=== PATIENT | male | born 1945 | race Caucasian/White ===

== ENCOUNTER 2019-08-08 14:34 | Outpatient (CLI) | payer MEDICARE, OTHER, SELFPAY ==
--- NOTE | ~2019-08-08 | XR_ITS ---
XR foot RT 2V DATE: 08/08/2019 15:02 INDICATION: Pain at fifth distal metatarsal and ball of foot TECHNIQUE: Standing AP and lateral views COMPARISON: None FINDINGS: Mild plantar and moderate posterior calcaneal enthesopathy. No fracture, dislocation, periosteal reaction or bone destruction. IMPRESSION: Mild plantar and moderate posterior calcaneal enthesopathy Reviewed, dictated and finalized at location B. 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
== END 2019-08-08 14:35 | disposition home or self-care (01) ==
PROVIDERS: PCP Internal Medicine; Visit Provider Internal Medicine
DX: M77.9 Enthesopathy, unspecified (principal)
CPT/HCPCS: 73620

== ENCOUNTER 2019-10-16 16:22 | Outpatient (CLI) | payer MEDICARE, OTHER, SELFPAY ==
[2019-10-16 17:21] LABS: Blood Urea Nitrogen 22 mg/dL (9-20); Calcium 8.7 mg/dL (8.4-10.2); Carbon Dioxide 32 mmol/L (22-30); Chloride 97 mmol/L (98-107); Estimated Glomerular Filt Rate > 60; Glucose 107 mg/dL (75-110); Sodium 136 mmol/L (137-145)
== END 2019-10-16 16:23 | disposition home or self-care (01) ==
PROVIDERS: PCP Internal Medicine; Visit Provider Internal Medicine
DX: R94.6 Abnormal results of thyroid function studies (principal); Z79.899 Other long term (current) drug therapy
CPT/HCPCS: 36415; 80048; 84439; 84443

== ENCOUNTER 2019-10-22 12:23 | Outpatient (CLI) | payer MEDICARE, OTHER, SELFPAY ==
--- NOTE | ~2019-10-22 | CT_ITS ---
EXAMINATION: CT chest abdomen pelvis wo con EXAM DATE: 10/22/2019 12:48 INDICATION: Unintended weight loss. TECHNIQUE: Spiral CT of the chest, abdomen and pelvis was performed without contrast. Axial, posey l and sagittal images were reviewed. Coronal maximum intensity pixel images of chest reviewed. The dose-length product (DLP) for this examination was 796.23 mGy-cm. The exposure was tailored accordin g to patient size (auto mA exposure control), and iterative reconstruction (ASIR) was used as additio nal dose reduction technique. Comparison is made to prior examination from 04/16/2011. FINDINGS: CHEST: There is mild emphysema. The lungs are clear. Small pericardial effusion. No pleural effusio ns. Tracheobronchial tree is patent. There is no mediastinal, hilar or axillary lymphadenopathy. There is no pneumothorax. Heart normal in size. There is mild coronary arterial calcification, a rterial sclerosis. ABDOMEN PELVIS: The liver, spleen, adrenal glands and pancreas are unremarkable. Gallbladder is unre markable. No biliary obstruction. There is no nephrolithiasis or hydronephrosis. There is mild pro statomegaly. The bladder is unremarkable. There is no retroperitoneal or pelvic lymphadenopathy. There is mild to moderate scattered arteriosclerotic disease. The appendix is normal. The stomach and small bowel are unremarkable. There is moderate amount of c olonic stool. There is rather extensive sigmoid predominant colonic diverticulosis. There is no ace cent inflammatory change to suggest diverticulitis. No free intraperitoneal gas. There are no oste oblastic or osteolytic lesions identified. Patient has diffuse idiopathic skeletal hyperostosis (DIS H). IMPRESSION: 1. Mild emphysema. 2. Small pericardial effusion. 3. Colonic diverticulosis. Reviewed, dictated and finalized at location A.
== END 2019-10-22 12:24 | disposition home or self-care (01) ==
PROVIDERS: PCP Internal Medicine; Visit Provider Internal Medicine
DX: R63.4 Abnormal weight loss (principal); J43.9 Emphysema, unspecified; I31.3 Pericardial effusion (noninflammatory); K57.30 Diverticulosis of large intestine without perforation or abscess without bleeding
CPT/HCPCS: 71250; 74176

== ENCOUNTER 2019-11-30 07:41 | Outpatient (CLI) | payer MEDICARE, OTHER, SELFPAY ==
[2019-11-30 08:35] LABS: Hemoglobin A1C 5.4 % (<5.7)
[2019-11-30 08:37] LABS: Alanine Aminotransferase 74 U/L (4-50); Albumin Level 4.3 g/dL (3.5-5.1); Alkaline Phosphatase 68 U/L (38-126); Aspartate Amino Transferase 55 U/L (17-59); Bilirubin,Total 1.1 mg/dL (0.2-1.3); Blood Urea Nitrogen 18 mg/dL (9-20); Calcium 8.9 mg/dL (8.4-10.2); Carbon Dioxide 31 mmol/L (22-30); Chloride 100 mmol/L (98-107); Cholesterol 111 mg/dL (0-200); Estimated Glomerular Filt Rate > 60; Glucose 97 mg/dL (75-110); HDL Direct 49 mg/dL; Potassium 3.9 mmol/L (3.4-5.0); Sodium 137 mmol/L (137-145); Triglycerides 73 mg/dL (<150)
[2019-11-30 08:48] LABS: LDL Cholesterol Direct 54 mg/dL
[2019-11-30 08:49] LABS: Basophils Percent Auto 0.7 % (0.2-1.2); Eosinophils Absolute Auto 0.1 K/mm3 (0-0.3); Hematocrit 50.9 % (42.0-52.0); Hemoglobin 16.5 g/dL (14.0-18.0); Immature Granulocyte Absolute 0.01 K/mm3 (0.00-0.031); Immature Granulocyte Percent A 0.2 % (0-0.5); Immature Platelet Fraction Pct 2.5 % (0.9-11.2); Lymphocytes Absolute Auto 1.33 K/mm3 (0.9-3.2); Lymphocytes Percent Auto 23.9 % (18.3-44.2); Mean Corpuscular HGB Conc 32.4 g/dl (32-36); Mean Corpuscular Hemoglobin 31.3 pg (26-34); Mean Corpuscular Volume 96.6 fl (80-100); Mean Platelet Volume 9.7 fl (7.4-10.4); Monocytes Absolute Auto 0.5 K/mm3 (0.1-0.6); Monocytes Percent Auto 8.1 % (2.6-8.5); Neutrophils Absolute Auto 3.6 K/mm3 (1.3-6.7); Neutrophils Percent Auto 65.1 % (45.5-73.1); Platelet Count Result 134 k/mm3 (150-375); Red Blood Count 5.27 M/mm3 (4.6-6.20); Red Cell Distribution Width 12.5 % (11.5-14.5); White Blood Count 5.6 K/mm3 (4.5-10.0)
[2019-11-30 09:03] LABS: Free T4 Free Thyroxine 1.64 ng/mL (0.78-2.19)
[2019-11-30 09:43] LABS: Folic Acid > 20.0 ng/mL (2.76->20); Vitamin B12 > 1000.0 pg/mL (239-931)
[2019-12-02 23:58] LABS: Testosterone Total 349 ng/dL (250-1100)
== END 2019-11-30 07:42 | disposition home or self-care (01) ==
PROVIDERS: Visit Provider Internal Medicine
DX: E53.8 Deficiency of other specified B group vitamins (principal); Z79.899 Other long term (current) drug therapy; E29.1 Testicular hypofunction; I10 Essential (primary) hypertension; E78.5 Hyperlipidemia, unspecified; B35.1 Tinea unguium
CPT/HCPCS: 36415; 80053; 80061; 82607; 82746; 83036; 84403; 84439; 84443; 85025; 85055

== ENCOUNTER 2020-01-22 12:59 | Outpatient (CLI) | payer MEDICARE, OTHER, SELFPAY ==
--- NOTE | ~2020-01-22 | XR_ITS ---
XR hip RT min 2V DATE: 01/22/2020 13:14 INDICATION: Right hip lateral localized swelling, mass TECHNIQUE: AP, lateral and crosstable lateral views of right hip COMPARISON: None FINDINGS: No fracture or dislocation, avascular necrosis or bone destruction. The alignment is intact at the pubic symphysis and right sacroiliac joint. There is degenerative disc disease at L4-5 and L5-S1. IMPRESSION: No significant abnormality of right hip Degenerative disc disease at L4-5 and L5-S1 Reviewed, dictated and finalized at location B.
== END 2020-01-22 13:00 | disposition home or self-care (01) ==
PROVIDERS: Visit Provider Internal Medicine
DX: R22.41 Localized swelling, mass and lump, right lower limb (principal); M51.36 Other intervertebral disc degeneration, lumbar region; M51.37 Other intervertebral disc degeneration, lumbosacral region
CPT/HCPCS: 73502

== ENCOUNTER 2020-01-31 09:52 | Outpatient (CLI) | payer MEDICARE, OTHER, SELFPAY ==
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
== END 2020-01-31 09:53 | disposition home or self-care (01) ==
LOC: ANHIMG 09:56
PROVIDERS: Visit Provider Internal Medicine
DX: R22.41 Localized swelling, mass and lump, right lower limb (principal)
CPT/HCPCS: 76882

== ENCOUNTER 2020-08-20 09:14 | Outpatient (CLI) | payer MEDICARE, OTHER, SELFPAY ==
[2020-08-20 10:22] LABS: Alanine Aminotransferase 78 U/L (4-50); Alkaline Phosphatase 69 U/L (38-126); Anion Gap 4 mmol/L (8-16); Aspartate Amino Transferase 67 U/L (17-59); Bilirubin,Total 0.7 mg/dL (0.2-1.3); Blood Urea Nitrogen 16 mg/dL (9-20); Calcium 8.5 mg/dL (8.4-10.2); Carbon Dioxide 33 mmol/L (22-30); Chloride 102 mmol/L (98-107); Cholesterol 140 mg/dL (0-200); Estimated Glomerular Filt Rate > 60; Glucose 103 mg/dL (75-110); HDL Direct 45 mg/dL; Potassium 4.2 mmol/L (3.4-5.0); Sodium 139 mmol/L (137-145); Triglycerides 99 mg/dL (<150)
[2020-08-20 10:23] LABS: LDL Cholesterol Direct 73 mg/dL
[2020-08-20 11:09] LABS: Free T4 Free Thyroxine 1.34 ng/mL (0.78-2.19); Vitamin D 25 Hydroxy 51.9 ng/mL
== END 2020-08-20 09:15 | disposition home or self-care (01) ==
PROVIDERS: Visit Provider Internal Medicine
DX: E78.2 Mixed hyperlipidemia (principal); I10 Essential (primary) hypertension; Z79.899 Other long term (current) drug therapy; E55.9 Vitamin D deficiency, unspecified; E11.9 Type 2 diabetes mellitus without complications
CPT/HCPCS: 36415; 80053; 80061; 82306; 83036; 83698; 84439; 84443

== ENCOUNTER → 2020-10-31 01:56 | Outpatient (CLI) | payer MEDICARE, OTHER, SELFPAY ==
[2020-10-31 19:43] LABS: SARS-CoV-2 RNA PCR Negative
== END ==
PROVIDERS: Visit Provider Internal Medicine Gastroenterology
DX: Z01.812 Encounter for preprocedural laboratory examination (principal); Z20.822 Contact with and (suspected) exposure to COVID-19
CPT/HCPCS: C9803; U0003; U0005

== ENCOUNTER 2020-11-04 02:25 | Day surgery (SDC) | payer MEDICARE, OTHER, SELFPAY ==
[2020-10-22 15:15] VITALS: BMI 27.9
--- NOTE | 2020-11-04 07:36 | WPDANESEPPF ---
Anes - Initial Pre Proc Eval Procedure: Operation Date: 11/04/20 09:00 Proposed Procedures p Screening Colonoscopy - Travis Kolb MD Date/Time: 11/04/20 07:36 Surgeon: Travis Kolb MD Pre Op Diagnosis: hx of colon polyp, fam hx colon ca Patient Data Age: 75 Gender: M Height: 1.8 m Weight: 90.9 kg Allergies Allergy/AdvReac Type Severity Reaction Status Date / Time Iodinated Contrast Media Allergy Unknown Hives Verified 11/04/20 08:01 Contrast Media Allergy Mild HIVES Uncoded 11/04/20 08:01 Home Medications Medication Instructions Recorded Confirmed Type aspirin 81 mg tablet,delayed 81 mg PO DAILY 07/19/19 11/04/20 History release cyanocobalamin (vitamin B-12) 1,000 mcg PO DAILY 07/19/19 11/04/20 History 1,000 mcg capsule multivitamin 1 tablet PO DAILY 07/19/19 11/04/20 History melatonin 10 mg capsule 10 mg PO HS 08/07/19 11/04/20 History finasteride 5 mg tablet 5 mg PO DAILY #90 tablet 11/12/19 11/04/20 Rx metformin 500 mg tablet 500 mg PO BID #180 tablet 12/18/19 11/04/20 Rx calcium carbonate-vitamin D3 1 tab-cap PO DAILY 02/07/20 11/04/20 History pantoprazole 40 mg tablet,delayed 40 mg PO DAILY #90 tablet 02/25/20 11/04/20 Rx release omega-3 fatty acids 1,000 mg 2,000 mg PO BID cap 04/22/20 11/04/20 History capsule rosuvastatin 10 mg tablet 10 mg PO DAILY #90 tablet 04/22/20 11/04/20 Rx celecoxib 200 mg capsule See Rx Instructions .ROUTE 05/26/20 11/04/20 Rx .COMPLEX #180 cap tamsulosin 0.4 mg capsule See Rx Instructions .ROUTE 06/03/20 11/04/20 Rx .COMPLEX #90 cap candesartan 16 mg tablet See Rx Instructions .ROUTE 06/15/20 11/04/20 Rx .COMPLEX #90 tablet testosterone cypionate 200 mg/mL 400 mg IM .q 2 weeks #12 ml 06/25/20 11/04/20 Rx intramuscular kit syringe with needle 3 mL 21 gauge See Rx Instructions .ROUTE 08/13/20 11/04/20 Rx x 1 .COMPLEX #6 syringe mirtazapine 15 mg tablet See Rx Instructions .ROUTE 08/31/20 11/04/20 Rx .COMPLEX #90 tablet fesoterodine 4 mg tablet,extended 4 mg PO DAILY 09/03/20 11/04/20 History release 24 hr nystatin-triamcinolone 100,000 1 applic TOPICAL BID #30 g 09/03/20 11/04/20 Rx unit/g-0.1 % topical cream lorazepam 0.5 mg tablet 0.5 mg PO TID PRN #270 tablet 09/29/20 11/04/20 Rx amiodarone 100 mg tablet 100 mg PO DAILY #90 tablet 10/09/20 11/04/20 Rx terazosin 10 mg capsule 10 mg PO DAILY #90 cap 10/12/20 11/04/20 Rx sertraline 100 mg tablet 150 mg PO DAILY #135 tablet 10/22/20 11/04/20 Rx Patient hx anesthesia problems: none Family hx anesthesia problems: none PMFSH Past Medical History Medical History (Updated 09/03/20 @ 09:18 by Tara Valle [facility]) Abnormality of heart beat Actinic keratosis Anxiety with depression Arthritis BMI 27.0-27.9,adult BMI 28.0-28.9,adult BMI 30.0-30.9,adult BMI 31.0-31.9,adult Borderline abnormal TFTs BPH (benign prostatic hyperplasia) Callus of foot Chronic right hip pain Colon cancer screening Constipation Depression Diastolic dysfunction Elevated homocysteine Encounter for routine adult health examination without abnormal findings Hearing loss Hematoma of right hip History of kidney stones History of umbilical hernia Hypogonadism in male Insomnia Mixed hyperlipidemia Multiple falls Nocturia On hand i tube bender drug therapy On hand i tube bender drug therapy Orthostatic hypotension Pneumonia Prediabetes Right foot pain Seasonal allergies Sinus arrhythmia Stress due to illness of family member SVT (supraventricular tachycardia) Tenosynovitis of finger Testicular hypofunction Testosterone deficiency Tremor of both hands Type 2 diabetes mellitus without complication Type 2 diabetes mellitus without complications Unintended weight loss Urinary frequency Urinary urgency Vitamin B12 deficiency Vitamin D deficiency Weight loss Family History Family History Mother Carcinoma of colon Family history of diabetes mellitus in fir
[2020-11-04 08:04] VITALS: BP 105/62; PULSE 67; RESP 16; TEMP 35.5; O2SAT 97; BMI 27.6
[2020-11-04] MEDS: LACTATED RINGERS 1,000 ML 150 ML IV CONT (08:20)
[2020-11-04 08:24] LABS: Glucose Point of Care 112 mg/dl (65-105)
--- NOTE | 2020-11-04 09:05 | WPDGICN ---
Assessment and Plan Assessment and plan (1) History of colon polyps: Code(s): Z86.010 - Personal history of colonic polyps Status: Acute Assessment and Plan: patient has a personal history of colon polyps as well as a family history of colon cancer in his mother. For this recent surveillance colonoscopy will be performed now and considered in 5 years. Further recommendations will be given after endoscopy. (2) Family history of colon cancer in mother: Code(s): Z80.0 - Family history of malignant neoplasm of digestive organs Status: Acute (3) Constipation: Qualifiers: Constipation type: unspecified constipation type Qualified Code(s): K59.00 - Constipation, unspecified Code(s): K59.00 - Constipation, unspecified Status: Acute Assessment and Plan: Patient complains of ongoing constipation. I would advise he take fiber supplements such as FiberCon 2 tablets p.o. daily or Metamucil daily supplemented with MiraLax once or twice a week as needed. GI Consult Note Consult date/time: 11/04/20 09:05 HPI: Liam Oreilly is a 75 year old male Presents for screening colonoscopy. Patient states that his current weight appetite bowel movements are normal. Patient denies abdominal pain. He has had no bleeding. Patient does have a prior history of colon polyps. Family history is significant that his mother had colon cancer. Patient does report some degree of irregular bowel movements. He denies any blood in his stools. He denies abdominal pain. Review of Systems Review of Systems: All systems reviewed & are unremarkable except as noted in HPI and below PMFSH Past Medical History Medical History (Updated 11/04/20 @ 09:08 by Travis Kolb MD) Abnormality of heart beat Actinic keratosis Anxiety with depression Arthritis BMI 27.0-27.9,adult BMI 28.0-28.9,adult BMI 30.0-30.9,adult BMI 31.0-31.9,adult Borderline abnormal TFTs BPH (benign prostatic hyperplasia) Callus of foot Chronic right hip pain Colon cancer screening Constipation Depression Diastolic dysfunction Elevated homocysteine Encounter for routine adult health examination without abnormal findings Hearing loss Hematoma of right hip History of kidney stones History of umbilical hernia Hypogonadism in male Insomnia Mixed hyperlipidemia Multiple falls Nocturia On mcc drug therapy On manager intermediate drug therapy Orthostatic hypotension Pneumonia Prediabetes Right foot pain Seasonal allergies Sinus arrhythmia Stress due to illness of family member SVT (supraventricular tachycardia) Tenosynovitis of finger Testicular hypofunction Testosterone deficiency Tremor of both hands Type 2 diabetes mellitus without complication Type 2 diabetes mellitus without complications Unintended weight loss Urinary frequency Urinary urgency Vitamin B12 deficiency Vitamin D deficiency Weight loss Family History Family History Mother Carcinoma of colon Family history of diabetes mellitus in first degree relative Diabetes mellitus Family history of cardiovascular disease Father Family history of malignant neoplasm Social History Social History Smoking status: Former smoker Tobacco type: cigarettes Smoking end date: 06/19/97 Alcohol intake: never Substance use: never Substance use type: does not use Living arrangements: alone Gender identity (if verbalized by the patient): Male Sexual Orientation (if Verbalized by the Patient): Straight or Heterosexual Spiritual care concerns: No Meds Home Medications and Allergies Home Medications Medication Instructions Recorded Confirmed Type aspirin 81 mg tablet,delayed 81 mg PO DAILY 07/19/19 11/04/20 History release cyanocobalamin (vitamin B-12) 1,000 mcg PO DAILY 07/19/19 11/04/20 History 1,000 mcg capsule multivi
[2020-11-04 09:35] VITALS: BP 99/52; PULSE 53; RESP 16; O2SAT 98
[2020-11-04 09:45] VITALS: BP 88/54; PULSE 54; RESP 16; O2SAT 98
[2020-11-04 09:55] VITALS: BP 92/58; PULSE 54; RESP 16; O2SAT 99
== END 2020-11-04 10:14 | disposition home or self-care (01) ==
PROVIDERS: Visit Provider Internal Medicine Gastroenterology
PROC: 0DJD8ZZ Inspection of Lower Intestinal Tract, Via Natural or Artificial Opening Endoscopic (ICD-10-PCS; CPT 45378; principal; 2020-11-04 09:00)
DX: Z12.11 Encounter for screening for malignant neoplasm of colon (principal); D12.5 Benign neoplasm of sigmoid colon; K57.30 Diverticulosis of large intestine without perforation or abscess without bleeding; K64.8 Other hemorrhoids; Z80.0 Family history of malignant neoplasm of digestive organs; K59.00 Constipation, unspecified; F41.8 Other specified anxiety disorders; N40.0 Benign prostatic hyperplasia without lower urinary tract symptoms; E78.2 Mixed hyperlipidemia; E11.9 Type 2 diabetes mellitus without complications; I51.9 Heart disease, unspecified; E55.9 Vitamin D deficiency, unspecified; E53.8 Deficiency of other specified B group vitamins; Z87.891 Personal history of nicotine dependence; Z79.84 Long term (current) use of oral hypoglycemic drugs; Z79.82 Long term (current) use of aspirin
CPT/HCPCS: 45385; 82948; 88305; J2001; J2704; J7120

== ENCOUNTER 2021-01-07 07:25 | Outpatient (CLI) | payer MEDICARE, OTHER, SELFPAY ==
[2021-01-07 07:57] LABS: Anion Gap 8 mmol/L (8-16); Blood Urea Nitrogen 27 mg/dL (9-20); Carbon Dioxide 27 mmol/L (22-30); Chloride 104 mmol/L (98-107); Cholesterol 144 mg/dL (0-200); Estimated Glomerular Filt Rate > 60; Glucose 102 mg/dL (65-110); HDL Direct 44 mg/dL; Potassium 4.6 mmol/L (3.4-5.0); Sodium 139 mmol/L (137-145); Triglycerides 110 mg/dL (<150)
[2021-01-07 08:03] LABS: Hemoglobin A1C 5.4 % (<5.7)
[2021-01-07 08:06] LABS: LDL Cholesterol Direct 67 mg/dL
[2021-01-07 08:14] LABS: Basophils Percent Auto 0.8 % (0.2-1.2); Eosinophils Absolute Auto 0.2 K/mm3 (0-0.3); Eosinophils Percent Auto 3.1 % (0-4.4); Hematocrit 49.2 % (42.0-52.0); Hemoglobin 15.4 g/dL (14.0-18.0); Immature Granulocyte Absolute 0.01 K/mm3 (0.00-0.031); Immature Granulocyte Percent A 0.2 % (0-0.5); Immature Platelet Fraction Pct 2.8 % (0.9-11.2); Lymphocytes Percent Auto 31.1 % (18.3-44.2); Mean Corpuscular HGB Conc 31.3 g/dl (32-36); Mean Corpuscular Hemoglobin 30.4 pg (26-34); Mean Platelet Volume 9.8 fl (7.4-10.4); Monocytes Absolute Auto 0.4 K/mm3 (0.1-0.6); Monocytes Percent Auto 8.5 % (2.6-8.5); Neutrophils Absolute Auto 2.7 K/mm3 (1.3-6.7); Neutrophils Percent Auto 56.3 % (45.5-73.1); Platelet Count Result 142 k/mm3 (150-375); Red Blood Count 5.07 M/mm3 (4.6-6.20); Red Cell Distribution Width 12.8 % (11.5-14.5); White Blood Count 4.8 K/mm3 (4.5-10.0)
== END 2021-01-07 07:26 | disposition home or self-care (01) ==
PROVIDERS: Visit Provider Internal Medicine
DX: E78.2 Mixed hyperlipidemia (principal); E11.9 Type 2 diabetes mellitus without complications; Z79.899 Other long term (current) drug therapy
CPT/HCPCS: 36415; 80048; 80061; 83036; 85025; 85055

== ENCOUNTER 2021-01-29 15:11 | Observation (INO) | payer MEDICARE, OTHER, SELFPAY ==
--- NOTE | ~2021-01-29 | XR_ITS ---
EXAMINATION: XR chest 2V DATE: 01/29/2021 15:39 INDICATION: Left arm pain and weakness TECHNIQUE: PA and lateral views of the chest were obtained. COMPARISON: Chest radiograph dated 08/11/2017 FINDINGS: The lungs remain clear with no focal airspace opacities, pulmonary edema, pleural effusion or pneumot horax. The cardiomediastinal silhouette is normal. There are bridging osteophytes at multiple levels in the spine, consistent with diffuse idiopathic skeletal hyperostosis (DISH). Chronic mild anterior wedging of a couple mid thoracic vertebral bodies. IMPRESSION: 1. No acute cardiopulmonary disease. Reviewed, dictated and finalized at location A.
--- NOTE | 2021-01-29 15:14 | ECG_ITS ---
Measurements Intervals Chloe Rate: 60 P: -61 AL: 231 QRS: 35 QRSD: 92 T: 38 QT: 445 QTc: 445 Interpretive Statements SINUS OR ECTOPIC ATRIAL RHYTHM BORDERLINE AV CONDUCTION DELAY CANNOT RULE OUT SEPTAL INFARCT, AGE INDETERMINATE ABNORMAL ECG Electronically Signed On 01-29-2021 15:26:14 CDT by Michael Quintero D.O.
[2021-01-29 15:27] VITALS: BP 143/71; PULSE 61; RESP 15; TEMP 36.7; O2SAT 100
[2021-01-29 15:44] LABS: Basophils Percent Auto 0.5 % (0.2-1.2); Eosinophils Absolute Auto 0.1 K/mm3 (0-0.3); Eosinophils Percent Auto 0.8 % (0-4.4); Hematocrit 44.8 % (42.0-52.0); Hemoglobin 14.2 g/dL (14.0-18.0); Immature Granulocyte Absolute 0.03 K/mm3 (0.00-0.031); Immature Granulocyte Percent A 0.4 % (0-0.5); Immature Platelet Fraction Pct 2.5 % (0.9-11.2); Lymphocytes Absolute Auto 1.43 K/mm3 (0.9-3.2); Lymphocytes Percent Auto 19.6 % (18.3-44.2); Mean Corpuscular HGB Conc 31.7 g/dl (32-36); Mean Corpuscular Hemoglobin 30.6 pg (26-34); Mean Corpuscular Volume 96.6 fl (80-100); Mean Platelet Volume 9.8 fl (7.4-10.4); Monocytes Absolute Auto 0.6 K/mm3 (0.1-0.6); Monocytes Percent Auto 8.1 % (2.6-8.5); Neutrophils Absolute Auto 5.2 K/mm3 (1.3-6.7); Neutrophils Percent Auto 70.6 % (45.5-73.1); Platelet Count Result 135 k/mm3 (150-375); Red Blood Count 4.64 M/mm3 (4.6-6.20); Red Cell Distribution Width 13.1 % (11.5-14.5); White Blood Count 7.3 K/mm3 (4.5-10.0)
[2021-01-29 15:52] LABS: Anion Gap 6 mmol/L (8-16); Blood Urea Nitrogen 22 mg/dL (9-20); Calcium 9.4 mg/dL (8.4-10.2); Carbon Dioxide 31 mmol/L (22-30); Chloride 103 mmol/L (98-107); Estimated CRCL calculation 49 ml/min; Estimated Glomerular Filt Rate 59; Glucose 73 mg/dL (65-110); Potassium 4.1 mmol/L (3.4-5.0); Sodium 140 mmol/L (137-145)
[2021-01-29 16:01] LABS: Prothrombin Time 13.4 Seconds (11.1-14.7)
[2021-01-29 16:02] LABS: Partial Thromboplastin Time 24.7 SECONDS (22.3-36.8)
[2021-01-29 16:03] LABS: Troponin I 0.034 ng/mL (0.000-0.034)
[2021-01-29 17:45] VITALS: BP 153/86; PULSE 59; RESP 16; O2SAT 100
--- NOTE | 2021-01-29 19:20 | PC.NURSE ---
report to CARROL christopher, to continue care.
[2021-01-29] MEDS: NITROGLYCERIN SL 0.4 MG TABLET SUBLINGUAL (19:32)
[2021-01-29 19:44] VITALS: BP 146/79; PULSE 57; RESP 21; O2SAT 99
--- NOTE | 2021-01-29 19:51 | PC.NURSE ---
1st dose of nitro given 1931, 2nd dose given 1936 upon which no chest pain noted. no 3rd dose given.
[2021-01-29 20:32] LABS: Troponin I 0.042 ng/mL (0.000-0.034)
[2021-01-29] MEDS: ACETAMINOPHEN 500 MG TABLET 1000 MG PO (20:45)
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
[2021-01-29 22:25] VITALS: PULSE 59; RESP 16; O2SAT 97
[2021-01-30] MEDS: ENOXAPARIN 100 MG/ML SYRINGE 90 MG SUB-Q (00:16)
[2021-01-30 01:51] VITALS: BP 126/70; PULSE 53; RESP 12; O2SAT 99
[2021-01-30 02:15] VITALS: BP 142/78; PULSE 50; RESP 14; TEMP 36.9; O2SAT 100
--- NOTE | 2021-01-30 02:26 | PC.NURSE ---
This patient, Liam Oreilly, was admitted to IMU Room 205-01. Patient/family oriented to hospital policies and general routines including ID bracelet, bed and alarms, visiting hours, pain management, procedures, bathroom and other care routines, personal items, smoking policy, room service/diet, and visiting hours. Information on how to activate the Rapid Response Team has been discussed. Patient/Family are encouraged to report perceived risks to care and to ask questions if they do not understand what they are told or what they should do.
[2021-01-30 02:28] VITALS: BMI 28.0
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
[2021-01-30 04:25] VITALS: BP 139/82; PULSE 52; RESP 16; TEMP 37; O2SAT 100
[2021-01-30] MEDS: ACETAMINOPHEN 325 MG TABLET 650 MG PO (05:41)
[2021-01-30] MEDS: LACTATED RINGERS 1,000 ML 60 ML IV CONT (05:41)
[2021-01-30 06:03] LABS: Troponin I 0.029 ng/mL (0.000-0.034)
[2021-01-30 08:00] VITALS: PULSE 53
[2021-01-30 09:27] VITALS: BP 155/83; PULSE 56; RESP 20; TEMP 36.4; O2SAT 100
[2021-01-30] MEDS: CHOLECALCIFEROL 1,000 UNITS TABLET 1000 UNITS PO (10:36)
[2021-01-30] MEDS: ASPIRIN 81 MG ENTERIC TABLET PO (10:36)
[2021-01-30] MEDS: CYANOCOBALAMIN 1,000 MCG TABLET 1000 MCG PO (10:36)
[2021-01-30] MEDS: MIRABEGRON 25 MG ER TABLET PO (10:37)
[2021-01-30] MEDS: OMEGA 3 POLYUNSAT FATTY ACIDS 1 GM CAP 2 GM PO (10:37)
[2021-01-30] MEDS: FINASTERIDE 5 MG TABLET PO (10:37)
[2021-01-30] MEDS: CANDESARTAN CILEXETIL 16 MG TABLET PO (10:37)
[2021-01-30] MEDS: ROSUVASTATIN 10 MG TABLET PO (10:37)
[2021-01-30] MEDS: MULTIVITAMINS THERAPEUTIC TAB (*BKC) 1 TABLET PO (10:37)
[2021-01-30] MEDS: TAMSULOSIN HCL 0.4 MG CAPSULE PO (10:38)
[2021-01-30] MEDS: SERTRALINE HCL 50 MG TABLET 100 MG PO (10:38)
[2021-01-30] MEDS: TERAZOSIN HCL 5 MG CAPSULE 10 MG PO (10:38)
[2021-01-30] MEDS: PANTOPRAZOLE 40 MG TABLET PO (10:38)
[2021-01-30] MEDS: MIRTAZAPINE 30 MG TABLET PO (10:38)
--- NOTE | 2021-01-30 17:05 | PM.DS ---
DS: Admitting Diagnosis Admitting Diagnosis Left arm pain DS: Discharge Diagnosis Discharge Diagnosis (1) Left arm pain: Code(s): M79.602 - Pain in left arm Status: Acute Assessment and Plan: Patient had significant exertion yesterday doing yd work, subsequently had left arm pain which resolved. The next day patient's symptoms have resolved, unclear etiology as to arm pain. Throughout this episode he is not having chest symptoms or shortness of breath at all. (2) Elevated troponin: Code(s): R77.8 - Other specified abnormalities of plasma proteins Status: Acute Assessment and Plan: Troponin max at 0.042, unclear etiology may be from stress. Patient will follow-up with cardiology outpatient. Patient had normal stress test 2 years ago January 2019. He has been followed up for SVTs with Dr. Quintero. Recently stopped his amiodarone earlier this month. His symptoms did not appear to be ACS with no chest symptoms no shortness of breath. 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 Quintero. I discussed case with Dr. Quintero. DS: Summary Hospital Course Reason for hospitalization: Left arm pain Hospital Course: Patient is a 75-year-old male past medical history of hypertension hyperlipidemia presents to the ED with complaints of left arm pain. 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 Later that day he went to play cards with his friends and noticed left arm pain. The arm pain was nonexertional at the time of onset when he noticed it. He had no chest or shortness of breath symptoms, no history of coronary disease. He called his PCP who advised him to be evaluated in the ER. Of note he recently has been following Dr. Quintero for SVT and has been on amiodarone which was discontinued 2 weeks ago. He is to have an outpatient Holter monitor placed with the cardiology group. Echocardiogram in 2019 showed EF 55-60% with grade 1 diastolic dysfunction, mild left atrial enlargement and mild MR/TR. He had stress test in 2019 which was negative. He had EKG which showed no acute abnormality. Nitroglycerin did not help and Tylenol leave his pain. His troponin was elevated at 0.042 and then downtrended thereafter. Patient did not have any active chest pain during that elevated troponin. Patient was admitted for observation. Patient's symptoms have resolved by the next morning. No EKG changes or telemetry changes. His troponin has down trended to normal, he had only 1 abnormal troponin read up based off our lab parameters. He is asymptomatic and we are unable to do stress test today over the weekend. I discussed case with Cardiology Dr. Quintero will follow-up with him outpatient with no stress test ordered at this time. Status at Discharge Cognitive/behavioral status at discharge: At baseline Functional status at discharge: independent ambulation Time Spent with Patient Time attestation: Total time spent providing and/or coordinating discharge services:35 Time spent: Greater than 30 minutes Exam Narrative: - GENERAL: Well-nourished pleasant elderly male in no acute distress - EYES: EOMI. Anicteric. - HENT: Moist mucous membranes. - LUNGS: Clear to auscultation bilaterally, no wheezing, rhonchi, or rales. - CARDIOVASCULAR: Regular rate and rhythm. No murmur. No JVD. - ABDOMEN: Soft, non-tender and non-distended. No palpable masses. - EXTREMITIES: No edema. Peripheral pulses 2+. Non-tender. - NEUROLOGIC: No focal neurological deficits. CN II-XII grossly intact. - PSYCHIATRIC: Awake, Alert and oriented x 3. Appropriate mood and affect. - SKIN: No rashes or lesions. Warm. - LYMPH: No cervical lymphadenopathy. DS: Data Data Completed and Pending Labs on day of discharge: Labs from last 24 hours 01/30/21 01/29/21 04:31 19:29 Troponin I 0.029 0.042 H* D Discharge Plan Discharge Attending physician on discharge: Jovanna Garsia
== END 2021-01-30 11:15 | disposition home or self-care (01) ==
LOC: ANHED 23:06 → ANHIMU 01-30 10:15
PROVIDERS: Emergency Medicine; Admitting Provider Internal Medicine; Emergency Provider Emergency Medicine; PCP Internal Medicine; Visit Provider Student in an Organized Health Care Education/Training Program
DX: M79.622 Pain in left upper arm (principal); R77.8 Other specified abnormalities of plasma proteins; N40.0 Benign prostatic hyperplasia without lower urinary tract symptoms; E78.2 Mixed hyperlipidemia; I11.9 Hypertensive heart disease without heart failure; E53.8 Deficiency of other specified B group vitamins; F41.8 Other specified anxiety disorders; I47.1 Supraventricular tachycardia; K21.9 Gastro-esophageal reflux disease without esophagitis; E11.9 Type 2 diabetes mellitus without complications; E55.9 Vitamin D deficiency, unspecified; Z87.891 Personal history of nicotine dependence; Z79.84 Long term (current) use of oral hypoglycemic drugs; Z79.82 Long term (current) use of aspirin
CPT/HCPCS: 36415; 71046; 80048; 84484; 85025; 85055; 85610; 85730; 93005; 96372; 99285; A9270; G0378; J1650; J7120

== ENCOUNTER 2021-02-12 12:42 | Outpatient (CLI) | payer MEDICARE, OTHER, SELFPAY ==
--- NOTE | 2021-02-16 12:04 | WPDHOLTEREM ---
Holter/Event Monitor Holter/Event Monitor Date of procedure: 02/12/21 Holter/Event Procedure: 48 Hr Holter Monitor Indications: PSVT Conclusion: 1. 48 hour holter monitor on 02/12/21. 2. Predominant rhythm is sinus rhythm. HR range 47-115 bpm; average HR 70 bpm. 3. There are 1,095 premature supraventricular complexes, 15 supraventricular couplets, 3 supraventricular triplets. No supraventricular tachycardia. 4. There are 7,924 premature ventricular complexes, 36 ventricular couplets, 136 ventricular bigeminy and 21 ventricular trigeminy. One episode of ventricular tachycardia at 152 bpm lasting 6 beats at 18:56. 5. First degree AV blocks. No significant pauses greater than 2 seconds. 6. No symptoms available for correlation.
== END 2021-02-12 12:43 | disposition home or self-care (01) ==
PROVIDERS: PCP Internal Medicine; Visit Provider Internal Medicine Cardiovascular Disease
DX: I47.1 Supraventricular tachycardia (principal); I44.0 Atrioventricular block, first degree; R94.31 Abnormal electrocardiogram [ECG] [EKG]
CPT/HCPCS: 93225; 93226

== ENCOUNTER 2021-09-10 08:36 | Outpatient (CLI) | payer MEDICARE, OTHER, SELFPAY ==
[2021-09-10 08:58] LABS: Basophils Percent Auto 0.7 % (0.2-1.2); Eosinophils Absolute Auto 0.1 K/mm3 (0-0.3); Eosinophils Percent Auto 2.2 % (0-4.4); Hematocrit 46.3 % (42.0-52.0); Hemoglobin 14.4 g/dL (14.0-18.0); Immature Granulocyte Absolute 0.01 K/mm3 (0.00-0.031); Immature Granulocyte Percent A 0.2 % (0-0.5); Lymphocytes Absolute Auto 1.05 K/mm3 (0.9-3.2); Lymphocytes Percent Auto 23.4 % (18.3-44.2); Mean Corpuscular HGB Conc 31.1 g/dl (32-36); Mean Corpuscular Hemoglobin 30.1 pg (26-34); Mean Corpuscular Volume 96.9 fl (80-100); Mean Platelet Volume 9.5 fl (7.4-10.4); Monocytes Absolute Auto 0.4 K/mm3 (0.1-0.6); Monocytes Percent Auto 8.2 % (2.6-8.5); Neutrophils Absolute Auto 2.9 K/mm3 (1.3-6.7); Neutrophils Percent Auto 65.3 % (45.5-73.1); Platelet Count Result 135 k/mm3 (150-375); Red Blood Count 4.78 M/mm3 (4.6-6.20); Red Cell Distribution Width 13.7 % (11.5-14.5); White Blood Count 4.5 K/mm3 (4.5-10.0)
[2021-09-10 09:00] LABS: Add Urine Microscopic? YES; Appearance Urine Clear (Clear); Bilirubin Urine Negative (Negative); Blood Urine 1+ (Negative); Color Urine Yellow (Yellow); Glucose Urine UA Negative (Negative); Ketones Urine Negative (Negative); Leukocyte Esterase Ur Negative LEU/UL (Negative); Nitrate Urine Negative (Negative); Protein Urine Negative (Negative); RBC Urine 0-2 /hpf (0-2); Specific Grav Ur 1.011 (1.001-1.035); Urobilinogen Urine Negative mg/dL (<2.0); WBC Urine 0-3 /hpf
[2021-09-10 09:12] LABS: Alanine Aminotransferase 38 U/L (4-50); Albumin Level 4.1 g/dL (3.5-5.1); Alkaline Phosphatase 74 U/L (38-126); Anion Gap 6 mmol/L (8-16); Aspartate Amino Transferase 49 U/L (17-59); Blood Urea Nitrogen 17 mg/dL (9-20); Calcium 8.5 mg/dL (8.4-10.2); Carbon Dioxide 30 mmol/L (22-30); Chloride 103 mmol/L (98-107); Cholesterol 99 mg/dL (0-200); Estimated Glomerular Filt Rate > 60; Glucose 100 mg/dL (65-110); HDL Direct 37 mg/dL; Potassium 4.2 mmol/L (3.4-5.0); Sodium 139 mmol/L (137-145); Triglycerides 65 mg/dL (<150)
[2021-09-10 09:23] LABS: LDL Cholesterol Direct 45 mg/dL
[2021-09-10 09:54] LABS: Free T4 Free Thyroxine 1.13 ng/mL (0.78-2.19)
== END 2021-09-10 08:37 | disposition home or self-care (01) ==
LOC: ANHLAB 08:40
PROVIDERS: PCP Internal Medicine; Visit Provider Internal Medicine
DX: E11.9 Type 2 diabetes mellitus without complications (principal); I10 Essential (primary) hypertension; R94.6 Abnormal results of thyroid function studies; E78.2 Mixed hyperlipidemia; Z79.899 Other long term (current) drug therapy
CPT/HCPCS: 36415; 80053; 80061; 81001; 83036; 84439; 84443; 85025; 85055

== ENCOUNTER 2021-09-28 07:19 | Outpatient (CLI) | payer MEDICARE, OTHER, SELFPAY ==
--- NOTE | 2021-09-28 07:25 | ECHO_ITS ---
Patient Info Name: Liam Oreilly Age: 76 years : 1945 Gender: Male Ht: 71 in Wt: 200 lbs BSA: 2.15 m2 HR: 60 bpm BP: 164 / 82 mmHg Technical Quality: Good Exam Date: 09/28/2021 7:35 AM Exam Location: [facility] Patient Status: Outpatient Admit Date: 09/28/2021 Staff Ordering Physician: Sidney Khan MD Patient Services Clerk: Minnie Singh RDCS Attending Provider: Sidney Khan MD Referring Physician: Bill SANTANA; Exam Type: CA echo doppler color flow Study Info Indications I51.89 - Other ill-defined heart diseases Complete two-dimensional, color flow and Doppler transthoracic echocardiogram is performed. Summary 1. Complete two-dimensional, color flow and Doppler transthoracic echocardiogram is performed. 2. Left ventricular chamber dimension is normal. 3. Left ventricular systolic function is normal, estimated at 60-65%. 4. There is mildly increased left ventricular wall thickness. 5. The left ventricular diastolic function is grade I diastolic dysfunction. 6. E/e' 10 is mildly elevated. 7. Global longitudinal strain is abnormal at -13.8%. 8. Left atrial chamber dimension is moderately enlarged. 9. Right atrial chamber dimension is mildly enlarged. 10. There is moderate aortic valve sclerosis. 11. The mitral valve has mildly calcified annulus. 12. There is trace tricuspid valve regurgitation. 13. No pulmonary hypertension, estimated pulmonary arterial systolic pressure is 32 mmHg. 14. There is trace pulmonic regurgitation. 15. There is trivial pericardial effusion. Left Ventricle E/e' 10 is mildly elevated. Global longitudinal strain is abnormal at -13.8%. Left ventricular chamber dimension is normal. Left ventricular systolic function is normal, estimated at 60-65%. There is mildly increased left ventricular wall thickness. The left ventricular diastolic function is grade I diastolic dysfunction. Right Ventricle Right ventricular chamber dimension is normal. Right ventricular systolic function is normal. Left Atria Left atrial chamber dimension is moderately enlarged. Right Atria Right atrial chamber dimension is mildly enlarged. Aortic Valve The aortic valve is trileaflet. There is moderate aortic valve sclerosis. There is no aortic valve stenosis. There is no aortic valve regurgitation. Pulmonic Valve There is trace pulmonic regurgitation. Mitral Valve The mitral valve has mildly calcified annulus. There is no mitral valve stenosis. There is no mitral valve regurgitation. Tricuspid Valve There is trace tricuspid valve regurgitation. No pulmonary hypertension, estimated pulmonary arterial systolic pressure is 32 mmHg. Pericardium/Pleural There is trivial pericardial effusion. Inferior Vena Cava Normal inferior vena cava with >50% collapse upon inspiration consistent with normal right atrial pressure, 5 mmHg. Aorta The aortic root size at the sinus of Valsalva is normal. Left Ventricular Outflow Tract Name Value Normal LVOT 2D LVOT Diameter 2.0 cm LVOT Doppler LVOT Peak Gradient 5 mmHg LVOT Mean Gradient
== END 2021-09-28 07:20 | disposition home or self-care (01) ==
LOC: ANHCARD 07:21
PROVIDERS: PCP Internal Medicine; Visit Provider Internal Medicine
DX: R01.1 Cardiac murmur, unspecified (principal); I51.89 Other ill-defined heart diseases; I35.8 Other nonrheumatic aortic valve disorders
CPT/HCPCS: 93306

== ENCOUNTER 2022-01-10 11:25 | Outpatient (CLI) | payer MEDICARE, SELFPAY ==
[2022-01-10 12:01] LABS: Hemoglobin A1C 5.4 % (<5.7)
[2022-01-10 12:02] LABS: Alanine Aminotransferase 41 U/L (6-50); Albumin Level 4.5 g/dL (3.5-5.1); Alkaline Phosphatase 82 U/L (38-126); Anion Gap 8 mmol/L (8-16); Aspartate Amino Transferase 50 U/L (17-59); Bilirubin,Total 0.9 mg/dL (0.2-1.3); Blood Urea Nitrogen 15 mg/dL (9-20); Calcium 8.6 mg/dL (8.4-10.2); Carbon Dioxide 30 mmol/L (22-30); Chloride 101 mmol/L (98-107); Cholesterol 198 mg/dL (0-200); Estimated Glomerular Filt Rate > 60; Glucose 102 mg/dL (65-110); HDL Direct 37 mg/dL; Potassium 4.1 mmol/L (3.4-5.0); Sodium 139 mmol/L (137-145); Triglycerides 172 mg/dL (<150)
[2022-01-10 12:13] LABS: LDL Cholesterol Direct 103 mg/dL
[2022-01-10 12:32] LABS: Free T4 Free Thyroxine 1.29 ng/mL (0.78-2.19)
[2022-01-14 11:04] LABS: Testosterone Total 795 ng/dL (250-1100)
== END 2022-01-10 11:26 | disposition home or self-care (01) ==
LOC: ANHLAB 11:31
PROVIDERS: PCP Internal Medicine; Visit Provider Internal Medicine
DX: E78.5 Hyperlipidemia, unspecified (principal); I10 Essential (primary) hypertension; R94.6 Abnormal results of thyroid function studies; E11.9 Type 2 diabetes mellitus without complications
CPT/HCPCS: 36415; 80053; 80061; 83036; 84403; 84439; 84443

== ENCOUNTER 2022-06-04 07:30 | Outpatient (CLI) | payer MEDICARE, SELFPAY ==
[2022-06-04 07:58] LABS: Basophils Percent Auto 0.8 % (0.2-1.2); Eosinophils Absolute Auto 0.1 K/mm3 (0-0.3); Eosinophils Percent Auto 2.5 % (0-4.4); Hemoglobin 14.4 g/dL (14.0-18.0); Immature Granulocyte Absolute 0.02 K/mm3 (0.00-0.031); Immature Granulocyte Percent A 0.4 % (0-0.5); Lymphocytes Absolute Auto 1.18 K/mm3 (0.9-3.2); Lymphocytes Percent Auto 22.7 % (18.3-44.2); Mean Corpuscular Hemoglobin 29.4 pg (26-34); Mean Platelet Volume 9.3 fl (7.4-10.4); Monocytes Absolute Auto 0.3 K/mm3 (0.1-0.6); Monocytes Percent Auto 6.4 % (2.6-8.5); Neutrophils Absolute Auto 3.5 K/mm3 (1.3-6.7); Neutrophils Percent Auto 67.2 % (45.5-73.1); Platelet Count Result 146 k/mm3 (150-375); Red Blood Count 4.89 M/mm3 (4.6-6.20); Red Cell Distribution Width 13.2 % (11.5-14.5); White Blood Count 5.2 K/mm3 (4.5-10.0)
[2022-06-04 08:12] LABS: Alanine Aminotransferase 29 U/L (6-50); Albumin Level 4.4 g/dL (3.5-5.1); Alkaline Phosphatase 78 U/L (38-126); Anion Gap 5 mmol/L (8-16); Aspartate Amino Transferase 50 U/L (17-59); Bilirubin,Total 0.5 mg/dL (0.2-1.3); Blood Urea Nitrogen 22 mg/dL (9-20); Calcium 9.2 mg/dL (8.4-10.2); Carbon Dioxide 32 mmol/L (22-30); Chloride 104 mmol/L (98-107); Cholesterol 127 mg/dL (0-200); Estimated Glomerular Filt Rate > 60; Glucose 110 mg/dL (65-110); HDL Direct 43 mg/dL; Potassium 4.3 mmol/L (3.4-5.0); Sodium 141 mmol/L (137-145); Triglycerides 148 mg/dL (<150)
[2022-06-04 08:22] LABS: Hemoglobin A1C 5.5 % (<5.7)
[2022-06-04 08:23] LABS: LDL Cholesterol Direct 58 mg/dL
[2022-06-04 08:41] LABS: Prostate Specific Antigen 2.9 ng/mL (< OR = 4.0)
[2022-06-04 08:53] LABS: Vitamin D 25 Hydroxy 67.4 ng/mL
[2022-06-06 08:08] LABS: Free T4 Free Thyroxine 1.35 ng/mL (0.78-2.19)
== END 2022-06-04 07:31 | disposition home or self-care (01) ==
PROVIDERS: PCP Internal Medicine; Visit Provider Internal Medicine
DX: E55.9 Vitamin D deficiency, unspecified (principal); E78.2 Mixed hyperlipidemia; E11.9 Type 2 diabetes mellitus without complications; Z12.5 Encounter for screening for malignant neoplasm of prostate; R94.6 Abnormal results of thyroid function studies; I10 Essential (primary) hypertension
CPT/HCPCS: 36415; 80053; 80061; 82306; 83036; 84153; 84439; 84443; 85025; G0103

== ENCOUNTER 2022-08-27 15:18 | Inpatient (IN) | payer MEDICARE, SELFPAY ==
[2022-08-27] VITALS (17 sets, daily range): BP systolic 142–161; BP diastolic 74–134; PULSE 76–98; RESP 14–31; TEMP 36.8–37.4; O2SAT 81–100; BMI 27.6
--- NOTE | ~2022-08-27 | US_ITS ---
EXAMINATION: US carotid duplex BI DATE: 08/28/2022 10:40 INDICATION: Carotid atherosclerosis. Weakness and frequent falls. TECHNIQUE: Grayscale, color Doppler, and pulsed Doppler images of the cervical carotid arteries were obtained. The degree of vessel stenosis is placed in one of the following categories: normal, <50%, 5 0-69%, >=70% but less than near-occlusion, near-occlusion, or total occlusion. Note that percent sten osis relative to normal distal artery lumen diameter is indirectly measured from velocity measurement s as described by Apollo, et al. Radiology 2003; 229:340-346. COMPARISON: None. FINDINGS: RIGHT: The right common carotid artery (CCA) peak systolic velocity (PSV) is 91 cm/s. The right internal car otid artery (ICA) PSV is 61 cm/s. The right ICA end-diastolic velocity (EDV) is 16 cm/s. The right IC A/CCA PSV ratio is 0.7. Grayscale and color Doppler images yield an estimate of <50% diameter reducti on from plaque in the ICA. The external carotid artery (ECA) PSV is 85 cm/s. There is antegrade flow in the right vertebral artery. LEFT: The left CCA PSV is 107 cm/s. The left ICA PSV is 61 cm/s. The left ICA EDV is 16 cm/s. The left ICA/ CCA PSV ratio is 0.6. Grayscale and color Doppler images yield an estimate of <50% diameter reduction from plaque in the ICA. The ECA PSV is 80 cm/s. There is antegrade flow in the left vertebral artery . IMPRESSION: 1. <50% stenosis from minimal plaque in the right internal carotid artery. 2. <50% stenosis from minimal plaque in the left internal carotid artery. Reviewed, dictated and finalized at location A.
--- NOTE | ~2022-08-27 | XR_ITS ---
Portable chest x-ray Comparison: 01/29/2021 Clinical History: Weakness Findings: Lungs are clear, without focal consolidation or pleural effusion. Cardiomediastinal silho uette is stable. Bones and soft tissues are unremarkable. Impression: Clear lungs. Reviewed, dictated and finalized at location . 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
--- NOTE | ~2022-08-27 | MR_ITS ---
MRI of the brain Clinical History: Frequent falls, dizziness Technique: Axial and sagittal T1-weighted images were acquired. These were followed by axial T2-weigh nat, diffusion weighted, gradient, and FLAIR images. Findings: There is no acute infarct, intracranial hemorrhage, or mass lesion. Minimal chronic white m atter changes are noted in the periventricular white matter. Ventricles and subarachnoid spaces are mildly dilated. Orbits are unremarkable. Paranasal sinuses and mastoid air cells are clear. Major intracranial flow voids are intact. Sagittal midline structures are intact. IMPRESSION: No acute abnormality. [id number] generalized atrophy and minimal chronic microvascular ischemic change. Reviewed, dictated and finalized at location . IMPRESSION: No acute abnormality. [id number] generalized atrophy and minimal chronic microvascular ischemic change.
--- NOTE | ~2022-08-27 | XR_ITS ---
Portable chest x-ray Comparison: 09/08/2022 Clinical History: Respiratory failure Findings: Endotracheal tube, NG tube, and left-sided PICC line are in place. Mild diffuse groundglas s/interstitial disease is unchanged. No pleural effusion or pneumothorax. Cardiomediastinal silhouet te is stable. Bones and soft tissues are unremarkable. Impression: Stable extensive groundglass/interstitial disease, predominantly at the lung bases and perihilar ernesto ons. Correlate for pulmonary edema or infection. Stable support tubes. Reviewed, dictated and finalized at location M. Impression: Stable extensive groundglass/interstitial disease, predominantly at the lung ba ses and perihilar regions. Correlate for pulmonary edema or infection. Stable support tubes.
--- NOTE | ~2022-08-27 | XR_ITS ---
XR chest 1V portable 09/03/2022 06:04 Indication: Respiratory failure Procedure: AP portable chest Comparison: Comparison to multiple prior studies sequentially, with oldest reviewed study dated 08/30. Findings: Endotracheal tube tip 4.5 cm above the carmen. Unchanged patchy bilateral airspace disease. No pleural effusion or pneumothorax. No acute osseous abnormality. Impression: 1: Unchanged patchy bilateral airspace disease, consistent with pneumonia. Reviewed, dictated and finalized at location A. Impression: 1: Unchanged patchy bilateral airspace disease, consistent with pneumonia.
--- NOTE | ~2022-08-27 | XR_ITS ---
Portable chest x-ray Comparison: 09/14/2022 Clinical History: Respiratory failure Findings: Endotracheal tube, NG tube, and left-sided PICC line remain in place. Stable extensive rylan undglass and interstitial pulmonary disease present. Cardiomediastinal silhouette is stable. Bones a nd soft tissues are unremarkable. Impression: Stable extensive pulmonary disease. Support tubes, as above. Reviewed, dictated and finalized at location . Impression: Stable extensive pulmonary disease. Support tubes, as above.
--- NOTE | ~2022-08-27 | XR_ITS ---
XR chest ET placement 09/01/2022 22:26 Indication: Respiratory distress. Intubation. Procedure: AP portable chest Comparison: Comparison to multiple prior studies sequentially, with oldest reviewed study dated 01/29. Findings: Interval placement of endotracheal tube, tip 4.8 cm above the carmen. There is patchy bilat eral airspace consolidation, consistent with pneumonia. No significant effusion or pneumothorax. No a cute osseous abnormality. Cardiomegaly. Impression: 1: Progression of patchy bilateral airspace disease, compatible with pneumonia. Reviewed, dictated and finalized at location A. Impression: 1: Progression of patchy bilateral airspace disease, compatible with pneumonia.
--- NOTE | ~2022-08-27 | XR_ITS ---
Portable chest x-ray Comparison: 09/05/2022 Clinical History: Respiratory failure Findings: Endotracheal tube and NG tube and left-sided PICC line are in satisfactory positions. Hazy and interstitial bilateral pulmonary disease is again present, especially at the lower lobes and rig ht upper lobe. Cardiomediastinal silhouette is stable. Bones and soft tissues are unremarkable. Impression: Bilateral pulmonary disease is essentially unchanged. Correlate for bilateral pneumonia versus edema or chronic interstitial disease. Support tubes, as above. Reviewed, dictated and finalized at location . Impression: Bilateral pulmonary disease is essentially unchanged. Correlate for bilateral p neumonia versus edema or chronic interstitial disease. Support tubes, as above.
--- NOTE | ~2022-08-27 | CT_ITS ---
EXAMINATION: CT chest high resolution wo la DATE: 09/11/2022 09:16 INDICATION: Respiratory failure, COVID 19 positive TECHNIQUE: Computed tomography (CT) of the chest was performed without intravenous contrast. The dose -length product (DLP) was 444.21 mGy-cm. Automated exposure control and iterative reconstruction tech Chictinique were employed. COMPARISON: None FINDINGS: There are diffuse groundglass and airspace opacities throughout the lungs with a mid and lo wer lung zone predominance. Opacities are worst in the lower lobes. No pleural effusion or pneumothor ax. The endotracheal tube is 3.8 cm above the carmen. The nasogastric tube is in the stomach. A left upper extremity PICC ends with its tip in the proximal right atrium. The heart size is normal. There is mild bilateral hilar lymphadenopathy, likely reactive. Calcified coronary artery atherosclerosis i s noted. There is a small pericardial effusion. There are bridging osteophytes at multiple levels in the spine, consistent with diffuse idiopathic skeletal hyperostosis (DISH). IMPRESSION: 1. Diffuse groundglass and airspace opacities throughout the lungs with a mid and lower lung zone pre dominance, consistent with COVID 19 pneumonia. Reviewed, dictated and finalized at location A. IMPRESSION: 1. Diffuse groundglass and airspace opacities throughout the lungs with a mid a nd lower lung zone predominance, consistent with COVID 19 pneumonia.
--- NOTE | ~2022-08-27 | CT_ITS ---
Noncontrast CT scan of the cervical spine Technique: Multiple contiguous axial [address] images of the cervical spine were obtained and rec onstructed in 2D sagittal and coronal planes on the acquisition scanner. Dose reduction technique was used on this scan by utilizing automated exposure control, adjustment of the mA and/or kV according to patient size. Clinical History: Pain Findings: No fractures or dislocations. There is advanced degenerative disc narrowing at C6-C7. Ther e are anterior marginal osteophytes from C4 through C6. There is probable left neural foraminal narro wing at C5-C6. No prevertebral soft tissue swelling. Impression: No fracture or subluxation of the cervical spine. Mild degenerative spondylosis, as above. Reviewed, dictated and finalized at [facility]. ORDER CLERK Impression: No fracture or subluxation of the cervical spine. Mild degenerative spondylosis, as above.
--- NOTE | ~2022-08-27 | XR_ITS ---
Portable chest x-ray Comparison: 09/11/2022 Clinical History: Respiratory failure Findings: Endotracheal tube, NG tube, and left-sided PICC line remain in place. Groundglass/intersti tial disease extensively in the lungs is unchanged. Cardiomediastinal silhouette is stable. Bones an d soft tissues are unremarkable. Impression: Stable extensive groundglass/interstitial pulmonary disease. Support tubes, as above. Reviewed, dictated and finalized at location . Impression: Stable extensive groundglass/interstitial pulmonary disease. Support tubes, as above.
--- NOTE | ~2022-08-27 | XR_ITS ---
EXAMINATION: XR chest 1V portable INDICATION: Respiratory failure TECHNIQUE: Portable AP chest at 0520 hours COMPARISON: 09/10/2022 FINDINGS: The endotracheal tube ends approximately 4.5 cm above the carmen. The nasogastric tube is f ollowed as far as the stomach. Its tip is beyond the inferior margin of the radiograph. A left upper extremity PICC ends with its tip in the superior vena cava. Interstitial and airspace opacities are p resent with slight worsening in the midlung zones. No pleural effusion or pneumothorax. IMPRESSION: 1. Diffuse lung disease with slight worsening in the mid lung zones, consistent with pneumonia versus pulmonary edema. Reviewed, dictated and finalized at location A.
--- NOTE | ~2022-08-27 | XR_ITS ---
XR chest 1V portable 09/04/2022 06:46 Indication: Respiratory failure Procedure: AP portable chest Comparison: Comparison to multiple prior studies sequentially, with oldest reviewed study dated 09/01. Findings: There is diffuse bilateral airspace disease which is improved in the right upper lobe. Endo tracheal tube tip 5.1 cm above the carmen. No significant effusion. No pneumothorax. NG tube in the s tomach. Impression: 1: Persistent diffuse bilateral airspace disease, improving in the right upper lobe. Differential bret gnosis includes edema and pneumonia. Reviewed, dictated and finalized at location A. Impression: 1: Persistent diffuse bilateral airspace disease, improving in the right upper lobe. Differential diagnosis includes edema and pneumonia.
--- NOTE | ~2022-08-27 | XR_ITS ---
Portable chest x-ray Comparison: 08/30/2022 Clinical History: Aspiration, hypoxia Findings: There is worsening consolidation throughout both lungs, worst in the right upper lobe. Ca rdiomediastinal silhouette is stable. Bones and soft tissues are unremarkable. Impression: Worsening extensive bilateral pulmonary disease, most confluent/extensive in the right upper lobe. Fi ndings are consistent with worsening bilateral pneumonia. Reviewed, dictated and finalized at location . Impression: Worsening extensive bilateral pulmonary disease, most confluent/extensive in th e right upper lobe. Findings are consistent with worsening bilateral pneumonia.
--- NOTE | ~2022-08-27 | XR_ITS ---
Portable AP views of the chest and upper abdomen CLINICAL HISTORY: NG tube insertion FINDINGS: NG tube is present, with tip at the level of the aortic arch. Majority of the tube appears to be coiled in the oropharynx region. Extensive bilateral pulmonary consolidation is present, worst in the right upper lobe. Visualized bowel loops in the upper abdomen are unremarkable. IMPRESSION: NG tube tip is at the level of the aortic arch, with the majority of the tube coiled in the oropharyn x. Replacement/repositioning is required. Extensive bilateral pulmonary consolidation, worst in the right upper lobe. Reviewed, dictated and finalized at location M. IMPRESSION: NG tube tip is at the level of the aortic arch, with the majority of the tube c oiled in the oropharynx. Replacement/repositioning is required. Extensive bilateral pulmonary consolidation, worst in the right upper lobe.
--- NOTE | ~2022-08-27 | XR_ITS ---
AP and lateral views of the right femur Clinical History: Pain Findings: No acute fracture or dislocation is seen. Osseous alignment is anatomic. Visualized joint s paces are grossly preserved. Soft tissues are unremarkable. Impression: Unremarkable right femoral radiographs. Reviewed, dictated and finalized at location M. 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
--- NOTE | ~2022-08-27 | XR_ITS ---
EXAMINATION: XR chest 2V Exam Date/Time: 08/30/2022 17:50 CDT HISTORY: Poss aspiration Comparison: 08/27/2022, 01/29/2021. RESULT: Lines, tubes, and devices: None. Lungs and pleura: Low lung volumes with crowding. New airspace disease in the peripheral right upper lobe and bilateral lower lobes. Cardiomediastinal silhouette: Stable. Other: No acute osseous or upper abdominal finding. IMPRESSION: New right upper lobe and bilateral lower lobe airspace disease, may represent multifocal pneumonia in the appropriate clinical context. Reviewed, dictated and finalized at location K. IMPRESSION: New right upper lobe and bilateral lower lobe airspace disease, may represent m ultifocal pneumonia in the appropriate clinical context.
--- NOTE | ~2022-08-27 | XR_ITS ---
Portable chest x-ray Comparison: 09/06/2022 Clinical History: Respiratory failure Findings: Endotracheal tube and NG tube and left-sided PICC line are in place. There is mild diffuse groundglass/interstitial pulmonary disease. Cardiomediastinal silhouette is stable. Bones and soft tissues are unremarkable. Impression: Mild diffuse groundglass/interstitial pulmonary disease. Correlate for pulmonary edema or infection. Support tubes, as above. Reviewed, dictated and finalized at location . Impression: Mild diffuse groundglass/interstitial pulmonary disease. Correlate for pulmonar y edema or infection. Support tubes, as above.
--- NOTE | ~2022-08-27 | XR_ITS ---
Portable chest x-ray Comparison: 09/13/2022 Clinical History: Respiratory failure Findings: Endotracheal tube, NG tube, and left-sided PICC line are in place. Extensive groundglass a nd interstitial pulmonary disease is present. Cardiomediastinal silhouette is stable. Bones and soft tissues are unremarkable. Impression: Stable extensive pulmonary disease. Correlate for chronic interstitial disease and/or pneumonia versu s acute pneumonia. Stable support tubes. Reviewed, dictated and finalized at location . Impression: Stable extensive pulmonary disease. Correlate for chronic interstitial disease and/or pneumonia versus acute pneumonia. Stable support tubes.
--- NOTE | ~2022-08-27 | XR_ITS ---
EXAMINATION: XR chest 1V portable INDICATION: Respiratory failure TECHNIQUE: Portable AP chest at 0810 hours COMPARISON: 09/09/2022 FINDINGS: The endotracheal tube ends approximately 3.6 cm above the carmen. The nasogastric tube is f ollowed as far as the stomach. Its tip is beyond the inferior margin of the radiograph. A left upper extremity PICC ends with its tip at the distal superior vena cava. No pleural effusion or pneumothora x. There is continued interval improvement in diffuse lung disease with persistent bibasilar airspace opacities. The cardiomediastinal silhouette is stable. IMPRESSION: 1. Continued improvement in diffuse lung disease with persistent airspace opacities of the lung bases , consistent with pneumonia versus pulmonary edema. Reviewed, dictated and finalized at location A. IMPRESSION: 1. Continued improvement in diffuse lung disease with persistent airspace opaci ties of the lung bases, consistent with pneumonia versus pulmonary edema.
--- NOTE | ~2022-08-27 | CT_ITS ---
Non-contrast Head CT History: Status post fall COMPARISON: 08/27/2022 Technique: Axial non-contrast imaging of the brain was performed. Dose reduction technique was used on this scan by utilizing automated exposure control and iterative reconstruction technique. The dose -length product (DLP) was 832.33 mGy-cm. Findings: There is no evidence of intracranial hemorrhage, mass lesion, or acute infarct. Brain par enchyma appears normal. The ventricles and subarachnoid spaces are normal in size. The calvarium ap pears normal. The visualized paranasal sinuses and mastoid air cells are clear. Impression: No significant abnormality seen. Reviewed, dictated and finalized at location . Impression: No significant abnormality seen.
--- NOTE | ~2022-08-27 | XR_ITS ---
Portable chest x-ray Comparison: 09/01/2022 Clinical History: Respiratory failure Findings: Endotracheal tube in place. Extensive bilateral airspace consolidation, most confluent at the right upper lobe. Cardiomediastinal silhouette is stable. Bones and soft tissues are unremarkabl e. Impression: Stable extensive bilateral airspace disease, worse in the right upper lobe. Findings suggest multilob ar pneumonia. ET tube in place. Reviewed, dictated and finalized at location . Impression: Stable extensive bilateral airspace disease, worse in the right upper lobe. Fin dings suggest multilobar pneumonia. ET tube in place.
--- NOTE | ~2022-08-27 | US_ITS ---
EXAMINATION: US venous doppler [facility] DATE: 09/01/2022 11:59 INDICATION: Hypoxia. TECHNIQUE: Grayscale ultrasound images without and with compression and Doppler ultrasound images of the bilateral lower extremity veins were obtained. COMPARISON: None. FINDINGS: The visualized portions of right common femoral vein, profunda (deep) femoral vein, femoral vein, pop liteal vein, peroneal veins, posterior tibial veins, and greater saphenous vein outflow are patent. The visualized portions of left common femoral vein, profunda femoral vein, femoral vein, popliteal v ein, peroneal veins, posterior tibial veins, and greater saphenous vein outflow are patent. IMPRESSION: 1. No deep venous thrombosis. Reviewed, dictated and finalized at location A.
--- NOTE | ~2022-08-27 | CT_ITS ---
Noncontrast CT scan of the cervical spine Technique: Multiple contiguous axial [address] images of the cervical spine were obtained and rec onstructed in 2D sagittal and coronal planes on the acquisition scanner. Dose reduction technique was used on this scan by utilizing automated exposure control, adjustment of the mA and/or kV according to patient size. Clinical History: Pain COMPARISON: 08/27/2022 Findings: No fractures or dislocations. Osseous alignment is unchanged from recent prior exam. Advan mitra degenerative disc narrowing at C6-C7. There is uncovertebral degenerative change at C5-C6 and C6- C7. There is significant left neural foraminal narrowing at C5-C6. Probable bilateral neural foramina l narrowing at C6-C7. There is probable mild canal stenosis at C6-C7 with disc osteophyte complex pre sent. No prevertebral soft tissue swelling. Probable small focal groundglass opacity noted in the left lung apex. Impression: No fracture or subluxation of the cervical spine. Degenerative spondylosis, stable from recent prior exam. Small focal groundglass opacity left lung apex. Correlate for focal infectious process. Reviewed, dictated and finalized at [facility]. Impression: No fracture or subluxation of the cervical spine. Degenerative spondylosis, stable from recent prior exam. Small focal groundglass opacity left lung apex. Correlate for focal infectious process.
--- NOTE | ~2022-08-27 | CT_ITS ---
EXAMINATION:CT diagnostic chest wo con DATE: 09/02/2022 12:31 INDICATION: Respiratory failure. TECHNIQUE: Computed tomography (CT) of the chest was performed without intravenous contrast. Automate d exposure control and iterative reconstruction technique were employed. The dose-length product (DLP ) was 615.90 mGy-cm. COMPARISON: Chest CT 10/22/2019 FINDINGS: There are airspace, groundglass opacities, septal thickening, and crazy paving involving al l lobes. There are small pleural effusions. The endotracheal tube tip is in expected position above t he carmen. The orogastric tube tip is in the stomach. Cardiomegaly is noted. There are coronary arter y calcifications. There is a small pericardial effusion. The central pulmonary arteries are enlarged, consistent with pulmonary arterial hypertension. A left upper extremity peripherally inserted centra l venous catheter (PICC) is seen with tip in the superior vena cava. The gallbladder is distended, wh ich may be secondary to fasting. There are bridging endplate osteophytes at multiple levels in the sp ine, consistent with diffuse idiopathic skeletal hyperostosis (DISH). There is mild chronic height lo ss of multiple vertebral bodies. IMPRESSION: 1. Diffuse lung disease, consistent with pulmonary edema and/or pneumonia. 2. Small pleural effusions. 3. Small pericardial effusion. Reviewed, dictated and finalized at location A.
--- NOTE | ~2022-08-27 | XR_ITS ---
EXAMINATION: XR chest 1V portable DATE: 09/13/2022 06:35 INDICATION: Respiratory failure. TECHNIQUE: A single frontal view of the chest was obtained. COMPARISON: Chest single view 09/12/2022, chest CT 09/11/2022 FINDINGS: There are interstitial and airspace opacities in all lung zones with a lower lung predomina nce. No pleural effusion or pneumothorax. The heart size is normal. The endotracheal tube tip is 4.7 cm above the carmen. The nasogastric tube tip is beyond the inferior margin of the radiograph, but at least to the stomach. A left upper extremity peripherally inserted central venous catheter (PICC) is seen with tip in the right atrium. IMPRESSION: 1. Stable diffuse lung disease, consistent with pulmonary edema versus pneumonia. Reviewed, dictated and finalized at location A. IMPRESSION: 1. Stable diffuse lung disease, consistent with pulmonary edema versus pneumoni a.
--- NOTE | ~2022-08-27 | CT_ITS ---
EXAMINATION: CT brain wo con INDICATION: Encephalopathy COMPARISON: 09/02/2022 TECHNIQUE: Standard unenhanced head CT. The dose-length product (DLP) was 681.00 mGy-cm. The mA was a djusted according to patient size. Iterative reconstruction technique was employed. FINDINGS: There is no acute intraparenchymal hemorrhage. No evidence of mass lesion. No evidence of a cute infarction. There is mild periventricular and subcortical hypodensity probably related to small vessel ischemic disease. There is mild prominence of the sulci and ventricles related to cerebral atr ophy. Intracranial calcified cerebral atherosclerosis is noted. There are no extra-axial collections. There is no mass effect or midline shift. Changes in the globes are likely from ocular lens surgery. There is mild mucosal thickening of the paranasal sinuses. There is a small left mastoid effusion. IMPRESSION: 1. No acute intracranial abnormality. 2. Age related findings. Reviewed, dictated and finalized at location A.
--- NOTE | ~2022-08-27 | XR_ITS ---
EXAMINATION: XR chest 1V portable INDICATION: Crepitus in the left arm TECHNIQUE: Portable AP chest at 2346 hours COMPARISON: 0557 hours FINDINGS: The endotracheal tube ends approximately 3.7 cm above the carmen. The nasogastric tube is f ollowed as far as the stomach. Its tip is beyond the inferior margin of the radiograph. Diffuse inter stitial and airspace opacities persist but have improved. No pleural effusion or pneumothorax. The ca rdiomediastinal silhouette is stable. No obvious radiographic correlate is identified for the reporte d left-sided crepitus. IMPRESSION: 1. Diffuse lung disease with interval improvement, consistent with pneumonia and/or pulmonary edema. Reviewed, dictated and finalized at location A. IMPRESSION: 1. Diffuse lung disease with interval improvement, consistent with pneumonia an d/or pulmonary edema.
--- NOTE | ~2022-08-27 | XR_ITS ---
EXAMINATION: XR lumbar puncture diagnostic DATE: 08/30/2022 12:00 INDICATION: Normal pressure hydrocephalus. TECHNIQUE: Consent was obtained from the patient's . A timeout was performed to verify the liban ent's name, date of , and procedure to be performed. The skin overlying the L2-L3 level was pre pped and draped in usual sterile fashion. Subcutaneous 1% lidocaine was used for local anesthesia. A 20 gauge spinal needle was advanced under fluoroscopic guidance. The needle was removed and the ent ry site was cleaned and dressed. There were no immediate complications. Fluoroscopy exposure time wa s 0.0 minutes. The total number of images was 1. FINDINGS: Real-time fluoroscopy demonstrates the needle at the L2-L3 level. The opening pressure was <5 cm water (Normal range is variably defined as 6-20 cm water and up to 25 cm water in obese patient s. Pressure >25 cm water is one of the modified Dandy criteria for idiopathic intracranial hypertensi on). 34 mL of clear, colorless fluid was collected in 4 tubes. IMPRESSION: 1. Successful fluoro-guided lumbar puncture. Reviewed, dictated and finalized at location A.
--- NOTE | ~2022-08-27 | XR_ITS ---
EXAMINATION: XR soft tissue neck INDICATION: Goiter, possible subcutaneous air TECHNIQUE: Two views of the neck soft tissues are obtained. COMPARISON: CT, 08/30/2022 FINDINGS: No definite subcutaneous air is identified. Nasogastric and endotracheal tubes are noted. T here is a left subclavian central venous catheter. Severe cervical spondylosis is noted. IMPRESSION: 1. No definite subcutaneous air identified. Consider further evaluation with CT if there is high clin ical suspicion for subcutaneous gas. Reviewed, dictated and finalized at location A. IMPRESSION: 1. No definite subcutaneous air identified. Consider further evaluation with CT if there is high clinical suspicion for subcutaneous gas.
--- NOTE | ~2022-08-27 | CT_ITS ---
CT head without contrast Indication: Head injury COMPARISON: 12/27/2013 Technique: Serial scans were obtained through the brain without the administration of contrast. Dose reduction technique was used on this scan by utilizing automated exposure control and iterative recon struction technique. The dose-length product (DLP) was 681.00 mGy-cm. Findings: There is no evidence of intracranial hemorrhage, mass lesion, or acute infarct. The ventri cles and subarachnoid spaces are dilated, consistent with mild to moderate atrophy. There is no evid ence of edema, mass effect or midline shift. The visualized paranasal sinuses and mastoid air cells are clear. Impression: No intracranial hemorrhage, mass, or acute infarct. Mild to moderate generalized atrophy. Reviewed, dictated and finalized at [facility]. 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 Mild to moderate generalized atrophy.
--- NOTE | ~2022-08-27 | XR_ITS ---
EXAMINATION: XR fl guid NG/feed tube insert DATE: 09/02/2022 12:38 INDICATION: Intubated. TECHNIQUE: I placed an orogastric tube under fluoroscopic guidance. The number of images was 2. The f luoroscopy exposure time was 1.3 minutes. COMPARISON: None. FINDINGS: The orogastric tube tip is in the stomach. IMPRESSION: 1. Fluoroscopy guided orogastric tube placement with tip in the stomach. Reviewed, dictated and finalized at location A.
--- NOTE | ~2022-08-27 | XR_ITS ---
Portable chest x-ray Comparison: 09/07/2022 Clinical History: Respiratory failure Findings: Endotracheal tube, NG tube, and left-sided PICC line remain in place. Extensive groundglas s/interstitial pulmonary disease is again present. Cardiomediastinal silhouette is stable. Bones and soft tissues are unremarkable. Impression: Stable extensive pulmonary disease. Correlate for pulmonary edema or infection. Stable support tubes. Reviewed, dictated and finalized at location . Impression: Stable extensive pulmonary disease. Correlate for pulmonary edema or infection. Stable support tubes.
--- NOTE | ~2022-08-27 | XR_ITS ---
Portable chest x-ray Comparison: 09/04/2022 Clinical History: Respiratory failure Findings: Endotracheal tube and NG tube are in satisfactory positions. Left-sided PICC line tip cros ses midline and is directed superiorly into the right brachiocephalic vein. There is mild patchy grou ndglass pulmonary disease bilaterally. Cardiomediastinal silhouette is stable. Bones and soft tissue s are unremarkable. Impression: Support tubes, as above. Left-sided PICC line tip is directed superiorly into the right brachiocephal ic vein. Consider retraction/repositioning to the SVC. Patchy groundglass pulmonary disease again present, worst in the right upper lobe. Correlate for pneu monia versus possibly atypical pulmonary edema pattern. Reviewed, dictated and finalized at location M. Impression: Support tubes, as above. Left-sided PICC line tip is directed superiorly into t he right brachiocephalic vein. Consider retraction/repositioning to the SVC. Patchy groundglass pulmonary disease again present, worst in the right upper lo be. Correlate for pneumonia versus possibly atypical pulmonary edema pattern.
--- NOTE | ~2022-08-27 | XR_ITS ---
EXAMINATION: XR chest 1V portable DATE: 09/05/2022 09:43 INDICATION: Attempted reposition of a left upper extremity PICC line. TECHNIQUE: frontal view of the chest was obtained. COMPARISON: Chest radiograph dated 09/05/2022 at 5:26 AM FINDINGS: Left upper extremity peripherally inserted central venous catheter (PICC) has been successfully repos itioned with distal tip now in the caudal superior vena cava. Endotracheal tube tip 3.7 cm above the carmen. Nasogastric tube extends below the left hemidiaphragm with distal tip collimated off the mily dy. No significant interval change in patchy groundglass opacities in both lungs most prominent in the le ft lower and right mid to lower lung zones. No pleural effusion or pneumothorax. Mild cardiomegaly. V isualized bones and soft tissues are unremarkable. IMPRESSION: 1. Successful repositioning of a left approach PICC line with distal tip down the caudal superior [place] a cava. 2. Persistent patchy bilateral lung disease which could represent pneumonia or pulmonary edema. 3. Mild cardiomegaly. Reviewed, dictated and finalized at location A. IMPRESSION: 1. Successful repositioning of a left approach PICC line with distal tip down t he caudal superior vena cava. 2. Persistent patchy bilateral lung disease which could represent pneumonia or pulmonary edema. 3. Mild cardiomegaly.
--- NOTE | ~2022-08-27 | CT_ITS ---
Non-contrast Head CT History: Altered mental status Technique: Axial non-contrast imaging of the brain was performed. Dose reduction technique was used on this scan by utilizing automated exposure control and iterative reconstruction technique. The dose -length product (DLP) was 681.00 mGy-cm. Findings: There is no evidence of intracranial hemorrhage, mass lesion, or acute infarct. Brain par enchyma appears normal. The ventricles and subarachnoid spaces are mildly dilated. The calvarium mulu ears normal. The visualized paranasal sinuses and mastoid air cells are clear. Impression: No acute abnormality seen. Mild generalized atrophy. Reviewed, dictated and finalized at location . Impression: No acute abnormality seen. Mild generalized atrophy.
--- NOTE | 2022-08-27 15:28 | ED.GENADULT ---
HPI - General Adult General Chief complaint: Fall Stated complaint: MULTIPLE FALLS History of Present Illness HPI narrative: 77-year-old male presented to the emergency department by EMS for evaluation of multiple ground-level falls. Patient states over the last few days he has had at least 5 falls. Patient did call EMS yesterday for a fall in a parking lot but declined transport at that time. Patient did have a fall in the house they called EMS and was willing to be evaluated. Patient did have follow-up with his primary care physician yesterday and his primary care physician felt the patient needed physical therapy. Patient reports the fall today was mechanical and occurred in the garage. Patient is unsure if he hit his head but patient does have a small abrasion to the left frontal scalp. Patient was also complaining of some neck pain after the fall and was placed and a c-collar by EMS. Patient also has some right mid thigh pain and he is unsure of which fall caused this pain. Patient does have a prior history of type 2 diabetes, urinary urgency, hypertension, high cholesterol, aortic valve sclerosis, CHF Related Data Home Medications Medication Instructions Recorded Confirmed aspirin 81 mg tablet,delayed 81 mg PO DAILY 07/19/19 07/18/22 release (Adult Low Dose Aspirin) cyanocobalamin (vitamin B-12) 1,000 mcg PO DAILY 07/19/19 07/18/22 1,000 mcg capsule multivitamin 1 tablet PO DAILY 07/19/19 07/18/22 melatonin 10 mg capsule 10 mg PO HS 08/07/19 07/18/22 omega-3 fatty acids 1,000 mg 2,000 mg PO BID 04/22/20 07/18/22 capsule (Fish Oil Concentrate) cholecalciferol (vitamin D3) 25 25 mcg PO DAILY 01/18/21 07/18/22 mcg (1,000 unit) tablet vibegron 75 mg tablet (Gemtesa) 75 mg PO DAILY 06/08/22 07/18/22 Allergies Allergy/AdvReac Type Severity Reaction Status Date / Time Iodinated Contrast Media Allergy Unknown Hives Verified 08/27/22 15:52 Contrast Media Allergy Mild HIVES Uncoded 07/18/22 08:02 Review of Systems Review of Systems: All systems reviewed & are unremarkable except as noted in HPI and below PMFSH Past Medical History Medical History (Updated 08/27/22 @ 17:49 by Terry Simon MD) Abnormality of heart beat Actinic keratosis Anxiety with depression Aortic valve sclerosis Arthritis Basal pneumonia of both lungs BMI 27.0-27.9,adult BMI 28.0-28.9,adult BMI 29.0-29.9,adult BMI 30.0-30.9,adult BMI 31.0-31.9,adult Borderline abnormal TFTs BPH (benign prostatic hyperplasia) Callus of foot Chronic right hip pain Colon cancer screening Constipation Depression Diastolic dysfunction Dizziness Dyslipidemia Ectopic atrial beats Elevated glucose Elevated homocysteine Elevated TSH Encounter for Medicare annual wellness exam Encounter for routine adult health examination without abnormal findings Essential (primary) hypertension Follow up GERD (gastroesophageal reflux disease) Hearing loss Heart murmur Hematoma of right hip Hematuria History of kidney stones History of umbilical hernia Hypogonadism in male Inclusion cyst Insomnia Mixed hyperlipidemia Multiple falls Neck mass Nocturia 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 Onychomycosis Orthostatic hypotension Pneumonia Prediabetes Prostate cancer screening Right foot pain Sciatica of right side Seasonal allergies Sinus arrhythmia Stress Stress due to illness of family member SVT (supraventricular tachycardia) Tenosynovitis of finger Testicular hypofunction Testosterone deficiency Tremor of both hands Type 2 diabetes mellitus without complication Type 2 diabetes mellitus without complications Unintended weight loss Urinary frequency Urinary urgency Vitamin B12 deficiency Vitamin D deficiency Weight loss Surgical History Surgical History (Updated 08/27/22 @ 17:19 by Antonietta Cobian NP) H/O umbilical hernia repair Status post tonsillectomy and adenoidectomy Family History Family History (Reviewed
[2022-08-27 16:11] LABS: Basophils Percent Auto 0.5 % (0.2-1.2); Hematocrit 44.6 % (42.0-52.0); Hemoglobin 13.9 g/dL (14.0-18.0); Immature Granulocyte Absolute 0.02 K/mm3 (0.00-0.031); Immature Granulocyte Percent A 0.3 % (0-0.5); Immature Platelet Fraction Pct 2.1 % (0.9-11.2); Lymphocytes Percent Auto 8.2 % (18.3-44.2); Mean Corpuscular HGB Conc 31.2 g/dl (32-36); Mean Corpuscular Hemoglobin 29.8 pg (26-34); Mean Corpuscular Volume 95.7 fl (80-100); Mean Platelet Volume 9.2 fl (7.4-10.4); Monocytes Absolute Auto 0.7 K/mm3 (0.1-0.6); Monocytes Percent Auto 12.1 % (2.6-8.5); Neutrophils Absolute Auto 4.8 K/mm3 (1.3-6.7); Neutrophils Percent Auto 78.9 % (45.5-73.1); Platelet Count Result 138 k/mm3 (150-375); Red Blood Count 4.66 M/mm3 (4.6-6.20); Red Cell Distribution Width 14.2 % (11.5-14.5); White Blood Count 6.1 K/mm3 (4.5-10.0)
[2022-08-27 16:15] LABS: Appearance Urine Clear (Clear); Bacteria Urine None Seen /hpf; Bilirubin Urine Negative (Negative); Blood Urine 3+ (Negative); Color Urine Yellow (Yellow); Glucose Urine UA Negative (Negative); Ketones Urine 1+ mg/dL (Negative); Leukocyte Esterase Ur Negative LEU/UL (Negative); Nitrate Urine Negative (Negative); Non Pathogenic Casts 0-2; Protein Urine 1+ mg/dL (Negative); Specific Grav Ur 1.019 (1.001-1.035); Squamous Epithelial Cell Urine None seen /hpf (Few); WBC Urine 0-5 /hpf; pH Urine 5.5 (5.0-9.0)
[2022-08-27 16:18] LABS: Add Urine Microscopic? YES
[2022-08-27 16:20] LABS: INR 1.1; Prothrombin Time 13.4 Seconds (11.1-14.7)
[2022-08-27 16:21] LABS: Partial Thromboplastin Time 32.1 SECONDS (22.3-36.8)
[2022-08-27 16:22] LABS: Alanine Aminotransferase 37 U/L (6-50); Albumin Level 4.1 g/dL (3.5-5.1); Alkaline Phosphatase 80 U/L (38-126); Anion Gap 6 mmol/L (8-16); Aspartate Amino Transferase 86 U/L (17-59); Blood Urea Nitrogen 18 mg/dL (9-20); Carbon Dioxide 29 mmol/L (22-30); Chloride 100 mmol/L (98-107); Estimated CRCL calculation 58 ml/min; Estimated Glomerular Filt Rate > 60; Glucose 92 mg/dL (65-110); Sodium 135 mmol/L (137-145)
[2022-08-27 16:45] LABS: Influenza A QL RT-PCR Negative (Negative); Influenza B QL RT-PCR Negative (Negative); RSV RNA, RT-PCR Negative (Negative); SARS-CoV-2 RNA PCR Positive
--- NOTE | 2022-08-27 17:17 | PM.IMHP ---
H&P: HPI History of Present Illness Date/Time: 08/27/22 17:17 Chief Complaint: Fall Narrative: This is a 77-year-old male patient who resides at home alone. The patient came to the emergency room to be evaluated for multiple ground level falls. The patient has an abrasion to his right elbow and his right knee and he also has an abrasion to the left side of his head. The patient has had at least 5 falls in the last few days. The patient called EMS yesterday after fall in a parking however, the patient refused to come to the hospital. The patient also fell in his garage yesterday and he was unsure if he hit his head but then he noticed the abrasion to the left frontal scalp. He has no complaints of any neck pain. The patient is very hard of hearing. I explained to him that he was positive for COVID but he denies any shortness of breath or cough or fever chills. He was inquisitive asked to where he might have acquired the COVID. The patient's is in the senior care and the patient visits her often. His femur x-rays unremarkable. Chest x-ray was read by radiology is clear lungs. Cervical spine CT was read as no fracture subluxation of the cervical spine mild degenerative spondylosis. Head ct no intracranial hemorrhage mass or acute infarction mild to moderate generalized atrophy. The patient is being admitted to inpatient status date of service is 08/27/2022 Review of Systems Review of Systems: See HPI All systems reviewed & are unremarkable except as noted in HPI and below Constitutional: Constitutional: Reports as per HPI and Reports no additional constitutional complaints Eyes: Eyes: Reports as per HPI and Reports no additional eye complaints ENT: Reports system reviewed and no additional complaints, except as documented and Reports Normal hearing present Cardiovascular: Cardiovascular: Reports no additional cardiovascular complaints Respiratory: Respiratory: Reports no additional respiratory complaints and Reports no additional respiratory complaints Gastrointestinal: Gastrointestinal: Reports as per HPI and Reports no additional gastrointestinal complaints Musculoskeletal: Musculoskeletal: Reports no additional musculoskeletal complaints Integumentary/Breasts: Skin/Breast: Reports system reviewed and no additional complaints, except as docu and Reports as per HPI Neurologic: Reports system reviewed and no additional complaints, except as documented, Reports as per HPI and Reports Normal hearing present Psychiatric: Psychiatric: Reports no additional psychiatric complaints and Reports as per HPI Endocrine: Endocrine: Reports no additional endocrine complaints Hematologic/Lymphatic: Hematologic/Lymphatic: Reports no additional hematologic/lymphatic complaints Allergic/Immunologic: Allergic/Immunologic: Reports no additional allergic/immunologic complaints [facility] Past Medical History Medical History Abnormality of heart beat Actinic keratosis Anxiety with depression Aortic valve sclerosis Arthritis Basal pneumonia of both lungs BMI 27.0-27.9,adult BMI 28.0-28.9,adult BMI 29.0-29.9,adult BMI 30.0-30.9,adult BMI 31.0-31.9,adult Borderline abnormal TFTs BPH (benign prostatic hyperplasia) Callus of foot Chronic right hip pain Colon cancer screening Constipation Depression Diastolic dysfunction Dizziness Dyslipidemia Ectopic atrial beats Elevated glucose Elevated homocysteine Elevated TSH Encounter for Medicare annual wellness exam Encounter for routine adult health examination without abnormal findings Essential (primary) hypertension Follow up GERD (gastroesophageal reflux disease) Hearing loss Heart murmur Hematoma of right hip Hematuria History of kidney stones History of umbilical hernia Hypogonadism in male Inclusion cyst Insomnia Mixed hyperlipidemia Multiple falls Neck mass Nocturia 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
--- NOTE | 2022-08-27 19:30 | PC.NURSE ---
Patient arrived on 3 Med-Surg at 19:05
[2022-08-27] MEDS: MELATONIN 5 MG TABLET 10 MG PO (22:21)
[2022-08-27] MEDS: CELECOXIB 200 MG CAPSULE PO (22:22)
[2022-08-27] MEDS: BENZOCAINE/MENTHOL (*BKC) 18 EA LOZENGE 1 LOZENGE PO (22:22)
[2022-08-27] MEDS: OMEGA 3 POLYUNSAT FATTY ACIDS 1 GM CAP 2 GM PO (22:48)
[2022-08-27] MEDS: MIRTAZAPINE 30 MG TABLET BY MOUTH (22:48)
--- NOTE | 2022-08-28 03:03 | PC.NURSE ---
Daylight Savings Time For Daylight Savings Time Ending in the Fall - Clocks are moved back. For Daylight Savings Time Beginning in the Spring - Clocks are moved ahead. For [facility], the time of change occurs at 0200 hrs. Time is taken from the seismograph observer. This entry on the patient's chart recognizes the change in time reflected during documentation. Example: 2 entries for vital signs may be charted for 0200 hrs.
[2022-08-28] MEDS: BENZOCAINE/MENTHOL (*BKC) 18 EA LOZENGE 1 LOZENGE PO (05:02)
[2022-08-28 05:49] VITALS: BP 122/67; PULSE 65; RESP 13; TEMP 37.2; O2SAT 99
[2022-08-28 06:57] LABS: Basophils Percent Auto 0.3 % (0.2-1.2); Eosinophils Percent Auto 0.2 % (0-4.4); Hematocrit 44.7 % (42.0-52.0); Hemoglobin 14.3 g/dL (14.0-18.0); Immature Granulocyte Absolute 0.01 K/mm3 (0.00-0.031); Immature Granulocyte Percent A 0.2 % (0-0.5); Immature Platelet Fraction Pct 2.5 % (0.9-11.2); Lymphocytes Absolute Auto 0.64 K/mm3 (0.9-3.2); Lymphocytes Percent Auto 10.6 % (18.3-44.2); Mean Corpuscular Hemoglobin 29.8 pg (26-34); Mean Corpuscular Volume 93.1 fl (80-100); Mean Platelet Volume 9.5 fl (7.4-10.4); Monocytes Absolute Auto 0.5 K/mm3 (0.1-0.6); Monocytes Percent Auto 8.2 % (2.6-8.5); Neutrophils Absolute Auto 4.8 K/mm3 (1.3-6.7); Neutrophils Percent Auto 80.5 % (45.5-73.1); Platelet Count Result 135 k/mm3 (150-375)
[2022-08-28 07:03] LABS: Alanine Aminotransferase 44 U/L (6-50); Albumin Level 3.9 g/dL (3.5-5.1); Alkaline Phosphatase 73 U/L (38-126); Anion Gap 6 mmol/L (8-16); Aspartate Amino Transferase 117 U/L (17-59); Bilirubin,Total 1.1 mg/dL (0.2-1.3); Blood Urea Nitrogen 17 mg/dL (9-20); Calcium 8.2 mg/dL (8.4-10.2); Carbon Dioxide 27 mmol/L (22-30); Chloride 103 mmol/L (98-107); Estimated CRCL calculation 69 ml/min; Estimated Glomerular Filt Rate > 60; Glucose 103 mg/dL (65-110); Lactate Dehydrogenase 361 U/L (120-246); Magnesium 1.9 mg/dL (1.6-2.3); Phosphorus 3.4 mg/dL (2.5-4.5); Potassium 3.7 mmol/L (3.4-5.0); Sodium 136 mmol/L (137-145)
[2022-08-28 07:08] LABS: Lactic Acid Reflex 0.8 mmol/L (0.7-2.0)
[2022-08-28 08:00] VITALS: O2SAT 95
[2022-08-28] MEDS: ASPIRIN 81 MG ENTERIC TABLET PO (08:49)
[2022-08-28] MEDS: TERAZOSIN HCL 5 MG CAPSULE 10 MG PO (08:50)
[2022-08-28] MEDS: ROSUVASTATIN 5 MG TABLET BY MOUTH (08:50)
[2022-08-28] MEDS: FINASTERIDE 5 MG TABLET BY MOUTH (08:50)
[2022-08-28] MEDS: PANTOPRAZOLE 40 MG TABLET BY MOUTH (08:50)
[2022-08-28] MEDS: SERTRALINE HCL 50 MG TABLET 150 MG BY MOUTH (08:50)
[2022-08-28 08:51] VITALS: PULSE 73
[2022-08-28] MEDS: AMIODARONE HCL 100 MG TABLET BY MOUTH (08:51)
[2022-08-28] MEDS: MULTIVITAMINS THERAPEUTIC TAB (*BKC) 1 TABLET PO (08:51)
[2022-08-28] MEDS: CYANOCOBALAMIN 1,000 MCG TABLET 1000 MCG PO (09:12)
[2022-08-28] MEDS: OMEGA 3 POLYUNSAT FATTY ACIDS 1 GM CAP 2 GM PO ×2 (09:12→16:47)
[2022-08-28] MEDS: CHOLECALCIFEROL 1,000 UNITS TABLET 1000 UNITS PO (09:13)
[2022-08-28 09:21] LABS: Cholesterol 184 mg/dL (0-200); HDL Direct 37 mg/dL; Triglycerides 88 mg/dL (<150)
[2022-08-28 09:31] LABS: LDL Cholesterol Direct 104 mg/dL
--- NOTE | 2022-08-28 10:00 | PM.IMPN ---
Progress Note: A&P Assessment and Plan (1) COVID: Code(s): U07.1 - COVID-19 Status: Acute Assessment and Plan: Test positive in the ED on 08/27/22 Currently the patient is on room air Continue with conservative measures Droplet and contact isolation (2) Falls frequently: Code(s): R29.6 - Repeated falls Status: Acute Assessment and Plan: PT OT evaluation greatly be appreciated ambulatory care coordinator consultation greatly be appreciated MRI of the brain Mild-Moderate generalized atrophy and minimal chronic microvascular ischemic changes, mildly dilated ventricles and subarachnoid spaces Could be related to NPH Carotid doppler performed 50% stenosis bilaterally Gait is severely ataxic, balance and gait are unsteady, workup for a stroke under way (3) GERD (gastroesophageal reflux disease): Qualifiers: Esophagitis presence: without esophagitis Qualified Code(s): K21.9 - Gastro-esophageal reflux disease without esophagitis Code(s): K21.9 - Gastro-esophageal reflux disease without esophagitis Status: Acute Assessment and Plan: Continue with pantoprazole (4) Type 2 diabetes mellitus without complications: Qualifiers: Diabetes mellitus prison insulin use: without terminal gauger supervisor use Qualified Code(s): E11.9 - Type 2 diabetes mellitus without complications Code(s): E11.9 - Type 2 diabetes mellitus without complications Status: Acute Assessment and Plan: Accu-Cheks AC and HS with sliding scale insulin and hypoglycemic protocol. Check A1c if not performed in the last 6 months Hold metformin Current glucose 103 (5) Mixed hyperlipidemia: Code(s): E78.2 - Mixed hyperlipidemia Status: Acute Assessment and Plan: Continue with rosuvastatin Lipid panel Cholesterol 184, Triglycerides 88, LDL 104, HDL 37 Increase statin to 20mg PO daily ASCVD score 56% (6) Depression: Qualifiers: Depression Type: unspecified Qualified Code(s): F32.9 - Major depressive disorder, single episode, unspecified Code(s): F32.9 - Major depressive disorder, single episode, unspecified Status: Acute Assessment and Plan: Continue with doxepin and continue with sertraline (7) Hypertension: Qualifiers: Hypertension type: essential hypertension Qualified Code(s): I10 - Essential (primary) hypertension Code(s): I10 - Essential (primary) hypertension Status: Acute Assessment and Plan: Continue with amiodarone, candesartan, terazosin Continue to trend BP Current BP is 122/67 (8) BPH (benign prostatic hyperplasia): Qualifiers: Lower urinary tract symptom presence: unspecified whether lower urinary tract symptoms present Qualified Code(s): N40.0 - Benign prostatic hyperplasia without lower urinary tract symptoms Code(s): N40.0 - Benign prostatic hyperplasia without lower urinary tract symptoms Status: Acute Assessment and Plan: Continue tamsulosin, terazosin, finasteride Trend urine output Daily weights Plan MRI did show mild dilated ventricle and subarachnoid spaces Seems to be more related to Normal pressure hydrocephalus Neurology consulted Probably needs a lumbar puncture Time Spent With Patient Time: 52 minutes Time with patient: Greater than 35 minutes Subjective Date/time seen: 08/28/22 1000 Interval history: 08/28/22 1000 Patient was lying in bed. Asked the patient to stand and pivot onto a stretcher. Patient was unable to find his footing and really was unable to stand up straight. He had a backwards lean. He also did have coordination and his gait was all over the place. He denies any chest pain, shortness a breath, nausea, vomiting, diarrhea or constipation. 08/27/22? 17:17 This
--- NOTE | 2022-08-28 10:00 | P.PNIM_ITS ---
Progress Note: A&P Assessment and Plan (1) COVID: Code(s): U07.1 - COVID-19 Status: Acute Assessment and Plan: * Test positive in the ED on 08/27/22 * Currently the patient is on room air * Continue with conservative measures * Droplet and contact isolation (2) Falls frequently: Code(s): R29.6 - Repeated falls Status: Acute Assessment and Plan: * PT OT evaluation greatly be appreciated * compliance coordinator consultation greatly be appreciated * MRI of the brain Mild-Moderate generalized atrophy and minimal chronic microvascular ischemic changes, mildly dilated ventricles and subarachnoid spaces * Could be related to NPH * Carotid doppler performed 50% stenosis bilaterally * Gait is severely ataxic, balance and gait are unsteady, workup for a stroke under way (3) GERD (gastroesophageal reflux disease): Qualifiers: Esophagitis presence: without esophagitis Qualified Code(s): K21.9 - Gastro-esophageal reflux disease without esophagitis Code(s): K21.9 - Gastro-esophageal reflux disease without esophagitis Status: Acute Assessment and Plan: * Continue with pantoprazole (4) Type 2 diabetes mellitus without complications: Qualifiers: Diabetes mellitus extermination supervisor insulin use: without extermination supervisor use Qualified Code(s): E11.9 - Type 2 diabetes mellitus without complications Code(s): E11.9 - Type 2 diabetes mellitus without complications Status: Acute Assessment and Plan: * Accu-Cheks AC and HS with sliding scale insulin and hypoglycemic protocol. * Check A1c if not performed in the last 6 months * Hold metformin * Current glucose 103 (5) Mixed hyperlipidemia: Code(s): E78.2 - Mixed hyperlipidemia Status: Acute Assessment and Plan: * Continue with rosuvastatin * Lipid panel Cholesterol 184, Triglycerides 88, LDL 104, HDL 37 * Increase statin to 20mg PO daily * ASCVD score 56% (6) Depression: Qualifiers: Depression Type: unspecified Qualified Code(s): F32.9 - Major depressive disorder, single episode, unspecified Code(s): F32.9 - Major depressive disorder, single episode, unspecified Status: Acute Assessment and Plan: * Continue with doxepin and continue with sertraline (7) Hypertension: Qualifiers: Hypertension type: essential hypertension Qualified Code(s): I10 - Essential (primary) hypertension Code(s): I10 - Essential (primary) hypertension Status: Acute Assessment and Plan: * Continue with amiodarone, candesartan, terazosin * Continue to trend BP * Current BP is 122/67 (8) BPH (benign prostatic hyperplasia): Qualifiers: Lower urinary tract symptom presence: unspecified whether lower urinary tract symptoms present Qualified Code(s): N40.0 - Benign prostatic hyperplasia without lower urinary tract symptoms Code(s): N40.0 - Benign prostatic hyperplasia without lower urinary tract symptoms Status: Acute Assessment and Plan: * Continue tamsulosin, terazosin, finasteride * Trend urine output * Daily weights Plan MRI did show mild dilated ventricle and subarachnoid spaces Seems to be more related to Normal pressure hydrocephalus
[2022-08-28 14:00] VITALS: BP 100/56; PULSE 72; RESP 20; TEMP 36.6; O2SAT 96
[2022-08-28 16:42] LABS: Glucose Point of Care 138 mg/dl (65-105)
[2022-08-28] MEDS: MUPIROCIN 2% OINT 22 GM TUBE 1 APPLIC TOPICAL (16:50)
[2022-08-28] MEDS: MELATONIN 5 MG TABLET 10 MG PO (20:54)
[2022-08-28] MEDS: MIRTAZAPINE 30 MG TABLET BY MOUTH (20:54)
[2022-08-28 22:00] VITALS: BP 126/59; PULSE 77; RESP 16; TEMP 36.8; O2SAT 96
[2022-08-28 22:10] LABS: Glucose Point of Care 152 mg/dl (65-105)
[2022-08-28] MEDS: ACETAMINOPHEN 325 MG TABLET 650 MG PO (22:32)
[2022-08-29] VITALS (7 sets, daily range): BP systolic 101–133; BP diastolic 47–76; PULSE 63–93; RESP 14–26; TEMP 36.2–36.9; O2SAT 92–97
[2022-08-29 07:18] LABS: Basophils Percent Auto 0.3 % (0.2-1.2); Eosinophils Percent Auto 0.2 % (0-4.4); Hemoglobin 13.8 g/dL (14.0-18.0); Immature Granulocyte Absolute 0.03 K/mm3 (0.00-0.031); Immature Granulocyte Percent A 0.5 % (0-0.5); Immature Platelet Fraction Pct 2.6 % (0.9-11.2); Lymphocytes Absolute Auto 0.95 K/mm3 (0.9-3.2); Lymphocytes Percent Auto 14.6 % (18.3-44.2); Mean Corpuscular HGB Conc 32.1 g/dl (32-36); Mean Corpuscular Hemoglobin 29.9 pg (26-34); Mean Corpuscular Volume 93.1 fl (80-100); Monocytes Absolute Auto 0.5 K/mm3 (0.1-0.6); Monocytes Percent Auto 7.8 % (2.6-8.5); Neutrophils Percent Auto 76.6 % (45.5-73.1); Platelet Count Result 124 k/mm3 (150-375); Red Blood Count 4.62 M/mm3 (4.6-6.20); Red Cell Distribution Width 14.2 % (11.5-14.5); White Blood Count 6.5 K/mm3 (4.5-10.0)
[2022-08-29 07:26] LABS: Glucose Point of Care 143 mg/dl (65-105)
[2022-08-29 07:31] LABS: Alanine Aminotransferase 43 U/L (6-50); Albumin Level 3.5 g/dL (3.5-5.1); Alkaline Phosphatase 64 U/L (38-126); Anion Gap 4 mmol/L (8-16); Aspartate Amino Transferase 107 U/L (17-59); Blood Urea Nitrogen 27 mg/dL (9-20); Calcium 7.9 mg/dL (8.4-10.2); Carbon Dioxide 30 mmol/L (22-30); Chloride 98 mmol/L (98-107); Estimated CRCL calculation 56 ml/min; Estimated Glomerular Filt Rate > 60; Glucose 105 mg/dL (65-110); Potassium 3.6 mmol/L (3.4-5.0); Sodium 132 mmol/L (137-145)
--- NOTE | 2022-08-29 09:09 | WPDNEURCNPN ---
Consult date: 08/29/22 HPI: Liam Oreilly is a 77 year old male Admitted to the hospital through the emergency room for the complaints of multiple ground level falls on the day of admission he called the EMS for a fall in the parking lot [facility] Past Medical History Medical History Abnormality of heart beat Actinic keratosis Anxiety with depression Aortic valve sclerosis Arthritis Basal pneumonia of both lungs BMI 27.0-27.9,adult BMI 28.0-28.9,adult BMI 29.0-29.9,adult BMI 30.0-30.9,adult BMI 31.0-31.9,adult Borderline abnormal TFTs BPH (benign prostatic hyperplasia) Callus of foot Chronic right hip pain Colon cancer screening Constipation Depression Diastolic dysfunction Dizziness Dyslipidemia Ectopic atrial beats Elevated glucose Elevated homocysteine Elevated TSH Encounter for Medicare annual wellness exam Encounter for routine adult health examination without abnormal findings Essential (primary) hypertension Follow up GERD (gastroesophageal reflux disease) Hearing loss Heart murmur Hematoma of right hip Hematuria History of kidney stones History of umbilical hernia Hypogonadism in male Inclusion cyst Insomnia Mixed hyperlipidemia Multiple falls Neck mass Nocturia On senior care drug therapy On terminal 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 drug therapy Onychomycosis Orthostatic hypotension Pneumonia Prediabetes Prostate cancer screening Right foot pain Sciatica of right side Seasonal allergies Sinus arrhythmia Stress Stress due to illness of family member SVT (supraventricular tachycardia) Tenosynovitis of finger Testicular hypofunction Testosterone deficiency Tremor of both hands Type 2 diabetes mellitus without complication Type 2 diabetes mellitus without complications Unintended weight loss Urinary frequency Urinary urgency Vitamin B12 deficiency Vitamin D deficiency Weight loss Surgical History Surgical History (Updated 08/27/22 @ 20:20 by Antonietta Cobian NP) H/O cataract extraction H/O umbilical hernia repair Status post tonsillectomy and adenoidectomy Family History Family History Mother Family history of cardiovascular disease Diabetes mellitus Family history of diabetes mellitus in first degree relative Carcinoma of colon Father Family history of malignant neoplasm Son Leukemia Social History Social History (Updated 08/27/22 @ 20:21 by Antonietta Cobian NP) Social History: The patient lives home alone and his resides in [facility] . He had 2 sons but 1 one from ALL. He retired from the [employer]. Code status full code Smoking packs per day: 1.5 Smoking cigarettes per day: 30.0 Years smoked: 35 Smoking pack-years: 52.50 Smoking status: Former smoker Tobacco type: cigarettes Second hand tobacco smoke exposure: Yes Smoking end date: 08/17/02 Alcohol intake: never Substance use: never Substance use type: does not use Lack of Transportation: No Lack of Food: Never True Current Housing: I Have Housing Concerned About Future Housing: No Difficulty Paying Gas/Electric Bills: No Difficulty Paying for Meds: No Currently Unemployed: No Education: Bachelor's Degree Difficulty w/ Childcare or Family Care: No Living arrangements: alone Occupation/Education: retired Gender identity (if verbalized by the patient): Male Sexual Orientation (if Verbalized by the Patient): Straight or Heterosexual Spiritual care concerns: No Meds Home Medications and Allergies Home Medications Medication Instructions Recorded Confirmed Type aspirin 81 mg tablet,delayed 81 mg PO DAILY 07/19/19 08/27/22 History release (Adult Low Dose Aspirin) cyanocobalamin (vitamin B-12) 1,000 mcg PO DAILY 07/19/19 08/27/22 History 1,000 mcg capsule multivitamin 1 tablet PO DAILY 07/19/19 08/27/22 History melatonin 10 mg capsule 10 mg
[2022-08-29] MEDS: SERTRALINE HCL 50 MG TABLET 150 MG BY MOUTH (09:13)
[2022-08-29] MEDS: CHOLECALCIFEROL 1,000 UNITS TABLET 1000 UNITS PO (09:13)
[2022-08-29] MEDS: OMEGA 3 POLYUNSAT FATTY ACIDS 1 GM CAP 2 GM PO ×2 (09:13→17:45)
[2022-08-29] MEDS: ROSUVASTATIN 10 MG TABLET 20 MG BY MOUTH (09:14)
[2022-08-29] MEDS: MULTIVITAMINS THERAPEUTIC TAB (*BKC) 1 TABLET PO (09:14)
[2022-08-29] MEDS: PANTOPRAZOLE 40 MG TABLET BY MOUTH (09:14)
[2022-08-29] MEDS: FINASTERIDE 5 MG TABLET BY MOUTH (09:15)
[2022-08-29] MEDS: AMIODARONE HCL 100 MG TABLET BY MOUTH (09:15)
[2022-08-29] MEDS: TERAZOSIN HCL 5 MG CAPSULE 10 MG PO (09:15)
[2022-08-29] MEDS: CYANOCOBALAMIN 1,000 MCG TABLET 1000 MCG PO (09:15)
[2022-08-29] MEDS: ASPIRIN 81 MG ENTERIC TABLET PO (09:15)
[2022-08-29] MEDS: MUPIROCIN 2% OINT 22 GM TUBE 1 APPLIC TOPICAL ×2 (09:16→17:45)
[2022-08-29] MEDS: ENOXAPARIN 40 MG/0.4 ML SYRINGE SUB-Q (09:32)
--- NOTE | 2022-08-29 09:41 | WPDNEURCNPN ---
Assessment and Plan Assessment and plan (1) Falls frequently: Code(s): R29.6 - Repeated falls Status: Acute (2) COVID: Code(s): U07.1 - COVID-19 Status: Acute (3) Neurologic gait dysfunction: Code(s): R26.9 - Unspecified abnormalities of gait and mobility Status: Acute (4) Diabetic neuropathy: Code(s): E11.40 - Type 2 diabetes mellitus with diabetic neuropathy, unspecified Status: Acute Plan 1. Coma would 2. History of recurrent falls for which physical therapy and occupation therapy has been ordered 3. Ongoing history of type 2 diabetes mellitus long duration most likely responsible for the diabetic neuropathy with autonomic neuropathy as well and again while in the hospital received the physical therapy and re- evaluation will be done for further instructions Consult date: 08/29/22 HPI: Liam Oreilly is a 77 year old male admitted to the hospital through the emergency room for evaluation of multiple ground level falls over the last few days patient did call EMS day before for a fall in a parking lot but declined the transport at that time subsequently he had a fall at home and called the EMS patient did have a primary care physician visit yesterday who advised him that he needs the physical therapy on the last fall in the grass she was not sure whether he hit his head but small abrasion to the left frontal scalp was noted and he was also complaining of neck pain for which EMS had placed the C-collar. His medications at the time of admission to the ER included aspirin 81 mg daily he is known to be allergic to iodinated contrast media and he does have ongoing history of anxiety with depression, aortic valvular sclerosis and multiple other medical problems as outlined. He has history of smoking 1 pack per day yes smokes 35 though at present he is former smoker and also former alcohol intake initial examination in the emergency room were grossly nonfocal his vital signs were stable routine lab studies were normal so as the screening for influenza AB RSV and but Prasad it was positive CT scan of the head revealed no bleed Review of Systems Review of Systems: All systems reviewed & are unremarkable except as noted in HPI and below PMFSH Past Medical History Medical History (Updated 08/29/22 @ 09:48 by Varun Cinrton MD) Abnormality of heart beat Actinic keratosis Anxiety with depression Aortic valve sclerosis Arthritis Basal pneumonia of both lungs BMI 27.0-27.9,adult BMI 28.0-28.9,adult BMI 29.0-29.9,adult BMI 30.0-30.9,adult BMI 31.0-31.9,adult Borderline abnormal TFTs BPH (benign prostatic hyperplasia) Callus of foot Chronic right hip pain Colon cancer screening Constipation Depression Diastolic dysfunction Dizziness Dyslipidemia Ectopic atrial beats Elevated glucose Elevated homocysteine Elevated TSH Encounter for Medicare annual wellness exam Encounter for routine adult health examination without abnormal findings Essential (primary) hypertension Follow up GERD (gastroesophageal reflux disease) Hearing loss Heart murmur Hematoma of right hip Hematuria History of kidney stones History of umbilical hernia Hypogonadism in male Inclusion cyst Insomnia Mixed hyperlipidemia Multiple falls Neck mass Nocturia On care home drug therapy 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 Onychomycosis Orthostatic hypotension Pneumonia Prediabetes Prostate cancer screening Right foot pain Sciatica of right side Seasonal allergies Sinus arrhythmia Stress Stress due to illness of family member SVT (supraventricular tachycardia) Tenosynovitis of finger Testicular hypofunction Testosterone deficiency Tremor of both hands Type 2 diabetes mellitus without complication Type 2 diabetes mellitus without complications Unintended weight loss Urinary frequency Urinary urgency Vitamin B12 deficiency Vitamin D deficiency Weight loss Surgical History Surgical History (Updated 08/27/22 @ 20:20 by Susanne
[2022-08-29 11:33] LABS: Glucose Point of Care 156 mg/dl (65-105)
--- NOTE | 2022-08-29 16:14 | P.PNIM_ITS ---
Progress Note: A&P Assessment and Plan (1) COVID: Code(s): U07.1 - COVID-19 Status: Acute Assessment and Plan: PCR positive on 08/27/22 * No supplemental oxygen requirement * Continue with conservative measures * Droplet and contact isolation (2) Falls frequently: Code(s): R29.6 - Repeated falls Status: Acute Assessment and Plan: Patient suffering mechanical falls recently * PT/OT eval appreciated * MRI with mild-moderate generalized atrophy and minimal chronic microvascular ischemic changes, mildly dilated ventricles and subarachnoid spaces * Previous provider spoke with neurosurgery who reported concern for NPH. LP recommended and will await further neurology recommendations on whether to proceed * Carotid doppler performed 50% stenosis bilaterally * appreciate neurology recommendations * may be worsened due to acute viral illness * no evidence of acute infectious process * no significant electrolyte abnormalities * TSH is within normal limits * Check CK (3) Confusion: Code(s): R41.0 - Disorientation, unspecified Status: Acute Assessment and Plan: Pt with waxing and waning mental status * see above (4) Gait instability: Code(s): R26.81 - Unsteadiness on feet Status: Acute Assessment and Plan: Pt with ataxic gait and unsteady balance * per Neurology, may have component of diabetic/ autonomic neuropathy * plan as above (5) Type 2 diabetes mellitus without complications: Qualifiers: 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: without shelter use Qualified Code(s): E11.9 - Type 2 diabetes mellitus without complications Code(s): E11.9 - Type 2 diabetes mellitus without complications Status: Acute Assessment and Plan: last A1c 5.5 * continue Accu-Cheks, sliding scale insulin, hypoglycemic protocol * home metformin on hold (6) Mixed hyperlipidemia: Code(s): E78.2 - Mixed hyperlipidemia Status: Acute Assessment and Plan: lipid panel reviewed * Continue with rosuvastatin, increased to 20 mg daily (7) Hypertension: Qualifiers: Hypertension type: essential hypertension Qualified Code(s): I10 - Essential (primary) hypertension Code(s): I10 - Essential (primary) hypertension Status: Acute Assessment and Plan: blood pressures are stable, slightly soft. last BP 101/47 * Continue with amiodarone, candesartan, terazosin * monitor BP trends Time Spent With Patient Time: 65 minutes Time with patient: Greater than 35 minutes Subjective Date/time seen: 08/29/22 16:14 Interval history: date of service: 08/29/2022 Liam Palmer is a 77-year-old male with a history BPH, diastolic dysfunction, depression, hypertension, hyperlipidemia, type 2 diabetes mellitus, and several other medical problems who is seen in follow up for weakness and falls. He complains of feeling cold. He feels shaky. he feels very weak and unsteady. States that he did get out of bed today with assistance and up to the chair. He is not able to provide any additional reliable history. Per RN, he has been confused today and distracted. He has intermittent confusion that seems to wax and wane. 15 minute phone conversation with patient's son who reports frustration with not being updated on patient's care. He is concerned that is status mental status has been intermittently changing. Reports yesterday afternoon he was extreme
--- NOTE | 2022-08-29 16:14 | PM.IMPN ---
Progress Note: A&P Assessment and Plan (1) COVID: Code(s): U07.1 - COVID-19 Status: Acute Assessment and Plan: PCR positive on 08/27/22 No supplemental oxygen requirement Continue with conservative measures Droplet and contact isolation (2) Falls frequently: Code(s): R29.6 - Repeated falls Status: Acute Assessment and Plan: Patient suffering mechanical falls recently PT/OT eval appreciated MRI with mild-moderate generalized atrophy and minimal chronic microvascular ischemic changes, mildly dilated ventricles and subarachnoid spaces Previous provider spoke with neurosurgery who reported concern for NPH. LP recommended and will await further neurology recommendations on whether to proceed Carotid doppler performed 50% stenosis bilaterally appreciate neurology recommendations may be worsened due to acute viral illness no evidence of acute infectious process no significant electrolyte abnormalities TSH is within normal limits Check CK (3) Confusion: Code(s): R41.0 - Disorientation, unspecified Status: Acute Assessment and Plan: Pt with waxing and waning mental status see above (4) Gait instability: Code(s): R26.81 - Unsteadiness on feet Status: Acute Assessment and Plan: Pt with ataxic gait and unsteady balance per Neurology, may have component of diabetic/ autonomic neuropathy plan as above (5) Type 2 diabetes mellitus without complications: Qualifiers: Diabetes mellitus snf insulin use: without termite control servicer use Qualified Code(s): E11.9 - Type 2 diabetes mellitus without complications Code(s): E11.9 - Type 2 diabetes mellitus without complications Status: Acute Assessment and Plan: last A1c 5.5 continue Accu-Cheks, sliding scale insulin, hypoglycemic protocol home metformin on hold (6) Mixed hyperlipidemia: Code(s): E78.2 - Mixed hyperlipidemia Status: Acute Assessment and Plan: lipid panel reviewed Continue with rosuvastatin, increased to 20 mg daily (7) Hypertension: Qualifiers: Hypertension type: essential hypertension Qualified Code(s): I10 - Essential (primary) hypertension Code(s): I10 - Essential (primary) hypertension Status: Acute Assessment and Plan: blood pressures are stable, slightly soft. last BP 101/47 Continue with amiodarone, candesartan, terazosin monitor BP trends Time Spent With Patient Time: 65 minutes Time with patient: Greater than 35 minutes Subjective Date/time seen: 08/29/22 16:14 Interval history: date of service: 08/29/2022 Liam E Spencer is a 77-year-old male with a history BPH, diastolic dysfunction, depression, hypertension, hyperlipidemia, type 2 diabetes mellitus, and several other medical problems who is seen in follow up for weakness and falls. He complains of feeling cold. He feels shaky. he feels very weak and unsteady. States that he did get out of bed today with assistance and up to the chair. He is not able to provide any additional reliable history. Per RN, he has been confused today and distracted. He has intermittent confusion that seems to wax and wane. 15 minute phone conversation with patient's son who reports frustration with not being updated on patient's care. He is concerned that is status mental status has been intermittently changing. Reports yesterday afternoon he was extremely confused and not able to participate in conversation with him via phone. Request the patient's phone to advise bedside all times in his hearing aids be in so that the patient can hear his calls. Review of Systems Review of Systems: All systems reviewed & are unremarkable except as noted in HPI and below Exam Narrative: General: well-nourished, well-appearing 77-year-old male, sitting up in bed, comfortable, NARD Neuro: awake, alert and oriented x3
[2022-08-29 16:22] LABS: Glucose Point of Care 154 mg/dl (65-105)
[2022-08-29] MEDS: MELATONIN 5 MG TABLET 10 MG PO (20:14)
[2022-08-29] MEDS: MIRTAZAPINE 30 MG TABLET BY MOUTH (20:14)
[2022-08-29 20:47] LABS: Glucose Point of Care 132 mg/dl (65-105)
[2022-08-30] VITALS (12 sets, daily range): BP systolic 94–154; BP diastolic 47–92; PULSE 60–90; RESP 16–26; TEMP 36.1–36.5; O2SAT 91–99
--- NOTE | 2022-08-30 03:32 | PC.NURSE ---
pt fall MD Franco notified [id number] unwitnessed fall, alerts engaged, called son. stat ct brain and cervial spine ordered d/t fall this shift. Pt remains [id number] with confusion and remains weak, denies pain at this time.
[2022-08-30 06:47] LABS: Hematocrit 47.2 % (42.0-52.0); Hemoglobin 14.7 g/dL (14.0-18.0); Immature Platelet Fraction Pct 2.9 % (0.9-11.2); Mean Corpuscular HGB Conc 31.1 g/dl (32-36); Mean Corpuscular Hemoglobin 30.1 pg (26-34); Mean Corpuscular Volume 96.7 fl (80-100); Mean Platelet Volume 10.3 fl (7.4-10.4); Platelet Count Result 136 k/mm3 (150-375); Red Blood Count 4.88 M/mm3 (4.6-6.20); Red Cell Distribution Width 14.3 % (11.5-14.5); White Blood Count 7.9 K/mm3 (4.5-10.0)
[2022-08-30 07:05] LABS: Anion Gap 7 mmol/L (8-16); Blood Urea Nitrogen 34 mg/dL (9-20); Calcium 8.1 mg/dL (8.4-10.2); Carbon Dioxide 25 mmol/L (22-30); Chloride 102 mmol/L (98-107); Estimated CRCL calculation 44 ml/min; Estimated Glomerular Filt Rate 53; Glucose 114 mg/dL (65-110); Potassium 3.7 mmol/L (3.4-5.0); Sodium 134 mmol/L (137-145)
[2022-08-30 07:11] LABS: Creatine Kinase 2487 U/L (55-170)
[2022-08-30 07:30] LABS: Glucose Point of Care 112 mg/dl (65-105)
[2022-08-30] MEDS: CELECOXIB 200 MG CAPSULE PO (08:45)
[2022-08-30] MEDS: ASPIRIN 81 MG ENTERIC TABLET PO (08:45)
[2022-08-30] MEDS: CYANOCOBALAMIN 1,000 MCG TABLET 1000 MCG PO (08:46)
[2022-08-30] MEDS: TERAZOSIN HCL 5 MG CAPSULE 10 MG PO (08:46)
[2022-08-30] MEDS: AMIODARONE HCL 100 MG TABLET BY MOUTH (08:46)
[2022-08-30] MEDS: FINASTERIDE 5 MG TABLET BY MOUTH (08:46)
[2022-08-30] MEDS: OMEGA 3 POLYUNSAT FATTY ACIDS 1 GM CAP 2 GM PO ×2 (08:46→16:52)
[2022-08-30] MEDS: PANTOPRAZOLE 40 MG TABLET BY MOUTH (08:46)
[2022-08-30] MEDS: CHOLECALCIFEROL 1,000 UNITS TABLET 1000 UNITS PO (08:48)
[2022-08-30] MEDS: ENOXAPARIN 40 MG/0.4 ML SYRINGE SUB-Q (08:48)
[2022-08-30] MEDS: MULTIVITAMINS THERAPEUTIC TAB (*BKC) 1 TABLET PO (08:49)
[2022-08-30] MEDS: SERTRALINE HCL 50 MG TABLET 150 MG BY MOUTH (08:49)
[2022-08-30] MEDS: MUPIROCIN 2% OINT 22 GM TUBE 1 APPLIC TOPICAL ×2 (08:50→16:51)
[2022-08-30] MEDS: SODIUM CHLORIDE 0.9% IV 1,000 ML 110 ML IV CONT ×2 (08:53→20:38)
[2022-08-30 09:03] LABS: Alanine Aminotransferase 54 U/L (6-50); Albumin Level 3.6 g/dL (3.5-5.1); Alkaline Phosphatase 72 U/L (38-126); Aspartate Amino Transferase 142 U/L (17-59); Bilirubin,Total 1.2 mg/dL (0.2-1.3)
[2022-08-30 09:33] LABS: Hemoglobin A1C 5.3 % (<5.7)
[2022-08-30 12:08] LABS: Glucose CSF 80 mg/dL (40-70); Total Protein CSF 64 mg/dL (12-60)
[2022-08-30 12:25] LABS: Glucose Point of Care 152 mg/dl (65-105)
[2022-08-30 12:29] LABS: Appearance CSF Clear (Clear); CSF source CSF; Color CSF Colorless (Colorless)
[2022-08-30 12:30] LABS: Lymphocytes CSF 100 % (40-80)
[2022-08-30 12:31] LABS: Nucleated Cell CSF 3 /uL (0-5); Red Blood Cell CSF < 2000 (0-2)
[2022-08-30 16:11] LABS: Glucose Point of Care 133 mg/dl (65-105)
--- NOTE | 2022-08-30 16:14 | P.PNIM_ITS ---
Progress Note: A&P Assessment and Plan (1) COVID: Code(s): U07.1 - COVID-19 Status: Acute Assessment and Plan: PCR positive on 08/27/22 * No supplemental oxygen requirement * Continue with conservative measures * Droplet and contact isolation (2) Falls frequently: Code(s): R29.6 - Repeated falls Status: Acute Assessment and Plan: Patient suffering mechanical falls recently * PT/OT eval appreciated * MRI with mild-moderate generalized atrophy and minimal chronic microvascular ischemic changes, mildly dilated ventricles and subarachnoid spaces * Previous provider spoke with neurosurgery who reported concern for NPH due to gait changes. * discussed case with Neurology today who recommends to proceed with LP * high-volume LP completed today with normal opening pressure, normal cell count, negative Gram stain. No concern for infection. Per Neurology, will proceed with repeat gait evaluation 24 hours following LP. * Carotid doppler performed 50% stenosis bilaterally * may be worsened due to acute viral illness * no significant electrolyte abnormalities * TSH is within normal limits noted by nursing staff to have fall last night. Apparently patient was restless and got himself out of bed, fell on the floor and hit his head. Repeat CT performed with no acute findings. Fall precautions implemented. patient would likely benefit from being moved to a room closer to the nurse's station (3) Confusion: Code(s): R41.0 - Disorientation, unspecified Status: Acute Assessment and Plan: Pt with waxing and waning mental status * patient extremely lethargic today * not receiving any sedating medications or narcotics * lumbar puncture completed as above * discussed with neurology who recommends consideration of EGD tomorrow if still with altered mental status. could also consider repeat MRI if no improvement * repeat infectious workup. Recheck UA. Obtain CXR, there is some concern for aspiration given gurgling noted on exam and coughing with thin liquids. will also proceed with swallow study. hold on blood cultures at this time, patient is afebrile and without leukocytosis, no obvious infectious source. (4) Gait instability: Code(s): R26.81 - Unsteadiness on feet Status: Acute Assessment and Plan: Pt with ataxic gait and unsteady balance * per Neurology, may have component of diabetic/ autonomic neuropathy * plan as above. LP pending * will need repeat gait evaluation 24 hours following LP (5) Rhabdomyolysis: Code(s): M62.82 - Rhabdomyolysis Status: Acute Assessment and Plan: CK evaluated due to increased weakness, found to be elevated at 2500 * seeking out obtained on presentation, therefore onset is unclear, however patient was noted to have 3+ blood in urine on presentation * patient on rosuvastatin 5 mg which was increased during admission based on a lipid panel which is likely contributor * statin on hold at this time * LFTs are mildly elevated and will continue to monitor * renal function is within normal limits * repeat UA is pending * continue with IV fluid rehydration, normal saline at 110 mL/hour * trend CK (6) Type 2 diabetes mellitus without complications: Qualifiers: Diabetes mellitus car lubricator insulin use: without car lubricator use Qualified Code(s): E11.9 - Type 2 diabetes mellitus without complications Code(s): E11.9 - Type 2 diabetes mellitus without complications Status: Acute Assessment and Plan:
--- NOTE | 2022-08-30 16:14 | PM.IMPN ---
Progress Note: A&P Assessment and Plan (1) COVID: Code(s): U07.1 - COVID-19 Status: Acute Assessment and Plan: PCR positive on 08/27/22 No supplemental oxygen requirement Continue with conservative measures Droplet and contact isolation (2) Falls frequently: Code(s): R29.6 - Repeated falls Status: Acute Assessment and Plan: Patient suffering mechanical falls recently PT/OT eval appreciated MRI with mild-moderate generalized atrophy and minimal chronic microvascular ischemic changes, mildly dilated ventricles and subarachnoid spaces Previous provider spoke with neurosurgery who reported concern for NPH due to gait changes. discussed case with Neurology today who recommends to proceed with LP high-volume LP completed today with normal opening pressure, normal cell count, negative Gram stain. No concern for infection. Per Neurology, will proceed with repeat gait evaluation 24 hours following LP. Carotid doppler performed 50% stenosis bilaterally may be worsened due to acute viral illness no significant electrolyte abnormalities TSH is within normal limits noted by nursing staff to have fall last night. Apparently patient was restless and got himself out of bed, fell on the floor and hit his head. Repeat CT performed with no acute findings. Fall precautions implemented. patient would likely benefit from being moved to a room closer to the nurse's station (3) Confusion: Code(s): R41.0 - Disorientation, unspecified Status: Acute Assessment and Plan: Pt with waxing and waning mental status patient extremely lethargic today not receiving any sedating medications or narcotics lumbar puncture completed as above discussed with neurology who recommends consideration of EGD tomorrow if still with altered mental status. could also consider repeat MRI if no improvement repeat infectious workup. Recheck UA. Obtain CXR, there is some concern for aspiration given gurgling noted on exam and coughing with thin liquids. will also proceed with swallow study. hold on blood cultures at this time, patient is afebrile and without leukocytosis, no obvious infectious source. (4) Gait instability: Code(s): R26.81 - Unsteadiness on feet Status: Acute Assessment and Plan: Pt with ataxic gait and unsteady balance per Neurology, may have component of diabetic/ autonomic neuropathy plan as above. LP pending will need repeat gait evaluation 24 hours following LP (5) Rhabdomyolysis: Code(s): M62.82 - Rhabdomyolysis Status: Acute Assessment and Plan: CK evaluated due to increased weakness, found to be elevated at 2500 seeking out obtained on presentation, therefore onset is unclear, however patient was noted to have 3+ blood in urine on presentation patient on rosuvastatin 5 mg which was increased during admission based on a lipid panel which is likely contributor statin on hold at this time LFTs are mildly elevated and will continue to monitor renal function is within normal limits repeat UA is pending continue with IV fluid rehydration, normal saline at 110 mL/hour trend CK (6) Type 2 diabetes mellitus without complications: Qualifiers: Diabetes mellitus superintendent terminal insulin use: without fci use Qualified Code(s): E11.9 - Type 2 diabetes mellitus without complications Code(s): E11.9 - Type 2 diabetes mellitus without complications Status: Acute Assessment and Plan: last A1c 5.5 continue Accu-Cheks, sliding scale insulin, hypoglycemic protocol home metformin on hold (7) Mixed hyperlipidemia: Code(s): E78.2 - Mixed hyperlipidemia Status: Acute Assessment and Plan: statin held due to rhabdomyolysis (8) Hypertension: Qualifiers: Hypertension type: essential hypertension Qualified Code(s): I10 - Essential (primary) h
[2022-08-30] MEDS: MELATONIN 5 MG TABLET 10 MG PO (20:38)
[2022-08-30] MEDS: MIRTAZAPINE 30 MG TABLET BY MOUTH (20:38)
[2022-08-30 21:54] LABS: Glucose Point of Care 136 mg/dl (65-105)
[2022-08-30 22:09] LABS: Appearance Urine Cloudy (Clear); Bacteria Urine None Seen /hpf; Bilirubin Urine 1+ (Negative); Blood Urine Negative (Negative); Color Urine Dark Yellow (Yellow); Glucose Urine UA Negative (Negative); Ketones Urine Trace mg/dL (Negative); Leukocyte Esterase Ur Trace LEU/UL (Negative); Need Manual Microscopic Reviewed; Nitrate Urine Negative (Negative); Non Pathogenic Casts >20; Protein Urine 1+ mg/dL (Negative); RBC Urine 0-2 /hpf (0-2); Specific Grav Ur 1.023 (1.001-1.035); Squamous Epithelial Cell Urine Few /hpf (Few); WBC Urine 0-5 /hpf
[2022-08-30 22:15] LABS: Add Urine Microscopic? YES
[2022-08-31] VITALS (9 sets, daily range): BP systolic 86–132; BP diastolic 55–81; PULSE 70–96; RESP 22–40; TEMP 36.4–37.2; O2SAT 91–93
[2022-08-31] MEDS: SODIUM CHLORIDE 0.9% IV 1,000 ML 110 ML IV CONT ×2 (05:46→14:34)
[2022-08-31 06:42] LABS: Hematocrit 43.5 % (42.0-52.0); Hemoglobin 13.8 g/dL (14.0-18.0); Mean Corpuscular HGB Conc 31.7 g/dl (32-36); Mean Corpuscular Hemoglobin 30.1 pg (26-34); Mean Platelet Volume 9.4 fl (7.4-10.4); Platelet Count Result 127 k/mm3 (150-375); Red Blood Count 4.58 M/mm3 (4.6-6.20); Red Cell Distribution Width 14.1 % (11.5-14.5); White Blood Count 3.5 K/mm3 (4.5-10.0)
[2022-08-31 07:09] LABS: Anion Gap 5 mmol/L (8-16); Blood Urea Nitrogen 31 mg/dL (9-20); Carbon Dioxide 26 mmol/L (22-30); Chloride 104 mmol/L (98-107); Creatine Kinase 812 U/L (55-170); Estimated CRCL calculation 56 ml/min; Estimated Glomerular Filt Rate > 60; Glucose 110 mg/dL (65-110); Potassium 3.9 mmol/L (3.4-5.0); Sodium 135 mmol/L (137-145)
[2022-08-31 08:03] LABS: Glucose Point of Care 97 mg/dl (65-105)
[2022-08-31] MEDS: SERTRALINE HCL 50 MG TABLET 150 MG BY MOUTH (08:31)
[2022-08-31] MEDS: TERAZOSIN HCL 5 MG CAPSULE 10 MG PO (08:31)
[2022-08-31] MEDS: ASPIRIN 81 MG ENTERIC TABLET PO (08:31)
[2022-08-31] MEDS: CYANOCOBALAMIN 1,000 MCG TABLET 1000 MCG PO (08:31)
[2022-08-31] MEDS: PANTOPRAZOLE 40 MG TABLET BY MOUTH (08:31)
[2022-08-31] MEDS: ENOXAPARIN 40 MG/0.4 ML SYRINGE SUB-Q (08:32)
[2022-08-31] MEDS: OMEGA 3 POLYUNSAT FATTY ACIDS 1 GM CAP 2 GM PO ×2 (08:32→16:58)
[2022-08-31] MEDS: AMIODARONE HCL 100 MG TABLET BY MOUTH (08:32)
[2022-08-31] MEDS: MULTIVITAMINS THERAPEUTIC TAB (*BKC) 1 TABLET PO (08:32)
[2022-08-31] MEDS: MUPIROCIN 2% OINT 22 GM TUBE 1 APPLIC TOPICAL ×3 (08:33→16:58)
[2022-08-31] MEDS: FINASTERIDE 5 MG TABLET BY MOUTH (08:33)
[2022-08-31] MEDS: CHOLECALCIFEROL 1,000 UNITS TABLET 1000 UNITS PO (08:33)
--- NOTE | 2022-08-31 11:09 | WPDNEURCNPN ---
Assessment and Plan Assessment and plan (1) Gait instability: Code(s): R26.81 - Unsteadiness on feet Status: Acute (2) Confusion: Code(s): R41.0 - Disorientation, unspecified Status: Acute (3) Diabetic neuropathy: Code(s): E11.40 - Type 2 diabetes mellitus with diabetic neuropathy, unspecified Status: Acute (4) COVID: Code(s): U07.1 - COVID-19 Status: Acute Plan Liam Oreilly is a 77 year old male with a history of DM, HTN, urinary urgency, HLD, aortic valve sclerosis and CHF who presented due to increased falls. Mental status has been fluctuating during the admission. Could be related to underlying COVID and delirium. Large volume LP was done to assess for NPH. CSF studies do not look concerning for encephalitis or meningitis. Patient is very hard of hearing and doesn't have his hearing aids so it's hard to get a good assessment of what is being lost due to hearing vs true encephalopathy. - Can repeat MRI brain w/wo contrast - Routine EEG can be obtained to assess background. I do not have suspicion for seizures Consult date: 08/31/22 Reason for consult: Altered mental status HPI: Liam Oreilly is a 77 year old male with a history of DM, HTN, urinary urgency, HLD, aortic valve sclerosis and CHF. Patient presented due to frequent ground level falls. CT head was negative and MRI showed mild to moderate generalized atrophy. Carotid doppler showed <50% stenosis bilaterally. Neurology wa consulted for gait issues. Dr. Cintron saw the patient and thought that maybe the gait instability was due to diabetic neuropathy. Since patient has been admitted, his mental status has worsened as well. He was noted to be positive for COVID on presentation. He has been intermittently confused during this admission. Lumbar puncture was done due to concerns for possible normal pressure hydrocephalus -- cell count was normal and protein only slightly elevated. UA was repeated which was not concerning for infection. Labs today are significant for mild leukopenia and mild uremia. Review of Systems Review of Systems: ROS unobtainable: Yes unobtainable due to medical condition and unobtainable due to mental status PMFSH Past Medical History Medical History Abnormality of heart beat Actinic keratosis Anxiety with depression Aortic valve sclerosis Arthritis Basal pneumonia of both lungs BMI 27.0-27.9,adult BMI 28.0-28.9,adult BMI 29.0-29.9,adult BMI 30.0-30.9,adult BMI 31.0-31.9,adult Borderline abnormal TFTs BPH (benign prostatic hyperplasia) Callus of foot Chronic right hip pain Colon cancer screening Constipation Depression Diastolic dysfunction Dizziness Dyslipidemia Ectopic atrial beats Elevated glucose Elevated homocysteine Elevated TSH Encounter for Medicare annual wellness exam Encounter for routine adult health examination without abnormal findings Essential (primary) hypertension Follow up GERD (gastroesophageal reflux disease) Hearing loss Heart murmur Hematoma of right hip Hematuria History of kidney stones History of umbilical hernia Hypogonadism in male Inclusion cyst Insomnia Mixed hyperlipidemia Multiple falls Neck mass Nocturia On group home drug therapy 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
[2022-08-31 12:18] LABS: Glucose Point of Care 102 mg/dl (65-105)
--- NOTE | 2022-08-31 14:26 | PCSTNOTE ---
Attempted bedside swallowing evaluation. Patient refused to trial liquid and food (pudding). Nurse informed. Will attempt again tomorrow.
[2022-08-31 17:08] LABS: Glucose Point of Care 121 mg/dl (65-105)
--- NOTE | 2022-08-31 17:48 | P.PNIM_ITS ---
Progress Note: A&P Assessment and Plan (1) COVID: Code(s): U07.1 - COVID-19 Status: Acute Assessment and Plan: PCR positive on 08/27/22. Not on supplemental oxygen but borderline Spo2. he was 94% after sitting up and with cough. * CXR noted with RUL and bilateral LL airspace disease. No WBC or fever. * Suspect more likely atelectasis and/or COVID then bacterial PNA (except consider aspiration) * Continue with conservative measures * Droplet and contact isolation (2) Falls frequently: Code(s): R29.6 - Repeated falls Status: Acute Assessment and Plan: Patient suffering mechanical falls recently * MRI with mild-moderate generalized atrophy and minimal chronic microvascular ischemic changes, mildly dilated ventricles and subarachnoid spaces. * Carotid doppler performed 50% stenosis bilaterally * Concern for NPH due to gait changes and LP recommended * High-volume LP completed today with normal opening pressure, normal cell count, negative Gram stain. No concern for infection. Repeat gait evaluation was incomplete earlier today. * TSH normal. No significant lab abnormalities. * May be worsened due to acute viral illness * Patient was restless and fell out of bed on to the floor and hit his head. Repeat CT performed with no acute findings. * Continue fall precautions * Appreciate neuro input. * Seems better this evening possibly related to LP. Will hold on repeat MRI. Check EEG. * The orthostatic HoNT also contributiing to his falls. * PT/OT eval appreciated (3) Confusion: Code(s): R41.0 - Disorientation, unspecified Status: Acute Assessment and Plan: Pt with waxing and waning mental status * not receiving any sedating medications or narcotics * lumbar puncture completed as above * neurology recommends consideration of EEG which will order. Hold on repeating MRI * repeat infectious workup. UA noted. CXR as above. Attempted speech evaluation but was too sleepy. Will hold on abx and await speech evaluation. * Check B12, RPR (4) Gait instability: Code(s): R26.81 - Unsteadiness on feet Status: Acute Assessment and Plan: Pt with ataxic gait and unsteady balance * per Neurology, may have component of diabetic/ autonomic neuropathy * plan as above. * Continue PT/OT (5) Rhabdomyolysis: Code(s): M62.82 - Rhabdomyolysis Status: Acute Assessment and Plan: CK evaluated due to increased weakness, found to be elevated at 2500 * seeking out obtained on presentation, therefore onset is unclear, however patient was noted to have 3+ blood in urine on presentation * patient on rosuvastatin 5 mg which was increased during admission based on a lipid panel which is likely contributor * statin on hold at this time * LFTs are mildly elevated and will continue to monitor * renal function is within normal limits * repeat UA is negative for blood and TCK 812 * continue IV fluids given the orthostatic HoTN. (6) Type 2 diabetes mellitus without complications: Qualifiers: Diabetes mellitus adjunct faculty for medical terminology insulin use: without adjunct faculty for medical terminology use Qualified Code(s): E11.9 - Type 2 diabetes mellitus without complications Code(s): E11.9 - Type 2 diabetes mellitus without complications Status: Acute Assessment and Plan: A1c 5.3.The patient's blood glucose was reviewed on 08/31 Glucose remains well controlled. Continue AccuCheks covering with sliding scale. Hypoglycemia protocol available as needed. Continue to monitor
--- NOTE | 2022-08-31 17:48 | PM.IMPN ---
Progress Note: A&P Assessment and Plan (1) COVID: Code(s): U07.1 - COVID-19 Status: Acute Assessment and Plan: PCR positive on 08/27/22. Not on supplemental oxygen but borderline Spo2. he was 94% after sitting up and with cough. CXR noted with RUL and bilateral LL airspace disease. No WBC or fever. Suspect more likely atelectasis and/or COVID then bacterial PNA (except consider aspiration) Continue with conservative measures Droplet and contact isolation (2) Falls frequently: Code(s): R29.6 - Repeated falls Status: Acute Assessment and Plan: Patient suffering mechanical falls recently MRI with mild-moderate generalized atrophy and minimal chronic microvascular ischemic changes, mildly dilated ventricles and subarachnoid spaces. Carotid doppler performed 50% stenosis bilaterally Concern for NPH due to gait changes and LP recommended High-volume LP completed today with normal opening pressure, normal cell count, negative Gram stain. No concern for infection. Repeat gait evaluation was incomplete earlier today. TSH normal. No significant lab abnormalities. May be worsened due to acute viral illness Patient was restless and fell out of bed on to the floor and hit his head. Repeat CT performed with no acute findings. Continue fall precautions Appreciate neuro input. Seems better this evening possibly related to LP. Will hold on repeat MRI. Check EEG. The orthostatic HoNT also contributiing to his falls. PT/OT eval appreciated (3) Confusion: Code(s): R41.0 - Disorientation, unspecified Status: Acute Assessment and Plan: Pt with waxing and waning mental status not receiving any sedating medications or narcotics lumbar puncture completed as above neurology recommends consideration of EEG which will order. Hold on repeating MRI repeat infectious workup. UA noted. CXR as above. Attempted speech evaluation but was too sleepy. Will hold on abx and await speech evaluation. Check B12, RPR (4) Gait instability: Code(s): R26.81 - Unsteadiness on feet Status: Acute Assessment and Plan: Pt with ataxic gait and unsteady balance per Neurology, may have component of diabetic/ autonomic neuropathy plan as above. Continue PT/OT (5) Rhabdomyolysis: Code(s): M62.82 - Rhabdomyolysis Status: Acute Assessment and Plan: CK evaluated due to increased weakness, found to be elevated at 2500 seeking out obtained on presentation, therefore onset is unclear, however patient was noted to have 3+ blood in urine on presentation patient on rosuvastatin 5 mg which was increased during admission based on a lipid panel which is likely contributor statin on hold at this time LFTs are mildly elevated and will continue to monitor renal function is within normal limits repeat UA is negative for blood and TCK 812 continue IV fluids given the orthostatic HoTN. (6) Type 2 diabetes mellitus without complications: Qualifiers: Diabetes mellitus retirement insulin use: without retirement use Qualified Code(s): E11.9 - Type 2 diabetes mellitus without complications Code(s): E11.9 - Type 2 diabetes mellitus without complications Status: Acute Assessment and Plan: A1c 5.3.The patient's blood glucose was reviewed on 08/31 Glucose remains well controlled. Continue AccuCheks covering with sliding scale. Hypoglycemia protocol available as needed. Continue to monitor (7) Mixed hyperlipidemia: Code(s): E78.2 - Mixed hyperlipidemia Status: Acute Assessment and Plan: statin held due to rhabdomyolysis (8) Hypertension: Qualifiers: Hypertension type: essential hypertension Qualified Code(s): I10 - Essential (primary) hypertension Code(s): I10 - Essential (primary) hypertension Status: Acute Assessment and Plan: Patient's blo
[2022-08-31] MEDS: MELATONIN 5 MG TABLET 10 MG PO (20:26)
[2022-08-31] MEDS: MIRTAZAPINE 30 MG TABLET BY MOUTH (20:27)
[2022-08-31 23:02] LABS: Alveolar/Arterial O2 Gradient 65.6 mmHg; Base Excess ABG -0.7 mEq/l (+/-2.0); Carboxyhemoglobin 0.5 % THb (0-2.0); Fractional Inspired Oxygen 21 %; HCO3 ABG 22.2 mEq/l (22.0-26.0); Methemoglobin ABG 0.3 %THb (0-1.5); Oxygen Content ABG 15.7 %vol (16.0-22.0); PCO2 ABG 31.3 mmHg (35.0-45.0); PO2 FiO2 Ratio Arterial Blood 2.22 %; Reduced Hemoglobin 14.8 %THb (0-5.0); Total Hemoglobin 13.3 g/dL (12.0-18.0); pH ABG 7.468 (7.350-7.450)
[2022-08-31 23:04] LABS: Oxygen Saturation ABG 85.8 % (95.0-100.0); PO2 ABG 46.7 mmHg (80.0-100.0)
[2022-08-31 23:05] LABS: Device ROOM AIR; Modified Allen's Test Pass; Oxyhemoglobin 84.4 % THb (90.0-100.0); Site Drawn RIGHT RADIAL
[2022-09-01] VITALS (48 sets, daily range): BP systolic 99–160; BP diastolic 64–98; PULSE 58–102; RESP 19–50; TEMP 36.5–38.2; O2SAT 88–100
--- NOTE | 2022-09-01 | ECHO_ITS ---
Patient Info Name: Liam Oreilly Age: 77 years : 1945 Gender: Male Ht: 71 in Wt: 197 lbs BSA: 2.13 m2 HR: 56 bpm BP: 169 / 98 mmHg Technical Quality: Good Exam Date: 09/01/2022 2:53 PM Exam Location: [facility] Patient Status: Inpatient Admit Date: 08/27/2022 Staff Ordering Physician: Luis Enrique Wilburn MD Gambling Dealer: Evan Beasley RDCS, RT Attending Provider: Michelle Zamudio PA-C Exam Type: CA echo doppler color flow Study Info Indications J96.90 - Respiratory failure, unspecified, unspecified whether with hypoxia or hypercapnia Complete two-dimensional, color flow and Doppler transthoracic echocardiogram is performed. Strain analysis performed. Summary 1. Complete two-dimensional, color flow and Doppler transthoracic echocardiogram is performed. 2. Left ventricular chamber dimension is moderately enlarged. 3. Left ventricular systolic function is moderately globally reduced, estimated at 35-40%. 4. The left ventricular diastolic function is grade I diastolic dysfunction. 5. E/e' 16 is elevated. 6. Global longitudinal strain is abnormal at -10.3%. 7. Left atrial chamber dimension is mildly enlarged. 8. Right atrial chamber dimension is moderately enlarged. 9. There is moderate aortic valve sclerosis. 10. The mitral valve has moderately calcified annulus. 11. There is moderate mitral valve regurgitation. 12. There is moderate tricuspid valve regurgitation. 13. Moderate pulmonary hypertension, estimated pulmonary arterial systolic pressure is 51 mmHg. 14. There is mild pulmonic regurgitation. 15. Dilated inferior vena cava with <50% collapse upon inspiration consistent with significantly elevated right atrial pressure, 15 mmHg. Left Ventricle Left ventricular systolic function is moderately globally reduced, estimated at 35-40%. E/e' 16 is elevated. Global longitudinal strain is abnormal at -10.3%. Left ventricular chamber dimension is moderately enlarged. The left ventricular diastolic function is grade I diastolic dysfunction. Right Ventricle Right ventricular systolic function is normal based on normal TAPSE 1.9 cm. Right ventricular chamber dimension is not well visualized. Left Atria Left atrial chamber dimension is mildly enlarged. Right Atria Right atrial chamber dimension is moderately enlarged. Aortic Valve The aortic valve is trileaflet. There is moderate aortic valve sclerosis. There is no aortic valve stenosis. There is no aortic valve regurgitation. Pulmonic Valve There is mild pulmonic regurgitation. Mitral Valve The mitral valve has moderately calcified annulus. There is no mitral valve stenosis. There is moderate mitral valve regurgitation. Tricuspid Valve There is moderate tricuspid valve regurgitation. Moderate pulmonary hypertension, estimated pulmonary arterial systolic pressure is 51 mmHg. Pericardium/Pleural There is no pericardial effusion. Inferior Vena Cava Dilated inferior vena cava with <50% collapse upon inspiration consistent with significantly elevated right atrial pressure, 15 mmHg. Aorta The aortic root size at the sinus of Valsalva is normal. Left Ventricular Outflow Tract Name Value Normal LVOT 2D LVOT Diameter
[2022-09-01 00:22] LABS: Glucose Point of Care 117 mg/dl (65-105)
[2022-09-01] MEDS: HALOPERIDOL LACTATE 5 MG/ML VIAL 2.5 MG IM (01:40)
[2022-09-01] MEDS: FUROSEMIDE INJ 40 MG/4 ML VIAL 20 MG IV PUSH (05:43)
[2022-09-01] MEDS: methylPREDNISolone SOD SUCC 40 MG VIAL IV PUSH (05:44)
--- NOTE | 2022-09-01 06:14 | PC.NURSE ---
rapid reaponce called dueto increased respiratory difficulty & increasing confusion. Ricky Hyman gave orders to put pt on continuous Bi pap and transfer to IMU. Currently waiting for a bed assignment.
[2022-09-01 06:30] LABS: Alveolar/Arterial O2 Gradient 544.6 mmHg; Base Excess ABG -3.5 mEq/l (+/-2.0); Carboxyhemoglobin 0.9 % THb (0-2.0); Device NON-REBREATHER MASK; Fractional Inspired Oxygen 90 %; HCO3 ABG 19.5 mEq/l (22.0-26.0); Methemoglobin ABG 0.3 %THb (0-1.5); Modified Allen's Test Pass; Oxygen Content ABG 18.8 %vol (16.0-22.0); Oxyhemoglobin 92.7 % THb (90.0-100.0); PCO2 ABG 29.9 mmHg (35.0-45.0); PO2 ABG 66.5 mmHg (80.0-100.0); PO2 FiO2 Ratio Arterial Blood 0.74 %; Reduced Hemoglobin 6.1 %THb (0-5.0); Site Drawn RIGHT RADIAL; Total Hemoglobin 14.4 g/dL (12.0-18.0); pH ABG 7.433 (7.350-7.450)
[2022-09-01 07:24] LABS: Hematocrit 42.3 % (42.0-52.0); Hemoglobin 13.5 g/dL (14.0-18.0); Mean Corpuscular HGB Conc 31.9 g/dl (32-36); Mean Corpuscular Hemoglobin 29.3 pg (26-34); Mean Platelet Volume 9.7 fl (7.4-10.4); Platelet Count Result 147 k/mm3 (150-375); Red Cell Distribution Width 14.3 % (11.5-14.5); White Blood Count 4.9 K/mm3 (4.5-10.0)
--- NOTE | 2022-09-01 07:48 | PM.IMPN ---
Progress Note: A&P Assessment and Plan (1) Acute respiratory failure: Code(s): J96.00 - Acute respiratory failure, unspecified whether with hypoxia or hypercapnia Status: Acute Assessment and Plan: Patient developed acute respiratory hypoxic failure. CXR reviewed personally showing increasing airspace disease in the RUL and bilateral LL. Consider fluid overload (I/O +3.4L but does not include incontinent output). Echo last September showing EF 70% with grade I diastolic dysfunction. Lasix given once and to be repeated. WBC normal but CRP 26. BCx ordered. Precedex added for calming measures. Consider aspiration or HCAP PNA so broad spectrum abx added. Check EKG and Echo. Check Trop to exclude new cardiac event. Discussed with provider network mgr and appreciate their input. Discussed with son. All questions answered. (2) COVID: Code(s): U07.1 - COVID-19 Status: Acute Assessment and Plan: PCR positive on 08/27/22. Was not on supplemental oxygen CXR 08/30 noted with RUL and bilateral LL airspace disease. No WBC or fever. Repeat CXR worsening. As above Steroids added Droplet and contact isolation (3) Falls frequently: Code(s): R29.6 - Repeated falls Status: Acute Assessment and Plan: Patient suffering mechanical falls recently MRI with mild-moderate generalized atrophy and minimal chronic microvascular ischemic changes, mildly dilated ventricles and subarachnoid spaces. Carotid doppler performed 50% stenosis bilaterally Concern for NPH due to gait changes and LP recommended High-volume LP completed 08/30 with normal opening pressure, normal cell count, negative Gram stain. No concern for infection. TSH normal. No significant lab abnormalities. May be worsened due to acute illness from bacterial PNA? Patient was restless and fell out of bed on to the floor and hit his head 08/30. Repeat CT performed with no acute findings. Continue fall precautions Appreciate neuro input. The orthostatic HoNT also contributiing to his falls. PT/OT eval appreciated (4) Confusion: Code(s): R41.0 - Disorientation, unspecified Status: Acute Assessment and Plan: Pt with waxing and waning mental status not receiving any sedating medications or narcotics lumbar puncture completed as above neurology recommends consideration of EEG which was ordered B12, RPR pending (5) Gait instability: Code(s): R26.81 - Unsteadiness on feet Status: Acute Assessment and Plan: Pt with ataxic gait and unsteady balance per Neurology, may have component of diabetic/ autonomic neuropathy plan as above. Continue PT/OT (6) Rhabdomyolysis: Code(s): M62.82 - Rhabdomyolysis Status: Acute Assessment and Plan: CK evaluated due to increased weakness, found to be elevated at 2500 patient was noted to have 3+ blood in urine on presentation Related to multiple falls Patient on rosuvastatin 5 mg which was increased during admission based on a lipid panel which is likely contributor Statin on hold at this time LFTs are mildly elevated and will continue to monitor renal function is within normal limits repeat UA is negative for blood and TCK 812 Stop IV fluids (7) Type 2 diabetes mellitus without complications: Qualifiers: 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 Continue AccuCheks covering with sliding scale. Hypoglycemia protocol available as needed. Continue to monitor (8) Mixed hyperlipidemia: Code(s): E78.2 - Mixed hyperlipidemia Status: Acute Assessment and Plan: Statin
--- NOTE | 2022-09-01 07:48 | P.PNIM_ITS ---
Progress Note: A&P Assessment and Plan (1) Acute respiratory failure: Code(s): J96.00 - Acute respiratory failure, unspecified whether with hypoxia or hypercapnia Status: Acute Assessment and Plan: Patient developed acute respiratory hypoxic failure. CXR reviewed personally showing increasing airspace disease in the RUL and bilateral LL. Consider fluid overload (I/O +3.4L but does not include incontinent output). Echo last September showing EF 70% with grade I diastolic dysfunction. Lasix given once and to be repeated. WBC normal but CRP 26. BCx ordered. Precedex added for calming measures. Consider aspiration or HCAP PNA so broad spectrum abx added. Check EKG and Echo. Check Trop to exclude new cardiac event. Discussed with preschool paraprofessional and appreciate their input. Discussed with son. All questions answered. (2) COVID: Code(s): U07.1 - COVID-19 Status: Acute Assessment and Plan: PCR positive on 08/27/22. Was not on supplemental oxygen * CXR 08/30 noted with RUL and bilateral LL airspace disease. No WBC or fever. * Repeat CXR worsening. As above * Steroids added * Droplet and contact isolation (3) Falls frequently: Code(s): R29.6 - Repeated falls Status: Acute Assessment and Plan: Patient suffering mechanical falls recently * MRI with mild-moderate generalized atrophy and minimal chronic microvascular ischemic changes, mildly dilated ventricles and subarachnoid spaces. * Carotid doppler performed 50% stenosis bilaterally * Concern for NPH due to gait changes and LP recommended * High-volume LP completed 08/30 with normal opening pressure, normal cell count, negative Gram stain. No concern for infection. * TSH normal. No significant lab abnormalities. * May be worsened due to acute illness from bacterial PNA? * Patient was restless and fell out of bed on to the floor and hit his head 08/30. Repeat CT performed with no acute findings. * Continue fall precautions * Appreciate neuro input. * The orthostatic HoNT also contributiing to his falls. * PT/OT eval appreciated (4) Confusion: Code(s): R41.0 - Disorientation, unspecified Status: Acute Assessment and Plan: Pt with waxing and waning mental status * not receiving any sedating medications or narcotics * lumbar puncture completed as above * neurology recommends consideration of EEG which was ordered * B12, RPR pending (5) Gait instability: Code(s): R26.81 - Unsteadiness on feet Status: Acute Assessment and Plan: Pt with ataxic gait and unsteady balance * per Neurology, may have component of diabetic/ autonomic neuropathy * plan as above. * Continue PT/OT (6) Rhabdomyolysis: Code(s): M62.82 - Rhabdomyolysis Status: Acute Assessment and Plan: CK evaluated due to increased weakness, found to be elevated at 2500 * patient was noted to have 3+ blood in urine on presentation * Related to multiple falls * Patient on rosuvastatin 5 mg which was increased during admission based on a lipid panel which is likely contributor * Statin on hold at this time * LFTs are mildly elevated and will continue to monitor * renal function is within normal limits * repeat UA is negative for blood and TCK 812 * Stop IV fluids (7) Type 2 diabetes mellitus without complications: Qualifiers: Diabetes mellitus fpc insulin use: without fpc use Qualified Code(s): E11.9 - Type 2 diabetes mellitus without complications Code(s): E11.9 - Type 2 diabetes m
[2022-09-01] MEDS: dexmedeTOMIDine 400 MCG/100 ML 400 MCG/100 ML BAG IV CONT (07:55)
--- NOTE | 2022-09-01 08:06 | PC.NURSE ---
0730 Pt by bed to ICU 10. Nursing accompanied by Respiratory with continuous cpap going.
[2022-09-01 08:07] LABS: Alanine Aminotransferase 45 U/L (6-50); Albumin Level 3.6 g/dL (3.5-5.1); Alkaline Phosphatase 66 U/L (38-126); Anion Gap 10 mmol/L (8-16); Aspartate Amino Transferase 96 U/L (17-59); Bilirubin,Total 1.7 mg/dL (0.2-1.3); Blood Urea Nitrogen 26 mg/dL (9-20); CRP 26.3 mg/dL (<1.0); Carbon Dioxide 23 mmol/L (22-30); Chloride 107 mmol/L (98-107); Estimated CRCL calculation 69 ml/min; Estimated Glomerular Filt Rate > 60; Glucose 141 mg/dL (65-110); Phosphorus 2.8 mg/dL (2.5-4.5); Potassium 3.6 mmol/L (3.4-5.0); Sodium 140 mmol/L (137-145)
--- NOTE | 2022-09-01 08:20 | ECG_ITS ---
Measurements Intervals [place] Rate: 62 P: -63 LA: 190 QRS: 19 QRSD: 111 T: 21 QT: 443 QTc: 451 Interpretive Statements SINUS RHYTHM WITH FIRST DEGREE AV BLOCK ATRIAL PREMATURE COMPLEXES INTRAVENTRICULAR CONDUCTION DELAY BASELINE ARTIFACT- II, III, V2, V4-V6 BORDERLINE ECG COMPARED TO ECG 01/29/2021 15:18:40 INTRAVENTRICULAR CONDUCTION DELAY NOW PRESENT Electronically Signed On 09-01-2022 12:33:44 CDT by Michael Quintero D.O.
--- NOTE | 2022-09-01 08:20 | PCSTNOTE ---
Bedside Swallow Evaluation order cancelled secondary to patient condition/BIPAP.
[2022-09-01 08:25] LABS: Total Cells Counted 100
[2022-09-01 08:26] LABS: Band Neutrophils Percent 13 % (0-6); Lymphocytes Absolute Manual 0.14 K/mm3 (1.1-4.5); Lymphocytes Percent Manual 3 % (18-44); Monocytes Absolute Manual 0.14 K/mm3 (0.1-0.90); Monocytes Percent Manual 3 % (3-9); Neutrophils Percent Manual 81 % (46-73); Platelet Estimate Adequate (Adequate); Schistocytes None Seen (NORMAL)
[2022-09-01] MEDS: ENOXAPARIN 40 MG/0.4 ML SYRINGE SUB-Q (08:36)
[2022-09-01] MEDS: PIPERACILLIN/TAZOBACTAM SOD 4.5 GM in SODIUM CHLORIDE 0.9% IV 100 ML 200 ML IVPB ×3 (09:12→17:08)
[2022-09-01 09:19] LABS: Vitamin B12 > 1000.0 pg/mL (239-931)
[2022-09-01 09:25] LABS: Alveolar/Arterial O2 Gradient 167.3 mmHg; Base Excess ABG 0.1 mEq/l (+/-2.0); Device NON-INVASIVE VENT; Fractional Inspired Oxygen 40 %; HCO3 ABG 24.7 mEq/l (22.0-26.0); Oxygen Content ABG 17.5 %vol (16.0-22.0); Oxygen Saturation ABG 94.5 % (95.0-100.0); Oxyhemoglobin 93.3 % THb (90.0-100.0); PCO2 ABG 40.4 mmHg (35.0-45.0); PO2 ABG 71.4 mmHg (80.0-100.0); PO2 FiO2 Ratio Arterial Blood 1.79 %; Site Drawn RIGHT BRACHIAL; Total Hemoglobin 13.3 g/dL (12.0-18.0); pH ABG 7.405 (7.350-7.450)
[2022-09-01 09:26] LABS: Non-Invasive Expiratory Pressure 8 CMH2O; Non-Invasive Inspiratory Pressure 16 CMH2O; Non-Invasive Vent Rate 14 /MIN
--- NOTE | 2022-09-01 09:26 | WPDCNINT ---
Assessment and Plan Assessment and plan (1) Acute respiratory failure: Code(s): J96.00 - Acute respiratory failure, unspecified whether with hypoxia or hypercapnia Status: Acute Assessment and Plan: Acute Respiratory failure which appears to be multifactorial. Patient on presentation was tested positive for COVID-19 although his chest x-ray was clear at that time and he was not hypoxic. he also received IV fluids and aspiration pneumonia as another possibility considering patient's mental status patient now on BiPAP 14/7 60% and I have weaned down his oxygen to 40%. I will check an ABG and will evaluate if patient could be transition to Airvo depending on his CO2 level if patient respiratory status worsen he may need intubation Lasix IV given and will repeated dose later today blood cultures ordered. empiric vancomycin and Zosyn start dexamethasone IV for COVID-19. hold remdesivir as patient appears to be out of beneficial time frame. Check CRP and ESR check procalcitonin patient is in isolation check echocardiogram (2) COVID: Code(s): U07.1 - COVID-19 Status: Acute Assessment and Plan: see above (3) Pneumonia: Code(s): J18.9 - Pneumonia, unspecified organism Status: Acute Assessment and Plan: see above (4) Congestive heart failure: Code(s): I50.9 - Heart failure, unspecified Status: Acute Assessment and Plan: see above (5) Rhabdomyolysis: Code(s): M62.82 - Rhabdomyolysis Status: Acute Assessment and Plan: hold further IV fluids monitor CK level (6) Delirium: Code(s): R41.0 - Disorientation, unspecified Status: Acute Assessment and Plan: hold his nonessential medications with his sedation as side effects start Precedex infusion to allow safe NIPPV (7) Type 2 diabetes mellitus without complications: Qualifiers: Diabetes mellitus 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 Albert I spoke to patient's son by phone and updated him with patient's current status and current treatment plan. I answered all his questions. He he confirmed that patient is full code at this time. Total Critical Care Time - 45 minutes Due to a high probability of clinically significant, life threatening deterioration, the patient required my highest level of preparedness to intervene emergently and I personally spent this critical care time directly and personally managing the patient. This critical care time included obtaining a history; examining the patient; pulse oximetry; ordering and review of studies; arranging urgent treatment with development of a management plan; evaluation of patient's response to treatment; frequent reassessment; and discussions with other providers. It was exclusive of separately billable procedures and treating other patients and teaching time. Please see Assessment and Plan section and the rest of the note for further information on patient assessment and treatment [employer] Consult Note Consult date: 09/01/22 Reason for consult: acute respiratory failure HPI: Liam Oreilly is a 77 year old male with past medical history of diastolic dysfunction, aortic sclerosis, SVT diabetes who resides at home alone and was admitted from emergency room on 08/27 for evaluation for multiple ground level falls.? in ED patient was tested positive for positive for COVID but he denied any shortness of breath or cough or fever chills at that time.? He was inquisitive asked to where he might have acquired the COVID.? The patient's is in the longterm and the patient
[2022-09-01 09:35] LABS: NT Pro B Type Natriuretic Pept 2140 pg/mL (19.9-100)
[2022-09-01 09:40] LABS: Troponin I 0.116 ng/mL (0.000-0.034)
[2022-09-01 09:49] LABS: Erythrocyte Sedimentation Rate 65 mm/hr (0-20)
[2022-09-01 10:28] LABS: Folic Acid 14.1 ng/mL (2.76->20)
[2022-09-01 10:31] LABS: Procalcitonin 2.1 ng/mL
--- NOTE | 2022-09-01 10:52 | WPDNEUROPN ---
Progress Note: A&P Assessment and Plan (1) Altered mental status: Code(s): R41.82 - Altered mental status, unspecified Status: Acute (2) Gait instability: Code(s): R26.81 - Unsteadiness on feet Status: Acute (3) COVID: Code(s): U07.1 - COVID-19 Status: Acute (4) Acute respiratory failure: Code(s): J96.00 - Acute respiratory failure, unspecified whether with hypoxia or hypercapnia Status: Acute (5) Pneumonia: Code(s): J18.9 - Pneumonia, unspecified organism Status: Acute (6) Congestive heart failure: Code(s): I50.9 - Heart failure, unspecified Status: Acute Plan Liam Oreilly is a 77 year old male with a history of DM, HTN, urinary urgency, HLD, aortic valve sclerosis and CHF who presented due to increased falls. Mental status has been fluctuating during the admission. Could be related to underlying COVID and delirium. Large volume LP was done to assess for NPH. CSF studies do not look concerning for encephalitis or meningitis. Course has been complicated by respiratory failure, resulting in transfer to ICU on BiPAP. - Routine EEG Subjective Date/time seen: 09/01/22 10:52 Interval history: [place] [id number] [place] [address] Neurology Consult Note Signed Patient: Liam Oreilly MR#: [id number] : 1945 Acct:[id number] Age/Sex: 77 / M Liam Oreilly is a 77 year old male with a history of DM, HTN, urinary urgency, HLD, aortic valve sclerosis and CHF. Patient presented due to frequent ground level falls. CT head was negative and MRI showed mild to moderate generalized atrophy. Carotid doppler showed <50% stenosis bilaterally. Neurology wa consulted for gait issues. Dr. Cintron saw the patient and thought that maybe the gait instability was due to diabetic neuropathy. Since patient has been admitted, his mental status has worsened as well. He was noted to be positive for COVID on presentation. He has been intermittently confused during this admission. Lumbar puncture was done due to concerns for possible normal pressure hydrocephalus -- cell count was normal and protein only slightly elevated. UA was repeated which was not concerning for infection. Yesterday, patient became more hypoxic resulting in respiratory failure and transfer to ICU. He is currently on BiPAP. CXR showed concern for possible pneumonia. Review of Systems Review of Systems: ROS unobtainable: Yes unobtainable due to medical condition and unobtainable due to mental status Exam Const: General: comfortable HENMT: Mouth: Yes moist mucous membranes Eyes: Pupils: Equal, round and reactive pupils present Resp: Other: BiPAP Cardio: Rate: regular rate GI: GI Palp: Yes Soft to palpation Urinary Catheter: Urinary Catheter: patent and draining Skin: General skin exam: normal color Neuro: Other: Eyes closed, no spontaneous opening or to stimuli, PERRL, face appears symmetric, no spontaneous movements of the extremities. Extrem: General: normal to inspection Psych: Other: sedated Objective Data Vital Signs Vital Signs: Vital Signs - 24 hr 08/31/22 11:08 08/31/22 11:00 08/31/22 11:00 Temperature Pulse Rate Respiratory Rate Blood Pressure 103/61 104/55 L Pulse Oximetry 92 Oxygen Delivery Room Air Oxygen Flow Rate Fraction of Inspired Oxygen 08/31/22 11:05 08/31/22 12:00 08/31/22 16:00 Temperature 37.2 C 37.0 C Pulse Rate 80 83 Respiratory Rate 22 H 22 H Blood Pressure 86/69 L 114/59 L 126/68 Pulse Oximetry 91 91 Oxygen Delivery Oxygen Flow Rate Fraction of Inspired Oxygen 08/31/22 20:00 08/31/22 20:00 08/31/22 20:00 Temperature 36.4 C Pulse Rate 83 70 Respiratory Rate 22 H 40 H Blood Pressure 132/81 Pulse Oximetry 91 91 92 Oxygen Delivery Room Air Oxygen Flow Rate Fraction of Inspired Oxygen 09/01/22 00
--- NOTE | 2022-09-01 12:06 | PCPTNOTE ---
Spoke with hospitalist and RN - both recommended holding PT treatment this date. Will follow.
[2022-09-01] MEDS: FUROSEMIDE INJ 40 MG/4 ML VIAL IV PUSH (12:10)
[2022-09-01] MEDS: dexmedeTOMIDine 400 MCG/100 ML 400 MCG/100 ML BAG 17.96 MCG IV CONT (12:11)
--- NOTE | 2022-09-01 14:10 | PCOTNOTE ---
Per hospitalist, hold OT on this date and attempt tomorrow. Will follow.
[2022-09-01] MEDS: POTASSIUM CHLORIDE INJ 40 MEQ in SODIUM CHLORIDE 0.9% IV 500 ML 130 MEQ IVPB (14:28)
[2022-09-01 15:05] LABS: Glucose Point of Care 162 mg/dl (65-105)
[2022-09-01 15:28] LABS: Troponin I 0.102 ng/mL (0.000-0.034)
[2022-09-01 15:56] LABS: Rapid Plasma Reagin Non-Reactive (NonReactive)
[2022-09-01 16:33] LABS: Alveolar/Arterial O2 Gradient 174.5 mmHg; Base Excess ABG -1.4 mEq/l (+/-2.0); Carboxyhemoglobin 0.4 % THb (0-2.0); Device NON-INVASIVE VENT; Fractional Inspired Oxygen 40 %; HCO3 ABG 21.2 mEq/l (22.0-26.0); Methemoglobin ABG 0.3 %THb (0-1.5); Non-Invasive Expiratory Pressure 8 CMH2O; Non-Invasive Inspiratory Pressure 16 CMH2O; Non-Invasive Vent Rate 14 /MIN; Oxygen Content ABG 20.5 %vol (16.0-22.0); Oxyhemoglobin 94.5 % THb (90.0-100.0); PCO2 ABG 30.6 mmHg (35.0-45.0); PO2 ABG 75.5 mmHg (80.0-100.0); PO2 FiO2 Ratio Arterial Blood 1.89 %; Reduced Hemoglobin 4.8 %THb (0-5.0); Site Drawn RIGHT BRACHIAL; Total Hemoglobin 15.4 g/dL (12.0-18.0); pH ABG 7.459 (7.350-7.450)
[2022-09-01] MEDS: MIDAZOLAM HCL (*CRX) 2 MG/2 ML VIAL IV PUSH ×2 (16:52→21:52)
[2022-09-01] MEDS: dexmedeTOMIDine 400 MCG/100 ML 400 MCG/100 ML BAG 22.45 MCG IV CONT (17:04)
[2022-09-01] MEDS: INSULIN ASPART (*BKC) 100 UNITS/ML SUB-Q (17:08)
[2022-09-01 17:16] LABS: Glucose Point of Care 217 mg/dl (65-105)
[2022-09-01] MEDS: dexmedeTOMIDine 400 MCG/100 ML 400 MCG/100 ML BAG 29.19 MCG IV CONT (20:53)
[2022-09-01] MEDS: ROCURONIUM BROMIDE 50 MG/5 ML VIAL 100 MG IV PUSH (21:59)
[2022-09-01] MEDS: MIDAZOLAM HCL (*CRX) 2 MG/2 ML VIAL 4 MG IV PUSH (22:00)
--- NOTE | 2022-09-01 22:05 | PC.NURSE ---
Dr. Gunter attempted OG/NG placement. Unable to pass tube. Will pass along to day team.
--- NOTE | 2022-09-01 22:17 | WPDPROCEDUR ---
Procedures Intubation Intubation Date: 09/01/22 Intubation Time: 22:00 Consent: Procedure was performed emergently due to acute decompensation. Sedative: versed Mg given: 6 Paralytic: rocuronium Mg given: 100 Laryngoscope: fiber optic video scope ET tube size: 8 Tube secured depth (cm): 26 Tube secured location: lips Tube placement confirmation: visualized tube passing through cords, equal breath sounds bilaterally, no breath sounds over epigastrium and confirmation by capnometry Patient tolerated procedure: well Intubation complications: none Additional comments: The patient was intubated emergently due to acute decompensation and condition with oxygen saturations 80% on BiPAP. FiO2 was increased on BiPAP up to 100%. The patient was restless and still attempting to pull the BiPAP off. The patient was in soft restraints as we were all at bedside soft restraints were placed. The patient was still trying to kick nursing staff in the head. Patient was already maxed out on Precedex. 4 mg of Versed was given. The patient calmed down and was oxygenating 100% on 100% FiO2 with a BiPAP settings of 14/8. Patient was intubated for airway protection and impending respiratory failure as he was not tolerating BiPAP. He was requiring large amount of sedation. The patient required another 2 mg of Versed during the course of intubation and received rocuronium. Chest x-ray reviewed ET tube foreign after 5 cm from the carmen my review. Will wait for radiology official to interpretation. Pneumonia appears similar to earlier x-ray given differences in technique.
[2022-09-01] MEDS: FENTANYL 2,500MCG/NS250ML(*CRX 2,500 MCG/250 ML BAG 7.5 MCG IV CONT (22:23)
[2022-09-01] MEDS: MIDAZOLAM 100MG/NS 100ML(*CRX) 100 MG/100 ML BAG IV CONT (22:24)
--- NOTE | 2022-09-01 22:52 | PC.NURSE ---
Updated son, David, on pt being intubated and overall condition. All questions answered.
--- NOTE | 2022-09-01 23:15 | P.PNCROSS_ITS ---
Event Note Event Note Event Note: 09/01/2022 at approximately 21:45 Nursing staff had talked to me earlier in the evening patient was admitted with COVID and was on BiPAP and was not leaving BiPAP in place. As patient was ICU patient I requested that they contact the scrap iron cutter. I suspect the patient with likely need to be intubated. As the patient continued to have episodes of pulling off his BiPAP despite being on Precedex nursing staff did end up happening called the scrap iron cutter when the patient became agitated again in pulled off his BiPAP. The managed pace patient back on the BiPAP but the patient's respiratory rate was in the 40s and he was extremely restless. When the nursing staff came to asked me to evaluate the patient after they talked to the scrap iron cutter has had getting ready to go into the room the patient suddenly decompensated. His oxygen saturations were in the low 80s despite being on the BiPAP. The the patient was also providing with nursing staff and had to be physically restrained while we were in the room. The patient was trying to kick nursing staff in the head. Patient was given IV Versed during the course of my evaluation. Despite being given the Versed and adjusting the BiPAP mask patient was still hypoxic. Oxygen saturations were still in the low 80s. Oxygen on BiPAP was increased to 100% with improved oxygenation but with thick Versed on board the patient was no longer protecting his airway. Subsequently the patient was emergently intubated. During the course of intubation the patient did start to get agitated again and received an additional 2 mg of Versed and received rocuronium for paralytic. After intubation I gave orders for the patient be on the ventilator a.c./CMV tidal volume 400 peep of 8 and 100% FiO2. Rate was 20. Orders for sedation with fentanyl and Versed were ordered. Will make vent adjustments based on ABG 1 hour after intubation. I did contact the scrap iron cutter after intubation and updated MS to the patient's change in condition any grade with current plan. Patient's respiratory status was much improved after intubation. Patient equal breath sounds. Patient did have a large goiter on exam post intubation. Both I and nursing staff tried to place and NG/OG without success. 30 minute spent in critical care activities in exclusion of procedure. Due to a high probability of clinically significant, life threatening deterioration, the patient required my highest level of preparedness to intervene emergently and I personally spent this critical care time directly and personally managing the patient. This critical care time included obtaining a history; examining the patient; pulse oximetry; ordering and review of studies; arranging urgent treatment with development of a management plan; evaluation of patient's response to treatment; frequent reassessment; and discussions with other providers. It was exclusive of separately billable procedures and treating other patients and teaching time. Please see Assessment and Plan section and the rest of the note for further information on patient assessment and treatment.
[2022-09-01 23:47] LABS: Alveolar/Arterial O2 Gradient 362.6 mmHg; Carboxyhemoglobin 0.2 % THb (0-2.0); Fractional Inspired Oxygen 80 %; HCO3 ABG 26.2 mEq/l (22.0-26.0); Methemoglobin ABG 0.3 %THb (0-1.5); Oxygen Content ABG 19.6 %vol (16.0-22.0); Oxygen Saturation ABG 98.1 % (95.0-100.0); Oxyhemoglobin 97.2 % THb (90.0-100.0); PO2 FiO2 Ratio Arterial Blood 1.73 %; Reduced Hemoglobin 2.3 %THb (0-5.0); Total Hemoglobin 14.2 g/dL (12.0-18.0)
[2022-09-01 23:49] LABS: PCO2 ABG 66.5 mmHg (35.0-45.0); pH ABG 7.214 (7.350-7.450)
[2022-09-01 23:50] LABS: Arterial Blood Gas PEEP 8 cmH2O; Arterial Blood Gas Vent Mode CMV; Arterial Blood Gas Ventilator rate 20 /MIN; Device VENTILATOR; Modified Allen's Test Pass; Site Drawn RIGHT BRACHIAL
[2022-09-01 23:51] LABS: Arterial Blood Gas Tidal Volume 400 ml
[2022-09-02] VITALS (27 sets, daily range): BP systolic 98–121; BP diastolic 60–79; PULSE 50–73; RESP 24–29; TEMP 36.3–38.3; O2SAT 95–99; BMI 27.9
[2022-09-02] MEDS: PIPERACILLIN/TAZOBACTAM SOD 4.5 GM in SODIUM CHLORIDE 0.9% IV 100 ML 200 ML IVPB ×4 (00:33→17:14)
[2022-09-02 01:52] LABS: Glucose Point of Care 197 mg/dl (65-105)
[2022-09-02 05:10] LABS: Hematocrit 42.1 % (42.0-52.0); Hemoglobin 13.2 g/dL (14.0-18.0); Mean Corpuscular HGB Conc 31.4 g/dl (32-36); Mean Corpuscular Hemoglobin 30.3 pg (26-34); Mean Corpuscular Volume 96.8 fl (80-100); Mean Platelet Volume 10.4 fl (7.4-10.4); Platelet Count Result 151 k/mm3 (150-375); Red Blood Count 4.35 M/mm3 (4.6-6.20); Red Cell Distribution Width 14.5 % (11.5-14.5); White Blood Count 7.6 K/mm3 (4.5-10.0)
[2022-09-02 05:16] LABS: Alveolar/Arterial O2 Gradient 148.4 mmHg; Base Excess ABG -0.7 mEq/l (+/-2.0); Carboxyhemoglobin 0.2 % THb (0-2.0); Fractional Inspired Oxygen 40 %; HCO3 ABG 23.4 mEq/l (22.0-26.0); Methemoglobin ABG 0.2 %THb (0-1.5); Oxygen Content ABG 19.5 %vol (16.0-22.0); Oxygen Saturation ABG 97.4 % (95.0-100.0); Oxyhemoglobin 96.5 % THb (90.0-100.0); PO2 ABG 94.3 mmHg (80.0-100.0); PO2 FiO2 Ratio Arterial Blood 2.36 %; Reduced Hemoglobin 3.1 %THb (0-5.0); Total Hemoglobin 14.3 g/dL (12.0-18.0); pH ABG 7.419 (7.350-7.450)
[2022-09-02 05:17] LABS: Device VENTILATOR; Modified Allen's Test Pass; Site Drawn RIGHT BRACHIAL
[2022-09-02 05:18] LABS: Arterial Blood Gas PEEP 8 cmH2O; Arterial Blood Gas Tidal Volume 430 ml; Arterial Blood Gas Vent Mode CMV; Arterial Blood Gas Ventilator rate 26 /MIN
[2022-09-02] MEDS: INSULIN ASPART (*BKC) 100 UNITS/ML SUB-Q ×2 (06:33→21:32)
[2022-09-02 06:41] LABS: Glucose Point of Care 223 mg/dl (65-105)
--- NOTE | 2022-09-02 08:50 | PCNEURO ---
EEG has been put on hold per Dr. Wilburn due to pt condition and being on sedation.
[2022-09-02 08:52] LABS: Glucose Point of Care 163 mg/dl (65-105)
[2022-09-02] MEDS: LIDOCAINE HCL 1% PF INJ 5 ML VIAL INFILTRATE (09:20)
--- NOTE | 2022-09-02 10:35 | WPDINTPN ---
Progress Note: A&P Assessment and Plan (1) Acute respiratory failure: Code(s): J96.00 - Acute respiratory failure, unspecified whether with hypoxia or hypercapnia Status: Acute Assessment and Plan: Acute Respiratory failure which appears to be multifactorial. Patient on presentation was tested positive for COVID-19 although his chest x-ray was clear at that time and he was not hypoxic. he also received IV fluids and may have developed aspiration pneumonia considering patient's mental status 09/01 patient was placed on BiPAP 30/12 60% and transferred to ICU. FiO2 was weaned off to 40%. He deteriorated overnight and was intubated 09/02 ABG and chest x-ray reviewed. decrease respiratory rate to 24. check chest CT patient received Lasix yesterday and will order additional does once blood pressure allows Lasix IV given and will repeated dose later today blood cultures sent and pending. Continue empiric vancomycin and Zosyn continue dexamethasone IV for COVID-19. patient was not started remdesivir as patient appears to be out of beneficial time frame. CRP 26.3 and ESR 65 procalcitonin 2.1 BNP 2140 patient is in isolation echocardiogram shows EF of 30-35% (2) COVID: Code(s): U07.1 - COVID-19 Status: Acute Assessment and Plan: see above (3) Pneumonia: Code(s): J18.9 - Pneumonia, unspecified organism Status: Acute Assessment and Plan: see above (4) Congestive heart failure: Code(s): I50.9 - Heart failure, unspecified Status: Acute Assessment and Plan: echocardiogram Summary ? 1. Complete two-dimensional, color flow and Doppler transthoracic echocardiogram is performed. ? 2. Left ventricular chamber dimension is moderately enlarged. ? 3. Left ventricular systolic function is moderately globally reduced, estimated at 35-40%. ? 4. The left ventricular diastolic function is grade I diastolic dysfunction. ? 5. E/e' 16 is elevated. ? 6. Global longitudinal strain is abnormal at -10.3%. ? 7. Left atrial chamber dimension is mildly enlarged. ? 8. Right atrial chamber dimension is moderately enlarged. ? 9. There is moderate aortic valve sclerosis. ? 10. The mitral valve has moderately calcified annulus. ? 11. There is moderate mitral valve regurgitation. ? 12. There is moderate tricuspid valve regurgitation. ? 13. Moderate pulmonary hypertension, estimated pulmonary arterial systolic pressure is 51 mmHg. ? 14. There is mild pulmonic regurgitation. ? 15. Dilated inferior vena cava with <50% collapse upon inspiration consistent with significantly elevated right atrial pressure, 15 mmHg. (5) Rhabdomyolysis: Code(s): M62.82 - Rhabdomyolysis Status: Acute Assessment and Plan: hold further IV fluids due to volume overload CK level improving (6) Delirium: Code(s): R41.0 - Disorientation, unspecified Status: Acute Assessment and Plan: patient now intubated and sedated (7) Type 2 diabetes mellitus without complications: Qualifiers: Diabetes mellitus mcc insulin use: without intermediate designer use Qualified Code(s): E11.9 - Type 2 diabetes mellitus without complications Code(s): E11.9 - Type 2 diabetes mellitus without complications Status: Acute Assessment and Plan: sliding scale insulin Plan DVT prophylaxis - Lovenox Nutrition - nurses unable to place NG or OG despite multiple attempts. Will request Dobbhoff placement under fluoroscopic guidance by Radiology. once placed Will start tube feeds Code Status - Full Code SUP- PPI Total Critical Care Time - 45 minutes Due to a high probability of clinically significant, life threatening deterioration, the patient required my highest level of preparedness to intervene emergently and I personally spent this critical care time directly and personally managing the patient. This critical care time included obtaining a history; examining
[2022-09-02 11:02] LABS: Alanine Aminotransferase 38 U/L (6-50); Albumin Level 3.2 g/dL (3.5-5.1); Alkaline Phosphatase 46 U/L (38-126); Anion Gap 3 mmol/L (8-16); Aspartate Amino Transferase 57 U/L (17-59); Bilirubin,Total 0.9 mg/dL (0.2-1.3); Blood Urea Nitrogen 39 mg/dL (9-20); Calcium 7.5 mg/dL (8.4-10.2); Carbon Dioxide 28 mmol/L (22-30); Chloride 108 mmol/L (98-107); Creatine Kinase 102 U/L (55-170); Estimated CRCL calculation 62 ml/min; Estimated Glomerular Filt Rate > 60; Glucose 149 mg/dL (65-110); Magnesium 2.3 mg/dL (1.6-2.3); Potassium 4.8 mmol/L (3.4-5.0); Sodium 139 mmol/L (137-145)
[2022-09-02 11:49] LABS: Glucose Point of Care 141 mg/dl (65-105)
[2022-09-02] MEDS: MINERAL OIL/WHITE PETROLATUM OINTMENT 1 APPLIC EACH EYE ×2 (13:06→23:26)
[2022-09-02] MEDS: CYANOCOBALAMIN 1,000 MCG TABLET 1000 MCG PO (13:06)
[2022-09-02] MEDS: MULTIVITAMINS THERAPEUTIC TAB (*BKC) 1 TABLET PO (13:06)
[2022-09-02] MEDS: CHOLECALCIFEROL 1,000 UNITS TABLET 1000 UNITS PO (13:06)
[2022-09-02] MEDS: ENOXAPARIN 40 MG/0.4 ML SYRINGE SUB-Q (13:06)
[2022-09-02] MEDS: ASPIRIN 81 MG ENTERIC TABLET PO (13:06)
[2022-09-02] MEDS: CENTRAL LINE FLUSH 10 ML IV PUSH ×2 (13:07→23:25)
--- NOTE | 2022-09-02 13:24 | P.PNIM_ITS ---
Progress Note: A&P Assessment and Plan (1) Acute respiratory failure: Code(s): J96.00 - Acute respiratory failure, unspecified whether with hypoxia or hypercapnia Status: Acute Assessment and Plan: Patient developed acute respiratory hypoxic failure. CXR showing increasing airspace disease in the RUL and bilateral LL. Consider fluid overload and/or PNA and/or COVID. Echo last September showing EF 70% but now EF down to 35-40% with grade I diastolic dysfunction. Lasix given x3 yesterday. WBC remains normal but CRP 26. BCx NGTD. UCx negative. Consider aspiration or HCAP PNA so broad spectrum abx added. CT chest c/w pulmonary edema vs PNA. Wean vent as tolerated. Appreciate international account manager input. (2) COVID: Code(s): U07.1 - COVID-19 Status: Acute Assessment and Plan: PCR positive on 08/27/22. Was not on supplemental oxygen * CXR with RUL and bilateral LL airspace disease. No WBC elevation but now with fever * Repeat CXR worsening. As above * Steroids added * Droplet and contact isolation (3) Falls frequently: Code(s): R29.6 - Repeated falls Status: Acute Assessment and Plan: Patient suffering mechanical falls recently * MRI brain with mild-moderate generalized atrophy and minimal chronic microvascular ischemic changes, mildly dilated ventricles and subarachnoid spaces. * Carotid doppler performed 50% stenosis bilaterally * Concern for NPH due to gait changes and High-volume LP completed 08/30 with normal opening pressure, normal cell count, negative Gram stain. No concern for infection. * TSH normal. No significant lab abnormalities. * Patient was restless and fell out of bed on to the floor and hit his head 08/30. Repeat HCT performed with no acute findings. * Continue fall precautions * Appreciate neuro input. * The orthostatic HoNT also contributiing to his falls. * HCT today showing no acute findings. (4) Confusion: Code(s): R41.0 - Disorientation, unspecified Status: Acute Assessment and Plan: Pt with waxing and waning mental status * not receiving any sedating medications or narcotics * lumbar puncture completed as above * B12 and TSH normal. RPR negative * neurology recommends consideration of EEG which was ordered (5) Gait instability: Code(s): R26.81 - Unsteadiness on feet Status: Acute Assessment and Plan: Pt with ataxic gait and unsteady balance * per Neurology, may have component of diabetic/ autonomic neuropathy * plan as above. * Continue PT/OT once off vent (6) Rhabdomyolysis: Code(s): M62.82 - Rhabdomyolysis Status: Acute Assessment and Plan: CK evaluated due to increased weakness, found to be elevated at 2500 * patient was noted to have 3+ blood in urine on presentation * Related to multiple falls * Patient on rosuvastatin 5 mg which was increased during admission based on a lipid panel which is likely contributor * Statin on hold at this time * LFTs are mildly elevated and will continue to monitor * renal function is within normal limits * repeat UA is negative for blood and TCK 163 * IV fluids stopped (7) Type 2 diabetes mellitus without complications: Qualifiers: Diabetes mellitus parts counterman insulin use: without parts counterman use Qualified Code(s): E11.9 - Type 2 diabetes mellitus without complications Code(s): E11.9 - Type 2 diabetes mellitus without complications Status: Acute Assessment and Plan: A1c 5.3.The patient's blood glucose was review
--- NOTE | 2022-09-02 13:24 | PM.IMPN ---
Progress Note: A&P Assessment and Plan (1) Acute respiratory failure: Code(s): J96.00 - Acute respiratory failure, unspecified whether with hypoxia or hypercapnia Status: Acute Assessment and Plan: Patient developed acute respiratory hypoxic failure. CXR showing increasing airspace disease in the RUL and bilateral LL. Consider fluid overload and/or PNA and/or COVID. Echo last September showing EF 70% but now EF down to 35-40% with grade I diastolic dysfunction. Lasix given x3 yesterday. WBC remains normal but CRP 26. BCx NGTD. UCx negative. Consider aspiration or HCAP PNA so broad spectrum abx added. CT chest c/w pulmonary edema vs PNA. Wean vent as tolerated. Appreciate skid adzer input. (2) COVID: Code(s): U07.1 - COVID-19 Status: Acute Assessment and Plan: PCR positive on 08/27/22. Was not on supplemental oxygen CXR with RUL and bilateral LL airspace disease. No WBC elevation but now with fever Repeat CXR worsening. As above Steroids added Droplet and contact isolation (3) Falls frequently: Code(s): R29.6 - Repeated falls Status: Acute Assessment and Plan: Patient suffering mechanical falls recently MRI brain with mild-moderate generalized atrophy and minimal chronic microvascular ischemic changes, mildly dilated ventricles and subarachnoid spaces. Carotid doppler performed 50% stenosis bilaterally Concern for NPH due to gait changes and High-volume LP completed 08/30 with normal opening pressure, normal cell count, negative Gram stain. No concern for infection. TSH normal. No significant lab abnormalities. Patient was restless and fell out of bed on to the floor and hit his head 08/30. Repeat HCT performed with no acute findings. Continue fall precautions Appreciate neuro input. The orthostatic HoNT also contributiing to his falls. HCT today showing no acute findings. (4) Confusion: Code(s): R41.0 - Disorientation, unspecified Status: Acute Assessment and Plan: Pt with waxing and waning mental status not receiving any sedating medications or narcotics lumbar puncture completed as above B12 and TSH normal. RPR negative neurology recommends consideration of EEG which was ordered (5) Gait instability: Code(s): R26.81 - Unsteadiness on feet Status: Acute Assessment and Plan: Pt with ataxic gait and unsteady balance per Neurology, may have component of diabetic/ autonomic neuropathy plan as above. Continue PT/OT once off vent (6) Rhabdomyolysis: Code(s): M62.82 - Rhabdomyolysis Status: Acute Assessment and Plan: CK evaluated due to increased weakness, found to be elevated at 2500 patient was noted to have 3+ blood in urine on presentation Related to multiple falls Patient on rosuvastatin 5 mg which was increased during admission based on a lipid panel which is likely contributor Statin on hold at this time LFTs are mildly elevated and will continue to monitor renal function is within normal limits repeat UA is negative for blood and TCK 163 IV fluids stopped (7) Type 2 diabetes mellitus without complications: Qualifiers: Diabetes mellitus jail insulin use: without dedicated intermodal truck driver use Qualified Code(s): E11.9 - Type 2 diabetes mellitus without complications Code(s): E11.9 - Type 2 diabetes mellitus without complications Status: Acute Assessment and Plan: A1c 5.3.The patient's blood glucose was reviewed on 09/02 Glucose remains well controlled. Continue AccuCheks covering with sliding scale. Hypoglycemia protocol available as needed. Continue to monitor (8) Mixed hyperlipidemia: Code(s): E78.2 - Mixed hyperlipidemia Status: Acute Assessment and Plan: Statin held due to rhabdomyolysis (9) Hypertension: Qualifiers: Hypertension type: essential hypertension Qualified Code(s)
--- NOTE | 2022-09-02 16:40 | PCOTNOTE ---
D/C Pt. from therapy services at this time. Pt. is currently intubated and on mechanical ventilation. Re-order when pt. able to participate.
[2022-09-02 17:33] LABS: Glucose Point of Care 183 mg/dl (65-105)
[2022-09-02 23:10] LABS: Vancomycin Trough 7.4 ug/mL (10.0-20.0)
[2022-09-03] VITALS (42 sets, daily range): BP systolic 96–150; BP diastolic 58–78; PULSE 45–68; RESP 15–32; TEMP 36–37.2; O2SAT 92–98
[2022-09-03] MEDS: FENTANYL 2,500MCG/NS250ML(*CRX 2,500 MCG/250 ML BAG 6.5 MCG IV CONT (00:22)
[2022-09-03] MEDS: PIPERACILLIN/TAZOBACTAM SOD 4.5 GM in SODIUM CHLORIDE 0.9% IV 100 ML 200 ML IVPB ×4 (00:28→23:01)
[2022-09-03] MEDS: INSULIN ASPART (*BKC) 100 UNITS/ML SUB-Q ×3 (00:30→20:35)
[2022-09-03 01:34] LABS: Glucose Point of Care 219 mg/dl (65-105)
[2022-09-03] MEDS: CENTRAL LINE FLUSH 10 ML IV PUSH ×3 (05:02→21:12)
[2022-09-03 05:05] LABS: Alveolar/Arterial O2 Gradient 159.9 mmHg; Base Excess ABG 0.7 mEq/l (+/-2.0); Carboxyhemoglobin 0.3 % THb (0-2.0); Fractional Inspired Oxygen 40 %; HCO3 ABG 26.1 mEq/l (22.0-26.0); Methemoglobin ABG 0.2 %THb (0-1.5); Oxygen Content ABG 17.2 %vol (16.0-22.0); Oxygen Saturation ABG 94.5 % (95.0-100.0); Oxyhemoglobin 93.7 % THb (90.0-100.0); PO2 ABG 73.6 mmHg (80.0-100.0); PO2 FiO2 Ratio Arterial Blood 1.84 %; Reduced Hemoglobin 5.8 %THb (0-5.0); pH ABG 7.382 (7.350-7.450)
[2022-09-03 05:07] LABS: Device VENTILATOR; Site Drawn LEFT RADIAL
[2022-09-03 05:08] LABS: Arterial Blood Gas PEEP 8 cmH2O; Arterial Blood Gas Tidal Volume 430 ml; Arterial Blood Gas Vent Mode CMV; Arterial Blood Gas Ventilator rate 24 /MIN
[2022-09-03 05:08] LABS: Glucose Point of Care 184 mg/dl (65-105)
[2022-09-03 05:14] LABS: Hematocrit 38.2 % (42.0-52.0); Hemoglobin 11.9 g/dL (14.0-18.0); Mean Corpuscular HGB Conc 31.2 g/dl (32-36); Mean Corpuscular Hemoglobin 29.9 pg (26-34); Platelet Count Result 160 k/mm3 (150-375); Red Blood Count 3.98 M/mm3 (4.6-6.20); Red Cell Distribution Width 14.7 % (11.5-14.5); White Blood Count 8.6 K/mm3 (4.5-10.0)
[2022-09-03] MEDS: MULTIVITAMINS THERAPEUTIC TAB (*BKC) 1 TABLET PO (08:17)
[2022-09-03] MEDS: PANTOPRAZOLE SODIUM IV 40 MG VIAL IV PUSH (08:17)
[2022-09-03] MEDS: ENOXAPARIN 40 MG/0.4 ML SYRINGE SUB-Q (08:18)
[2022-09-03] MEDS: CYANOCOBALAMIN 1,000 MCG TABLET 1000 MCG PO (08:18)
[2022-09-03] MEDS: CHOLECALCIFEROL 1,000 UNITS TABLET 1000 UNITS PO (08:19)
[2022-09-03] MEDS: ASPIRIN 81 MG ENTERIC TABLET PO (08:19)
--- NOTE | 2022-09-03 08:31 | WPDINTPN ---
Progress Note: A&P Assessment and Plan (1) Acute respiratory failure: Code(s): J96.00 - Acute respiratory failure, unspecified whether with hypoxia or hypercapnia Status: Acute Assessment and Plan: Acute Respiratory failure which appears to be multifactorial. Patient on presentation was tested positive for COVID-19 although his chest x-ray was clear at that time and he was not hypoxic. he also received IV fluids and may have developed aspiration pneumonia considering patient's mental status 09/01 patient was placed on BiPAP 30/12 60% and transferred to ICU. FiO2 was weaned off to 40%. He deteriorated overnight and was intubated 09/02 ABG and chest x-ray reviewed. decrease respiratory rate to 24. 09/[address] IMPRESSION: 1. Diffuse lung disease, consistent with pulmonary edema and/or pneumonia. 2. Small pleural effusions. 3. Small pericardial effusion. Will give Lasix today blood cultures sent and negative now. Currently on empiric vancomycin and Zosyn. Discontinue vancomycin if cultures remain negative Continue dexamethasone IV for COVID-19. patient was not started remdesivir as patient appears to be out of beneficial time frame. CRP 26.3 and ESR 65 procalcitonin 2.1 BNP 2140 patient is in isolation echocardiogram shows EF of 30-35% (2) COVID: Code(s): U07.1 - COVID-19 Status: Acute Assessment and Plan: see above (3) Pneumonia: Code(s): J18.9 - Pneumonia, unspecified organism Status: Acute Assessment and Plan: see above (4) Congestive heart failure: Code(s): I50.9 - Heart failure, unspecified Status: Acute Assessment and Plan: echocardiogram Summary ? 1. Complete two-dimensional, color flow and Doppler transthoracic echocardiogram is performed. ? 2. Left ventricular chamber dimension is moderately enlarged. ? 3. Left ventricular systolic function is moderately globally reduced, estimated at 35-40%. ? 4. The left ventricular diastolic function is grade I diastolic dysfunction. ? 5. E/e' 16 is elevated. ? 6. Global longitudinal strain is abnormal at -10.3%. ? 7. Left atrial chamber dimension is mildly enlarged. ? 8. Right atrial chamber dimension is moderately enlarged. ? 9. There is moderate aortic valve sclerosis. ? 10. The mitral valve has moderately calcified annulus. ? 11. There is moderate mitral valve regurgitation. ? 12. There is moderate tricuspid valve regurgitation. ? 13. Moderate pulmonary hypertension, estimated pulmonary arterial systolic pressure is 51 mmHg. ? 14. There is mild pulmonic regurgitation. ? 15. Dilated inferior vena cava with <50% collapse upon inspiration consistent with significantly elevated right atrial pressure, 15 mmHg. (5) Rhabdomyolysis: Code(s): M62.82 - Rhabdomyolysis Status: Acute Assessment and Plan: hold further IV fluids due to volume overload CK level improving (6) Delirium: Code(s): R41.0 - Disorientation, unspecified Status: Acute Assessment and Plan: patient now intubated and sedated with Versed and fentanyl Will try to transition sedation from Versed to propofol. (7) Type 2 diabetes mellitus without complications: Qualifiers: Diabetes mellitus detention insulin use: without detention use Qualified Code(s): E11.9 - Type 2 diabetes mellitus without complications Code(s): E11.9 - Type 2 diabetes mellitus without complications Status: Acute Assessment and Plan: sliding scale insulin Plan DVT prophylaxis - Lovenox Nutrition -continue tube feeds. Advance to goal rate Code Status - Full Code SUP- PPI Total Critical Care Time - 30 minutes Due to a high probability of clinically significant, life threatening deterioration, the patient required my highest level of preparedness to intervene emergently and I personally spent this critical care time directly and personally managing the patient. This critical care t
[2022-09-03] MEDS: MINERAL OIL/WHITE PETROLATUM OINTMENT 1 APPLIC EACH EYE ×2 (08:33→20:04)
[2022-09-03 08:39] LABS: Glucose Point of Care 175 mg/dl (65-105)
[2022-09-03] MEDS: FUROSEMIDE INJ 40 MG/4 ML VIAL IV PUSH (08:53)
[2022-09-03 09:46] LABS: Alanine Aminotransferase 37 U/L (6-50); Albumin Level 3.1 g/dL (3.5-5.1); Alkaline Phosphatase 51 U/L (38-126); Anion Gap 4 mmol/L (8-16); Aspartate Amino Transferase 41 U/L (17-59); Bilirubin,Total 0.9 mg/dL (0.2-1.3); Blood Urea Nitrogen 52 mg/dL (9-20); Calcium 7.8 mg/dL (8.4-10.2); Carbon Dioxide 27 mmol/L (22-30); Chloride 113 mmol/L (98-107); Creatine Kinase 60 U/L (55-170); Estimated CRCL calculation 58 ml/min; Estimated Glomerular Filt Rate > 60; Glucose 183 mg/dL (65-110); Magnesium 2.4 mg/dL (1.6-2.3); Potassium 3.9 mmol/L (3.4-5.0); Sodium 144 mmol/L (137-145); Triglycerides 167 mg/dL (<150)
[2022-09-03 09:47] LABS: Glucose Point of Care 208 mg/dl (65-105)
[2022-09-03] MEDS: MIDAZOLAM 100MG/NS 100ML(*CRX) 100 MG/100 ML BAG IV CONT (11:11)
[2022-09-03] MEDS: PIPERACILLIN/TAZOBACTAM SOD 4.5 GM in SODIUM CHLORIDE 0.9% IV 100 ML IVPB (11:55)
[2022-09-03 12:08] LABS: Glucose Point of Care 184 mg/dl (65-105)
[2022-09-03] MEDS: PROPOFOL IV EMULSION 100 ML 2.94 MG IV CONT (12:57)
--- NOTE | 2022-09-03 13:22 | P.PNIM_ITS ---
Progress Note: A&P Assessment and Plan (1) Acute respiratory failure: Code(s): J96.00 - Acute respiratory failure, unspecified whether with hypoxia or hypercapnia Status: Acute Assessment and Plan: Patient developed acute respiratory hypoxic failure. CXR showing increasing airspace disease in the RUL and bilateral LL. Consider fluid overload and/or PNA and/or COVID. Echo last September showing EF 70% but now EF down to 35-40% with grade I diastolic dysfunction. Lasix given x3 on 09/01. WBC remains normal but CRP 26. BCx NGTD. UCx negative. Consider aspiration or HCAP PNA so broad spectrum abx added. CT chest c/w pulmonary edema vs PNA. CXR showing improvement. Lung exam better. Wean vent as tolerated. Appreciate refinery operator vapor recovery unit input. (2) Congestive heart failure: Code(s): I50.9 - Heart failure, unspecified Status: Acute Assessment and Plan: [place] patient is fluid overloaded. BNP 2140. Echo showing EF 35-40% with Grade I diastolic dysfunction and felt he has acute systolic and diastolic CHF. Also with moderate MR, moderate TR and moderate pHTN. He is getting intermittent doses of Lasix with good UOP. CXR improved. Cr up slightly so follow closely (BUN 52 but related to steroids). (3) Pneumonia: Code(s): J18.9 - Pneumonia, unspecified organism Status: Acute Assessment and Plan: Can not exclude RUL superimposed bacterial PNA over COVID PNA. He has been started on broad spectrum abx. BCx NGTD. MRSA nasal swab negative. UCx negative. Plan for 7 days of treatment. (4) COVID: Code(s): U07.1 - COVID-19 Status: Acute Assessment and Plan: PCR positive on 08/27/22. Was not on supplemental oxygen initially * CXR with RUL and bilateral LL airspace disease. No WBC elevation but now with fever * Steroids added * CXR improved. * Continue droplet and contact isolation (5) Falls frequently: Code(s): R29.6 - Repeated falls Status: Acute Assessment and Plan: Patient suffering mechanical falls recently * MRI brain with mild-moderate generalized atrophy and minimal chronic microvascular ischemic changes, mildly dilated ventricles and subarachnoid spaces. * Carotid doppler performed 50% stenosis bilaterally * Concern for NPH due to gait changes and High-volume LP completed 08/30 with normal opening pressure, normal cell count, negative Gram stain. No concern for infection. * TSH normal. No significant lab abnormalities. * Patient was restless and fell out of bed on to the floor and hit his head 08/30. Repeat HCT performed with no acute findings. * Continue fall precautions * Appreciate neuro input. * The orthostatic HoNT also contributiing to his falls. * HCT yesterday showing no acute findings. (6) Confusion: Code(s): R41.0 - Disorientation, unspecified Status: Acute Assessment and Plan: Pt with waxing and waning mental status * Not receiving any sedating medications or narcotics * Lumbar puncture completed as above * B12 and TSH normal. RPR negative * Neurology recommends EEG which was ordered (7) Gait instability: Code(s): R26.81 - Unsteadiness on feet Status: Acute Assessment and Plan: Pt with ataxic gait and unsteady balance * per Neurology, may have component of diabetic/ autonomic neuropathy * plan as above. * Continue PT/OT once off vent (8) Rhabdomyolysis: Code(s): M62.82 - Rhabdomyolysis Status: Acute Assessment and Plan: CK evaluated due to increased weakness
--- NOTE | 2022-09-03 13:22 | PM.IMPN ---
Progress Note: A&P Assessment and Plan (1) Acute respiratory failure: Code(s): J96.00 - Acute respiratory failure, unspecified whether with hypoxia or hypercapnia Status: Acute Assessment and Plan: Patient developed acute respiratory hypoxic failure. CXR showing increasing airspace disease in the RUL and bilateral LL. Consider fluid overload and/or PNA and/or COVID. Echo last September showing EF 70% but now EF down to 35-40% with grade I diastolic dysfunction. Lasix given x3 on 09/01. WBC remains normal but CRP 26. BCx NGTD. UCx negative. Consider aspiration or HCAP PNA so broad spectrum abx added. CT chest c/w pulmonary edema vs PNA. CXR showing improvement. Lung exam better. Wean vent as tolerated. Appreciate setter machine input. (2) Congestive heart failure: Code(s): I50.9 - Heart failure, unspecified Status: Acute Assessment and Plan: [place] patient is fluid overloaded. BNP 2140. Echo showing EF 35-40% with Grade I diastolic dysfunction and felt he has acute systolic and diastolic CHF. Also with moderate MR, moderate TR and moderate pHTN. He is getting intermittent doses of Lasix with good UOP. CXR improved. Cr up slightly so follow closely (BUN 52 but related to steroids). (3) Pneumonia: Code(s): J18.9 - Pneumonia, unspecified organism Status: Acute Assessment and Plan: Can not exclude RUL superimposed bacterial PNA over COVID PNA. He has been started on broad spectrum abx. BCx NGTD. MRSA nasal swab negative. UCx negative. Plan for 7 days of treatment. (4) COVID: Code(s): U07.1 - COVID-19 Status: Acute Assessment and Plan: PCR positive on 08/27/22. Was not on supplemental oxygen initially CXR with RUL and bilateral LL airspace disease. No WBC elevation but now with fever Steroids added CXR improved. Continue droplet and contact isolation (5) Falls frequently: Code(s): R29.6 - Repeated falls Status: Acute Assessment and Plan: Patient suffering mechanical falls recently MRI brain with mild-moderate generalized atrophy and minimal chronic microvascular ischemic changes, mildly dilated ventricles and subarachnoid spaces. Carotid doppler performed 50% stenosis bilaterally Concern for NPH due to gait changes and High-volume LP completed 08/30 with normal opening pressure, normal cell count, negative Gram stain. No concern for infection. TSH normal. No significant lab abnormalities. Patient was restless and fell out of bed on to the floor and hit his head 3/. Repeat HCT performed with no acute findings. Continue fall precautions Appreciate neuro input. The orthostatic HoNT also contributiing to his falls. HCT yesterday showing no acute findings. (6) Confusion: Code(s): R41.0 - Disorientation, unspecified Status: Acute Assessment and Plan: Pt with waxing and waning mental status Not receiving any sedating medications or narcotics Lumbar puncture completed as above B12 and TSH normal. RPR negative Neurology recommends EEG which was ordered (7) Gait instability: Code(s): R26.81 - Unsteadiness on feet Status: Acute Assessment and Plan: Pt with ataxic gait and unsteady balance per Neurology, may have component of diabetic/ autonomic neuropathy plan as above. Continue PT/OT once off vent (8) Rhabdomyolysis: Code(s): M62.82 - Rhabdomyolysis Status: Acute Assessment and Plan: CK evaluated due to increased weakness, found to be elevated at 2500 patient was noted to have 3+ blood in urine on presentation Related to multiple falls Patient on rosuvastatin 5 mg which was increased during admission based on a lipid panel which is likely contributor. Statin on hold at this time LFTs are mildly elevated and will continue to monitor Renal function is within normal limits Repeat UA is negative for blood and TCK 60 IV fluids stopped
[2022-09-03 16:46] LABS: Glucose Point of Care 262 mg/dl (65-105)
[2022-09-03 20:24] LABS: Glucose Point of Care 213 mg/dl (65-105)
[2022-09-03] MEDS: PROPOFOL IV EMULSION 100 ML 11.76 MG IV CONT (21:13)
[2022-09-03 23:43] LABS: Glucose Point of Care 155 mg/dl (65-105)
[2022-09-04] VITALS (32 sets, daily range): BP systolic 96–170; BP diastolic 59–129; PULSE 44–80; RESP 15–27; TEMP 36.6–37.5; O2SAT 93–100
[2022-09-04] MEDS: CENTRAL LINE FLUSH 10 ML IV PUSH ×3 (05:06→22:06)
[2022-09-04] MEDS: PIPERACILLIN/TAZOBACTAM SOD 4.5 GM in SODIUM CHLORIDE 0.9% IV 100 ML 200 ML IVPB ×3 (05:06→19:58)
[2022-09-04 05:07] LABS: Hematocrit 36.7 % (42.0-52.0); Hemoglobin 11.8 g/dL (14.0-18.0); Mean Corpuscular HGB Conc 32.2 g/dl (32-36); Mean Corpuscular Hemoglobin 31.3 pg (26-34); Mean Corpuscular Volume 97.3 fl (80-100); Mean Platelet Volume 10.7 fl (7.4-10.4); Platelet Count Result 169 k/mm3 (150-375); Red Blood Count 3.77 M/mm3 (4.6-6.20); Red Cell Distribution Width 14.8 % (11.5-14.5); White Blood Count 8.2 K/mm3 (4.5-10.0)
[2022-09-04 05:11] LABS: Alveolar/Arterial O2 Gradient 216.6 mmHg; Base Excess ABG 1.5 mEq/l (+/-2.0); Carboxyhemoglobin 0.3 % THb (0-2.0); Fractional Inspired Oxygen 60 %; HCO3 ABG 27.9 mEq/l (22.0-26.0); Methemoglobin ABG 0.3 %THb (0-1.5); Oxygen Content ABG 18.2 %vol (16.0-22.0); Oxygen Saturation ABG 98.9 % (95.0-100.0); Oxyhemoglobin 97.8 % THb (90.0-100.0); PCO2 ABG 51.4 mmHg (35.0-45.0); PO2 ABG 154.7 mmHg (80.0-100.0); PO2 FiO2 Ratio Arterial Blood 2.58 %; Reduced Hemoglobin 1.6 %THb (0-5.0); pH ABG 7.352 (7.350-7.450)
[2022-09-04 05:12] LABS: Glucose Point of Care 191 mg/dl (65-105)
[2022-09-04 05:13] LABS: Device VENTILATOR; Site Drawn RIGHT BRACHIAL
[2022-09-04 05:14] LABS: Arterial Blood Gas PEEP 8 cmH2O; Arterial Blood Gas Tidal Volume 430 ml; Arterial Blood Gas Vent Mode CMV; Arterial Blood Gas Ventilator rate 24 /MIN
[2022-09-04 05:51] LABS: Alanine Aminotransferase 35 U/L (6-50); Albumin Level 2.6 g/dL (3.5-5.1); Alkaline Phosphatase 38 U/L (38-126); Anion Gap 6 mmol/L (8-16); Aspartate Amino Transferase 50 U/L (17-59); Bilirubin,Total 0.6 mg/dL (0.2-1.3); Blood Urea Nitrogen 64 mg/dL (9-20); Calcium 6.9 mg/dL (8.4-10.2); Carbon Dioxide 26 mmol/L (22-30); Chloride 108 mmol/L (98-107); Creatine Kinase 37 U/L (55-170); Estimated CRCL calculation 63 ml/min; Estimated Glomerular Filt Rate > 60; Glucose 154 mg/dL (65-110); Magnesium 2.4 mg/dL (1.6-2.3); Potassium 4.2 mmol/L (3.4-5.0); Sodium 140 mmol/L (137-145)
[2022-09-04] MEDS: PROPOFOL IV EMULSION 100 ML 11.76 MG IV CONT ×2 (06:20→12:27)
[2022-09-04 07:55] LABS: NT Pro B Type Natriuretic Pept 620 pg/mL (19.9-100)
[2022-09-04] MEDS: ALBUMIN HUMAN 25% 25 GM/100 ML 100 ML IVPB (08:18)
[2022-09-04] MEDS: FUROSEMIDE INJ 40 MG/4 ML VIAL IV PUSH (08:30)
[2022-09-04] MEDS: CHOLECALCIFEROL 1,000 UNITS TABLET 1000 UNITS PO (08:30)
[2022-09-04] MEDS: ASPIRIN 81 MG ENTERIC TABLET PO (08:30)
[2022-09-04] MEDS: CYANOCOBALAMIN 1,000 MCG TABLET 1000 MCG PO (08:30)
[2022-09-04] MEDS: PANTOPRAZOLE SODIUM IV 40 MG VIAL IV PUSH (08:31)
[2022-09-04] MEDS: MULTIVITAMINS THERAPEUTIC TAB (*BKC) 1 TABLET PO (08:31)
[2022-09-04] MEDS: ENOXAPARIN 40 MG/0.4 ML SYRINGE SUB-Q (08:32)
[2022-09-04] MEDS: CALCIUM GLUC 2,000 MG/NS 100ML 2,000 MG/100 ML BAG 100 MG IVPB (08:33)
[2022-09-04] MEDS: MINERAL OIL/WHITE PETROLATUM OINTMENT 1 APPLIC EACH EYE ×2 (08:33→20:12)
--- NOTE | 2022-09-04 08:42 | WPDINTPN ---
Progress Note: A&P Assessment and Plan (1) Acute respiratory failure: Code(s): J96.00 - Acute respiratory failure, unspecified whether with hypoxia or hypercapnia Status: Acute Assessment and Plan: Acute Respiratory failure which appears to be multifactorial. Patient on presentation was tested positive for COVID-19 although his chest x-ray was clear at that time and he was not hypoxic. he also received IV fluids and may have developed aspiration pneumonia considering patient's mental status 09/01 patient was placed on BiPAP 30/12 60% and transferred to ICU. FiO2 was weaned off to 40%. He deteriorated overnight and was intubated 09/02 ABG and chest x-ray reviewed. decrease respiratory rate to 24. 09/[address] IMPRESSION: 1. Diffuse lung disease, consistent with pulmonary edema and/or pneumonia. 2. Small pleural effusions. 3. Small pericardial effusion. ABG reviewed-wean FiO2 to 40% Continue lasix today Will place patient on sedation holiday and assess for weaning trial blood cultures sent and negative now. Currently on empiric vancomycin and Zosyn. Discontinued vancomycin 09/03 Continue dexamethasone IV for COVID-19. patient was not started remdesivir as patient appears to be out of beneficial time frame. CRP 26.3 and ESR 65 procalcitonin 2.1 BNP 2140 patient is in isolation echocardiogram shows EF of 30-35% (2) COVID: Code(s): U07.1 - COVID-19 Status: Acute Assessment and Plan: see above (3) Pneumonia: Code(s): J18.9 - Pneumonia, unspecified organism Status: Acute Assessment and Plan: see above (4) Congestive heart failure: Code(s): I50.9 - Heart failure, unspecified Status: Acute Assessment and Plan: echocardiogram Summary ? 1. Complete two-dimensional, color flow and Doppler transthoracic echocardiogram is performed. ? 2. Left ventricular chamber dimension is moderately enlarged. ? 3. Left ventricular systolic function is moderately globally reduced, estimated at 35-40%. ? 4. The left ventricular diastolic function is grade I diastolic dysfunction. ? 5. E/e' 16 is elevated. ? 6. Global longitudinal strain is abnormal at -10.3%. ? 7. Left atrial chamber dimension is mildly enlarged. ? 8. Right atrial chamber dimension is moderately enlarged. ? 9. There is moderate aortic valve sclerosis. ? 10. The mitral valve has moderately calcified annulus. ? 11. There is moderate mitral valve regurgitation. ? 12. There is moderate tricuspid valve regurgitation. ? 13. Moderate pulmonary hypertension, estimated pulmonary arterial systolic pressure is 51 mmHg. ? 14. There is mild pulmonic regurgitation. ? 15. Dilated inferior vena cava with <50% collapse upon inspiration consistent with significantly elevated right atrial pressure, 15 mmHg. (5) Rhabdomyolysis: Code(s): M62.82 - Rhabdomyolysis Status: Acute Assessment and Plan: hold further IV fluids due to volume overload CK level improving (6) Delirium: Code(s): R41.0 - Disorientation, unspecified Status: Acute Assessment and Plan: patient now intubated and sedated with propofol and fentanyl Sedation holiday (7) Type 2 diabetes mellitus without complications: Qualifiers: Diabetes mellitus tank terminal gauger insulin use: without care home use Qualified Code(s): E11.9 - Type 2 diabetes mellitus without complications Code(s): E11.9 - Type 2 diabetes mellitus without complications Status: Acute Assessment and Plan: sliding scale insulin (8) Electrolyte abnormality: Code(s): E87.8 - Other disorders of electrolyte and fluid balance, not elsewhere classified Status: Acute Assessment and Plan: Replace low calcium Plan DVT prophylaxis - Lovenox Nutrition -continue tube feeds at goal rate Code Status - Full Code SUP- PPI Total Critical Care Time - 30 minutes Due to a high probability of clinically signific
--- NOTE | 2022-09-04 13:06 | P.PNIM_ITS ---
Progress Note: A&P Assessment and Plan (1) Acute respiratory failure: Code(s): J96.00 - Acute respiratory failure, unspecified whether with hypoxia or hypercapnia Status: Acute Assessment and Plan: Patient developed acute respiratory hypoxic failure. CXR showing increasing airspace disease in the RUL and bilateral LL. Consider fluid overload and/or PNA and/or COVID. Echo last September showing EF 70% but now EF down to 35-40% with grade I diastolic dysfunction. Lasix given intermittently. WBC remains normal but CRP 26. BCx NGTD. UCx negative. Consider aspiration or HCAP PNA so broad spectrum abx added. CT chest c/w pulmonary edema vs PNA. CXR today reviewed personally showing improvement. Wean vent as tolerated. Appreciate supervisor conditioning yard input. (2) Congestive heart failure: Code(s): I50.9 - Heart failure, unspecified Status: Acute Assessment and Plan: [place] patient is fluid overloaded. BNP 2140. Echo showing EF 35-40% with Grade I diastolic dysfunction and felt he has acute systolic and diastolic CHF. Also with moderate MR, moderate TR and moderate pHTN. He is getting intermittent doses of Lasix with good UOP. CXR improved. Cr stable. Follow. Will need appropriate cardiac medications once he is stable and if BP tolerates. (3) Pneumonia: Code(s): J18.9 - Pneumonia, unspecified organism Status: Acute Assessment and Plan: Can not exclude RUL superimposed bacterial PNA over COVID PNA. He has been started on broad spectrum abx. BCx NGTD. MRSA nasal swab negative. UCx negative. Plan for 7 days of treatment. (4) COVID: Code(s): U07.1 - COVID-19 Status: Acute Assessment and Plan: PCR positive on 08/27/22. Was not on supplemental oxygen initially * CXR with RUL and bilateral LL airspace disease. No WBC elevation but now with fever * Steroids added * CXR improved. * Continue droplet and contact isolation (5) Falls frequently: Code(s): R29.6 - Repeated falls Status: Acute Assessment and Plan: Patient suffering mechanical falls recently * MRI brain with mild-moderate generalized atrophy and minimal chronic microvascular ischemic changes, mildly dilated ventricles and subarachnoid spaces. * Carotid doppler performed 50% stenosis bilaterally * Concern for NPH due to gait changes and High-volume LP completed 08/30 with normal opening pressure, normal cell count, negative Gram stain. No concern for infection. * TSH normal. No significant lab abnormalities. * Patient was restless and fell out of bed on to the floor and hit his head 08/30. Repeat HCT performed with no acute findings. * Continue fall precautions * Appreciate neuro input. * The orthostatic HoNT also contributiing to his falls. * HCT yesterday showing no acute findings. (6) Confusion: Code(s): R41.0 - Disorientation, unspecified Status: Acute Assessment and Plan: Pt with waxing and waning mental status * Not receiving any sedating medications or narcotics * Lumbar puncture completed as above * B12 and TSH normal. RPR negative * Neurology recommends EEG which was ordered (7) Gait instability: Code(s): R26.81 - Unsteadiness on feet Status: Acute Assessment and Plan: Pt with ataxic gait and unsteady balance * per Neurology, may have component of diabetic/ autonomic neuropathy * plan as above. * Continue PT/OT once off vent (8) Rhabdomyolysis: Code(s): M62.82 - Rhabdomyolysis Status: Acute Assessment and Plan:
--- NOTE | 2022-09-04 13:06 | PM.IMPN ---
Progress Note: A&P Assessment and Plan (1) Acute respiratory failure: Code(s): J96.00 - Acute respiratory failure, unspecified whether with hypoxia or hypercapnia Status: Acute Assessment and Plan: Patient developed acute respiratory hypoxic failure. CXR showing increasing airspace disease in the RUL and bilateral LL. Consider fluid overload and/or PNA and/or COVID. Echo last September showing EF 70% but now EF down to 35-40% with grade I diastolic dysfunction. Lasix given intermittently. WBC remains normal but CRP 26. BCx NGTD. UCx negative. Consider aspiration or HCAP PNA so broad spectrum abx added. CT chest c/w pulmonary edema vs PNA. CXR today reviewed personally showing improvement. Wean vent as tolerated. Appreciate sorter laundry articles input. (2) Congestive heart failure: Code(s): I50.9 - Heart failure, unspecified Status: Acute Assessment and Plan: [place] patient is fluid overloaded. BNP 2140. Echo showing EF 35-40% with Grade I diastolic dysfunction and felt he has acute systolic and diastolic CHF. Also with moderate MR, moderate TR and moderate pHTN. He is getting intermittent doses of Lasix with good UOP. CXR improved. Cr stable. Follow. Will need appropriate cardiac medications once he is stable and if BP tolerates. (3) Pneumonia: Code(s): J18.9 - Pneumonia, unspecified organism Status: Acute Assessment and Plan: Can not exclude RUL superimposed bacterial PNA over COVID PNA. He has been started on broad spectrum abx. BCx NGTD. MRSA nasal swab negative. UCx negative. Plan for 7 days of treatment. (4) COVID: Code(s): U07.1 - COVID-19 Status: Acute Assessment and Plan: PCR positive on 08/27/22. Was not on supplemental oxygen initially CXR with RUL and bilateral LL airspace disease. No WBC elevation but now with fever Steroids added CXR improved. Continue droplet and contact isolation (5) Falls frequently: Code(s): R29.6 - Repeated falls Status: Acute Assessment and Plan: Patient suffering mechanical falls recently MRI brain with mild-moderate generalized atrophy and minimal chronic microvascular ischemic changes, mildly dilated ventricles and subarachnoid spaces. Carotid doppler performed 50% stenosis bilaterally Concern for NPH due to gait changes and High-volume LP completed 08/30 with normal opening pressure, normal cell count, negative Gram stain. No concern for infection. TSH normal. No significant lab abnormalities. Patient was restless and fell out of bed on to the floor and hit his head 3/. Repeat HCT performed with no acute findings. Continue fall precautions Appreciate neuro input. The orthostatic HoNT also contributiing to his falls. HCT yesterday showing no acute findings. (6) Confusion: Code(s): R41.0 - Disorientation, unspecified Status: Acute Assessment and Plan: Pt with waxing and waning mental status Not receiving any sedating medications or narcotics Lumbar puncture completed as above B12 and TSH normal. RPR negative Neurology recommends EEG which was ordered (7) Gait instability: Code(s): R26.81 - Unsteadiness on feet Status: Acute Assessment and Plan: Pt with ataxic gait and unsteady balance per Neurology, may have component of diabetic/ autonomic neuropathy plan as above. Continue PT/OT once off vent (8) Rhabdomyolysis: Code(s): M62.82 - Rhabdomyolysis Status: Acute Assessment and Plan: CK evaluated due to increased weakness, found to be elevated at 2500 patient was noted to have 3+ blood in urine on presentation Related to multiple falls Patient on rosuvastatin 5 mg which was increased during admission based on a lipid panel which is likely contributor. Statin on hold at this time LFTs are mildly elevated and will continue to monitor Renal function is within normal limits Repeat UA is negative f
[2022-09-04 13:17] LABS: Glucose Point of Care 200 mg/dl (65-105)
[2022-09-04] MEDS: FLUCONAZOLE 100 MG TABLET 200 MG FEED TUBE (16:40)
[2022-09-04 17:02] LABS: Glucose Point of Care 194 mg/dl (65-105)
[2022-09-04] MEDS: PROPOFOL IV EMULSION 100 ML 14.7 MG IV CONT (19:05)
[2022-09-04 20:33] LABS: Glucose Point of Care 180 mg/dl (65-105)
[2022-09-05] VITALS (40 sets, daily range): BP systolic 108–179; BP diastolic 58–87; PULSE 41–80; RESP 24–40; TEMP 36.7–37.6; O2SAT 95–100
[2022-09-05] MEDS: PROPOFOL IV EMULSION 100 ML 17.64 MG IV CONT ×2 (00:01→19:47)
[2022-09-05] MEDS: PIPERACILLIN/TAZOBACTAM SOD 4.5 GM in SODIUM CHLORIDE 0.9% IV 100 ML 200 ML IVPB ×4 (00:03→17:47)
[2022-09-05] MEDS: PROPOFOL IV EMULSION 100 ML 20.58 MG IV CONT ×3 (05:09→12:27)
[2022-09-05 05:47] LABS: Hematocrit 38.2 % (42.0-52.0); Hemoglobin 11.8 g/dL (14.0-18.0); Mean Corpuscular HGB Conc 30.9 g/dl (32-36); Mean Corpuscular Hemoglobin 29.5 pg (26-34); Mean Corpuscular Volume 95.5 fl (80-100); Mean Platelet Volume 10.4 fl (7.4-10.4); Platelet Count Result 150 k/mm3 (150-375); Red Cell Distribution Width 14.5 % (11.5-14.5); White Blood Count 9.4 K/mm3 (4.5-10.0)
[2022-09-05 06:03] LABS: Alanine Aminotransferase 34 U/L (6-50); Albumin Level 2.9 g/dL (3.5-5.1); Alkaline Phosphatase 55 U/L (38-126); Anion Gap 4 mmol/L (8-16); Aspartate Amino Transferase 31 U/L (17-59); Bilirubin,Total 0.7 mg/dL (0.2-1.3); Blood Urea Nitrogen 44 mg/dL (9-20); Calcium 7.9 mg/dL (8.4-10.2); Carbon Dioxide 30 mmol/L (22-30); Chloride 117 mmol/L (98-107); Creatine Kinase 32 U/L (55-170); Estimated CRCL calculation 62 ml/min; Estimated Glomerular Filt Rate > 60; Glucose 169 mg/dL (65-110); Magnesium 2.2 mg/dL (1.6-2.3); Potassium 3.3 mmol/L (3.4-5.0); Sodium 151 mmol/L (137-145)
[2022-09-05] MEDS: CENTRAL LINE FLUSH 10 ML IV PUSH ×3 (06:14→19:55)
[2022-09-05 06:17] LABS: Alveolar/Arterial O2 Gradient 163.9 mmHg; Base Excess ABG 4.2 mEq/l (+/-2.0); Carboxyhemoglobin 0.3 % THb (0-2.0); Fractional Inspired Oxygen 40 %; HCO3 ABG 28.4 mEq/l (22.0-26.0); Methemoglobin ABG 0.2 %THb (0-1.5); Oxygen Content ABG 17.9 %vol (16.0-22.0); Oxygen Saturation ABG 95.7 % (95.0-100.0); Oxyhemoglobin 94.6 % THb (90.0-100.0); PCO2 ABG 40.6 mmHg (35.0-45.0); PO2 ABG 74.6 mmHg (80.0-100.0); PO2 FiO2 Ratio Arterial Blood 1.87 %; Reduced Hemoglobin 4.9 %THb (0-5.0); Total Hemoglobin 13.4 g/dL (12.0-18.0); pH ABG 7.462 (7.350-7.450)
[2022-09-05 06:18] LABS: Device VENTILATOR; Modified Allen's Test Pass; Site Drawn LEFT RADIAL
[2022-09-05 06:19] LABS: Arterial Blood Gas PEEP 8 cmH2O; Arterial Blood Gas Tidal Volume 430 ml; Arterial Blood Gas Vent Mode CMV; Arterial Blood Gas Ventilator rate 24 /MIN
[2022-09-05 06:19] LABS: Glucose Point of Care 157 mg/dl (65-105)
[2022-09-05 06:19] LABS: Glucose Point of Care 163 mg/dl (65-105)
--- NOTE | 2022-09-05 08:03 | WPDINTPN ---
Progress Note: A&P Assessment and Plan (1) Acute respiratory failure: Code(s): J96.00 - Acute respiratory failure, unspecified whether with hypoxia or hypercapnia Status: Acute Assessment and Plan: Acute Respiratory failure which appears to be multifactorial. Patient on presentation was tested positive for COVID-19 although his chest x-ray was clear at that time and he was not hypoxic. he also received IV fluids and may have developed aspiration pneumonia considering patient's mental status 09/01 patient was placed on BiPAP 30/12 60% and transferred to ICU. FiO2 was weaned off to 40%. He deteriorated overnight and was intubated 09/02 ABG and chest x-ray reviewed. decrease respiratory rate to 24. [address] IMPRESSION: 1. Diffuse lung disease, consistent with pulmonary edema and/or pneumonia. 2. Small pleural effusions. 3. Small pericardial effusion. ABG reviewed-wean FiO2 to 40% He has been receiving Lasix. Hold Lasix today due to worsening of electrolytes. Patient agitated and not ready for weaning trial on sedation holiday I will start Precedex and try to wean down propofol to try to keep his heart rate in acceptable position and optimize his sedation for weaning trial blood cultures sent and negative till now. Currently on empiric Zosyn. Discontinued vancomycin 09/03 Continue dexamethasone IV for COVID-19. patient was not started remdesivir as patient appears to be out of beneficial time frame. CRP 26.3 and ESR 65 procalcitonin 2.1 BNP 2140 patient is in isolation echocardiogram shows EF of 30-35% (2) COVID: Code(s): U07.1 - COVID-19 Status: Acute Assessment and Plan: see above (3) Pneumonia: Code(s): J18.9 - Pneumonia, unspecified organism Status: Acute Assessment and Plan: see above (4) Congestive heart failure: Code(s): I50.9 - Heart failure, unspecified Status: Acute Assessment and Plan: echocardiogram Summary ? 1. Complete two-dimensional, color flow and Doppler transthoracic echocardiogram is performed. ? 2. Left ventricular chamber dimension is moderately enlarged. ? 3. Left ventricular systolic function is moderately globally reduced, estimated at 35-40%. ? 4. The left ventricular diastolic function is grade I diastolic dysfunction. ? 5. E/e' 16 is elevated. ? 6. Global longitudinal strain is abnormal at -10.3%. ? 7. Left atrial chamber dimension is mildly enlarged. ? 8. Right atrial chamber dimension is moderately enlarged. ? 9. There is moderate aortic valve sclerosis. ? 10. The mitral valve has moderately calcified annulus. ? 11. There is moderate mitral valve regurgitation. ? 12. There is moderate tricuspid valve regurgitation. ? 13. Moderate pulmonary hypertension, estimated pulmonary arterial systolic pressure is 51 mmHg. ? 14. There is mild pulmonic regurgitation. ? 15. Dilated inferior vena cava with <50% collapse upon inspiration consistent with significantly elevated right atrial pressure, 15 mmHg. (5) Rhabdomyolysis: Code(s): M62.82 - Rhabdomyolysis Status: Acute Assessment and Plan: hold further IV fluids due to volume overload CK level improved (6) Delirium: Code(s): R41.0 - Disorientation, unspecified Status: Acute Assessment and Plan: patient now intubated and sedated with propofol and fentanyl Sedation holiday (7) Type 2 diabetes mellitus without complications: Qualifiers: Diabetes mellitus half-way insulin use: without long distance operator use Qualified Code(s): E11.9 - Type 2 diabetes mellitus without complications Code(s): E11.9 - Type 2 diabetes mellitus without complications Status: Acute Assessment and Plan: sliding scale insulin (8) Electrolyte abnormality: Code(s): E87.8 - Other disorders of electrolyte and fluid balance, not elsewhere classified Status: Acute Assessment and Plan: Increase free water for elevated s
[2022-09-05 09:50] LABS: Triglycerides 379 mg/dL (<150)
[2022-09-05] MEDS: dexmedeTOMIDine 400 MCG/100 ML 400 MCG/100 ML BAG IV CONT ×2 (10:14→19:48)
[2022-09-05] MEDS: POTASSIUM CHLORIDE INJ 40 MEQ in DEXTROSE 5% IN WATER 500 ML 130 MEQ IVPB (10:15)
[2022-09-05] MEDS: POTASSIUM BICARBONATE 25 MEQ TABEF 50 MEQ PO (10:15)
[2022-09-05] MEDS: ASPIRIN 81 MG ENTERIC TABLET PO (10:17)
[2022-09-05] MEDS: CHOLECALCIFEROL 1,000 UNITS TABLET 1000 UNITS PO (10:17)
[2022-09-05] MEDS: ENOXAPARIN 40 MG/0.4 ML SYRINGE SUB-Q (10:18)
[2022-09-05] MEDS: CYANOCOBALAMIN 1,000 MCG TABLET 1000 MCG PO (10:18)
[2022-09-05] MEDS: FLUCONAZOLE 100 MG TABLET FEED TUBE (10:18)
[2022-09-05] MEDS: PANTOPRAZOLE SODIUM IV 40 MG VIAL IV PUSH (10:19)
[2022-09-05] MEDS: MULTIVITAMINS THERAPEUTIC TAB (*BKC) 1 TABLET PO (10:19)
[2022-09-05 10:41] LABS: Glucose Point of Care 181 mg/dl (65-105)
--- NOTE | 2022-09-05 11:51 | PCFNICU ---
ICU Rounding Note: Pt current nutrition is Vital AF 1.2 at 50 ml/hr. Last recorded weight is 90 kg. Bowel Motility:+BM reported 09/05 Labs Reviewed:glu 169,Na 151, BUN 44, Hct 38.2,Hgb 11.8,K 3.3 Meds Noted:Remeron, Versed, Fentanyl, Precedex, Propofol. Skin: WNL Additional Notes: Patient remains on mechanical vent and tube feedings of Vital AF 1.2 at 50ml/hr and tolerating. Sedation changed to Precedex and Propofol. Propofol providing an additional 621 kcals. Total Nutrition: 1941 kcals/83 gms protein/892 ml water. Meeting 89% kcal needs and 76% protein needs. Recommend adding 1 Prosource for additional 80 kcals and 11 gms protein. Will monitor in ICU rounds and reassess every Monday and Monday.
[2022-09-05] MEDS: INSULIN ASPART (*BKC) 100 UNITS/ML SUB-Q ×3 (12:16→19:56)
[2022-09-05 12:31] LABS: Glucose Point of Care 226 mg/dl (65-105)
--- NOTE | 2022-09-05 14:47 | PM.IMPN ---
Progress Note: A&P Assessment and Plan (1) Acute respiratory failure: Code(s): J96.00 - Acute respiratory failure, unspecified whether with hypoxia or hypercapnia Status: Acute Assessment and Plan: Patient developed acute respiratory hypoxic failure. CXR showing increasing airspace disease in the RUL and bilateral LL. Consider fluid overload and/or PNA and/or COVID. Echo last September showing EF 70% but now EF down to 35-40% with grade I diastolic dysfunction. Lasix given intermittently. WBC remains normal but CRP 26. BCx NGTD. UCx negative. Consider aspiration or HCAP PNA so broad spectrum abx added. CT chest c/w pulmonary edema vs PNA. CXR today reviewed personally continues to show improvement. Wean vent as tolerated. Precedex added to try to keep patient calm. Appreciate strike on machine operator input. (2) Congestive heart failure: Code(s): I50.9 - Heart failure, unspecified Status: Acute Assessment and Plan: [place] patient is fluid overloaded. BNP 2140. Echo showing EF 35-40% with Grade I diastolic dysfunction and felt he has acute systolic and diastolic CHF. Also with moderate MR, moderate TR and moderate pHTN. He is getting intermittent doses of Lasix with good UOP. CXR improved. Cr stable. Follow. Will need appropriate cardiac medications once he is stable and if BP tolerates. (3) Pneumonia: Code(s): J18.9 - Pneumonia, unspecified organism Status: Acute Assessment and Plan: Can not exclude RUL superimposed bacterial PNA over COVID PNA. He has been started on broad spectrum abx. BCx NGTD. MRSA nasal swab negative. UCx negative. Plan for 7 days of treatment. (4) COVID: Code(s): U07.1 - COVID-19 Status: Acute Assessment and Plan: PCR positive on 08/27/22. Was not on supplemental oxygen initially CXR with RUL and bilateral LL airspace disease. No WBC elevation but did develop fever Steroids added CXR improved. Continue droplet and contact isolation (5) Falls frequently: Code(s): R29.6 - Repeated falls Status: Acute Assessment and Plan: Patient suffering mechanical falls recently MRI brain with mild-moderate generalized atrophy and minimal chronic microvascular ischemic changes, mildly dilated ventricles and subarachnoid spaces. Carotid doppler performed 50% stenosis bilaterally Concern for NPH due to gait changes and High-volume LP completed 08/30 with normal opening pressure, normal cell count, negative Gram stain. No concern for infection. TSH normal. No significant lab abnormalities. Patient was restless and fell out of bed on to the floor and hit his head 08/30. Repeat HCT performed with no acute findings. Continue fall precautions Appreciate neuro input. The orthostatic HoNT also contributiing to his falls. HCT 09/02 showing no acute findings. (6) Confusion: Code(s): R41.0 - Disorientation, unspecified Status: Acute Assessment and Plan: Pt with waxing and waning mental status Not receiving any sedating medications or narcotics Lumbar puncture completed as above B12 and TSH normal. RPR negative Neurology recommends EEG which was ordered but now on hold (7) Gait instability: Code(s): R26.81 - Unsteadiness on feet Status: Acute Assessment and Plan: Pt with ataxic gait and unsteady balance Per Neurology, may have component of diabetic/ autonomic neuropathy Plan as above. Continue PT/OT once off vent (8) Rhabdomyolysis: Code(s): M62.82 - Rhabdomyolysis Status: Acute Assessment and Plan: CK evaluated due to increased weakness, found to be elevated at 2500 patient was noted to have 3+ blood in urine on presentation Related to multiple falls Patient on rosuvastatin 5 mg which was increased during admission based on a lipid panel which is likely contributor. Statin on hold at this time LFTs are mildly elevated and will continue to monito
[2022-09-05] MEDS: hydrALAZINE HCL 20 MG/ML VIAL IV PUSH (17:47)
[2022-09-05 18:10] LABS: Glucose Point of Care 275 mg/dl (65-105)
[2022-09-05] MEDS: MINERAL OIL/WHITE PETROLATUM OINTMENT 1 APPLIC EACH EYE (19:51)
[2022-09-06] VITALS (24 sets, daily range): BP systolic 131–159; BP diastolic 62–90; PULSE 47–80; RESP 19–38; TEMP 36.9–37.7; O2SAT 95–99
[2022-09-06] MEDS: PIPERACILLIN/TAZOBACTAM SOD 4.5 GM in SODIUM CHLORIDE 0.9% IV 100 ML 200 ML IVPB ×4 (00:02→17:32)
[2022-09-06] MEDS: PROPOFOL IV EMULSION 100 ML 17.64 MG IV CONT ×2 (00:23→22:33)
[2022-09-06 00:41] LABS: Glucose Point of Care 217 mg/dl (65-105)
[2022-09-06 00:44] LABS: Glucose Point of Care 153 mg/dl (65-105)
[2022-09-06 04:25] LABS: Glucose Point of Care 140 mg/dl (65-105)
[2022-09-06 04:37] LABS: Hematocrit 42.3 % (42.0-52.0); Hemoglobin 12.8 g/dL (14.0-18.0); Mean Corpuscular HGB Conc 30.3 g/dl (32-36); Mean Corpuscular Volume 99.3 fl (80-100); Mean Platelet Volume 10.2 fl (7.4-10.4); Platelet Count Result 152 k/mm3 (150-375); Red Blood Count 4.26 M/mm3 (4.6-6.20); Red Cell Distribution Width 14.7 % (11.5-14.5); White Blood Count 13.1 K/mm3 (4.5-10.0)
[2022-09-06 05:11] LABS: Alanine Aminotransferase 28 U/L (6-50); Alkaline Phosphatase 56 U/L (38-126); Anion Gap 1 mmol/L (8-16); Aspartate Amino Transferase 30 U/L (17-59); Bilirubin,Total 0.8 mg/dL (0.2-1.3); Blood Urea Nitrogen 33 mg/dL (9-20); Calcium 8.1 mg/dL (8.4-10.2); Carbon Dioxide 35 mmol/L (22-30); Chloride 117 mmol/L (98-107); Creatine Kinase 22 U/L (55-170); Estimated CRCL calculation 56 ml/min; Estimated Glomerular Filt Rate > 60; Glucose 120 mg/dL (65-110); Magnesium 2.2 mg/dL (1.6-2.3); Potassium 3.4 mmol/L (3.4-5.0); Sodium 153 mmol/L (137-145)
[2022-09-06] MEDS: CENTRAL LINE FLUSH 10 ML IV PUSH ×3 (05:43→22:39)
[2022-09-06 05:48] LABS: Alveolar/Arterial O2 Gradient 168.6 mmHg; Base Excess ABG 2.7 mEq/l (+/-2.0); Carboxyhemoglobin 0.1 % THb (0-2.0); Fractional Inspired Oxygen 40 %; HCO3 ABG 26.3 mEq/l (22.0-26.0); Methemoglobin ABG 0.2 %THb (0-1.5); Oxygen Saturation ABG 95.7 % (95.0-100.0); Oxyhemoglobin 94.6 % THb (90.0-100.0); PCO2 ABG 37.2 mmHg (35.0-45.0); PO2 ABG 73.8 mmHg (80.0-100.0); PO2 FiO2 Ratio Arterial Blood 1.85 %; Reduced Hemoglobin 5.1 %THb (0-5.0); Total Hemoglobin 13.5 g/dL (12.0-18.0); pH ABG 7.468 (7.350-7.450)
[2022-09-06 05:50] LABS: Device VENTILATOR; Modified Allen's Test Pass; Site Drawn RIGHT RADIAL
[2022-09-06 05:51] LABS: Arterial Blood Gas PEEP 8 cmH2O; Arterial Blood Gas Tidal Volume 430 ml; Arterial Blood Gas Vent Mode CMV; Arterial Blood Gas Ventilator rate 24 /MIN
[2022-09-06] MEDS: PROPOFOL IV EMULSION 100 ML 14.7 MG IV CONT ×3 (06:25→17:31)
[2022-09-06] MEDS: FLUCONAZOLE 100 MG TABLET FEED TUBE (08:10)
[2022-09-06] MEDS: ENOXAPARIN 40 MG/0.4 ML SYRINGE SUB-Q (08:10)
[2022-09-06] MEDS: CHOLECALCIFEROL 1,000 UNITS TABLET 1000 UNITS PO (08:10)
[2022-09-06] MEDS: MULTIVITAMINS THERAPEUTIC TAB (*BKC) 1 TABLET PO (08:10)
[2022-09-06] MEDS: CYANOCOBALAMIN 1,000 MCG TABLET 1000 MCG PO (08:10)
[2022-09-06] MEDS: ASPIRIN 81 MG ENTERIC TABLET PO (08:10)
[2022-09-06] MEDS: MINERAL OIL/WHITE PETROLATUM OINTMENT 1 APPLIC EACH EYE ×2 (08:11→20:06)
[2022-09-06] MEDS: PANTOPRAZOLE SODIUM IV 40 MG VIAL IV PUSH (08:12)
--- NOTE | 2022-09-06 08:50 | WPDINTPN ---
Progress Note: A&P Assessment and Plan (1) Acute respiratory failure: Code(s): J96.00 - Acute respiratory failure, unspecified whether with hypoxia or hypercapnia Status: Acute Assessment and Plan: Acute Respiratory failure which appears to be multifactorial. Patient on presentation was tested positive for COVID-19 (om 08/27) although his chest x-ray was clear at that time and he was not hypoxic. he also received IV fluids and may have developed aspiration pneumonia considering patient's mental status 09/01 patient was placed on BiPAP 14/7 60% and transferred to ICU. FiO2 was weaned off to 40%. He deteriorated overnight and was intubated on 09/01 09/02 ABG and chest x-ray reviewed. decrease respiratory rate to 24. 09/[address] IMPRESSION: 1. Diffuse lung disease, consistent with pulmonary edema and/or pneumonia. 2. Small pleural effusions. 3. Small pericardial effusion. Chest x-ray this morning: Bilateral pulmonary disease is essentially unchanged. Correlate for bilateral pneumonia versus edema or chronic interstitial disease -he has been receiving intermittent Lasix, currently on hold due to electrolyte imbalance, hypernatremia and hypokalemia -Patient agitated and not ready for weaning trial on sedation holiday -sedated with propofol, Precedex was added and patient became bradycardic so Precedex is on hold - blood cultures negative till now. Patient has been on empiric Zosyn. Discontinued vancomycin 09/03 -Continue dexamethasone IV for COVID-19. patient was not started remdesivir as patient appears to be out of beneficial time frame. CRP 26.3 and ESR 65 procalcitonin 2.1 BNP 2140 patient is in isolation echocardiogram shows EF of 30-35% (2) COVID: Code(s): U07.1 - COVID-19 Status: Acute Assessment and Plan: see above (3) Pneumonia: Code(s): J18.9 - Pneumonia, unspecified organism Status: Acute Assessment and Plan: see above (4) Congestive heart failure: Code(s): I50.9 - Heart failure, unspecified Status: Acute Assessment and Plan: echocardiogram Summary ? 1. Complete two-dimensional, color flow and Doppler transthoracic echocardiogram is performed. ? 2. Left ventricular chamber dimension is moderately enlarged. ? 3. Left ventricular systolic function is moderately globally reduced, estimated at 35-40%. ? 4. The left ventricular diastolic function is grade I diastolic dysfunction. ? 5. E/e' 16 is elevated. ? 6. Global longitudinal strain is abnormal at -10.3%. ? 7. Left atrial chamber dimension is mildly enlarged. ? 8. Right atrial chamber dimension is moderately enlarged. ? 9. There is moderate aortic valve sclerosis. ? 10. The mitral valve has moderately calcified annulus. ? 11. There is moderate mitral valve regurgitation. ? 12. There is moderate tricuspid valve regurgitation. ? 13. Moderate pulmonary hypertension, estimated pulmonary arterial systolic pressure is 51 mmHg. ? 14. There is mild pulmonic regurgitation. ? 15. Dilated inferior vena cava with <50% collapse upon inspiration consistent with significantly elevated right atrial pressure, 15 mmHg. (5) Rhabdomyolysis: Code(s): M62.82 - Rhabdomyolysis Status: Acute Assessment and Plan: hold further IV fluids due to volume overload CK level improved (6) Delirium: Code(s): R41.0 - Disorientation, unspecified Status: Acute Assessment and Plan: patient now intubated and sedated with propofol and fentanyl Sedation holiday (7) Type 2 diabetes mellitus without complications: Qualifiers: Diabetes mellitus terminal supervisor insulin use: without terminal supervisor use Qualified Code(s): E11.9 - Type 2 diabetes mellitus without complications Code(s): E11.9 - Type 2 diabetes mellitus without complications Status: Acute Assessment and Plan: Accu-Cheks and sliding scale insulin (8) Electrolyte abnormality: Code(s): E87.8 -
--- NOTE | 2022-09-06 10:57 | PCNFU ---
Nutrition Follow-Up Complete: Inadequate Oral Intake as related to mechanical vent and evidenced by NPO. Goal: Meet estimated nutritional needs Patient is progressing towards goal. We will continue current goal Pt current nutrition Vital AF 1.2 at 50 ml/hr Last recorded weight is 91.5 kg. Bowel Motility:+BM reported, loose stools plans for FMS. Labs Reviewed:Glu 120, BUN 33, Na 153, Alb 3.0,Hgb 12.8 Meds Noted:Remeron, Propofol at 25 qopp=093 kcals, Vit D, MVI, Protonix Skin: WNL Additional Notes: Patient remains on mechanical vent. Tube feedings are being tolerated of Vital AF 1.2 at 50 ml/hr providing 1320kcals/83 gms protein/892 ml water. orders for Presource TF once daily providing an additional 80 kcals and 20 gms protein. Banatrol Plus TF BID starting for stool bulking providing an additional 90 kcals. Total nutrition: 1878 kcals/103 gms protein/892 ml water. Flush 150 ml q 4 hours, Na 153 today. Agree with diet orders at this time. Will monitor in ICU rounds and reassess every Monday and Monday.
[2022-09-06] MEDS: POTASSIUM CHLORIDE 20 MEQ PACKET (FOR LIQUID) 40 MEQ FEED TUBE (12:07)
[2022-09-06] MEDS: INSULIN ASPART (*BKC) 100 UNITS/ML SUB-Q ×2 (12:17→17:33)
[2022-09-06 12:28] LABS: Glucose Point of Care 277 mg/dl (65-105)
--- NOTE | 2022-09-06 13:24 | PM.IMPN ---
Progress Note: A&P Assessment and Plan (1) Acute respiratory failure: Code(s): J96.00 - Acute respiratory failure, unspecified whether with hypoxia or hypercapnia Status: Acute Assessment and Plan: Patient developed acute respiratory hypoxic failure. CXR showing increasing airspace disease in the RUL and bilateral LL. Consider fluid overload and/or PNA and/or COVID. Echo last September showing EF 70% but now EF down to 35-40% with grade I diastolic dysfunction. Lasix given intermittently. CRP 26. WBC elevated today. BCx NGTD. UCx negative. Consider aspiration or HCAP PNA so broad spectrum abx added. CT chest c/w pulmonary edema vs PNA. CXR unchanged today. Wean vent as tolerated. Appreciate test analyst input. (2) Congestive heart failure: Code(s): I50.9 - Heart failure, unspecified Status: Acute Assessment and Plan: [place] patient is fluid overloaded. BNP 2140. Echo showing EF 35-40% with Grade I diastolic dysfunction and felt he has acute systolic and diastolic CHF. Also with moderate MR, moderate TR and moderate pHTN. He is getting intermittent doses of Lasix with good UOP. CXR as above. Cr stable. Follow. Will need appropriate cardiac medications once he is stable and if BP tolerates. (3) Pneumonia: Code(s): J18.9 - Pneumonia, unspecified organism Status: Acute Assessment and Plan: Can not exclude RUL superimposed bacterial PNA over COVID PNA. He has been started on broad spectrum abx. BCx NGTD. MRSA nasal swab negative. UCx negative. (4) COVID: Code(s): U07.1 - COVID-19 Status: Acute Assessment and Plan: PCR positive on 08/27/22. Was not on supplemental oxygen initially CXR with RUL and bilateral LL airspace disease. No WBC elevation but did develop fever Steroids added Continue droplet and contact isolation (5) Falls frequently: Code(s): R29.6 - Repeated falls Status: Acute Assessment and Plan: Patient suffering mechanical falls recently MRI brain with mild-moderate generalized atrophy and minimal chronic microvascular ischemic changes, mildly dilated ventricles and subarachnoid spaces. Carotid doppler performed 50% stenosis bilaterally Concern for NPH due to gait changes and High-volume LP completed 08/30 with normal opening pressure, normal cell count, negative Gram stain. No concern for infection. TSH normal. No significant lab abnormalities. Patient was restless and fell out of bed on to the floor and hit his head 08/30. Repeat HCT performed with no acute findings. Continue fall precautions Appreciate neuro input. The orthostatic HoNT also contributiing to his falls. HCT 09/02 showing no acute findings. (6) Confusion: Code(s): R41.0 - Disorientation, unspecified Status: Acute Assessment and Plan: Pt with waxing and waning mental status Not receiving any sedating medications or narcotics Lumbar puncture completed as above B12 and TSH normal. RPR negative Neurology recommends EEG which was ordered but now on hold (7) Gait instability: Code(s): R26.81 - Unsteadiness on feet Status: Acute Assessment and Plan: Pt with ataxic gait and unsteady balance Per Neurology, may have component of diabetic/ autonomic neuropathy Plan as above. Continue PT/OT once off vent (8) Rhabdomyolysis: Code(s): M62.82 - Rhabdomyolysis Status: Acute Assessment and Plan: CK evaluated due to increased weakness, found to be elevated at 2500 patient was noted to have 3+ blood in urine on presentation Related to multiple falls Patient on rosuvastatin 5 mg which was increased during admission based on a lipid panel which is likely contributor. Statin on hold at this time LFTs are mildly elevated and will continue to monitor Renal function is within normal limits Repeat UA is negative for blood and TCK 60 Resolved (9) Type 2 diabetes mellitus
[2022-09-06 17:58] LABS: Glucose Point of Care 249 mg/dl (65-105)
[2022-09-06 21:20] LABS: Glucose Point of Care 193 mg/dl (65-105)
[2022-09-07] VITALS (26 sets, daily range): BP systolic 140–170; BP diastolic 73–94; PULSE 58–76; RESP 20–36; TEMP 37.1–37.7; O2SAT 93–98
[2022-09-07] MEDS: PIPERACILLIN/TAZOBACTAM SOD 4.5 GM in SODIUM CHLORIDE 0.9% IV 100 ML 200 ML IVPB ×4 (00:14→16:42)
[2022-09-07] MEDS: PROPOFOL IV EMULSION 100 ML 17.64 MG IV CONT (03:59)
[2022-09-07 04:42] LABS: Basophils Percent Auto 0.2 % (0.2-1.2); Eosinophils Absolute Auto 0.1 K/mm3 (0-0.3); Eosinophils Percent Auto 1.1 % (0-4.4); Hematocrit 42.4 % (42.0-52.0); Hemoglobin 12.7 g/dL (14.0-18.0); Immature Granulocyte Absolute 0.17 K/mm3 (0.00-0.031); Immature Granulocyte Percent A 1.5 % (0-0.5); Lymphocytes Absolute Auto 0.79 K/mm3 (0.9-3.2); Lymphocytes Percent Auto 6.8 % (18.3-44.2); Mean Corpuscular Hemoglobin 29.9 pg (26-34); Mean Corpuscular Volume 99.8 fl (80-100); Mean Platelet Volume 10.7 fl (7.4-10.4); Monocytes Absolute Auto 0.2 K/mm3 (0.1-0.6); Monocytes Percent Auto 1.8 % (2.6-8.5); Neutrophils Absolute Auto 10.4 K/mm3 (1.3-6.7); Neutrophils Percent Auto 88.6 % (45.5-73.1); Platelet Count Result 163 k/mm3 (150-375); Red Blood Count 4.25 M/mm3 (4.6-6.20); White Blood Count 11.7 K/mm3 (4.5-10.0)
[2022-09-07 04:54] LABS: Alanine Aminotransferase 26 U/L (6-50); Alkaline Phosphatase 47 U/L (38-126); Anion Gap 1 mmol/L (8-16); Aspartate Amino Transferase 30 U/L (17-59); Bilirubin,Total 0.8 mg/dL (0.2-1.3); Blood Urea Nitrogen 30 mg/dL (9-20); Calcium 7.9 mg/dL (8.4-10.2); Carbon Dioxide 31 mmol/L (22-30); Chloride 119 mmol/L (98-107); Estimated CRCL calculation 90 ml/min; Estimated Glomerular Filt Rate > 60; Glucose 183 mg/dL (65-110); Lipase 115 U/L (23-300); Magnesium 2.1 mg/dL (1.6-2.3); Phosphorus 2.9 mg/dL (2.5-4.5); Potassium 5.2 mmol/L (3.4-5.0); Sodium 151 mmol/L (137-145)
[2022-09-07] MEDS: CENTRAL LINE FLUSH 10 ML IV PUSH ×3 (06:04→22:35)
[2022-09-07 06:24] LABS: Alveolar/Arterial O2 Gradient 167.7 mmHg; Base Excess ABG 2.1 mEq/l (+/-2.0); Carboxyhemoglobin 0.1 % THb (0-2.0); Fractional Inspired Oxygen 40 %; HCO3 ABG 26.1 mEq/l (22.0-26.0); Methemoglobin ABG 0.3 %THb (0-1.5); Modified Allen's Test Pass; Oxygen Content ABG 17.9 %vol (16.0-22.0); Oxygen Saturation ABG 95.4 % (95.0-100.0); Oxyhemoglobin 94.2 % THb (90.0-100.0); PCO2 ABG 38.4 mmHg (35.0-45.0); PO2 ABG 73.3 mmHg (80.0-100.0); PO2 FiO2 Ratio Arterial Blood 1.83 %; Reduced Hemoglobin 5.4 %THb (0-5.0); Site Drawn RIGHT RADIAL; Total Hemoglobin 13.5 g/dL (12.0-18.0)
[2022-09-07 06:25] LABS: Arterial Blood Gas PEEP 8 cmH2O; Arterial Blood Gas Tidal Volume 430 ml; Arterial Blood Gas Vent Mode CMV; Arterial Blood Gas Ventilator rate 24 /MIN; Device VENTILATOR
[2022-09-07 07:26] LABS: Glucose Point of Care 191 mg/dl (65-105)
[2022-09-07 08:16] LABS: Triglycerides 227 mg/dL (<150)
[2022-09-07] MEDS: BUMETANIDE INJ 1 MG/4 ML VIAL IV PUSH (08:39)
[2022-09-07] MEDS: ASPIRIN 81 MG ENTERIC TABLET PO (08:41)
[2022-09-07] MEDS: ENOXAPARIN 40 MG/0.4 ML SYRINGE SUB-Q (08:41)
[2022-09-07] MEDS: FLUCONAZOLE 100 MG TABLET FEED TUBE (08:41)
[2022-09-07] MEDS: CHOLECALCIFEROL 1,000 UNITS TABLET 1000 UNITS PO (08:41)
[2022-09-07] MEDS: CYANOCOBALAMIN 1,000 MCG TABLET 1000 MCG PO (08:41)
[2022-09-07] MEDS: MINERAL OIL/WHITE PETROLATUM OINTMENT 1 APPLIC EACH EYE ×2 (08:42→20:53)
[2022-09-07] MEDS: PANTOPRAZOLE SODIUM IV 40 MG VIAL IV PUSH (08:42)
[2022-09-07] MEDS: MULTIVITAMINS THERAPEUTIC TAB (*BKC) 1 TABLET PO (08:42)
[2022-09-07] MEDS: PROPOFOL IV EMULSION 100 ML 14.7 MG IV CONT (08:53)
[2022-09-07 09:02] LABS: Glucose Point of Care 192 mg/dl (65-105)
--- NOTE | 2022-09-07 10:36 | PCFNICU ---
ICU Rounding Note: Pt current nutrition is Vital 1.2 @ 50 ml/h with Prosource TF once daily for additional 80 kcals and 20 g protein. Banatrol BID for diarrhea. 1375 kcals , 82 g protein, 892 ml free water. (~75% EER, 94% protein needs with Prosource). Flushes 150 ml q 4 hours. Total water 1792 ml/day. Propofol @ 14.7 ml/g= 388 kcals. Nutrition recommendation: Continue with same orders. Agree with orders. Last recorded weight is 93.3 kg. Bowel Motility: FMS in place for diarrhea Labs Reviewed: Hgb 12.7, Na 151, K+ 5.2, BUN 30, Cre 0.6, TRIG 227 Meds Noted: Propofol, Novolog, protonix, vancomycin, zosyn Skin: WNL Additional Notes: Remains on vent, covid+. Probiotic Lactinex QID ordered today for diarrhea related to antibiotics. Sedation with propofol. Tube feeds are well tolerated. Following daily in ICU rounds. Will monitor in ICU rounds and reassess every Monday and Monday.
[2022-09-07 10:38] LABS: Glucose Point of Care 181 mg/dl (65-105)
[2022-09-07] MEDS: ACIDOPHILUS PACKET 1 PKT PACKET FEED TUBE ×4 (10:49→20:53)
--- NOTE | 2022-09-07 10:51 | WPDINTPN ---
Progress Note: A&P Assessment and Plan (1) Acute respiratory failure: Code(s): J96.00 - Acute respiratory failure, unspecified whether with hypoxia or hypercapnia Status: Acute Assessment and Plan: Acute Respiratory failure which appears to be multifactorial. Patient on presentation was tested positive for COVID-19 (08/27) although his chest x-ray was clear at that time and he was not hypoxic. he also received IV fluids and may have developed aspiration pneumonia considering patient's mental status 09/01 patient was placed on BiPAP 30/12 60% and transferred to ICU. FiO2 was weaned off to 40%. He deteriorated overnight and was intubated on 09/01 09/02 ABG and chest x-ray reviewed. decrease respiratory rate to 24. 09/[address] IMPRESSION: 1. Diffuse lung disease, consistent with pulmonary edema and/or pneumonia. 2. Small pleural effusions. 3. Small pericardial effusion. Chest x-ray this morning: Mild diffuse groundglass/interstitial pulmonary disease. Correlate for pulmonary edema or infection. -will diurese with Bumex today x1 -have asked the bedside RN to decrease propofol and evaluate mental status -patient did not tolerate Precedex and propofol, made him severely bradycardic -blood cultures negative till now. Patient has been on empiric Zosyn (#7) will DC today. Discontinued vancomycin 09/03 -Continue dexamethasone IV for COVID-19. patient was not started remdesivir as patient appears to be out of beneficial time frame. CRP 26.3 and ESR 65 procalcitonin 2.1 BNP 2140 patient is in isolation echocardiogram shows EF of 30-35% (2) COVID: Code(s): U07.1 - COVID-19 Status: Acute Assessment and Plan: see above (3) Pneumonia: Code(s): J18.9 - Pneumonia, unspecified organism Status: Acute Assessment and Plan: see above (4) Congestive heart failure: Code(s): I50.9 - Heart failure, unspecified Status: Acute Assessment and Plan: echocardiogram Summary ? 1. Complete two-dimensional, color flow and Doppler transthoracic echocardiogram is performed. ? 2. Left ventricular chamber dimension is moderately enlarged. ? 3. Left ventricular systolic function is moderately globally reduced, estimated at 35-40%. ? 4. The left ventricular diastolic function is grade I diastolic dysfunction. ? 5. E/e' 16 is elevated. ? 6. Global longitudinal strain is abnormal at -10.3%. ? 7. Left atrial chamber dimension is mildly enlarged. ? 8. Right atrial chamber dimension is moderately enlarged. ? 9. There is moderate aortic valve sclerosis. ? 10. The mitral valve has moderately calcified annulus. ? 11. There is moderate mitral valve regurgitation. ? 12. There is moderate tricuspid valve regurgitation. ? 13. Moderate pulmonary hypertension, estimated pulmonary arterial systolic pressure is 51 mmHg. ? 14. There is mild pulmonic regurgitation. ? 15. Dilated inferior vena cava with <50% collapse upon inspiration consistent with significantly elevated right atrial pressure, 15 mmHg. -Restarted patient's candesartan -will consult Cardiology to evaluate the patient for cardiomyopathy and valvular dysfunction (5) Rhabdomyolysis: Code(s): M62.82 - Rhabdomyolysis Status: Acute Assessment and Plan: hold further IV fluids due to volume overload CK level improved (6) Delirium: Code(s): R41.0 - Disorientation, unspecified Status: Acute Assessment and Plan: patient now intubated and sedated with propofol and fentanyl Sedation holiday (7) Type 2 diabetes mellitus without complications: Qualifiers: Diabetes mellitus detention insulin use: without detention use Qualified Code(s): E11.9 - Type 2 diabetes mellitus without complications Code(s): E11.9 - Type 2 diabetes mellitus without complications Status: Acute Assessment and Plan: Accu-Cheks and sliding scale insulin (8) Electrolyte abnormality: Code(s):
[2022-09-07] MEDS: INSULIN ASPART (*BKC) 100 UNITS/ML SUB-Q ×2 (12:30→16:41)
--- NOTE | 2022-09-07 12:39 | PM.CNCAR ---
Assessment and Plan Assessment and plan (1) Systolic dysfunction: Code(s): I51.9 - Heart disease, unspecified Status: Acute Assessment and Plan: Could be due to covid myocarditis or sepsis cardiomyopathy. Medical therapy for now. Troponin peaked at 0.13. Moderate low with EF 35-40%. 09/01/22 Echo: EF 35-40%, mod LVE, grade I diastolic dysfunction (E/e' 16), mild LAE, mod MIGNON, mod MAC, mod MR/TR, RVSP 51 mmHg, mild PI. Stop Candesartan. Start Entresto 49/51 mg PO BID. Hold off on beta eduardo due to bradycardia. (2) Pneumonia: Code(s): J18.9 - Pneumonia, unspecified organism Status: Acute Assessment and Plan: On antibiotics as per phlebotomy services representative. (3) COVID: Code(s): U07.1 - COVID-19 Status: Acute Assessment and Plan: Managed as per phlebotomy services representative. (4) Mixed hyperlipidemia: Code(s): E78.2 - Mixed hyperlipidemia Status: Acute Assessment and Plan: On Rosuvastatin. (5) Hypertension: Qualifiers: Hypertension type: essential hypertension Qualified Code(s): I10 - Essential (primary) hypertension Code(s): I10 - Essential (primary) hypertension Status: Acute Assessment and Plan: High. Start Entresto. (6) PSVT (paroxysmal supraventricular tachycardia): Code(s): I47.1 - Supraventricular tachycardia Status: Acute Assessment and Plan: Was on Amiodarone 100 mg daily, but due to bradycardia, this was not continued from home. 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 He has a history of PSVT, DM, hypertension, dyslipidemia, obesity. He was found to have covid infection and pneumonia and had respiratory failure and was intubated. Currently on ventilator, therefore unable to obtain information from him at this time. Previously, he can walk a few blocks without any problems.? Reports intermittent dizziness upon standing or turning or bending over.? He drinks 4 glasses of water a day and several cups of decaf coffee.? He is under stress from his 's illness. Denies chest pain, sob, edema, palpitations. He is not interested in a sleep study. Cardiovascular Procedures Echo/MUGA:: 09/28/21 Echo: EF 60-65%, mild LVH, grade I diastolic dysfunction (E/e' 10), mod LAE, mild MIGNON, trace TR/PI/pericardial effusion. Echo (EF 55-60%, grade I diastolic dysfunction (E/E' 13), mild LAE, mild MR/TR, trace PI.) - 02/04/2019 Electrophysiology: 07/04/22 EKG: Sinus rhythm, 2 PVC's. 02/16/21 Holter: Sinus rhythm, HR range 47-115 bpm; average 70 bpm; 1,095 PAC, 15 couplets, 3 trigeminy; 7,924 PVC's, 36 couplets, 136 bigeminy, 21 trigeminy; 1 VT at 152 bpm lasting 6 beats. 01/22/20 EKG: Sinus bradycardia at 58 bpm with first degree AV block, QTc 391 ms. 07/24/19 EKG: Sinus rhythm at 62 bpm, PAC, first degree AV block, QTc 463 ms. EKG (Sinus rhythm with first degree AV block, PAC's) - 02/11/2019 Holter (Predominant rhythm is sinus rhythm, HR range 39-140 bpm; average 69 bpm; 17,684 PAC;s, 1,304 couplets, 228 bigeminy, 984 trigeminy; 10 SVT, fastest at 194 bpm and longest lasting 335 beats. 30 PVC's.) - 02/04/2019 Stress Tests:: Exercise Tolerance Test (Negative for ischemia; exercised for 3 minutes.) - 02/04/2019 Review of Systems Review of Systems: ROS unobtainable: Yes unobtainable due to endotracheal tube PMFSH Past Medical History Medical History Abnormality of heart beat Actinic keratosis Anxiety with depression Aortic valve sclerosis Arthritis Basal pneumonia of both lungs BMI 27.0-27.9,adult BMI 28.0-28.9,adult BMI 29.0-29.9,adult BMI 30.0-30.9,adult BMI 31.0-31.9,adult Borderline abnormal TFTs BPH (benign prostatic hyperplasia) Callus of foot Chronic right hip pain Colon cancer screening [facility]
[2022-09-07 13:13] LABS: Glucose Point of Care 269 mg/dl (65-105)
[2022-09-07 16:50] LABS: Glucose Point of Care 276 mg/dl (65-105)
[2022-09-07] MEDS: PROPOFOL IV EMULSION 100 ML 11.76 MG IV CONT (17:24)
[2022-09-07] MEDS: ROSUVASTATIN 10 MG TABLET 20 MG BY MOUTH (20:53)
[2022-09-07] MEDS: SACUBITRIL/VALSARTAN 49-51 MG TABLET 1 TABLET PO (20:53)
[2022-09-07] MEDS: SERTRALINE HCL 50 MG TABLET 150 MG BY MOUTH (20:55)
[2022-09-08] VITALS (27 sets, daily range): BP systolic 123–180; BP diastolic 70–91; PULSE 56–74; RESP 19–28; TEMP 36.9–37.6; O2SAT 95–99
[2022-09-08] MEDS: PROPOFOL IV EMULSION 100 ML 14.7 MG IV CONT (00:22)
[2022-09-08 04:23] LABS: Glucose Point of Care 197 mg/dl (65-105)
[2022-09-08 04:23] LABS: Glucose Point of Care 187 mg/dl (65-105)
[2022-09-08 04:37] LABS: Basophils Percent Auto 0.1 % (0.2-1.2); Eosinophils Absolute Auto 0.1 K/mm3 (0-0.3); Eosinophils Percent Auto 1.3 % (0-4.4); Hematocrit 41.7 % (42.0-52.0); Hemoglobin 12.6 g/dL (14.0-18.0); Immature Granulocyte Absolute 0.11 K/mm3 (0.00-0.031); Immature Granulocyte Percent A 1.1 % (0-0.5); Lymphocytes Absolute Auto 0.97 K/mm3 (0.9-3.2); Lymphocytes Percent Auto 9.4 % (18.3-44.2); Mean Corpuscular HGB Conc 30.2 g/dl (32-36); Mean Corpuscular Hemoglobin 30.1 pg (26-34); Mean Corpuscular Volume 99.5 fl (80-100); Mean Platelet Volume 11.3 fl (7.4-10.4); Monocytes Absolute Auto 0.3 K/mm3 (0.1-0.6); Monocytes Percent Auto 3.1 % (2.6-8.5); Neutrophils Absolute Auto 8.8 K/mm3 (1.3-6.7); Platelet Count Result 167 k/mm3 (150-375); Red Blood Count 4.19 M/mm3 (4.6-6.20); Red Cell Distribution Width 14.9 % (11.5-14.5); White Blood Count 10.4 K/mm3 (4.5-10.0)
[2022-09-08 04:52] LABS: Alanine Aminotransferase 31 U/L (6-50); Albumin Level 2.8 g/dL (3.5-5.1); Alkaline Phosphatase 47 U/L (38-126); Anion Gap 3 mmol/L (8-16); Aspartate Amino Transferase 46 U/L (17-59); Bilirubin,Total 0.8 mg/dL (0.2-1.3); Blood Urea Nitrogen 30 mg/dL (9-20); Calcium 7.7 mg/dL (8.4-10.2); Carbon Dioxide 30 mmol/L (22-30); Chloride 115 mmol/L (98-107); Estimated CRCL calculation 106 ml/min; Estimated Glomerular Filt Rate > 60; Glucose 202 mg/dL (65-110); Phosphorus 2.7 mg/dL (2.5-4.5); Potassium 4.7 mmol/L (3.4-5.0); Sodium 148 mmol/L (137-145)
[2022-09-08 05:04] LABS: Alveolar/Arterial O2 Gradient 114.4 mmHg; Base Excess ABG 2.8 mEq/l (+/-2.0); Fractional Inspired Oxygen 30 %; HCO3 ABG 25.4 mEq/l (22.0-26.0); Methemoglobin ABG 0.2 %THb (0-1.5); Oxygen Content ABG 17.7 %vol (16.0-22.0); Oxygen Saturation ABG 93.6 % (95.0-100.0); Oxyhemoglobin 91.9 % THb (90.0-100.0); PCO2 ABG 32.9 mmHg (35.0-45.0); PO2 ABG 60.8 mmHg (80.0-100.0); PO2 FiO2 Ratio Arterial Blood 2.03 %; Reduced Hemoglobin 7.9 %THb (0-5.0); Total Hemoglobin 13.7 g/dL (12.0-18.0)
[2022-09-08 05:07] LABS: Device VENTILATOR; Modified Allen's Test Pass; Site Drawn RIGHT RADIAL; pH ABG 7.506 (7.350-7.450)
[2022-09-08 05:08] LABS: Arterial Blood Gas PEEP 8 cmH2O; Arterial Blood Gas Tidal Volume 430 ml; Arterial Blood Gas Vent Mode CMV; Arterial Blood Gas Ventilator rate 24 /MIN
[2022-09-08] MEDS: CENTRAL LINE FLUSH 10 ML IV PUSH ×3 (05:46→20:12)
[2022-09-08] MEDS: PROPOFOL IV EMULSION 100 ML 11.76 MG IV CONT ×3 (06:55→23:29)
--- NOTE | 2022-09-08 07:46 | P.PNIM_ITS ---
Progress Note: A&P Assessment and Plan (1) Acute respiratory failure: Code(s): J96.00 - Acute respiratory failure, unspecified whether with hypoxia or hypercapnia Status: Acute Assessment and Plan: Patient developed acute respiratory hypoxic failure. CXR showing increasing airspace disease in the RUL and bilateral LL. Consider fluid overload and/or PNA and/or COVID. Echo last September showing EF 70% but now EF down to 35-40% with grade I diastolic dysfunction. Lasix given intermittently. CRP 26. WBC elevated today. BCx NGTD. UCx negative. Consider aspiration or HCAP PNA so broad spectrum abx added. CT chest c/w pulmonary edema vs PNA. Wean vent as tolerated. Appreciate community life director input. (2) Congestive heart failure: Code(s): I50.9 - Heart failure, unspecified Status: Acute Assessment and Plan: [place] patient is fluid overloaded. BNP 2140. Echo showing EF 35-40% with Grade I diastolic dysfunction and felt he has acute systolic and diastolic CHF. Also with moderate MR, moderate TR and moderate pHTN. He is getting intermittent doses of Lasix with good UOP. CXR as above. Cr stable. Follow. Will need appropriate cardiac medications once he is stable and if BP tolerates. (3) Pneumonia: Code(s): J18.9 - Pneumonia, unspecified organism Status: Acute Assessment and Plan: Cannot exclude RUL superimposed bacterial PNA over COVID PNA. He has been started on broad spectrum abx. BCx NGTD. MRSA nasal swab negative. UCx negative. (4) COVID: Code(s): U07.1 - COVID-19 Status: Acute Assessment and Plan: PCR positive on 08/27/22. Was not on supplemental oxygen initially * CXR with RUL and bilateral LL airspace disease. No WBC elevation but did develop fever * Steroids added, will repeat CT after 10 days dexamethasone * Continue droplet and contact isolation (5) Falls frequently: Code(s): R29.6 - Repeated falls Status: Acute Assessment and Plan: Patient suffering mechanical falls recently * MRI brain with mild-moderate generalized atrophy and minimal chronic m icrovascular ischemic changes, mildly dilated ventricles and subarachnoid spaces. * Carotid doppler performed 50% stenosis bilaterally * Concern for NPH due to gait changes and High-volume LP completed 08/30 with normal opening pressure, normal cell count, negative Gram stain. No concern for infection. * TSH normal. No significant lab abnormalities. * Patient was restless and fell out of bed on to the floor and hit his head 08/30. Repeat HCT performed with no acute findings. * Continue fall precautions * Appreciate neuro input. * The orthostatic HoNT also contributiing to his falls. * HCT 09/02 showing no acute findings. (6) Confusion: Code(s): R41.0 - Disorientation, unspecified Status: Acute Assessment and Plan: Pt with waxing and waning mental status * Not receiving any sedating medications or narcotics * Lumbar puncture completed as above * B12 and TSH normal. RPR negative * Neurology recommends EEG which was ordered but now on hold (7) Gait instability: Code(s): R26.81 - Unsteadiness on feet Status: Acute Assessment and Plan: Pt with ataxic gait and unsteady balance * Per Neurology, may have component of diabetic/ autonomic neuropathy * Plan as above. * Continue PT/OT once off vent (8) Rhabdomyolysis: Code(s): M62.82 - Rhabdomyolysis Status: Acute Assessment and Plan: CK evaluated due to increased weakness, found
--- NOTE | 2022-09-08 07:46 | PM.IMPN ---
Progress Note: A&P Assessment and Plan (1) Acute respiratory failure: Code(s): J96.00 - Acute respiratory failure, unspecified whether with hypoxia or hypercapnia Status: Acute Assessment and Plan: Patient developed acute respiratory hypoxic failure. CXR showing increasing airspace disease in the RUL and bilateral LL. Consider fluid overload and/or PNA and/or COVID. Echo last September showing EF 70% but now EF down to 35-40% with grade I diastolic dysfunction. Lasix given intermittently. CRP 26. WBC elevated today. BCx NGTD. UCx negative. Consider aspiration or HCAP PNA so broad spectrum abx added. CT chest c/w pulmonary edema vs PNA. Wean vent as tolerated. Appreciate perl software engineer input. (2) Congestive heart failure: Code(s): I50.9 - Heart failure, unspecified Status: Acute Assessment and Plan: [place] patient is fluid overloaded. BNP 2140. Echo showing EF 35-40% with Grade I diastolic dysfunction and felt he has acute systolic and diastolic CHF. Also with moderate MR, moderate TR and moderate pHTN. He is getting intermittent doses of Lasix with good UOP. CXR as above. Cr stable. Follow. Will need appropriate cardiac medications once he is stable and if BP tolerates. (3) Pneumonia: Code(s): J18.9 - Pneumonia, unspecified organism Status: Acute Assessment and Plan: Cannot exclude RUL superimposed bacterial PNA over COVID PNA. He has been started on broad spectrum abx. BCx NGTD. MRSA nasal swab negative. UCx negative. (4) COVID: Code(s): U07.1 - COVID-19 Status: Acute Assessment and Plan: PCR positive on 08/27/22. Was not on supplemental oxygen initially CXR with RUL and bilateral LL airspace disease. No WBC elevation but did develop fever Steroids added, will repeat CT after 10 days dexamethasone Continue droplet and contact isolation (5) Falls frequently: Code(s): R29.6 - Repeated falls Status: Acute Assessment and Plan: Patient suffering mechanical falls recently MRI brain with mild-moderate generalized atrophy and minimal chronic microvascular ischemic changes, mildly dilated ventricles and subarachnoid spaces. Carotid doppler performed 50% stenosis bilaterally Concern for NPH due to gait changes and High-volume LP completed 08/30 with normal opening pressure, normal cell count, negative Gram stain. No concern for infection. TSH normal. No significant lab abnormalities. Patient was restless and fell out of bed on to the floor and hit his head 08/30. Repeat HCT performed with no acute findings. Continue fall precautions Appreciate neuro input. The orthostatic HoNT also contributiing to his falls. HCT 09/02 showing no acute findings. (6) Confusion: Code(s): R41.0 - Disorientation, unspecified Status: Acute Assessment and Plan: Pt with waxing and waning mental status Not receiving any sedating medications or narcotics Lumbar puncture completed as above B12 and TSH normal. RPR negative Neurology recommends EEG which was ordered but now on hold (7) Gait instability: Code(s): R26.81 - Unsteadiness on feet Status: Acute Assessment and Plan: Pt with ataxic gait and unsteady balance Per Neurology, may have component of diabetic/ autonomic neuropathy Plan as above. Continue PT/OT once off vent (8) Rhabdomyolysis: Code(s): M62.82 - Rhabdomyolysis Status: Acute Assessment and Plan: CK evaluated due to increased weakness, found to be elevated at 2500 patient was noted to have 3+ blood in urine on presentation Related to multiple falls Patient on rosuvastatin 5 mg which was increased during admission based on a lipid panel which is likely contributor. Statin on hold at this time LFTs are mildly elevated and will continue to monitor Renal function is within normal limits Repeat UA is negative for blood and TCK 60 Resolved (9) Typ
--- NOTE | 2022-09-08 07:48 | PM.PNCARD ---
Progress Note: A&P Assessment and Plan (1) Systolic dysfunction: Code(s): I51.9 - Heart disease, unspecified Status: Acute Assessment and Plan: Could be due to covid myocarditis or sepsis cardiomyopathy. Medical therapy for now. Troponin peaked at 0.13. Moderate low with EF 35-40%. 09/01/22 Echo: EF 35-40%, mod LVE, grade I diastolic dysfunction (E/e' 16), mild LAE, mod MIGNON, mod MAC, mod MR/TR, RVSP 51 mmHg, mild PI. Stopped Candesartan. Increase Entresto 97/103 mg PO BID. Hold off on beta eduardo due to bradycardia. (2) Pneumonia: Code(s): J18.9 - Pneumonia, unspecified organism Status: Acute Assessment and Plan: On antibiotics as per extract puller. (3) COVID: Code(s): U07.1 - COVID-19 Status: Acute Assessment and Plan: Managed as per extract puller. (4) Mixed hyperlipidemia: Code(s): E78.2 - Mixed hyperlipidemia Status: Acute Assessment and Plan: On Rosuvastatin. (5) Hypertension: Qualifiers: Hypertension type: essential hypertension Qualified Code(s): I10 - Essential (primary) hypertension Code(s): I10 - Essential (primary) hypertension Status: Acute Assessment and Plan: High. Increase Entresto. Monitor BP. If still high, would add Hydralazine. (6) PSVT (paroxysmal supraventricular tachycardia): Code(s): I47.1 - Supraventricular tachycardia Status: Acute Assessment and Plan: Was on Amiodarone 100 mg daily, but due to bradycardia, this was not continued from home. Subjective Date/time seen: 09/08/22 07:48 Interval history: Sedated and on mechanical ventilation. Exam Const: Other: Sedated, on mechanical ventilation. Resp: Auscultation: clear to auscultation bilaterally, no crackles, no rales, no rhonchi and no wheezes Cardio: Rate: bradycardic Rhythm: regular rhythm Heart sounds: no murmurs Peripheral pulses: dorsalis pedis present Extrem: Right lower extremity: no edema Left lower extremity: no edema Objective Data Vital Signs Vital Signs: Vital Signs - 24 hr 09/07/22 08:33 09/07/22 08:53 09/07/22 10:59 Temperature Pulse Rate 63 61 62 Respiratory Rate 25 H 26 H Blood Pressure Pulse Oximetry 97 Oxygen Delivery Mechanical Ventilation Fraction of Inspired Oxygen 40 09/07/22 11:22 09/07/22 08:00 09/07/22 08:00 Temperature 98.8 F Pulse Rate 69 60 58 L Respiratory Rate 26 H Blood Pressure 154/94 H Pulse Oximetry 97 98 Oxygen Delivery Mechanical Ventilation Fraction of Inspired Oxygen 30 09/07/22 10:00 09/07/22 10:00 09/07/22 08:00 Temperature 98.8 F Pulse Rate 64 64 Respiratory Rate 30 H Blood Pressure 142/76 H Pulse Oximetry 97 Oxygen Delivery Fraction of Inspired Oxygen 40 09/07/22 08:00 09/07/22 12:37 09/07/22 12:00 Temperature Pulse Rate 63 66 Respiratory Rate 28 H Blood Pressure Pulse Oximetry 97 Oxygen Delivery Mechanical Ventilation Fraction of Inspired Oxygen 40 09/07/22 12:00 09/07/22 12:00 09/07/22 12:00 Temperature 98.9 F Pulse Rate 61 Respiratory Rate 20 Blood Pressure 156/81 H Pulse Oximetry 97 97 Oxygen Delivery Mechanical Ventilation Fraction of Inspired Oxygen 30 30 09/07/22 14:00 09/07/22 14:00 09/07/22 14:05 Temperature 99.4 F Pulse Rate 72 72 69 Respiratory Rate 26 H Blood Pressure 170/81 H Pulse Oximetry 96 97 Oxygen Delivery Mechanical Ventilation Fraction of Inspired Oxygen 30 09/07/22 16:44 09/07/22 16:00 09/07/22 16:00 Temperature 99.5 F Pulse Rate 74 67 Respiratory Rate 32 H 26 H Blood Pressure 164/83 H Pulse Oximetry 96 Oxygen Delivery Fraction of Inspired Oxygen 30 09/07/22 16:00 09/07/22 17:24 09/07/22 16:44 Temperature Pulse Rate 76 69 Respiratory Rate 28 H Blood Pressure Pulse Oximetry 97 93 Oxygen Delivery Mechanical Ventilation Mechanical Ventilation Fraction of Inspired Ox
[2022-09-08] MEDS: BUMETANIDE INJ 1 MG/4 ML VIAL IV PUSH ×2 (09:29→20:15)
[2022-09-08] MEDS: INSULIN ASPART (*BKC) 100 UNITS/ML SUB-Q ×5 (09:29→23:22)
[2022-09-08] MEDS: PANTOPRAZOLE SODIUM IV 40 MG VIAL IV PUSH (09:31)
[2022-09-08] MEDS: FLUCONAZOLE 100 MG TABLET FEED TUBE (09:31)
[2022-09-08] MEDS: MULTIVITAMINS THERAPEUTIC TAB (*BKC) 1 TABLET PO (09:31)
[2022-09-08] MEDS: CHOLECALCIFEROL 1,000 UNITS TABLET 1000 UNITS PO (09:31)
[2022-09-08] MEDS: CYANOCOBALAMIN 1,000 MCG TABLET 1000 MCG PO (09:31)
[2022-09-08] MEDS: SACUBITRIL/VALSARTAN 97-103 MG TABLET 1 TAB PO ×2 (09:31→20:12)
[2022-09-08] MEDS: ASPIRIN 81 MG ENTERIC TABLET PO (09:31)
[2022-09-08] MEDS: ENOXAPARIN 40 MG/0.4 ML SYRINGE SUB-Q (09:32)
[2022-09-08 09:50] LABS: Glucose Point of Care 221 mg/dl (65-105)
--- NOTE | 2022-09-08 10:40 | WPDINTPN ---
Progress Note: A&P Assessment and Plan (1) Acute respiratory failure: Code(s): J96.00 - Acute respiratory failure, unspecified whether with hypoxia or hypercapnia Status: Acute Assessment and Plan: Acute Respiratory failure which appears to be multifactorial. Patient on presentation was tested positive for COVID-19 (08/27) although his chest x-ray was clear at that time and he was not hypoxic. he also received IV fluids and may have developed aspiration pneumonia considering patient's mental status 09/01 patient was placed on BiPAP 30/12 60% and transferred to ICU. FiO2 was weaned off to 40%. He deteriorated overnight and was intubated on 09/01 09/02 ABG and chest x-ray reviewed. decrease respiratory rate to 24. 09/[address] IMPRESSION: 1. Diffuse lung disease, consistent with pulmonary edema and/or pneumonia. 2. Small pleural effusions. 3. Small pericardial effusion. Chest x-ray this morning: Stable extensive pulmonary disease. Correlate for pulmonary edema or infection. -will diurese again today with Bumex -have asked the bedside RN to decrease propofol and evaluate mental status -patient did not tolerate Precedex and propofol, made him severely bradycardic -blood cultures negative till now. Completed a course of Zosyn and vancomycin -Continue dexamethasone IV for COVID-19. patient was not started remdesivir as patient appears to be out of beneficial time frame. CRP 26.3 and ESR 65 procalcitonin 2.1 BNP 2140 patient is in isolation echocardiogram shows EF of 30-35% (2) COVID: Code(s): U07.1 - COVID-19 Status: Acute Assessment and Plan: see above (3) Pneumonia: Code(s): J18.9 - Pneumonia, unspecified organism Status: Acute Assessment and Plan: see above (4) Congestive heart failure: Code(s): I50.9 - Heart failure, unspecified Status: Acute Assessment and Plan: echocardiogram Summary ? 1. Complete two-dimensional, color flow and Doppler transthoracic echocardiogram is performed. ? 2. Left ventricular chamber dimension is moderately enlarged. ? 3. Left ventricular systolic function is moderately globally reduced, estimated at 35-40%. ? 4. The left ventricular diastolic function is grade I diastolic dysfunction. ? 5. E/e' 16 is elevated. ? 6. Global longitudinal strain is abnormal at -10.3%. ? 7. Left atrial chamber dimension is mildly enlarged. ? 8. Right atrial chamber dimension is moderately enlarged. ? 9. There is moderate aortic valve sclerosis. ? 10. The mitral valve has moderately calcified annulus. ? 11. There is moderate mitral valve regurgitation. ? 12. There is moderate tricuspid valve regurgitation. ? 13. Moderate pulmonary hypertension, estimated pulmonary arterial systolic pressure is 51 mmHg. ? 14. There is mild pulmonic regurgitation. ? 15. Dilated inferior vena cava with <50% collapse upon inspiration consistent with significantly elevated right atrial pressure, 15 mmHg. -appreciate cardiology evaluation recommendation, patient was started on Entresto -holding beta-eduardo due to bradycardia (5) Rhabdomyolysis: Code(s): M62.82 - Rhabdomyolysis Status: Acute Assessment and Plan: hold further IV fluids due to volume overload CK level improved (6) Delirium: Code(s): R41.0 - Disorientation, unspecified Status: Acute Assessment and Plan: patient now intubated and sedated with propofol and fentanyl Sedation holiday (7) Type 2 diabetes mellitus without complications: Qualifiers: Diabetes mellitus terminal computer operator insulin use: without snf use Qualified Code(s): E11.9 - Type 2 diabetes mellitus without complications Code(s): E11.9 - Type 2 diabetes mellitus without complications Status: Acute Assessment and Plan: Accu-Cheks and sliding scale insulin (8) Electrolyte abnormality: Code(s): E87.8 - Other disorders of electrolyte and fluid balance, no
--- NOTE | 2022-09-08 11:08 | PCFNICU ---
ICU Rounding Note: Pt current nutrition is Vital AF 1.2 at 50 ml/hr. Last recorded weight is 95.7 kg. Bowel Motility: +Bm reported 09/08 Labs Reviewed:Glu 202, BUN 30, Cr 0.5,Na 148, Alb 2.8 Meds Noted:Bumex, vancomycin, NovoLog, Protonix, Propofol 20 cepf=809 kcals. Skin: WNL Additional Notes: Patient remains on mechanical vent and tube feedings of Vital AF 1.2 at 50 ml/hr and tolerating. Patient receiving protein modular of Prosource once daily providing an additional 80 kcals and 20 gms protein. Banatrol TF BID for stool bulking providing 90 kcals. Total nutrition: 1800 kcals/103 gms protein/892 ml water. Flush 150 ml q 4 hours. Following daily in ICU rounds. Will monitor in ICU rounds and reassess every Monday and Monday.
--- NOTE | 2022-09-08 12:57 | PM.CNPUL ---
Assessment and Plan Assessment and plan (1) Respiratory failure with hypoxia: Code(s): J96.91 - Respiratory failure, unspecified with hypoxia Status: Acute Assessment and Plan: patient with a 35 pack year tobacco use history, quit in 1997, presented with covert RT PCR positive, a normal chest x-ray on 08/27/2022 and requiring no oxygen. Patient deteriorated over the next 5 days and developed bilateral interstitial alveolar infiltrates with dense areas of consolidation on his CT scan on 09/02/2022. lower extremity Dopplers were negative for DVT. Patient was intubated and remains intubated now. Etiology of his hypoxemic respiratory failure includes Covid pneumonia, interstitial lung disease -organizing pneumonia, fluid overload, aspiration, ARDS and or bacterial pneumonia. Patient is currently on day 7 of dexamethasone 6 mg IV q.day. Patient did not receive from remdesivir as it was felt he was outside of the treatment window. Patient is being diuresed with Bumex and I would continue as aggressive diuresis as tolerated by his cardiac and renal systems. patient has altered mental status and may have had an aspiration event. Currently the patient is intubated for airway protection and is receiving tube feeds. Supportive care for the possibility of ARDS. Patient is finished Zosyn for the possibility of bacterial pneumonia and currently is afebrile, white blood cell count is 10.4, he has no pulmonary secretions per the bedside nurse and he has no change in his x-ray over the last for days. There have been case reports and small trials treating post covert organizing pneumonia with glucocorticoids and these studies initiated the glucocorticoids in 3 in patient's between days 15 and 21 in 1 study, at 6 weeks and 1 outpatient study, and between 3 in 8 weeks and another outpatient study. Recommend repeating the CT scan after 10 days of dexamethasone to reassess his infiltrates. Discussed with Dr. Cedillo. Will re-evaluate the patient after the CT scan is performed. History of Present Illness History of Present Illness Consult date: 09/08/22 Chief complaint: Covid, Frequent Falls Narrative: 09/08/2022: This is a new pulmonary consult for respiratory failure and bilateral infiltrates. 77-year-old With a history of anxiety with depression, a aortic valve sclerosis, arthritis, diastolic dysfunction, hypertension, GERD, hyperlipidemia, SVT, diabetes who presented on 08/27 with multiple falls. He was found to be covered positive and had a clear chest x-ray and required no supplemental oxygen and was not treated for covid. Patient developed bilateral infiltrates and was intubated on 09/01 and started on dexamethasone. There were concerns about aspiration given his altered mental status. Patient has had an echocardiogram on 09/01 with an EF of 35-40%, grade 1 diastolic dysfunction, moderate mitral regurg and tricuspid regurg with an RVSP of 51. CT of the chest on 09/02/2022 demonstrated diffuse bilateral ground-glass infiltrates with areas of dense consolidation. Patient is being treated for fluid overload with Bumex. Zosyn was discontinued on 09/07/2022. 09/08/22 patient is intubated On 30% FiO2 and 10 of peep. His peak airway pressures are 15 on a tidal volume of 430 mL. His minute ventilation is 10. his ABG this morning on 30% and a peep of 8 was 7.51/33/61. White blood cell count is 10.4, creatinine is 0.5. chest x-ray demonstrates diffuse bilateral interstitial alveolar infiltrates bases greater than apices With minimal policy change clerk the last 3 days. Per the bedside nurse with a turn his propofol down he becomes tachypneic, agitated. He has no secretions. He is on Vital AF tube feeds at 50 mL an hour and propofol for sedation. DATA: 09/02/2022 EXAMINATION:CT diagnostic chest wo con DATE: 09/02/2022 12:31 INDICATION: Respiratory failure. TECHNIQUE: Computed tomograp
[2022-09-08 13:01] LABS: Glucose Point of Care 271 mg/dl (65-105)
[2022-09-08 17:48] LABS: Glucose Point of Care 258 mg/dl (65-105)
[2022-09-08] MEDS: SERTRALINE HCL 50 MG TABLET 150 MG BY MOUTH (20:11)
[2022-09-08] MEDS: MINERAL OIL/WHITE PETROLATUM OINTMENT 1 APPLIC EACH EYE (20:11)
[2022-09-08] MEDS: carvediloL 3.125 MG TABLET PO (20:13)
[2022-09-08] MEDS: ROSUVASTATIN 10 MG TABLET 20 MG BY MOUTH (23:23)
[2022-09-09] VITALS (27 sets, daily range): BP systolic 113–156; BP diastolic 69–95; PULSE 61–82; RESP 14–24; TEMP 37.2–37.8; O2SAT 94–98
[2022-09-09 04:32] LABS: Basophils Percent Auto 0.2 % (0.2-1.2); Eosinophils Absolute Auto 0.1 K/mm3 (0-0.3); Eosinophils Percent Auto 0.7 % (0-4.4); Hematocrit 47.9 % (42.0-52.0); Hemoglobin 14.4 g/dL (14.0-18.0); Immature Granulocyte Absolute 0.13 K/mm3 (0.00-0.031); Immature Granulocyte Percent A 0.9 % (0-0.5); Lymphocytes Absolute Auto 1.32 K/mm3 (0.9-3.2); Lymphocytes Percent Auto 8.7 % (18.3-44.2); Mean Corpuscular HGB Conc 30.1 g/dl (32-36); Mean Corpuscular Hemoglobin 29.1 pg (26-34); Mean Platelet Volume 10.5 fl (7.4-10.4); Monocytes Absolute Auto 0.6 K/mm3 (0.1-0.6); Monocytes Percent Auto 3.8 % (2.6-8.5); Neutrophils Absolute Auto 13.1 K/mm3 (1.3-6.7); Neutrophils Percent Auto 85.7 % (45.5-73.1); Platelet Count Result 223 k/mm3 (150-375); Red Blood Count 4.94 M/mm3 (4.6-6.20); Red Cell Distribution Width 14.7 % (11.5-14.5); White Blood Count 15.2 K/mm3 (4.5-10.0)
[2022-09-09 04:44] LABS: Glucose Point of Care 215 mg/dl (65-105)
[2022-09-09 04:44] LABS: Glucose Point of Care 190 mg/dl (65-105)
[2022-09-09 04:44] LABS: Glucose Point of Care 233 mg/dl (65-105)
[2022-09-09 05:17] LABS: Alanine Aminotransferase 45 U/L (6-50); Albumin Level 3.2 g/dL (3.5-5.1); Alkaline Phosphatase 69 U/L (38-126); Anion Gap 6 mmol/L (8-16); Aspartate Amino Transferase 52 U/L (17-59); Bilirubin,Total 0.7 mg/dL (0.2-1.3); Blood Urea Nitrogen 32 mg/dL (9-20); Calcium 8.6 mg/dL (8.4-10.2); Carbon Dioxide 29 mmol/L (22-30); Chloride 113 mmol/L (98-107); Estimated CRCL calculation 90 ml/min; Estimated Glomerular Filt Rate > 60; Glucose 199 mg/dL (65-110); Phosphorus 3.5 mg/dL (2.5-4.5); Potassium 3.3 mmol/L (3.4-5.0); Sodium 148 mmol/L (137-145)
[2022-09-09 05:41] LABS: Triglycerides 245 mg/dL (<150)
[2022-09-09 06:11] LABS: Alveolar/Arterial O2 Gradient 92.8 mmHg; Base Excess ABG 4.3 mEq/l (+/-2.0); Carboxyhemoglobin 0.1 % THb (0-2.0); Fractional Inspired Oxygen 30 %; HCO3 ABG 27.7 mEq/l (22.0-26.0); Methemoglobin ABG 0.1 %THb (0-1.5); Oxygen Content ABG 19.4 %vol (16.0-22.0); Oxygen Saturation ABG 96.3 % (95.0-100.0); Oxyhemoglobin 95.2 % THb (90.0-100.0); PCO2 ABG 37.3 mmHg (35.0-45.0); PO2 ABG 77.3 mmHg (80.0-100.0); PO2 FiO2 Ratio Arterial Blood 2.58 %; Reduced Hemoglobin 4.6 %THb (0-5.0); Total Hemoglobin 14.5 g/dL (12.0-18.0); pH ABG 7.489 (7.350-7.450)
[2022-09-09 06:16] LABS: Arterial Blood Gas PEEP 10 cmH2O; Arterial Blood Gas Tidal Volume 430 ml; Arterial Blood Gas Vent Mode CMV; Arterial Blood Gas Ventilator rate 20 /MIN; Device VENTILATOR; Modified Allen's Test Unable to perform; Site Drawn RIGHT RADIAL
[2022-09-09] MEDS: PROPOFOL IV EMULSION 100 ML 11.76 MG IV CONT (07:16)
[2022-09-09] MEDS: CENTRAL LINE FLUSH 10 ML IV PUSH ×3 (07:17→20:26)
--- NOTE | 2022-09-09 07:47 | PM.PNCARD ---
Progress Note: A&P Assessment and Plan (1) Systolic dysfunction: Code(s): I51.9 - Heart disease, unspecified Status: Acute Assessment and Plan: Could be due to covid myocarditis or sepsis cardiomyopathy. Medical therapy for now. Troponin peaked at 0.13. Moderate low with EF 35-40%. 09/01/22 Echo: EF 35-40%, mod LVE, grade I diastolic dysfunction (E/e' 16), mild LAE, mod MIGNON, mod MAC, mod MR/TR, RVSP 51 mmHg, mild PI. Stopped Candesartan. Increased Entresto 97/103 mg PO BID. Started Carvedilol 3.125 mg BID. Monitor HR and BP. Appears euvolemic. Give diuretic as needed. (2) Pneumonia: Code(s): J18.9 - Pneumonia, unspecified organism Status: Acute Assessment and Plan: On antibiotics as per tin can laborer. (3) COVID: Code(s): U07.1 - COVID-19 Status: Acute Assessment and Plan: Managed as per tin can laborer. (4) Mixed hyperlipidemia: Code(s): E78.2 - Mixed hyperlipidemia Status: Acute Assessment and Plan: On Rosuvastatin. (5) Hypertension: Qualifiers: Hypertension type: essential hypertension Qualified Code(s): I10 - Essential (primary) hypertension Code(s): I10 - Essential (primary) hypertension Status: Acute Assessment and Plan: High. Increased Entresto and started Carvedilol. Monitor BP. If still high, would add Hydralazine. (6) PSVT (paroxysmal supraventricular tachycardia): Code(s): I47.1 - Supraventricular tachycardia Status: Acute Assessment and Plan: Was on Amiodarone 100 mg daily, but due to bradycardia, this was not continued from home. Subjective Date/time seen: 09/09/22 07:47 Interval history: Sedated and on mechanical ventilation. Exam Const: Other: Sedated, on mechanical ventilation. Resp: Auscultation: clear to auscultation bilaterally, no crackles, no rales, no rhonchi and no wheezes Cardio: Rate: regular rate and bradycardic Rhythm: regular rhythm Heart sounds: no murmurs Peripheral pulses: dorsalis pedis present Extrem: Right lower extremity: no edema Left lower extremity: no edema Objective Data Vital Signs Vital Signs: Vital Signs - 24 hr 09/08/22 08:22 09/08/22 08:00 09/08/22 08:00 Temperature 98.7 F Pulse Rate 59 L 57 L 59 L Respiratory Rate 26 H Blood Pressure 180/77 H Pulse Oximetry 97 96 Oxygen Delivery Mechanical Ventilation Fraction of Inspired Oxygen 30 09/08/22 08:00 09/08/22 08:00 09/08/22 10:00 Temperature Pulse Rate 65 Respiratory Rate Blood Pressure Pulse Oximetry 97 Oxygen Delivery Mechanical Ventilation Fraction of Inspired Oxygen 30 30 09/08/22 10:00 09/08/22 10:40 09/08/22 12:00 Temperature 99.3 F 99.5 F Pulse Rate 64 71 67 Respiratory Rate 20 28 H Blood Pressure 165/84 H 162/80 H Pulse Oximetry 98 99 97 Oxygen Delivery Mechanical Ventilation Fraction of Inspired Oxygen 30 09/08/22 12:00 09/08/22 12:00 09/08/22 12:00 Temperature Pulse Rate 67 Respiratory Rate Blood Pressure Pulse Oximetry 97 Oxygen Delivery Mechanical Ventilation Fraction of Inspired Oxygen 30 30 09/08/22 14:00 09/08/22 14:00 09/08/22 15:07 Temperature 99.6 F Pulse Rate 69 69 72 Respiratory Rate 20 20 Blood Pressure 156/88 H Pulse Oximetry 98 Oxygen Delivery Fraction of Inspired Oxygen 09/08/22 08:00 09/08/22 10:00 09/08/22 12:00 Temperature Pulse Rate 60 64 69 Respiratory Rate 20 26 H 20 Blood Pressure Pulse Oximetry Oxygen Delivery Fraction of Inspired Oxygen 09/08/22 14:00 09/08/22 14:19 09/08/22 16:00 Temperature Pulse Rate 68 68 69 Respiratory Rate 22 H Blood Pressure Pulse Oximetry 99 Oxygen Delivery Mechanical Ventilation Fraction of Inspired Oxygen 30 09/08/22 16:00 09/08/22 16:00 09/08/22 16:00 Temperature 99.6 F Pulse Rate 70 Respiratory Rate 20 Blood Pressure 151/88 H Pulse Oximetry 98 98 Oxyg
[2022-09-09] MEDS: CYANOCOBALAMIN 1,000 MCG TABLET 1000 MCG PO (08:43)
[2022-09-09] MEDS: carvediloL 3.125 MG TABLET PO ×2 (08:43→20:22)
[2022-09-09] MEDS: BUMETANIDE INJ 1 MG/4 ML VIAL IV PUSH ×2 (08:43→16:20)
[2022-09-09] MEDS: ASPIRIN 81 MG ENTERIC TABLET PO (08:43)
[2022-09-09] MEDS: CHOLECALCIFEROL 1,000 UNITS TABLET 1000 UNITS PO (08:43)
[2022-09-09] MEDS: MULTIVITAMINS THERAPEUTIC TAB (*BKC) 1 TABLET PO (08:44)
[2022-09-09] MEDS: PANTOPRAZOLE SODIUM IV 40 MG VIAL IV PUSH (08:44)
[2022-09-09] MEDS: MINERAL OIL/WHITE PETROLATUM OINTMENT 1 APPLIC EACH EYE ×2 (08:44→20:20)
[2022-09-09] MEDS: ENOXAPARIN 40 MG/0.4 ML SYRINGE SUB-Q (08:44)
[2022-09-09] MEDS: FLUCONAZOLE 100 MG TABLET FEED TUBE (08:44)
[2022-09-09] MEDS: SACUBITRIL/VALSARTAN 97-103 MG TABLET 1 TAB PO ×2 (08:45→20:21)
[2022-09-09] MEDS: INSULIN ASPART (*BKC) 100 UNITS/ML SUB-Q ×4 (08:45→20:23)
[2022-09-09] MEDS: POTASSIUM CHLORIDE 20 MEQ PACKET (FOR LIQUID) 40 MEQ FEED TUBE ×2 (08:45→16:20)
[2022-09-09 09:05] LABS: Glucose Point of Care 225 mg/dl (65-105)
--- NOTE | 2022-09-09 09:29 | WPDINTPN ---
Progress Note: A&P Assessment and Plan (1) Acute respiratory failure: Code(s): J96.00 - Acute respiratory failure, unspecified whether with hypoxia or hypercapnia Status: Acute Assessment and Plan: Acute Respiratory failure which appears to be multifactorial. Patient on presentation was tested positive for COVID-19 (08/27) although his chest x-ray was clear at that time and he was not hypoxic. he also received IV fluids and may have developed aspiration pneumonia considering patient's mental status 09/01 patient was placed on BiPAP 14/7 60% and transferred to ICU. FiO2 was weaned off to 40%. He deteriorated overnight and was intubated on 09/01 -Chest x-ray this morning: Stable extensive groundglass/interstitial disease, predominantly at the lung bases and perihilar regions. Correlate for pulmonary edema or infection. -continue diuresis with Bumex b.i.d. -have asked the bedside RN to decrease propofol and evaluate mental status -patient did not tolerate Precedex and propofol, made him severely bradycardic -blood cultures negative till now. Completed a course of Zosyn and vancomycin -Continue dexamethasone IV for COVID-19. patient was not started remdesivir as patient appears to be out of beneficial time frame. CRP 26.3 and ESR 65 procalcitonin 2.1 BNP 2140 patient is in isolation echocardiogram shows EF of 30-35% Appreciate pulmonology evaluation. Recommended diuresis and repeat CT scan of the chest on 09/11/202209/[address] IMPRESSION: 1. Diffuse lung disease, consistent with pulmonary edema and/or pneumonia. 2. Small pleural effusions. 3. Small pericardial effusion. (2) COVID: Code(s): U07.1 - COVID-19 Status: Acute Assessment and Plan: see above (3) Pneumonia: Code(s): J18.9 - Pneumonia, unspecified organism Status: Acute Assessment and Plan: see above (4) Congestive heart failure: Code(s): I50.9 - Heart failure, unspecified Status: Acute Assessment and Plan: echocardiogram Summary ? 1. Complete two-dimensional, color flow and Doppler transthoracic echocardiogram is performed. ? 2. Left ventricular chamber dimension is moderately enlarged. ? 3. Left ventricular systolic function is moderately globally reduced, estimated at 35-40%. ? 4. The left ventricular diastolic function is grade I diastolic dysfunction. ? 5. E/e' 16 is elevated. ? 6. Global longitudinal strain is abnormal at -10.3%. ? 7. Left atrial chamber dimension is mildly enlarged. ? 8. Right atrial chamber dimension is moderately enlarged. ? 9. There is moderate aortic valve sclerosis. ? 10. The mitral valve has moderately calcified annulus. ? 11. There is moderate mitral valve regurgitation. ? 12. There is moderate tricuspid valve regurgitation. ? 13. Moderate pulmonary hypertension, estimated pulmonary arterial systolic pressure is 51 mmHg. ? 14. There is mild pulmonic regurgitation. ? 15. Dilated inferior vena cava with <50% collapse upon inspiration consistent with significantly elevated right atrial pressure, 15 mmHg. 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
[2022-09-09 11:38] LABS: Glucose Point of Care 279 mg/dl (65-105)
--- NOTE | 2022-09-09 12:08 | PCNFU ---
Nutrition Follow-Up Complete: Inadequate Oral Intake as related to mechanical vent and evidenced by NPO. Goal: Meet estimated nutritional needs Patient will continue current goal. Pt current nutrition is Vital AF 1.2 at 50 ml/hr. Last recorded weight is 89.4 kg. Bowel Motility:+Bm reported 09/09 Labs Reviewed:TG 245, BUN 32, Cr 0.6,Glu 199 Meds Noted:Propofol 8.82 ml/lg=519 kcals, Bumex, Protonix, Zosyn, Vancomycin,NovoLog Skin: WNL Additional Notes: Patient remains on mechanical vent. Propofol decreased from 20 mcgs to 15 mcgs. Tube feedings of Vital AF 1.2 at 50 ml/hr being tolerating per nursing. Tube feeding providing 1320 kcals/83 gms protein/892 ml water. Protein Modular of Prosource once daily adding additional 80 kcals and 20 gms protein. Banatrol TF BID for stool bulking providing additional 90 kcals. Total Nutrition: 1723 kcals/103 gms protein/ 892 ml water. Agree with diet orders. Will monitor in ICU rounds and reassess every Monday and Monday.
[2022-09-09] MEDS: PROPOFOL IV EMULSION 100 ML 8.82 MG IV CONT (15:13)
[2022-09-09 15:49] LABS: Glucose Point of Care 303 mg/dl (65-105)
[2022-09-09] MEDS: SERTRALINE HCL 50 MG TABLET 150 MG BY MOUTH (20:21)
[2022-09-09] MEDS: ROSUVASTATIN 10 MG TABLET 20 MG BY MOUTH (20:22)
[2022-09-09 23:25] LABS: Glucose Point of Care 269 mg/dl (65-105)
[2022-09-09 23:25] LABS: Glucose Point of Care 240 mg/dl (65-105)
[2022-09-10] VITALS (37 sets, daily range): BP systolic 58–153; BP diastolic 47–97; PULSE 62–80; RESP 15–31; TEMP 37.3–38.3; O2SAT 91–98
[2022-09-10] MEDS: INSULIN ASPART (*BKC) 100 UNITS/ML SUB-Q ×4 (00:15→20:04)
[2022-09-10] MEDS: PROPOFOL IV EMULSION 100 ML 8.82 MG IV CONT (01:36)
[2022-09-10 04:46] LABS: Glucose Point of Care 119 mg/dl (65-105)
[2022-09-10] MEDS: CENTRAL LINE FLUSH 10 ML IV PUSH ×3 (04:47→23:52)
[2022-09-10 05:39] LABS: Alveolar/Arterial O2 Gradient 80.5 mmHg; Base Excess ABG 6.2 mEq/l (+/-2.0); Carboxyhemoglobin 0.3 % THb (0-2.0); Device VENTILATOR; Fractional Inspired Oxygen 30 %; HCO3 ABG 30.7 mEq/l (22.0-26.0); Methemoglobin ABG 0.4 %THb (0-1.5); Modified Allen's Test Pass; Oxygen Content ABG 21.8 %vol (16.0-22.0); Oxygen Saturation ABG 96.7 % (95.0-100.0); PCO2 ABG 43.1 mmHg (35.0-45.0); PO2 ABG 82.8 mmHg (80.0-100.0); PO2 FiO2 Ratio Arterial Blood 2.76 %; Reduced Hemoglobin 4.3 %THb (0-5.0); Site Drawn RIGHT RADIAL; Total Hemoglobin 16.3 g/dL (12.0-18.0)
[2022-09-10 05:40] LABS: Arterial Blood Gas PEEP 10 cmH2O; Arterial Blood Gas Tidal Volume 430 ml; Arterial Blood Gas Vent Mode CMV; Arterial Blood Gas Ventilator rate 18 /MIN
[2022-09-10 07:44] LABS: Alanine Aminotransferase 54 U/L (6-50); Albumin Level 3.1 g/dL (3.5-5.1); Alkaline Phosphatase 76 U/L (38-126); Anion Gap 7 mmol/L (8-16); Aspartate Amino Transferase 39 U/L (17-59); Bilirubin,Total 0.8 mg/dL (0.2-1.3); Blood Urea Nitrogen 42 mg/dL (9-20); Calcium 8.3 mg/dL (8.4-10.2); Carbon Dioxide 29 mmol/L (22-30); Chloride 113 mmol/L (98-107); Estimated CRCL calculation 79 ml/min; Estimated Glomerular Filt Rate > 60; Glucose 199 mg/dL (65-110); Magnesium 2.1 mg/dL (1.6-2.3); Phosphorus 3.3 mg/dL (2.5-4.5); Potassium 3.9 mmol/L (3.4-5.0); Sodium 149 mmol/L (137-145)
--- NOTE | 2022-09-10 08:01 | PM.PNCARD ---
Progress Note: A&P Assessment and Plan (1) Systolic dysfunction: Code(s): I51.9 - Heart disease, unspecified Status: Acute Assessment and Plan: Could be due to covid myocarditis or sepsis cardiomyopathy. Medical therapy for now. Troponin peaked at 0.13. Moderate low with EF 35-40%. 09/01/22 Echo: EF 35-40%, mod LVE, grade I diastolic dysfunction (E/e' 16), mild LAE, mod MIGNON, mod MAC, mod MR/TR, RVSP 51 mmHg, mild PI. Stopped Candesartan. Increased Entresto 97/103 mg PO BID. Started Carvedilol 3.125 mg BID. Monitor HR and BP. Started Bumetanide 1 mg IV BID to keep on dryer side to see if helps with respiratory status. (2) Pneumonia: Code(s): J18.9 - Pneumonia, unspecified organism Status: Acute Assessment and Plan: On antibiotics as per cullet trucker. (3) COVID: Code(s): U07.1 - COVID-19 Status: Acute Assessment and Plan: Managed as per cullet trucker. (4) Mixed hyperlipidemia: Code(s): E78.2 - Mixed hyperlipidemia Status: Acute Assessment and Plan: On Rosuvastatin. (5) Hypertension: Qualifiers: Hypertension type: essential hypertension Qualified Code(s): I10 - Essential (primary) hypertension Code(s): I10 - Essential (primary) hypertension Status: Acute Assessment and Plan: High. Increased Entresto and started Carvedilol. Monitor BP. Hydralazine 20 mg IV prn every 4 hours. (6) PSVT (paroxysmal supraventricular tachycardia): Code(s): I47.1 - Supraventricular tachycardia Status: Acute Assessment and Plan: Was on Amiodarone 100 mg daily, but due to bradycardia, this was not continued from home. Subjective Date/time seen: 09/10/22 08:01 Interval history: Sedated and on mechanical ventilation. Exam Const: Other: Sedated, on mechanical ventilation. Resp: Auscultation: clear to auscultation bilaterally, no crackles, no rales, no rhonchi and no wheezes Cardio: Rate: regular rate and bradycardic Rhythm: regular rhythm Heart sounds: no murmurs Peripheral pulses: dorsalis pedis present Extrem: Right lower extremity: no edema Left lower extremity: no edema Objective Data Vital Signs Vital Signs: Vital Signs - 24 hr 09/09/22 08:43 09/09/22 08:40 09/09/22 10:00 Temperature 98.9 F Pulse Rate 70 67 68 Respiratory Rate 19 Blood Pressure 116/83 Pulse Oximetry 96 96 Oxygen Delivery Mechanical Ventilation Fraction of Inspired Oxygen 30 09/09/22 10:37 09/09/22 11:01 09/09/22 10:00 Temperature Pulse Rate 66 69 64 Respiratory Rate 18 Blood Pressure Pulse Oximetry 97 Oxygen Delivery Mechanical Ventilation Fraction of Inspired Oxygen 30 09/09/22 11:49 09/09/22 11:49 09/09/22 14:26 Temperature Pulse Rate 67 82 Respiratory Rate 19 Blood Pressure Pulse Oximetry 95 97 Oxygen Delivery Mechanical Ventilation Mechanical Ventilation Fraction of Inspired Oxygen 30 30 30 09/09/22 12:00 09/09/22 12:00 09/09/22 14:00 Temperature 99.3 F Pulse Rate 70 70 77 Respiratory Rate 19 Blood Pressure 144/83 H Pulse Oximetry 95 Oxygen Delivery Fraction of Inspired Oxygen 09/09/22 14:00 09/09/22 15:13 09/09/22 15:13 Temperature 99.6 F Pulse Rate 77 77 77 Respiratory Rate 21 H 14 14 Blood Pressure 156/94 H Pulse Oximetry 97 Oxygen Delivery Fraction of Inspired Oxygen 09/09/22 16:00 09/09/22 16:00 09/09/22 16:00 Temperature 99.7 F H Pulse Rate 67 76 Respiratory Rate 19 22 H Blood Pressure 145/94 H Pulse Oximetry 95 96 Oxygen Delivery Mechanical Ventilation Fraction of Inspired Oxygen 30 30 09/09/22 17:48 09/09/22 18:00 09/09/22 20:22 Temperature 99.9 F H Pulse Rate 79 80 77 Respiratory Rate 19 Blood Pressure 133/86 Pulse Oximetry 95 95 Oxygen Delivery Mechanical Ventilation Fraction of Inspired Oxygen 30 09/09/22 20:55 09/09/22 20:00 09/09/22 20:00 Temperature Pulse Rat
[2022-09-10 08:09] LABS: Basophils Absolute Auto 0.1 K/mm3 (0.0-0.1); Basophils Percent Auto 0.3 % (0.2-1.2); Eosinophils Absolute Auto 0.1 K/mm3 (0-0.3); Eosinophils Percent Auto 0.5 % (0-4.4); Hematocrit 48.6 % (42.0-52.0); Hemoglobin 14.5 g/dL (14.0-18.0); Immature Granulocyte Absolute 0.13 K/mm3 (0.00-0.031); Immature Granulocyte Percent A 0.9 % (0-0.5); Lymphocytes Absolute Auto 1.24 K/mm3 (0.9-3.2); Lymphocytes Percent Auto 8.3 % (18.3-44.2); Mean Corpuscular HGB Conc 29.8 g/dl (32-36); Mean Corpuscular Hemoglobin 29.4 pg (26-34); Mean Corpuscular Volume 98.4 fl (80-100); Monocytes Absolute Auto 0.8 K/mm3 (0.1-0.6); Monocytes Percent Auto 5.3 % (2.6-8.5); Neutrophils Absolute Auto 12.7 K/mm3 (1.3-6.7); Neutrophils Percent Auto 84.7 % (45.5-73.1); Platelet Count Result 237 k/mm3 (150-375); Red Blood Count 4.94 M/mm3 (4.6-6.20); Red Cell Distribution Width 14.6 % (11.5-14.5)
[2022-09-10] MEDS: BUMETANIDE INJ 1 MG/4 ML VIAL IV PUSH ×2 (08:34→17:41)
[2022-09-10] MEDS: ASPIRIN 81 MG ENTERIC TABLET PO (08:34)
[2022-09-10] MEDS: carvediloL 3.125 MG TABLET PO ×2 (08:34→20:01)
[2022-09-10] MEDS: ENOXAPARIN 40 MG/0.4 ML SYRINGE SUB-Q (08:35)
[2022-09-10] MEDS: FLUCONAZOLE 100 MG TABLET FEED TUBE (08:35)
[2022-09-10] MEDS: CHOLECALCIFEROL 1,000 UNITS TABLET 1000 UNITS PO (08:35)
[2022-09-10] MEDS: MINERAL OIL/WHITE PETROLATUM OINTMENT 1 APPLIC EACH EYE ×2 (08:35→20:02)
[2022-09-10] MEDS: CYANOCOBALAMIN 1,000 MCG TABLET 1000 MCG PO (08:35)
[2022-09-10] MEDS: SACUBITRIL/VALSARTAN 97-103 MG TABLET 1 TAB PO ×2 (08:36→20:01)
[2022-09-10] MEDS: MULTIVITAMINS THERAPEUTIC TAB (*BKC) 1 TABLET PO (08:36)
[2022-09-10] MEDS: PANTOPRAZOLE SODIUM IV 40 MG VIAL IV PUSH (08:36)
[2022-09-10] MEDS: dexmedeTOMIDine 400 MCG/100 ML 400 MCG/100 ML BAG IV CONT (09:33)
[2022-09-10 12:39] LABS: Glucose Point of Care 200 mg/dl (65-105)
--- NOTE | 2022-09-10 13:46 | WPDINTPN ---
Progress Note: A&P Assessment and Plan (1) Acute respiratory failure: Code(s): J96.00 - Acute respiratory failure, unspecified whether with hypoxia or hypercapnia Status: Acute Assessment and Plan: Acute Respiratory failure which appears to be multifactorial. Patient on presentation was tested positive for COVID-19 (08/27) although his chest x-ray was clear at that time and he was not hypoxic. he also received IV fluids and may have developed aspiration pneumonia considering patient's mental status 09/01 patient was placed on BiPAP 14/ 60% and transferred to ICU. FiO2 was weaned off to 40%. He deteriorated overnight and was intubated on 09/01 -Chest x-ray this morning: Diffuse lung disease with interval improvement, consistent with pneumonia and/or pulmonary edema. -continue diuresis with Bumex b.i.d. -I have asked the bedside RN to discontinue propofol and start Precedex if necessary to evaluate for mental status -blood cultures negative till now. Completed a course of Zosyn and vancomycin -Continue dexamethasone IV for COVID-19. patient was not started remdesivir as patient appears to be out of beneficial time frame. CRP 26.3 and ESR 65 procalcitonin 2.1 BNP 2140 patient is in isolation echocardiogram shows EF of 30-35% Appreciate pulmonology evaluation. Recommended diuresis and repeat CT scan of the chest on 09/11/202209/[address] IMPRESSION: 1. Diffuse lung disease, consistent with pulmonary edema and/or pneumonia. 2. Small pleural effusions. 3. Small pericardial effusion. (2) COVID: Code(s): U07.1 - COVID-19 Status: Acute Assessment and Plan: see above (3) Pneumonia: Code(s): J18.9 - Pneumonia, unspecified organism Status: Acute Assessment and Plan: see above (4) Congestive heart failure: Code(s): I50.9 - Heart failure, unspecified Status: Acute Assessment and Plan: echocardiogram Summary ? 1. Complete two-dimensional, color flow and Doppler transthoracic echocardiogram is performed. ? 2. Left ventricular chamber dimension is moderately enlarged. ? 3. Left ventricular systolic function is moderately globally reduced, estimated at 35-40%. ? 4. The left ventricular diastolic function is grade I diastolic dysfunction. ? 5. E/e' 16 is elevated. ? 6. Global longitudinal strain is abnormal at -10.3%. ? 7. Left atrial chamber dimension is mildly enlarged. ? 8. Right atrial chamber dimension is moderately enlarged. ? 9. There is moderate aortic valve sclerosis. ? 10. The mitral valve has moderately calcified annulus. ? 11. There is moderate mitral valve regurgitation. ? 12. There is moderate tricuspid valve regurgitation. ? 13. Moderate pulmonary hypertension, estimated pulmonary arterial systolic pressure is 51 mmHg. ? 14. There is mild pulmonic regurgitation. ? 15. Dilated inferior vena cava with <50% collapse upon inspiration consistent with significantly elevated right atrial pressure, 15 mmHg. -appreciate cardiology evaluation recommendation, patient was started on Entresto -started on Coreg by cardiology (5) Rhabdomyolysis: Code(s): M62.82 - Rhabdomyolysis Status: Acute Assessment and Plan: hold further IV fluids due to volume overload CK level improved (6) Delirium: Code(s): R41.0 - Disorientation, unspecified Status: Acute Assessment and Plan: patient now intubated and sedated with propofol and fentanyl Sedation holiday (7) Type 2 diabetes mellitus without complications: Qualifiers: Diabetes mellitus long wall shear operator insulin use: without halfway use Qualified Code(s): E11.9 - Type 2 diabetes mellitus without complications Code(s): E11.9 - Type 2 diabetes mellitus without complications Status: Acute Assessment and Plan: Accu-Cheks and sliding scale insulin (8) Electrolyte abnormality: Code(s): E87.8 - Other disorders of electrolyte and fluid ba
[2022-09-10] MEDS: POTASSIUM CHLORIDE 20 MEQ PACKET (FOR LIQUID) 40 MEQ FEED TUBE (15:31)
[2022-09-10 16:29] LABS: Glucose Point of Care 338 mg/dl (65-105)
[2022-09-10 16:29] LABS: Glucose Point of Care 304 mg/dl (65-105)
[2022-09-10] MEDS: dexmedeTOMIDine 400 MCG/100 ML 400 MCG/100 ML BAG 13.38 MCG IV CONT (17:41)
[2022-09-10] MEDS: SODIUM CHLORIDE 0.9% IV 1,000 ML 999 ML IV CONT (19:07)
[2022-09-10] MEDS: ROSUVASTATIN 10 MG TABLET 20 MG BY MOUTH (20:02)
[2022-09-10] MEDS: SERTRALINE HCL 50 MG TABLET 150 MG BY MOUTH (20:02)
[2022-09-10 20:10] LABS: Glucose Point of Care 255 mg/dl (65-105)
[2022-09-11] VITALS (50 sets, daily range): BP systolic 77–147; BP diastolic 48–92; PULSE 59–89; RESP 17–33; TEMP 37.3–38.6; O2SAT 91–100
[2022-09-11] MEDS: dexmedeTOMIDine 400 MCG/100 ML 400 MCG/100 ML BAG 17.84 MCG IV CONT (01:53)
[2022-09-11] MEDS: INSULIN ASPART (*BKC) 100 UNITS/ML SUB-Q ×3 (04:13→12:30)
[2022-09-11] MEDS: CENTRAL LINE FLUSH 10 ML IV PUSH ×3 (04:16→21:41)
[2022-09-11 04:33] LABS: Glucose Point of Care 164 mg/dl (65-105)
[2022-09-11 04:33] LABS: Glucose Point of Care 208 mg/dl (65-105)
[2022-09-11 04:49] LABS: Carboxyhemoglobin 0.4 % THb (0-2.0); Fractional Inspired Oxygen 30 %; HCO3 ABG 25.3 mEq/l (22.0-26.0); Methemoglobin ABG 0.3 %THb (0-1.5); Oxygen Content ABG 18.6 %vol (16.0-22.0); Oxygen Saturation ABG 93.8 % (95.0-100.0); Oxyhemoglobin 91.9 % THb (90.0-100.0); PCO2 ABG 35.7 mmHg (35.0-45.0); PO2 FiO2 Ratio Arterial Blood 2.13 %; Reduced Hemoglobin 7.4 %THb (0-5.0); Total Hemoglobin 14.4 g/dL (12.0-18.0); pH ABG 7.469 (7.350-7.450)
[2022-09-11 04:50] LABS: Arterial Blood Gas Vent Mode CMV; Arterial Blood Gas Ventilator rate 16 /MIN; Device VENTILATOR; Modified Allen's Test Pass; Site Drawn RIGHT RADIAL
[2022-09-11 04:51] LABS: Arterial Blood Gas PEEP 8 cmH2O; Arterial Blood Gas Tidal Volume 430 ml
--- NOTE | 2022-09-11 07:30 | PM.PNCARD ---
Progress Note: A&P Assessment and Plan (1) Systolic dysfunction: Code(s): I51.9 - Heart disease, unspecified Status: Acute Assessment and Plan: Could be due to covid myocarditis or sepsis cardiomyopathy. Medical therapy for now. Troponin peaked at 0.13. Moderate low with EF 35-40%. 09/01/22 Echo: EF 35-40%, mod LVE, grade I diastolic dysfunction (E/e' 16), mild LAE, mod MIGNON, mod MAC, mod MR/TR, RVSP 51 mmHg, mild PI. Stopped Candesartan. Increased Entresto 97/103 mg PO BID. Started Carvedilol 3.125 mg BID. Monitor HR and BP. Started Bumetanide 1 mg IV BID to keep on dryer side to see if helps with respiratory status. Due to low BP early this morning into 80's SBP, will hold Carvedilol, decrease Entresto to low dose 24-26 mg BID and will hold Bumetanide. Hypotension is multifactorial including from Precedex, diuresis, BP medication and sepsis (fever 101). (2) Pneumonia: Code(s): J18.9 - Pneumonia, unspecified organism Status: Acute Assessment and Plan: On antibiotics as per business support specialist. (3) COVID: Code(s): U07.1 - COVID-19 Status: Acute Assessment and Plan: Managed as per business support specialist. (4) Mixed hyperlipidemia: Code(s): E78.2 - Mixed hyperlipidemia Status: Acute Assessment and Plan: On Rosuvastatin. (5) Hypertension: Qualifiers: Hypertension type: essential hypertension Qualified Code(s): I10 - Essential (primary) hypertension Code(s): I10 - Essential (primary) hypertension Status: Acute Assessment and Plan: Relative hypotension. Monitor BP. Due to low BP early this morning into 80's SBP, will hold Carvedilol, decrease Entresto to low dose 24-26 mg BID and will hold Bumetanide. Hypotension is multifactorial including from diuresis, BP medication and sepsis (fever 101). Discussed with Dr. Cedillo. (6) PSVT (paroxysmal supraventricular tachycardia): Code(s): I47.1 - Supraventricular tachycardia Status: Acute Assessment and Plan: Was on Amiodarone 100 mg daily, but due to bradycardia, this was not continued from home. Subjective Date/time seen: 09/11/22 07:30 Interval history: Sedated and on mechanical ventilation. Exam Const: Other: Sedated, on mechanical ventilation. Resp: Auscultation: clear to auscultation bilaterally, no crackles, no rales, no rhonchi and no wheezes Cardio: Rate: regular rate and bradycardic Rhythm: regular rhythm Heart sounds: no murmurs Peripheral pulses: dorsalis pedis present Extrem: Right lower extremity: no edema Left lower extremity: no edema Objective Data Vital Signs Vital Signs: Vital Signs - 24 hr 09/10/22 08:00 09/10/22 08:00 09/10/22 08:00 Temperature 99.4 F Pulse Rate 74 79 Respiratory Rate 23 H 20 Blood Pressure 151/92 H Pulse Oximetry 97 97 Oxygen Delivery Mechanical Ventilation Fraction of Inspired Oxygen 30 30 09/10/22 08:33 09/10/22 08:34 09/10/22 08:00 Temperature Pulse Rate 79 72 78 Respiratory Rate 22 H Blood Pressure Pulse Oximetry Oxygen Delivery Fraction of Inspired Oxygen 09/10/22 09:33 09/10/22 09:25 09/10/22 11:37 Temperature Pulse Rate 72 73 72 Respiratory Rate 19 Blood Pressure Pulse Oximetry 97 95 Oxygen Delivery Mechanical Ventilation Mechanical Ventilation Fraction of Inspired Oxygen 30 30 09/10/22 10:00 09/10/22 10:00 09/10/22 12:00 Temperature 99.2 F Pulse Rate 73 73 Respiratory Rate 21 H Blood Pressure 145/87 H Pulse Oximetry 94 97 Oxygen Delivery Mechanical Ventilation Fraction of Inspired Oxygen 30 09/10/22 12:00 09/10/22 12:00 09/10/22 10:30 Temperature 99.8 F H Pulse Rate 72 77 Respiratory Rate 20 22 H Blood Pressure 116/63 Pulse Oximetry 97 Oxygen Delivery Fraction of Inspired Oxygen 30 09/10/22 11:35 09/10/22 12:44 09/10/22 14:00 Temperature Pulse Rate 79 75 76 Respiratory Rate 22 H 22 H Blood
[2022-09-11] MEDS: dexmedeTOMIDine 400 MCG/100 ML 400 MCG/100 ML BAG 8.92 MCG IV CONT (08:29)
[2022-09-11] MEDS: MIDAZOLAM HCL (*CRX) 2 MG/2 ML VIAL IV PUSH (09:00)
[2022-09-11] MEDS: NOREPINEPHRINE 8 MG/D5W 250 ML 8 MG/250 ML BAG 9.38 MG IV CONT (09:45)
[2022-09-11] MEDS: hetaSTARCH 6%/NACL 500 ML 250 ML IV CONT (09:51)
[2022-09-11] MEDS: PROPOFOL IV EMULSION 100 ML 2.94 MG IV CONT (09:57)
[2022-09-11] MEDS: CHOLECALCIFEROL 1,000 UNITS TABLET 1000 UNITS PO (10:05)
[2022-09-11] MEDS: ASPIRIN 81 MG ENTERIC TABLET PO (10:05)
[2022-09-11] MEDS: MINERAL OIL/WHITE PETROLATUM OINTMENT 1 APPLIC EACH EYE ×2 (10:06→19:59)
[2022-09-11] MEDS: CYANOCOBALAMIN 1,000 MCG TABLET 1000 MCG PO (10:06)
[2022-09-11] MEDS: ENOXAPARIN 40 MG/0.4 ML SYRINGE SUB-Q (10:06)
[2022-09-11] MEDS: FLUCONAZOLE 100 MG TABLET FEED TUBE (10:06)
[2022-09-11] MEDS: MULTIVITAMINS THERAPEUTIC TAB (*BKC) 1 TABLET PO (10:07)
[2022-09-11] MEDS: PANTOPRAZOLE SODIUM IV 40 MG VIAL IV PUSH (10:07)
[2022-09-11 10:37] LABS: Glucose Point of Care 204 mg/dl (65-105)
[2022-09-11 10:52] LABS: Basophils Absolute Auto 0.1 K/mm3 (0.0-0.1); Basophils Percent Auto 0.3 % (0.2-1.2); Eosinophils Percent Auto 0.2 % (0-4.4); Hemoglobin 13.4 g/dL (14.0-18.0); Immature Granulocyte Absolute 0.12 K/mm3 (0.00-0.031); Immature Granulocyte Percent A 0.7 % (0-0.5); Lymphocytes Absolute Auto 1.97 K/mm3 (0.9-3.2); Mean Corpuscular HGB Conc 30.5 g/dl (32-36); Mean Corpuscular Hemoglobin 29.9 pg (26-34); Mean Corpuscular Volume 98.2 fl (80-100); Mean Platelet Volume 10.8 fl (7.4-10.4); Monocytes Absolute Auto 0.9 K/mm3 (0.1-0.6); Monocytes Percent Auto 5.2 % (2.6-8.5); Neutrophils Absolute Auto 14.7 K/mm3 (1.3-6.7); Neutrophils Percent Auto 82.6 % (45.5-73.1); Platelet Count Result 250 k/mm3 (150-375); Red Blood Count 4.48 M/mm3 (4.6-6.20); Red Cell Distribution Width 14.6 % (11.5-14.5); White Blood Count 17.8 K/mm3 (4.5-10.0)
--- NOTE | 2022-09-11 11:15 | WPDINTPN ---
Progress Note: A&P Assessment and Plan (1) Acute respiratory failure: Code(s): J96.00 - Acute respiratory failure, unspecified whether with hypoxia or hypercapnia Status: Acute Assessment and Plan: Acute Respiratory failure which appears to be multifactorial. Patient on presentation was tested positive for COVID-19 (08/27) although his chest x-ray was clear at that time and he was not hypoxic. he also received IV fluids and may have developed aspiration pneumonia considering patient's mental status 09/01 patient was placed on BiPAP 14/7 60% and transferred to ICU. FiO2 was weaned off to 40%. He deteriorated overnight and was intubated on 09/01 -Chest x-ray this morning: Diffuse lung disease with slight worsening in the mid lung zones, consistent with pneumonia versus pulmonary edema. -09/11 CT chest : Diffuse ground glass and airspace opacities throughout the lungs with a mid and lower lung zone predominance, consistent with COVID -19 pneumonia -Hold diuresis due to hypotension -precedex discontinued -restarted propofol -09/10 repeat blood cultures obtained, -09/11 sputum cx ordered -Completed a course of Zosyn and vancomycin -Continue dexamethasone IV for COVID-19. patient was not started remdesivir as patient appears to be out of beneficial time frame. CRP 26.3 and ESR 65 procalcitonin 2.1 BNP 2140 patient is in isolation echocardiogram shows EF of 30-35% Appreciate pulmonology evaluation. 09/[address] IMPRESSION: 1. Diffuse lung disease, consistent with pulmonary edema and/or pneumonia. 2. Small pleural effusions. 3. Small pericardial effusion. (2) COVID: Code(s): U07.1 - COVID-19 Status: Acute Assessment and Plan: see above (3) Pneumonia: Code(s): J18.9 - Pneumonia, unspecified organism Status: Acute Assessment and Plan: see above (4) Congestive heart failure: Code(s): I50.9 - Heart failure, unspecified Status: Acute Assessment and Plan: echocardiogram Summary ? 1. Complete two-dimensional, color flow and Doppler transthoracic echocardiogram is performed. ? 2. Left ventricular chamber dimension is moderately enlarged. ? 3. Left ventricular systolic function is moderately globally reduced, estimated at 35-40%. ? 4. The left ventricular diastolic function is grade I diastolic dysfunction. ? 5. E/e' 16 is elevated. ? 6. Global longitudinal strain is abnormal at -10.3%. ? 7. Left atrial chamber dimension is mildly enlarged. ? 8. Right atrial chamber dimension is moderately enlarged. ? 9. There is moderate aortic valve sclerosis. ? 10. The mitral valve has moderately calcified annulus. ? 11. There is moderate mitral valve regurgitation. ? 12. There is moderate tricuspid valve regurgitation. ? 13. Moderate pulmonary hypertension, estimated pulmonary arterial systolic pressure is 51 mmHg. ? 14. There is mild pulmonic regurgitation. ? 15. Dilated inferior vena cava with <50% collapse upon inspiration consistent with significantly elevated right atrial pressure, 15 mmHg. -appreciate cardiology evaluation recommendation, Hold Entresto and Coreg due to hypotension., OK with cardiology (5) Rhabdomyolysis: Code(s): M62.82 - Rhabdomyolysis Status: Acute Assessment and Plan: hold further IV fluids due to volume overload CK level improved (6) Type 2 diabetes mellitus without complications: Qualifiers: Diabetes mellitus terminal computer operator insulin use: without terminal computer operator use Qualified Code(s): E11.9 - Type 2 diabetes mellitus without complications Code(s): E11.9 - Type 2 diabetes mellitus without complications Status: Acute Assessment and Plan: Accu-Cheks and sliding scale insulin (7) Electrolyte abnormality: Code(s): E87.8 - Other disorders of electrolyte and fluid balance, not elsewhere classified Status: Acute Assessment and Plan: -hypernatremia, tube feed flushes were i
[2022-09-11 11:44] LABS: Alanine Aminotransferase 41 U/L (6-50); Alkaline Phosphatase 70 U/L (38-126); Anion Gap 4 mmol/L (8-16); Aspartate Amino Transferase 36 U/L (17-59); Bilirubin,Total 0.9 mg/dL (0.2-1.3); Blood Urea Nitrogen 53 mg/dL (9-20); Calcium 7.8 mg/dL (8.4-10.2); Carbon Dioxide 26 mmol/L (22-30); Chloride 113 mmol/L (98-107); Estimated CRCL calculation 69 ml/min; Estimated Glomerular Filt Rate > 60; Glucose 199 mg/dL (65-110); Magnesium 2.1 mg/dL (1.6-2.3); Phosphorus 2.9 mg/dL (2.5-4.5); Potassium 3.7 mmol/L (3.4-5.0); Sodium 143 mmol/L (137-145); Triglycerides 188 mg/dL (<150)
[2022-09-11 12:22] LABS: Glucose Point of Care 223 mg/dl (65-105)
--- NOTE | 2022-09-11 15:07 | PM.PNPUL ---
Progress Note: A&P Assessment and Plan (1) Respiratory failure with hypoxia: Code(s): J96.91 - Respiratory failure, unspecified with hypoxia Status: Acute Assessment and Plan: Patient with a 35 pack year tobacco use history, quit in 1997, presented with covert RT PCR positive, a normal chest x-ray on 08/27/2022 and requiring no oxygen. Patient deteriorated over the next 5 days and developed bilateral interstitial alveolar infiltrates with dense areas of consolidation on his CT scan on 09/02/2022. lower extremity Dopplers were negative for DVT. Patient was intubated and remains intubated now. Etiology of his hypoxemic respiratory failure includes Covid pneumonia, interstitial lung disease -organizing pneumonia, fluid overload, aspiration, ARDS and or bacterial pneumonia. Patient is currently on day 10 of dexamethasone 6 mg IV q.day. Patient did not receive from remdesivir as it was felt he was outside of the treatment window. Patient is being diuresed with Bumex. The patient has altered mental status and may have had an aspiration event. Currently the patient is intubated for airway protection and is receiving tube feeds. Supportive care for the possibility of ARDS. Patient is finished Zosyn for the possibility of bacterial pneumonia, has had fevers today 38 and above, getting IV acetaminophen. WBC is higher, 17.8. There have been case reports and small trials treating post COVID organizing pneumonia with glucocorticoids and these studies initiated the glucocorticoids in 3 inpatients between days 15 and 21 in 1 study, at 6 weeks and 1 outpatient study, and between 3 in 8 weeks and another outpatient study. He had a high resolution chest CT today, still has infiltrates consistent with COVID pneumonia without fibrosis. He does not have traction bronchiectasis. The patient has crackles, however his O2 exchange is not bad. He is on 30% and 10 cm PEEP, does not have high peak pressures, however he is still ill with hypotension that appears to be due to sepsis. His WBC is higher and he has fevers over 38* C. I discussed with Dr. Cedillo. Starting steroids for post COVID organizing pneumonia is an option. This will be discussed with Dr Chandra tomorrow. THe bernadine is already on dexamethasone 6 mg Q 6 hours for the last 10 days. Subjective Date/time seen: 09/11/22 15:07 Interval history: Hospital follow up : Liam Oreilly is 77 years old, seen in ICU 10 for COVID with acute respiratory failure. 77-year-old with a history of anxiety with depression, aortic valve sclerosis, arthritis, diastolic dysfunction, hypertension, GERD, hyperlipidemia, SVT, diabetes who presented on 08/27/2022 with multiple falls.? He was found to be COVID positive and had a clear chest x-ray and required no supplemental oxygen and was not treated for COVID.? Patient developed bilateral infiltrates and was intubated on 09/01 and started on dexamethasone.? ? There were concerns about aspiration given his altered mental status. Patient has had an echocardiogram on 09/01 with an EF of 35-40%, grade 1 diastolic dysfunction, moderate mitral regurg and tricuspid regurg with an RVSP of 51.? CT of the chest on 09/02/2022 demonstrated diffuse bilateral ground-glass infiltrates with areas of dense consolidation. Patient is being treated for fluid overload?with Bumex. ? Zosyn was discontinued on 09/07/2022. 09/08/22? patient is intubated ? On 30% FiO2 and 10 of peep.? His peak airway pressures are 15 on a tidal volume of 430 mL.? His minute ventilation is 10.? his ABG this morning? on 30% and a peep of 8 was 7.51/33/61.? White blood cell count is 10.4, creatinine is 0.5.? chest x-ray demonstrates diffuse bilateral interstitial alveolar infiltrates bases greater than apices ? With minimal tire changer the last 3 days. Per the bedside nurse, when he has propofol decreased, he becomes tachypneic, ag
[2022-09-11 16:35] LABS: Glucose Point of Care 169 mg/dl (65-105)
[2022-09-11] MEDS: PROPOFOL IV EMULSION 100 ML 11.76 MG IV CONT (18:51)
[2022-09-11] MEDS: ROSUVASTATIN 10 MG TABLET 20 MG BY MOUTH (19:59)
[2022-09-11] MEDS: SERTRALINE HCL 50 MG TABLET 150 MG BY MOUTH (19:59)
[2022-09-11 20:20] LABS: Glucose Point of Care 145 mg/dl (65-105)
[2022-09-11 23:35] LABS: Glucose Point of Care 150 mg/dl (65-105)
[2022-09-12] VITALS (36 sets, daily range): BP systolic 85–121; BP diastolic 48–67; PULSE 61–76; RESP 18–29; TEMP 37.4–38.3; O2SAT 92–100
[2022-09-12] MEDS: PROPOFOL IV EMULSION 100 ML 17.64 MG IV CONT (01:36)
[2022-09-12 04:32] LABS: Basophils Percent Auto 0.3 % (0.2-1.2); Eosinophils Absolute Auto 0.1 K/mm3 (0-0.3); Eosinophils Percent Auto 0.6 % (0-4.4); Hematocrit 39.6 % (42.0-52.0); Hemoglobin 11.9 g/dL (14.0-18.0); Immature Granulocyte Absolute 0.07 K/mm3 (0.00-0.031); Immature Granulocyte Percent A 0.5 % (0-0.5); Lymphocytes Absolute Auto 1.07 K/mm3 (0.9-3.2); Lymphocytes Percent Auto 7.6 % (18.3-44.2); Mean Corpuscular HGB Conc 30.1 g/dl (32-36); Mean Corpuscular Hemoglobin 29.8 pg (26-34); Mean Corpuscular Volume 99.2 fl (80-100); Mean Platelet Volume 11.6 fl (7.4-10.4); Monocytes Absolute Auto 0.5 K/mm3 (0.1-0.6); Monocytes Percent Auto 3.4 % (2.6-8.5); Neutrophils Absolute Auto 12.4 K/mm3 (1.3-6.7); Neutrophils Percent Auto 87.6 % (45.5-73.1); Platelet Count Result 184 k/mm3 (150-375); Red Blood Count 3.99 M/mm3 (4.6-6.20); Red Cell Distribution Width 14.7 % (11.5-14.5); White Blood Count 14.1 K/mm3 (4.5-10.0)
[2022-09-12] MEDS: CENTRAL LINE FLUSH 10 ML IV PUSH ×3 (04:35→20:48)
[2022-09-12 04:45] LABS: Lactic Acid Reflex 1.1 mmol/L (0.7-2.0)
[2022-09-12 04:52] LABS: Alanine Aminotransferase 36 U/L (6-50); Albumin Level 2.6 g/dL (3.5-5.1); Alkaline Phosphatase 52 U/L (38-126); Anion Gap 1 mmol/L (8-16); Aspartate Amino Transferase 39 U/L (17-59); Bilirubin,Total 0.9 mg/dL (0.2-1.3); Blood Urea Nitrogen 44 mg/dL (9-20); Calcium 7.3 mg/dL (8.4-10.2); Carbon Dioxide 27 mmol/L (22-30); Chloride 112 mmol/L (98-107); Estimated CRCL calculation 79 ml/min; Estimated Glomerular Filt Rate > 60; Glucose 158 mg/dL (65-110); Lipase 499 U/L (23-300); Magnesium 2.1 mg/dL (1.6-2.3); Phosphorus 3.3 mg/dL (2.5-4.5); Sodium 140 mmol/L (137-145); Triglycerides 184 mg/dL (<150)
[2022-09-12 06:06] LABS: Alveolar/Arterial O2 Gradient 91.4 mmHg; Base Excess ABG -1.2 mEq/l (+/-2.0); Carboxyhemoglobin 0.2 % THb (0-2.0); Fractional Inspired Oxygen 30 %; HCO3 ABG 21.8 mEq/l (22.0-26.0); Methemoglobin ABG 0.3 %THb (0-1.5); Oxygen Content ABG 17.6 %vol (16.0-22.0); Oxyhemoglobin 95.8 % THb (90.0-100.0); PCO2 ABG 31.4 mmHg (35.0-45.0); PO2 ABG 85.6 mmHg (80.0-100.0); PO2 FiO2 Ratio Arterial Blood 2.85 %; Reduced Hemoglobin 3.7 %THb (0-5.0); pH ABG 7.459 (7.350-7.450)
[2022-09-12] MEDS: PROPOFOL IV EMULSION 100 ML 20.58 MG IV CONT ×4 (06:11→21:49)
[2022-09-12 06:12] LABS: Device VENTILATOR; Modified Allen's Test Pass; Site Drawn RIGHT RADIAL
[2022-09-12 06:13] LABS: Arterial Blood Gas PEEP 8 cmH2O; Arterial Blood Gas Tidal Volume 430 ml; Arterial Blood Gas Vent Mode CMV; Arterial Blood Gas Ventilator rate 14 /MIN
--- NOTE | 2022-09-12 07:48 | PM.PNCARD ---
Progress Note: A&P Assessment and Plan (1) Systolic dysfunction: Code(s): I51.9 - Heart disease, unspecified Status: Acute Assessment and Plan: Could be due to covid myocarditis or sepsis cardiomyopathy. Medical therapy for now. Troponin peaked at 0.13. Moderate low with EF 35-40%. 09/01/22 Echo: EF 35-40%, mod LVE, grade I diastolic dysfunction (E/e' 16), mild LAE, mod MIGNON, mod MAC, mod MR/TR, RVSP 51 mmHg, mild PI. Stopped Candesartan. Increased Entresto 97/103 mg PO BID. Started Carvedilol 3.125 mg BID. Monitor HR and BP. Started Bumetanide 1 mg IV BID to keep on dryer side to see if helps with respiratory status. Due to hypotension, Carvedilol and Entresto were on hold since 09/11/22. Was placed on Levophed drip but off it since last evening. Hypotension is multifactorial including from Precedex, diuresis, BP medication and sepsis (fever 101). (2) Pneumonia: Code(s): J18.9 - Pneumonia, unspecified organism Status: Acute Assessment and Plan: On antibiotics as per hosiery pairer. (3) COVID: Code(s): U07.1 - COVID-19 Status: Acute Assessment and Plan: Managed as per hosiery pairer. (4) Mixed hyperlipidemia: Code(s): E78.2 - Mixed hyperlipidemia Status: Acute Assessment and Plan: On Rosuvastatin. (5) Hypertension: Qualifiers: Hypertension type: essential hypertension Qualified Code(s): I10 - Essential (primary) hypertension Code(s): I10 - Essential (primary) hypertension Status: Acute Assessment and Plan: Stable. Monitor BP. Due to low BP early this morning into 80's SBP, will hold Carvedilol, decrease Entresto to low dose 24-26 mg BID and will hold Bumetanide. Hypotension is multifactorial including from diuresis, BP medication and sepsis (fever 101). Discussed with Dr. Cedillo. If BP goes up, then resume Carvedilol and Entresto. (6) PSVT (paroxysmal supraventricular tachycardia): Code(s): I47.1 - Supraventricular tachycardia Status: Acute Assessment and Plan: Was on Amiodarone 100 mg daily, but due to bradycardia, this was not continued from home. Subjective Date/time seen: 09/12/22 07:48 Interval history: Sedated and on mechanical ventilation. Exam Const: Other: Sedated, on mechanical ventilation. Resp: Auscultation: no crackles, no rales, no rhonchi, no wheezes and diminished lung sounds Other: Coarse breath sounds bilaterally Cardio: Rate: regular rate Rhythm: regular rhythm Heart sounds: no murmurs Peripheral pulses: dorsalis pedis present Extrem: Right lower extremity: no edema Left lower extremity: no edema Objective Data Vital Signs Vital Signs: Vital Signs - 24 hr 09/11/22 08:00 09/11/22 08:00 09/11/22 08:29 Temperature 100.7 F H Pulse Rate 63 63 66 Respiratory Rate 25 H 24 H Blood Pressure 91/53 L Pulse Oximetry 93 Oxygen Delivery Fraction of Inspired Oxygen 09/11/22 08:45 09/11/22 09:24 09/11/22 09:47 Temperature Pulse Rate 89 63 63 Respiratory Rate 33 H 21 H Blood Pressure Pulse Oximetry 91 Oxygen Delivery Mechanical Ventilation Fraction of Inspired Oxygen 30 09/11/22 09:45 09/11/22 09:45 09/11/22 09:57 Temperature Pulse Rate 64 64 Respiratory Rate 21 H 21 H Blood Pressure 77/48 L Pulse Oximetry Oxygen Delivery Fraction of Inspired Oxygen 09/11/22 10:01 09/11/22 10:14 09/11/22 08:00 Temperature Pulse Rate 82 83 83 Respiratory Rate 21 H Blood Pressure 77/50 L 97/59 L Pulse Oximetry 91 Oxygen Delivery Mechanical Ventilation Fraction of Inspired Oxygen 30 09/11/22 08:00 09/11/22 10:33 09/11/22 10:00 Temperature Pulse Rate 83 84 Respiratory Rate Blood Pressure 114/89 Pulse Oximetry Oxygen Delivery Fraction of Inspired Oxygen 30 09/11/22 11:15 09/11/22 11:26 09/11/22 11:27 Temperature Pulse Rate 74 79 73 Respiratory Rate 17 Blood Pressu
[2022-09-12] MEDS: BUDESONIDE RESPULE NEB 0.5 MG/2 ML AMP INHALATION ×2 (08:50→20:08)
[2022-09-12] MEDS: SCOPOLAMINE 1.5 MG PATCH TRANSDERM (09:22)
[2022-09-12] MEDS: CYANOCOBALAMIN 1,000 MCG TABLET 1000 MCG PO (09:24)
[2022-09-12] MEDS: MINERAL OIL/WHITE PETROLATUM OINTMENT 1 APPLIC EACH EYE ×2 (09:24→20:48)
[2022-09-12] MEDS: ENOXAPARIN 40 MG/0.4 ML SYRINGE SUB-Q (09:24)
[2022-09-12] MEDS: PANTOPRAZOLE SODIUM IV 40 MG VIAL IV PUSH (09:24)
[2022-09-12] MEDS: CHOLECALCIFEROL 1,000 UNITS TABLET 1000 UNITS PO (09:24)
[2022-09-12] MEDS: ASPIRIN 81 MG ENTERIC TABLET PO (09:24)
[2022-09-12] MEDS: MULTIVITAMINS THERAPEUTIC TAB (*BKC) 1 TABLET PO (09:24)
[2022-09-12 09:35] LABS: Appearance Urine Clear (Clear); Bacteria Urine None Seen /hpf; Bilirubin Urine Negative (Negative); Blood Urine Negative (Negative); Color Urine Yellow (Yellow); Glucose Urine UA Negative (Negative); Ketones Urine Trace mg/dL (Negative); Leukocyte Esterase Ur 1+ LEU/UL (Negative); Need Manual Microscopic Reviewed; Nitrate Urine Negative (Negative); Protein Urine Negative (Negative); RBC Urine 21-50 /hpf (0-2); Squamous Epithelial Cell Urine None seen /hpf (Few)
[2022-09-12 09:38] LABS: Add Urine Microscopic? YES
[2022-09-12 09:48] LABS: Glucose Point of Care 190 mg/dl (65-105)
[2022-09-12 10:24] LABS: Vancomycin Trough 14.4 ug/mL (10.0-20.0)
[2022-09-12] MEDS: BUMETANIDE INJ 1 MG/4 ML VIAL 0.5 MG IV PUSH (11:21)
--- NOTE | 2022-09-12 11:34 | WPDINTPN ---
Progress Note: A&P Assessment and Plan (1) Acute respiratory failure: Code(s): J96.00 - Acute respiratory failure, unspecified whether with hypoxia or hypercapnia Status: Acute Assessment and Plan: Acute Respiratory failure which appears to be multifactorial. Patient on presentation was tested positive for COVID-19 (08/27) although his chest x-ray was clear at that time and he was not hypoxic. he also received IV fluids and may have developed aspiration pneumonia considering patient's mental status 09/01 patient was placed on BiPAP 14/7 60% and transferred to ICU. FiO2 was weaned off to 40%. He deteriorated overnight and was intubated on 09/01 -Chest x-ray this morning: Diffuse lung disease with slight worsening in the mid lung zones, consistent with pneumonia versus pulmonary edema. -09/11 CT chest : Diffuse ground glass and airspace opacities throughout the lungs with a mid and lower lung zone predominance, consistent with COVID -19 pneumonia, with much improvement as compared to the CT chest done on 09/02/2022. Discussed with Dr. Chandra, no indication for steroids at this time -will restart low-dose Bumex -precedex discontinued -continue propofol -09/10 repeat blood cultures , preliminary cultures are negative -09/11 preliminary sputum cultures negative -09/12 urine cultures pending -patient developed fevers, hypotension requiring Levophed briefly -09/11: Started imipenem and vancomycin -Completed a course of Zosyn and vancomycin -Continue dexamethasone IV for COVID-19. patient was not started remdesivir as patient appears to be out of beneficial time frame. CRP 26.3 and ESR 65 procalcitonin 2.1 BNP 2140 patient is in isolation echocardiogram shows EF of 30-35% 09/[address] IMPRESSION: 1. Diffuse lung disease, consistent with pulmonary edema and/or pneumonia. 2. Small pleural effusions. 3. Small pericardial effusion. (2) COVID: Code(s): U07.1 - COVID-19 Status: Acute Assessment and Plan: see above (3) Pneumonia: Code(s): J18.9 - Pneumonia, unspecified organism Status: Acute Assessment and Plan: see above (4) Congestive heart failure: Code(s): I50.9 - Heart failure, unspecified Status: Acute Assessment and Plan: echocardiogram Summary ? 1. Complete two-dimensional, color flow and Doppler transthoracic echocardiogram is performed. ? 2. Left ventricular chamber dimension is moderately enlarged. ? 3. Left ventricular systolic function is moderately globally reduced, estimated at 35-40%. ? 4. The left ventricular diastolic function is grade I diastolic dysfunction. ? 5. E/e' 16 is elevated. ? 6. Global longitudinal strain is abnormal at -10.3%. ? 7. Left atrial chamber dimension is mildly enlarged. ? 8. Right atrial chamber dimension is moderately enlarged. ? 9. There is moderate aortic valve sclerosis. ? 10. The mitral valve has moderately calcified annulus. ? 11. There is moderate mitral valve regurgitation. ? 12. There is moderate tricuspid valve regurgitation. ? 13. Moderate pulmonary hypertension, estimated pulmonary arterial systolic pressure is 51 mmHg. ? 14. There is mild pulmonic regurgitation. ? 15. Dilated inferior vena cava with <50% collapse upon inspiration consistent with significantly elevated right atrial pressure, 15 mmHg. -appreciate cardiology evaluation recommendation, Hold Entresto and Coreg due to hypotension., OK with cardiology (5) Rhabdomyolysis: Code(s): M62.82 - Rhabdomyolysis Status: Acute Assessment and Plan: hold further IV fluids due to volume overload CK level improved (6) Type 2 diabetes mellitus without complications: Qualifiers: Diabetes mellitus exterminator insulin use: without fpc use Qualified Code(s): E11.9 - Type 2 diabetes mellitus without complications Code(s): E11.9 - Type 2 diabetes mellitus without complications Status: Acute
[2022-09-12 11:36] LABS: Glucose Point of Care 176 mg/dl (65-105)
--- NOTE | 2022-09-12 11:45 | PCFNICU ---
ICU Rounding Note: Pt current nutrition is NPO, tube feeding: Vital 1.2 @ 50ml/hr, prosource daily Nutrition recommendation: Continue with current plan of care. Last recorded weight is 91 kg - stable. Bowel Motility: +BM 09/11 Labs Reviewed: alb:3.2, Na:148, BUN:32, Cr:0.6, Glu:199 Meds Noted: lovenox, novolog, remeron Skin: WNL Additional Notes: Pt continues on tube feedings, tolerating well. Following daily in ICU rounds. Will monitor in ICU rounds and reassess every Monday and Monday.
--- NOTE | 2022-09-12 11:59 | PM.PNPUL ---
Progress Note: A&P Assessment and Plan (1) Respiratory failure with hypoxia: Code(s): J96.91 - Respiratory failure, unspecified with hypoxia Status: Acute Assessment and Plan: Patient with a 35 pack year tobacco use history, quit in 1997, presented with covert RT PCR positive, a normal chest x-ray on 08/27/2022 and requiring no oxygen. Patient deteriorated over the next 5 days and developed bilateral interstitial alveolar infiltrates with dense areas of consolidation on his CT scan on 09/02/2022. lower extremity Dopplers were negative for DVT. Patient was intubated and remains intubated now. Etiology of his hypoxemic respiratory failure includes Covid pneumonia, interstitial lung disease -organizing pneumonia, fluid overload, aspiration, ARDS and or bacterial pneumonia. Patient is currently on day 10 of dexamethasone 6 mg IV q.day. Patient did not receive from remdesivir as it was felt he was outside of the treatment window. Patient is being diuresed with Bumex. The patient has altered mental status and may have had an aspiration event. Currently the patient is intubated for airway protection and is receiving tube feeds. Supportive care for the possibility of ARDS. Patient is finished Zosyn for the possibility of bacterial pneumonia, has had fevers today 38 and above, getting IV acetaminophen. WBC is higher, 17.8. There have been case reports and small trials treating post COVID organizing pneumonia with glucocorticoids and these studies initiated the glucocorticoids in 3 inpatients between days 15 and 21 in 1 study, at 6 weeks and 1 outpatient study, and between 3 in 8 weeks and another outpatient study. He had a high resolution chest CT today, still has infiltrates consistent with COVID pneumonia without fibrosis. He does not have traction bronchiectasis. The patient has crackles, however his O2 exchange is not bad. He is on 30% and 10 cm PEEP, does not have high peak pressures, however he is still ill with hypotension that appears to be due to sepsis. His WBC is higher and he has fevers over 38* C. I discussed with Dr. Cedillo. Starting steroids for post COVID organizing pneumonia is an option. This will be discussed with Dr Chandra tomorrow. THe bernadine is already on dexamethasone 6 mg Q 6 hours for the last 10 days. 09/12 Patient remains intubated, sedated with propofol, on Levophed and tube feeds. He is on 30% FiO2 and a peep of 8 with a blood gas of 7.46/. His white blood cell count is 14.1. He has no wheezes on exam. Review of the CT scan on 09/11/2022 compared with 09/02/2022 demonstrates improved and resolved dense consolidations in his lungs bilaterally but persistent alveolar infiltrates. Plan: The chest CT scan demonstrates improvement in his consolidation and there is no evidence of organizing pneumonia post COVID that would require steroids. The patient is currently on Levophed, has a fever, leukocytosis and has been started on vancomycin and imipenem for possible infectious etiologies. his oxygenation has remained stable over the last 4 days and I do not believe he has a new bacterial pneumonia. discussed with Dr. Cedillo, will sign off, call with questions Subjective Date/time seen: 09/12/22 11:59 Interval history: Hospital follow up : Liam Oreilly is 77 years old, seen in ICU 10 for COVID with acute respiratory failure. 77-year-old with a history of anxiety with depression, aortic valve sclerosis, arthritis, diastolic dysfunction, hypertension, GERD, hyperlipidemia, SVT, diabetes who presented on 08/27/2022 with multiple falls.? He was found to be COVID positive and had a clear chest x-ray and required no supplemental oxygen and was not treated for COVID.? Patient developed bilateral infiltrates and was intubated on 09/01 and started on dexamethasone.? ? There were concerns about aspiration given his a
[2022-09-12 18:45] LABS: Glucose Point of Care 162 mg/dl (65-105)
[2022-09-12] MEDS: INSULIN ASPART (*BKC) 100 UNITS/ML SUB-Q (20:46)
[2022-09-12] MEDS: SERTRALINE HCL 50 MG TABLET 150 MG BY MOUTH (20:48)
[2022-09-12] MEDS: ROSUVASTATIN 10 MG TABLET 20 MG BY MOUTH (20:48)
[2022-09-12 21:42] LABS: Glucose Point of Care 222 mg/dl (65-105)
[2022-09-13] VITALS (32 sets, daily range): BP systolic 107–130; BP diastolic 48–79; PULSE 59–85; RESP 19–26; TEMP 37–38.6; O2SAT 97–100
[2022-09-13 00:52] LABS: Glucose Point of Care 177 mg/dl (65-105)
[2022-09-13] MEDS: PROPOFOL IV EMULSION 100 ML 20.58 MG IV CONT ×2 (02:12→06:31)
[2022-09-13] MEDS: CENTRAL LINE FLUSH 10 ML IV PUSH ×3 (03:40→22:23)
[2022-09-13 04:14] LABS: Basophils Percent Auto 0.4 % (0.2-1.2); Eosinophils Absolute Auto 0.1 K/mm3 (0-0.3); Eosinophils Percent Auto 0.5 % (0-4.4); Hematocrit 36.5 % (42.0-52.0); Hemoglobin 11.1 g/dL (14.0-18.0); Immature Granulocyte Absolute 0.05 K/mm3 (0.00-0.031); Immature Granulocyte Percent A 0.5 % (0-0.5); Lymphocytes Absolute Auto 1.24 K/mm3 (0.9-3.2); Lymphocytes Percent Auto 11.9 % (18.3-44.2); Mean Corpuscular HGB Conc 30.4 g/dl (32-36); Mean Corpuscular Hemoglobin 29.8 pg (26-34); Mean Corpuscular Volume 98.1 fl (80-100); Mean Platelet Volume 11.1 fl (7.4-10.4); Monocytes Absolute Auto 0.4 K/mm3 (0.1-0.6); Monocytes Percent Auto 3.9 % (2.6-8.5); Neutrophils Absolute Auto 8.7 K/mm3 (1.3-6.7); Neutrophils Percent Auto 82.8 % (45.5-73.1); Platelet Count Result 182 k/mm3 (150-375); Red Blood Count 3.72 M/mm3 (4.6-6.20); Red Cell Distribution Width 14.7 % (11.5-14.5); White Blood Count 10.5 K/mm3 (4.5-10.0)
[2022-09-13 04:29] LABS: Alanine Aminotransferase 29 U/L (6-50); Albumin Level 2.4 g/dL (3.5-5.1); Alkaline Phosphatase 53 U/L (38-126); Anion Gap 3 mmol/L (8-16); Aspartate Amino Transferase 34 U/L (17-59); Bilirubin,Total 0.7 mg/dL (0.2-1.3); Blood Urea Nitrogen 39 mg/dL (9-20); Calcium 7.3 mg/dL (8.4-10.2); Carbon Dioxide 28 mmol/L (22-30); Chloride 106 mmol/L (98-107); Estimated CRCL calculation 79 ml/min; Estimated Glomerular Filt Rate > 60; Glucose 133 mg/dL (65-110); Phosphorus 3.3 mg/dL (2.5-4.5); Potassium 3.8 mmol/L (3.4-5.0); Sodium 137 mmol/L (137-145)
[2022-09-13 06:10] LABS: Alveolar/Arterial O2 Gradient 90.6 mmHg; Base Excess ABG 0.8 mEq/l (+/-2.0); Carboxyhemoglobin 0.1 % THb (0-2.0); Fractional Inspired Oxygen 30 %; HCO3 ABG 24.4 mEq/l (22.0-26.0); Methemoglobin ABG 0.3 %THb (0-1.5); Oxygen Content ABG 16.7 %vol (16.0-22.0); Oxygen Saturation ABG 96.6 % (95.0-100.0); Oxyhemoglobin 95.3 % THb (90.0-100.0); PCO2 ABG 35.4 mmHg (35.0-45.0); PO2 ABG 81.7 mmHg (80.0-100.0); PO2 FiO2 Ratio Arterial Blood 2.72 %; Reduced Hemoglobin 4.3 %THb (0-5.0); Total Hemoglobin 12.4 g/dL (12.0-18.0); pH ABG 7.456 (7.350-7.450)
[2022-09-13 06:11] LABS: Arterial Blood Gas PEEP 8 cmH2O; Arterial Blood Gas Vent Mode CMV; Arterial Blood Gas Ventilator rate 14 /MIN; Device VENTILATOR; Modified Allen's Test Pass; Site Drawn LEFT RADIAL
[2022-09-13 06:12] LABS: Arterial Blood Gas Tidal Volume 430 ml
--- NOTE | 2022-09-13 07:50 | PM.PNCARD ---
Progress Note: A&P Assessment and Plan (1) Systolic dysfunction: Code(s): I51.9 - Heart disease, unspecified Status: Acute Assessment and Plan: Could be due to covid myocarditis or sepsis cardiomyopathy. Medical therapy for now. Troponin peaked at 0.13. Moderate low with EF 35-40%. 09/01/22 Echo: EF 35-40%, mod LVE, grade I diastolic dysfunction (E/e' 16), mild LAE, mod MIGNON, mod MAC, mod MR/TR, RVSP 51 mmHg, mild PI. Stopped Candesartan. Increased Entresto 97/103 mg PO BID. Started Carvedilol 3.125 mg BID. Monitor HR and BP. Started Bumetanide 1 mg IV BID to keep on dryer side to see if helps with respiratory status. Due to hypotension, Carvedilol and Entresto were on hold since 09/11/22. Was placed on Levophed drip for short while. Hypotension is multifactorial including from Precedex, diuresis, BP medication and sepsis (fever 101). (2) Pneumonia: Code(s): J18.9 - Pneumonia, unspecified organism Status: Acute Assessment and Plan: On antibiotics as per bed bug exterminator. (3) COVID: Code(s): U07.1 - COVID-19 Status: Acute Assessment and Plan: Managed as per bed bug exterminator. (4) Mixed hyperlipidemia: Code(s): E78.2 - Mixed hyperlipidemia Status: Acute Assessment and Plan: On Rosuvastatin. (5) Hypertension: Qualifiers: Hypertension type: essential hypertension Qualified Code(s): I10 - Essential (primary) hypertension Code(s): I10 - Essential (primary) hypertension Status: Acute Assessment and Plan: Stable. Monitor BP. Due to low BP early this morning into 80's SBP, will hold Carvedilol, decrease Entresto to low dose 24-26 mg BID and will hold Bumetanide. Hypotension is multifactorial including from diuresis, BP medication and sepsis (fever 101). Discussed with Dr. Cedillo. If BP goes up, then resume low dose Carvedilol 3.125 mg BID and Entresto 24-26 mg BID. (6) PSVT (paroxysmal supraventricular tachycardia): Code(s): I47.1 - Supraventricular tachycardia Status: Acute Assessment and Plan: Was on Amiodarone 100 mg daily, but due to bradycardia, this was not continued from home. Subjective Date/time seen: 09/13/22 07:50 Interval history: Sedated and on mechanical ventilation. Exam Const: Other: Sedated, on mechanical ventilation. Resp: Auscultation: clear to auscultation bilaterally, no crackles, no rales, no rhonchi, no wheezes and diminished lung sounds Other: Coarse breath sounds bilaterally Cardio: Rate: regular rate Rhythm: regular rhythm Heart sounds: no murmurs Peripheral pulses: dorsalis pedis present Extrem: Right lower extremity: no edema Left lower extremity: no edema Objective Data Vital Signs Vital Signs: Vital Signs - 24 hr 09/12/22 08:50 09/12/22 09:00 09/12/22 08:00 Temperature Pulse Rate 65 64 61 Respiratory Rate 24 H 26 H 20 Blood Pressure Pulse Oximetry Oxygen Delivery Fraction of Inspired Oxygen 09/12/22 08:00 09/12/22 08:00 09/12/22 08:00 Temperature 99.6 F Pulse Rate 64 67 Respiratory Rate 24 H Blood Pressure 91/57 L Pulse Oximetry 96 Oxygen Delivery Fraction of Inspired Oxygen 30 09/12/22 10:00 09/12/22 08:00 09/12/22 10:00 Temperature 99.3 F Pulse Rate 65 68 Respiratory Rate 24 H 24 H Blood Pressure 111/53 L Pulse Oximetry 97 97 Oxygen Delivery Mechanical Ventilation Fraction of Inspired Oxygen 30 09/12/22 10:00 09/12/22 11:10 09/12/22 11:22 Temperature Pulse Rate 64 66 69 Respiratory Rate 26 H Blood Pressure Pulse Oximetry 97 Oxygen Delivery Mechanical Ventilation Fraction of Inspired Oxygen 30 09/12/22 12:00 09/12/22 12:00 09/12/22 12:00 Temperature 99.3 F Pulse Rate 64 64 Respiratory Rate 24 H Blood Pressure 98/53 L Pulse Oximetry 97 Oxygen Delivery Fraction of Inspired Oxygen 30 09/12/22 12:00 09/12/22 13:15 09/12/22 14:00 Temperature
[2022-09-13] MEDS: BUDESONIDE RESPULE NEB 0.5 MG/2 ML AMP INHALATION ×2 (09:02→20:50)
[2022-09-13] MEDS: MINERAL OIL/WHITE PETROLATUM OINTMENT 1 APPLIC EACH EYE ×2 (09:20→20:10)
[2022-09-13] MEDS: ENOXAPARIN 40 MG/0.4 ML SYRINGE SUB-Q (09:21)
[2022-09-13] MEDS: CYANOCOBALAMIN 1,000 MCG TABLET 1000 MCG PO (09:21)
[2022-09-13] MEDS: CHOLECALCIFEROL 1,000 UNITS TABLET 1000 UNITS PO (09:21)
[2022-09-13] MEDS: MULTIVITAMINS THERAPEUTIC TAB (*BKC) 1 TABLET PO (09:21)
[2022-09-13] MEDS: PANTOPRAZOLE SODIUM IV 40 MG VIAL IV PUSH (09:21)
[2022-09-13] MEDS: ASPIRIN 81 MG ENTERIC TABLET PO (09:21)
[2022-09-13] MEDS: POTASSIUM CHLORIDE 20 MEQ PACKET (FOR LIQUID) 40 MEQ FEED TUBE (09:23)
[2022-09-13] MEDS: FUROSEMIDE INJ 40 MG/4 ML VIAL IV PUSH ×2 (09:24→16:29)
[2022-09-13 09:46] LABS: Glucose Point of Care 181 mg/dl (65-105)
--- NOTE | 2022-09-13 09:51 | WPDINTPN ---
Progress Note: A&P Assessment and Plan (1) Acute respiratory failure: Code(s): J96.00 - Acute respiratory failure, unspecified whether with hypoxia or hypercapnia Status: Acute Assessment and Plan: Acute Respiratory failure which appears to be multifactorial. Patient on presentation was tested positive for COVID-19 (08/27) although his chest x-ray was clear at that time and he was not hypoxic. he also received IV fluids and may have developed pulmonary edema and may have developed aspiration pneumonia considering patient's mental status 09/01 patient was placed on BiPAP 14/7 60% and transferred to ICU. FiO2 was weaned off to 40%. He deteriorated overnight and was intubated on 09/01 CRP 26.3 and ESR 65 procalcitonin 2.1 BNP 2140 echocardiogram shows EF of 30-35% 09/[address] IMPRESSION: 1. Diffuse lung disease, consistent with pulmonary edema and/or pneumonia. 2. Small pleural effusions. 3. Small pericardial effusion. -09/11 CT chest : Diffuse ground glass and airspace opacities throughout the lungs with a mid and lower lung zone predominance, consistent with COVID -19 pneumonia, with much improvement as compared to the CT chest done on 09/02/2022. -Completed a course of Zosyn and vancomycin -completed a course of dexamethasone. patient was not started remdesivir as patient appears to be out of beneficial time frame. patient is in isolation Discussed with Dr. Chandra, no indication for steroids at this time -precedex discontinued -continue propofol -09/10 repeat blood cultures , preliminary cultures are negative -09/11 preliminary sputum cultures negative -09/12 urine cultures pending -patient developed fevers, hypotension requiring Levophed briefly -09/11: Patient restarted on antibiotics - imipenem and vancomycin -decrease tidal volume to 400 -continue Lasix -weaning from mechanical ventilation has been difficult as patient is not able to tolerate a weaning trial. Off sedation patient gets agitated and a synchronous with the ventilator. (2) COVID: Code(s): U07.1 - COVID-19 Status: Acute Assessment and Plan: see above (3) Pneumonia: Code(s): J18.9 - Pneumonia, unspecified organism Status: Acute Assessment and Plan: see above (4) Congestive heart failure: Code(s): I50.9 - Heart failure, unspecified Status: Acute Assessment and Plan: echocardiogram Summary ? 1. Complete two-dimensional, color flow and Doppler transthoracic echocardiogram is performed. ? 2. Left ventricular chamber dimension is moderately enlarged. ? 3. Left ventricular systolic function is moderately globally reduced, estimated at 35-40%. ? 4. The left ventricular diastolic function is grade I diastolic dysfunction. ? 5. E/e' 16 is elevated. ? 6. Global longitudinal strain is abnormal at -10.3%. ? 7. Left atrial chamber dimension is mildly enlarged. ? 8. Right atrial chamber dimension is moderately enlarged. ? 9. There is moderate aortic valve sclerosis. ? 10. The mitral valve has moderately calcified annulus. ? 11. There is moderate mitral valve regurgitation. ? 12. There is moderate tricuspid valve regurgitation. ? 13. Moderate pulmonary hypertension, estimated pulmonary arterial systolic pressure is 51 mmHg. ? 14. There is mild pulmonic regurgitation. ? 15. Dilated inferior vena cava with <50% collapse upon inspiration consistent with significantly elevated right atrial pressure, 15 mmHg. -appreciate cardiology evaluation recommendation, Hold Entresto and Coreg due to hypotension, OK with cardiology (5) Rhabdomyolysis: Code(s): M62.82 - Rhabdomyolysis Status: Acute Assessment and Plan: hold further IV fluids due to volume overload CK level improved (6) Type 2 diabetes mellitus without complications: Qualifiers: Diabetes mellitus regional marketing manager insulin use: without regional marketing manager use Qualified Code(s): E11.9 - Type 2 diabetes mellitus with
[2022-09-13 10:04] LABS: NT Pro B Type Natriuretic Pept 568 pg/mL (19.9-100)
--- NOTE | 2022-09-13 10:16 | WPDNEUROLOGY ---
Neurology EEG Report General Information Date of Study: 09/12/22 TEST Routine EEG DIAGNOSIS Encephalopathy CONDITION OF RECORDING Sedated EEG NUMBER [id number] CLINICAL HISTORY Patient presented with COVID-19 infection, developed respiratory failure and was intubated and transferred to the ICU. There have also been ongoing concerns regarding encephalopathy. EEG DESCRIPTION Patient is sedated during recording. The recording is continuous. The background is symmetric and consists of diffuse delta and theta range activity. There is no posterior dominant rhythm or anterior-posterior gradient. Normal sleep architecture is not visualized. Hyperventilation and photic stimulation were not performed. There are no epileptiform discharges or electrographic seizures noted during the recording. IMPRESSION This is an abnormal EEG due to the presence of diffuse slowing. There are no electrographic seizures or epileptiform features identified. Diffuse slowing may be seen in the setting of metabolic encephalopathy. Clinical correlation is recommended.
[2022-09-13 10:23] LABS: Vancomycin Trough 24.1 ug/mL (10.0-20.0)
--- NOTE | 2022-09-13 11:22 | PCNFU ---
Nutrition Follow-Up Complete: Inadequate Oral Intake as related to mechanical vent and evidenced by NPO. Goal:Meet estimated nutritional needs. Pt is meeting goal, continue with current plan of care. Pt current nutrition is NPO, Tube feedings: Vital 1.2 at 50ml/hr, goal rate. Nutrition recommendation: Continue with current plan of care Last recorded weight is 94.4 kg. Bowel Motility: +BM 09/13 Labs Reviewed: hgb:11.1, HCT:36.5, Alb:2.4, BUN:39, Glu:181 Meds Noted: lovenox, lasix, novolog, propofol running at 20ml = 528kcals Skin: WNL Additional Notes: Pt continues on tube feedings of Vital 1.2 AF at 50ml/hr and is at goal rate. Prosource (80kcals/20g pro) daily added for additional protein needs. Total intake is 1928kcals, 102g protein. This is sufficient to meet pts needs at this time. Will monitor in ICU rounds and reassess every Monday and Monday.
[2022-09-13] MEDS: PROPOFOL IV EMULSION 100 ML 14.7 MG IV CONT ×2 (12:31→18:34)
[2022-09-13 12:37] LABS: Glucose Point of Care 143 mg/dl (65-105)
[2022-09-13 18:38] LABS: Glucose Point of Care 157 mg/dl (65-105)
[2022-09-13] MEDS: SERTRALINE HCL 50 MG TABLET 150 MG BY MOUTH (20:10)
[2022-09-13] MEDS: ROSUVASTATIN 10 MG TABLET 20 MG BY MOUTH (20:10)
[2022-09-13 20:33] LABS: Glucose Point of Care 166 mg/dl (65-105)
[2022-09-13 23:59] LABS: Glucose Point of Care 196 mg/dl (65-105)
[2022-09-14] VITALS (36 sets, daily range): BP systolic 112–150; BP diastolic 59–80; PULSE 64–91; RESP 16–26; TEMP 36.9–37.8; O2SAT 95–100
[2022-09-14] MEDS: PROPOFOL IV EMULSION 100 ML 17.64 MG IV CONT ×2 (01:36→06:01)
[2022-09-14] MEDS: CENTRAL LINE FLUSH 10 ML IV PUSH ×3 (05:19→21:25)
[2022-09-14 05:27] LABS: Basophils Percent Auto 0.5 % (0.2-1.2); Eosinophils Absolute Auto 0.1 K/mm3 (0-0.3); Eosinophils Percent Auto 1.1 % (0-4.4); Hematocrit 35.7 % (42.0-52.0); Immature Granulocyte Absolute 0.03 K/mm3 (0.00-0.031); Immature Granulocyte Percent A 0.4 % (0-0.5); Lymphocytes Absolute Auto 1.09 K/mm3 (0.9-3.2); Lymphocytes Percent Auto 12.9 % (18.3-44.2); Mean Corpuscular HGB Conc 30.8 g/dl (32-36); Mean Corpuscular Hemoglobin 29.9 pg (26-34); Mean Platelet Volume 11.2 fl (7.4-10.4); Monocytes Absolute Auto 0.4 K/mm3 (0.1-0.6); Monocytes Percent Auto 4.5 % (2.6-8.5); Neutrophils Absolute Auto 6.9 K/mm3 (1.3-6.7); Neutrophils Percent Auto 80.6 % (45.5-73.1); Platelet Count Result 187 k/mm3 (150-375); Red Blood Count 3.68 M/mm3 (4.6-6.20); Red Cell Distribution Width 14.6 % (11.5-14.5); White Blood Count 8.5 K/mm3 (4.5-10.0)
[2022-09-14 05:34] LABS: Alanine Aminotransferase 25 U/L (6-50); Albumin Level 2.7 g/dL (3.5-5.1); Alkaline Phosphatase 57 U/L (38-126); Anion Gap 0 mmol/L (8-16); Aspartate Amino Transferase 29 U/L (17-59); Bilirubin,Total 0.6 mg/dL (0.2-1.3); Blood Urea Nitrogen 32 mg/dL (9-20); Calcium 7.5 mg/dL (8.4-10.2); Carbon Dioxide 32 mmol/L (22-30); Chloride 105 mmol/L (98-107); Estimated CRCL calculation 106 ml/min; Estimated Glomerular Filt Rate > 60; Glucose 155 mg/dL (65-110); Phosphorus 3.1 mg/dL (2.5-4.5); Potassium 3.7 mmol/L (3.4-5.0); Sodium 137 mmol/L (137-145); Triglycerides 128 mg/dL (<150)
[2022-09-14 05:45] LABS: Alveolar/Arterial O2 Gradient 92.1 mmHg; Base Excess ABG 2.8 mEq/l (+/-2.0); Carboxyhemoglobin 0.7 % THb (0-2.0); Fractional Inspired Oxygen 30 %; HCO3 ABG 26.7 mEq/l (22.0-26.0); Methemoglobin ABG 0.5 %THb (0-1.5); Oxygen Content ABG 22.1 %vol (16.0-22.0); Oxygen Saturation ABG 95.9 % (95.0-100.0); Oxyhemoglobin 94.3 % THb (90.0-100.0); PCO2 ABG 38.8 mmHg (35.0-45.0); PO2 ABG 76.2 mmHg (80.0-100.0); PO2 FiO2 Ratio Arterial Blood 2.54 %; Reduced Hemoglobin 4.5 %THb (0-5.0); Total Hemoglobin 16.7 g/dL (12.0-18.0); pH ABG 7.456 (7.350-7.450)
[2022-09-14 05:46] LABS: Device VENTILATOR; Modified Allen's Test Pass; Site Drawn RIGHT RADIAL
[2022-09-14 05:47] LABS: Arterial Blood Gas PEEP 8 cmH2O; Arterial Blood Gas Tidal Volume 400 ml; Arterial Blood Gas Vent Mode CMV; Arterial Blood Gas Ventilator rate 14 /MIN
[2022-09-14 05:50] LABS: Glucose Point of Care 186 mg/dl (65-105)
--- NOTE | 2022-09-14 07:44 | PM.PNCARD ---
Progress Note: A&P Assessment and Plan (1) Systolic dysfunction: Code(s): I51.9 - Heart disease, unspecified Status: Acute Assessment and Plan: Could be due to covid myocarditis or sepsis cardiomyopathy. Medical therapy for now. Troponin peaked at 0.13. Moderate low with EF 35-40%. 09/01/22 Echo: EF 35-40%, mod LVE, grade I diastolic dysfunction (E/e' 16), mild LAE, mod MIGNON, mod MAC, mod MR/TR, RVSP 51 mmHg, mild PI. Stopped Candesartan. Increased Entresto 97/103 mg PO BID. Started Carvedilol 3.125 mg BID. Monitor HR and BP. Started Bumetanide 1 mg IV BID to keep on dryer side to see if helps with respiratory status. Due to hypotension, Carvedilol and Entresto were on hold since 09/11/22. Was placed on Levophed drip for short while. Hypotension is multifactorial including from Precedex, diuresis, BP medication and sepsis (fever 101). (2) Pneumonia: Code(s): J18.9 - Pneumonia, unspecified organism Status: Acute Assessment and Plan: On antibiotics as per computer lab assistant. (3) COVID: Code(s): U07.1 - COVID-19 Status: Acute Assessment and Plan: Managed as per computer lab assistant. (4) Mixed hyperlipidemia: Code(s): E78.2 - Mixed hyperlipidemia Status: Acute Assessment and Plan: On Rosuvastatin. (5) Hypertension: Qualifiers: Hypertension type: essential hypertension Qualified Code(s): I10 - Essential (primary) hypertension Code(s): I10 - Essential (primary) hypertension Status: Acute Assessment and Plan: Stable. Monitor BP. Due to low BP early this morning into 80's SBP, will hold Carvedilol, decrease Entresto to low dose 24-26 mg BID and will hold Bumetanide. Hypotension is multifactorial including from diuresis, BP medication and sepsis (fever 101). Discussed with Dr. Cedillo. If BP goes up, then resume low dose Carvedilol 3.125 mg BID and Entresto 24-26 mg BID. BP is stable at 120/70 and HR 65 bpm today. Discussed with Dr. Wilburn, patient's family is considering comfort measures only starting tomorrow. Therefore will not resume Carvedilol or Entresto at this time. (6) PSVT (paroxysmal supraventricular tachycardia): Code(s): I47.1 - Supraventricular tachycardia Status: Acute Assessment and Plan: Was on Amiodarone 100 mg daily, but due to bradycardia, this was not continued from home. Subjective Date/time seen: 09/14/22 07:44 Interval history: Sedated and on mechanical ventilation. Exam Const: Other: Sedated, on mechanical ventilation. Resp: Auscultation: clear to auscultation bilaterally, no crackles, no rales, no rhonchi, no wheezes and diminished lung sounds Other: Coarse breath sounds bilaterally Cardio: Rate: regular rate Rhythm: regular rhythm Heart sounds: no murmurs Peripheral pulses: dorsalis pedis present Extrem: Right lower extremity: no edema Left lower extremity: no edema Objective Data Vital Signs Vital Signs: Vital Signs - 24 hr 09/13/22 09:02 09/13/22 09:02 09/13/22 09:20 Temperature Pulse Rate 70 70 66 Respiratory Rate 19 Blood Pressure Pulse Oximetry 99 99 Oxygen Delivery Mechanical Ventilation Mechanical Ventilation Fraction of Inspired Oxygen 30 30 09/13/22 09:20 09/13/22 08:00 09/13/22 08:00 Temperature Pulse Rate 66 64 Respiratory Rate 20 Blood Pressure Pulse Oximetry Oxygen Delivery Fraction of Inspired Oxygen 30 09/13/22 10:00 09/13/22 08:00 09/13/22 10:00 Temperature 98.8 F 98.9 F Pulse Rate 64 64 67 Respiratory Rate 22 H 22 H Blood Pressure 109/67 107/61 Pulse Oximetry 98 99 Oxygen Delivery Fraction of Inspired Oxygen 09/13/22 08:00 09/13/22 12:00 09/13/22 12:31 Temperature Pulse Rate 64 63 64 Respiratory Rate 22 H 21 H Blood Pressure Pulse Oximetry 98 99 Oxygen Delivery Mechanical Ventilation Mechanical Ventilation Fraction of Inspired Oxygen 30 30 09/13/22 12:00 09/13/22
[2022-09-14] MEDS: BUDESONIDE RESPULE NEB 0.5 MG/2 ML AMP INHALATION ×2 (08:31→20:11)
[2022-09-14] MEDS: POTASSIUM CHLORIDE 20 MEQ PACKET (FOR LIQUID) 40 MEQ FEED TUBE (08:43)
[2022-09-14] MEDS: MINERAL OIL/WHITE PETROLATUM OINTMENT 1 APPLIC EACH EYE ×2 (08:44→21:25)
[2022-09-14] MEDS: PANTOPRAZOLE SODIUM IV 40 MG VIAL IV PUSH (08:46)
[2022-09-14] MEDS: MULTIVITAMINS THERAPEUTIC TAB (*BKC) 1 TABLET PO (08:46)
[2022-09-14] MEDS: FUROSEMIDE INJ 40 MG/4 ML VIAL IV PUSH ×2 (08:46→17:12)
[2022-09-14] MEDS: ENOXAPARIN 40 MG/0.4 ML SYRINGE SUB-Q (08:46)
[2022-09-14] MEDS: CHOLECALCIFEROL 1,000 UNITS TABLET 1000 UNITS PO (08:47)
[2022-09-14] MEDS: CYANOCOBALAMIN 1,000 MCG TABLET 1000 MCG PO (08:47)
[2022-09-14] MEDS: ASPIRIN 81 MG ENTERIC TABLET PO (08:47)
[2022-09-14 09:33] LABS: Glucose Point of Care 185 mg/dl (65-105)
--- NOTE | 2022-09-14 10:50 | WPDINTPN ---
Progress Note: A&P Assessment and Plan (1) Acute respiratory failure: Code(s): J96.00 - Acute respiratory failure, unspecified whether with hypoxia or hypercapnia Status: Acute Assessment and Plan: Acute Respiratory failure which appears to be multifactorial. Patient on presentation was tested positive for COVID-19 (08/27) although his chest x-ray was clear at that time and he was not hypoxic. he also received IV fluids and may have developed pulmonary edema and may have developed aspiration pneumonia considering patient's mental status 09/01 patient was placed on BiPAP 14/7 60% and transferred to ICU. FiO2 was weaned off to 40%. He deteriorated overnight and was intubated on 09/01 CRP 26.3 and ESR 65 procalcitonin 2.1 BNP 2140 echocardiogram shows EF of 30-35% 09/[address] IMPRESSION: 1. Diffuse lung disease, consistent with pulmonary edema and/or pneumonia. 2. Small pleural effusions. 3. Small pericardial effusion. -09/11 CT chest : Diffuse ground glass and airspace opacities throughout the lungs with a mid and lower lung zone predominance, consistent with COVID -19 pneumonia, with much improvement as compared to the CT chest done on 09/02/2022. -Completed a course of Zosyn and vancomycin -completed a course of dexamethasone. patient was not started remdesivir as patient appears to be out of beneficial time frame. patient is in isolation Discussed with Dr. Chandra, no indication for steroids at this time -precedex discontinued -continue propofol-currently well on hold for sedation holiday -09/10 repeat blood cultures , preliminary cultures are negative -09/11 sputum cultures growing Citrobacter -MRSA screen is negative -09/11: Patient restarted on antibiotics - imipenem and vancomycin. Continue imipenem but discontinue vancomycin -most recent ABG reviewed -ontinued tidal volume to 400 -continue Lasix today -weaning from mechanical ventilation has been difficult as patient is not able to tolerate a weaning trial. Off sedation patient gets agitated and a synchronous with the ventilator. Will try pressure support ventilation if patient tolerates (2) COVID: Code(s): U07.1 - COVID-19 Status: Acute Assessment and Plan: see above (3) Pneumonia: Code(s): J18.9 - Pneumonia, unspecified organism Status: Acute Assessment and Plan: see above (4) Congestive heart failure: Code(s): I50.9 - Heart failure, unspecified Status: Acute Assessment and Plan: echocardiogram Summary ? 1. Complete two-dimensional, color flow and Doppler transthoracic echocardiogram is performed. ? 2. Left ventricular chamber dimension is moderately enlarged. ? 3. Left ventricular systolic function is moderately globally reduced, estimated at 35-40%. ? 4. The left ventricular diastolic function is grade I diastolic dysfunction. ? 5. E/e' 16 is elevated. ? 6. Global longitudinal strain is abnormal at -10.3%. ? 7. Left atrial chamber dimension is mildly enlarged. ? 8. Right atrial chamber dimension is moderately enlarged. ? 9. There is moderate aortic valve sclerosis. ? 10. The mitral valve has moderately calcified annulus. ? 11. There is moderate mitral valve regurgitation. ? 12. There is moderate tricuspid valve regurgitation. ? 13. Moderate pulmonary hypertension, estimated pulmonary arterial systolic pressure is 51 mmHg. ? 14. There is mild pulmonic regurgitation. ? 15. Dilated inferior vena cava with <50% collapse upon inspiration consistent with significantly elevated right atrial pressure, 15 mmHg. -continue Lasix -appreciate cardiology evaluation recommendation, Hold Entresto and Coreg due to hypotension, OK with cardiology (5) Rhabdomyolysis: Code(s): M62.82 - Rhabdomyolysis Status: Acute Assessment and Plan: hold further IV fluids due to volume overload CK level improved (6) Type 2 diabetes mellitus without complications: Qualifiers:
--- NOTE | 2022-09-14 11:25 | PCFNICU ---
ICU Rounding Note: Pt current nutrition is Vital AF 1.2 at 50 ml/hr. Nutrition recommendation: increase to 70 ml/hr. Last recorded weight is 92.9 kg. Bowel Motility: +Bm reported 09/14 Labs Reviewed:Glu 155, BUN 32, Cr 0.5,Alb 2.7,Hct 35.7,Hgb 11.0 Meds Noted: Lasix, NovoLog, Protonix, Vit D. Skin: WNL Additional Notes: Patient remains on mechanical vent and tube feedings of Vital AF 1.2 at 50 ml/hr. Protein Modular of Prosource once daily providing an additional 80 kcals and Banatrol TF BID providing an additional 90 kcals. Total nutrition: 1490 kcals/103 gms protein. Discussions with C T Tech today regarding possible comfort care. If patient remains on tube feedings would recommend increasing tube feedings to 70 ml/hr to better met caloric needs. Will monitor in ICU rounds and reassess every Monday and Monday.
[2022-09-14] MEDS: INSULIN ASPART (*BKC) 100 UNITS/ML SUB-Q (12:44)
[2022-09-14 12:49] LABS: Glucose Point of Care 226 mg/dl (65-105)
--- NOTE | 2022-09-14 14:22 | PC.NURSE ---
David, son, called for an update. Update given and all questions answered. He states that him and family will be up tomorrow.
[2022-09-14 17:27] LABS: Glucose Point of Care 156 mg/dl (65-105)
[2022-09-14] MEDS: PROPOFOL IV EMULSION 100 ML 8.82 MG IV CONT (18:53)
[2022-09-14] MEDS: ROSUVASTATIN 10 MG TABLET 20 MG BY MOUTH (21:25)
[2022-09-14] MEDS: SERTRALINE HCL 50 MG TABLET 150 MG BY MOUTH (21:25)
[2022-09-14 21:48] LABS: Glucose Point of Care 176 mg/dl (65-105)
[2022-09-15] VITALS (19 sets, daily range): BP systolic 119–168; BP diastolic 68–79; PULSE 64–107; RESP 15–28; TEMP 36.8–37.4; O2SAT 88–99
[2022-09-15] MEDS: PROPOFOL IV EMULSION 100 ML 14.7 MG IV CONT (01:24)
[2022-09-15 05:09] LABS: Basophils Percent Auto 0.6 % (0.2-1.2); Eosinophils Absolute Auto 0.1 K/mm3 (0-0.3); Eosinophils Percent Auto 1.2 % (0-4.4); Hematocrit 36.2 % (42.0-52.0); Immature Granulocyte Absolute 0.03 K/mm3 (0.00-0.031); Immature Granulocyte Percent A 0.4 % (0-0.5); Lymphocytes Percent Auto 18.8 % (18.3-44.2); Mean Corpuscular HGB Conc 30.4 g/dl (32-36); Mean Corpuscular Hemoglobin 29.6 pg (26-34); Mean Corpuscular Volume 97.3 fl (80-100); Mean Platelet Volume 11.4 fl (7.4-10.4); Monocytes Absolute Auto 0.3 K/mm3 (0.1-0.6); Monocytes Percent Auto 4.9 % (2.6-8.5); Neutrophils Absolute Auto 5.1 K/mm3 (1.3-6.7); Neutrophils Percent Auto 74.1 % (45.5-73.1); Platelet Count Result 210 k/mm3 (150-375); Red Blood Count 3.72 M/mm3 (4.6-6.20); Red Cell Distribution Width 14.5 % (11.5-14.5); White Blood Count 6.9 K/mm3 (4.5-10.0)
[2022-09-15 05:36] LABS: Alanine Aminotransferase 27 U/L (6-50); Albumin Level 2.7 g/dL (3.5-5.1); Alkaline Phosphatase 61 U/L (38-126); Anion Gap 2 mmol/L (8-16); Aspartate Amino Transferase 36 U/L (17-59); Bilirubin,Total 0.6 mg/dL (0.2-1.3); Blood Urea Nitrogen 30 mg/dL (9-20); Calcium 7.6 mg/dL (8.4-10.2); Carbon Dioxide 34 mmol/L (22-30); Chloride 102 mmol/L (98-107); Estimated CRCL calculation 106 ml/min; Estimated Glomerular Filt Rate > 60; Glucose 168 mg/dL (65-110); Magnesium 1.9 mg/dL (1.6-2.3); Phosphorus 3.2 mg/dL (2.5-4.5); Sodium 138 mmol/L (137-145)
[2022-09-15] MEDS: CENTRAL LINE FLUSH 10 ML IV PUSH ×2 (05:38→10:29)
[2022-09-15 06:07] LABS: Alveolar/Arterial O2 Gradient 96.2 mmHg; Base Excess ABG 5.3 mEq/l (+/-2.0); Carboxyhemoglobin 0.4 % THb (0-2.0); Fractional Inspired Oxygen 30 %; HCO3 ABG 29.5 mEq/l (22.0-26.0); Methemoglobin ABG 0.2 %THb (0-1.5); Oxygen Content ABG 17.1 %vol (16.0-22.0); Oxygen Saturation ABG 94.7 % (95.0-100.0); Oxyhemoglobin 93.6 % THb (90.0-100.0); PCO2 ABG 41.8 mmHg (35.0-45.0); PO2 ABG 68.6 mmHg (80.0-100.0); PO2 FiO2 Ratio Arterial Blood 2.29 %; Reduced Hemoglobin 5.8 %THb (0-5.0); pH ABG 7.467 (7.350-7.450)
[2022-09-15 06:09] LABS: Arterial Blood Gas PEEP 5 cmH2O; Arterial Blood Gas Tidal Volume 400 ml; Arterial Blood Gas Vent Mode CMV; Arterial Blood Gas Ventilator rate 14 /MIN; Device VENTILATOR; Modified Allen's Test Pass; Site Drawn RIGHT RADIAL
[2022-09-15] MEDS: MULTIVITAMINS THERAPEUTIC TAB (*BKC) 1 TABLET PO (08:02)
[2022-09-15] MEDS: CHOLECALCIFEROL 1,000 UNITS TABLET 1000 UNITS PO (08:02)
[2022-09-15] MEDS: ASPIRIN 81 MG ENTERIC TABLET PO (08:02)
[2022-09-15] MEDS: CYANOCOBALAMIN 1,000 MCG TABLET 1000 MCG PO (08:02)
[2022-09-15] MEDS: PANTOPRAZOLE SODIUM IV 40 MG VIAL IV PUSH (08:03)
[2022-09-15] MEDS: MINERAL OIL/WHITE PETROLATUM OINTMENT 1 APPLIC EACH EYE (08:03)
[2022-09-15] MEDS: FUROSEMIDE INJ 40 MG/4 ML VIAL IV PUSH (08:03)
[2022-09-15] MEDS: ENOXAPARIN 40 MG/0.4 ML SYRINGE SUB-Q (08:03)
[2022-09-15] MEDS: SCOPOLAMINE 1.5 MG PATCH TRANSDERM (08:14)
[2022-09-15] MEDS: BUDESONIDE RESPULE NEB 0.5 MG/2 ML AMP INHALATION (08:56)
--- NOTE | 2022-09-15 09:21 | WPDINTPN ---
Progress Note: A&P Assessment and Plan (1) Acute respiratory failure: Code(s): J96.00 - Acute respiratory failure, unspecified whether with hypoxia or hypercapnia Status: Acute Assessment and Plan: Acute Respiratory failure which appears to be multifactorial. Patient on presentation was tested positive for COVID-19 (08/27) although his chest x-ray was clear at that time and he was not hypoxic. he also received IV fluids and may have developed pulmonary edema and may have developed aspiration pneumonia considering patient's mental status 09/01 patient was placed on BiPAP 14/7 60% and transferred to ICU. FiO2 was weaned off to 40%. He deteriorated overnight and was intubated on 09/01 CRP 26.3 and ESR 65 procalcitonin 2.1 BNP 2140 echocardiogram shows EF of 30-35% 09/[address] IMPRESSION: 1. Diffuse lung disease, consistent with pulmonary edema and/or pneumonia. 2. Small pleural effusions. 3. Small pericardial effusion. -09/11 CT chest : Diffuse ground glass and airspace opacities throughout the lungs with a mid and lower lung zone predominance, consistent with COVID -19 pneumonia, with much improvement as compared to the CT chest done on 09/02/2022. -Completed a course of Zosyn and vancomycin -completed a course of dexamethasone. patient was not started remdesivir as patient appears to be out of beneficial time frame. patient is in isolation Discussed with Dr. Chandra, no indication for steroids at this time -precedex discontinued -continue propofol-currently well on hold for sedation holiday -09/10 repeat blood cultures , preliminary cultures are negative -09/11 sputum cultures growing Citrobacter -MRSA screen is negative -09/11: Patient restarted on antibiotics - imipenem and vancomycin. Continue imipenem but discontinue vancomycin -most recent ABG reviewed -Continue tidal volume to 400 -continue Lasix today - 09/14 patient was placed on PSV trial and tolerated only for some time and then became tachypneic with increased respiratory rate and low tidal volume. Patient was agitated and was not following commands. He was placed back on CMV and re sedated with propofol -weaning from mechanical ventilation has been unsuccessful as patient is not able to tolerate a weaning trial. He will need tracheostomy and PEG tube placement if family desires to continue mechanical ventilation support. Patient off sedation patient gets agitated and asynchronous with the ventilator. Will try sedation holiday pressure support ventilation again today. If patient tolerates (2) COVID: Code(s): U07.1 - COVID-19 Status: Acute Assessment and Plan: see above (3) Pneumonia: Code(s): J18.9 - Pneumonia, unspecified organism Status: Acute Assessment and Plan: see above (4) Congestive heart failure: Code(s): I50.9 - Heart failure, unspecified Status: Acute Assessment and Plan: echocardiogram Summary ? 1. Complete two-dimensional, color flow and Doppler transthoracic echocardiogram is performed. ? 2. Left ventricular chamber dimension is moderately enlarged. ? 3. Left ventricular systolic function is moderately globally reduced, estimated at 35-40%. ? 4. The left ventricular diastolic function is grade I diastolic dysfunction. ? 5. E/e' 16 is elevated. ? 6. Global longitudinal strain is abnormal at -10.3%. ? 7. Left atrial chamber dimension is mildly enlarged. ? 8. Right atrial chamber dimension is moderately enlarged. ? 9. There is moderate aortic valve sclerosis. ? 10. The mitral valve has moderately calcified annulus. ? 11. There is moderate mitral valve regurgitation. ? 12. There is moderate tricuspid valve regurgitation. ? 13. Moderate pulmonary hypertension, estimated pulmonary arterial systolic pressure is 51 mmHg. ? 14. There is mild pulmonic regurgitation. ? 15. Dilated inferior vena cava with <50% collapse upon inspiration consistent with significantly elevated r
[2022-09-15 10:41] LABS: Glucose Point of Care 198 mg/dl (65-105)
[2022-09-15] MEDS: LORazepam INJ (*CRX) 2 MG/ML VIAL IV PUSH (10:52)
[2022-09-15] MEDS: MORPHINE SULFATE INJ (*CRX) 10 MG/ML AMP 5 MG IV PUSH (10:52)
--- NOTE | 2022-09-15 11:34 | PCFNICU ---
ICU Rounding Note: Pt current nutrition is NPO. Last recorded weight is 92.4 kg. Bowel Motility: +BM reported 09/15 Labs Reviewed:Glu 168, BUN 30, Cr 0.5,Alb 2.7,Hct 36.2,Hgb 11.0 Skin: WNL Additional Notes: Patient as been extubated and on comfort measures. No further nutritional interventions needed. Following daily in ICU rounds.
[2022-09-15] MEDS: MORPHINE SULFATE (*CRX) 4 MG/ML INJ IV PUSH (14:46)
--- NOTE | 2022-09-15 18:48 | PC.NURSE ---
This patient, Liam Oreilly, was transferred to [facility] on 09/15/22 at 1848. Personal belongings sent with patient. Report given to Eva. Appropriate documentation sent with patient.
--- NOTE | 2022-09-15 19:13 | PM.IMPN ---
Progress Note: A&P Assessment and Plan (1) Acute respiratory failure: Code(s): J96.00 - Acute respiratory failure, unspecified whether with hypoxia or hypercapnia Status: Acute (2) COVID: Code(s): U07.1 - COVID-19 Status: Acute (3) Pneumonia: Code(s): J18.9 - Pneumonia, unspecified organism Status: Acute (4) Congestive heart failure: Code(s): I50.9 - Heart failure, unspecified Status: Acute (5) Rhabdomyolysis: Code(s): M62.82 - Rhabdomyolysis Status: Acute (6) Type 2 diabetes mellitus without complications: Qualifiers: Diabetes mellitus senior living insulin use: without terminal operator use Qualified Code(s): E11.9 - Type 2 diabetes mellitus without complications Code(s): E11.9 - Type 2 diabetes mellitus without complications Status: Acute (7) Electrolyte abnormality: Code(s): E87.8 - Other disorders of electrolyte and fluid balance, not elsewhere classified Status: Acute (8) Thrush: Code(s): B37.0 - Candidal stomatitis Status: Acute (9) Encephalopathy: Code(s): G93.40 - Encephalopathy, unspecified Status: Acute Plan Family was at bedside this morning. Survey Technician discussed options with the family including tracheostomy and PEG placement verses comfort measures. Family decided to proceed with comfort measures. Patient was extubated. Continue comfort measures. He has morphine and Ativan available as needed. Hospice consult. Subjective Date/time seen: 09/15/22 19:13 Interval history: 77yo male with BPH, diastolic dysfunction, depression, HTN, DM and HLD here for weakness and falls. Patietn extubated. He arouses but unable to provide hx. Review of Systems Review of Systems: ROS unobtainable: Yes unobtainable due to medical condition Exam Narrative: Tm 100.1 99.2 141/76 82 16 88% MV Gen - NARD Chest - coarse BS CV - irregular Abd - Soft - Medley secured draining clear yellow urine. Ext - No pedal edema Neuro - unresponsive Skin - Warm and dry. Objective Data Vital Signs Vital Signs: Vital Signs - 24 hr 09/14/22 20:12 09/14/22 20:12 09/14/22 21:09 Temperature Pulse Rate 71 69 73 Respiratory Rate 18 19 Blood Pressure Pulse Oximetry 98 Oxygen Delivery Mechanical Ventilation Fraction of Inspired Oxygen 30 09/14/22 21:25 09/14/22 20:00 09/14/22 20:00 Temperature 99.1 F Pulse Rate 75 71 Respiratory Rate 24 H 22 H Blood Pressure 129/72 Pulse Oximetry 95 Oxygen Delivery Fraction of Inspired Oxygen 30 09/14/22 20:00 09/14/22 22:00 09/14/22 20:00 Temperature 99.1 F Pulse Rate 75 66 67 Respiratory Rate 24 H 17 Blood Pressure 121/66 Pulse Oximetry 98 97 Oxygen Delivery Mechanical Ventilation Fraction of Inspired Oxygen 30 09/14/22 22:00 09/14/22 23:59 09/15/22 00:00 Temperature Pulse Rate 64 64 Respiratory Rate 17 Blood Pressure Pulse Oximetry 97 Oxygen Delivery Mechanical Ventilation Fraction of Inspired Oxygen 30 30 09/15/22 00:00 09/15/22 00:00 09/14/22 23:30 Temperature 99.3 F Pulse Rate 71 68 70 Respiratory Rate 21 H Blood Pressure 134/76 Pulse Oximetry 99 99 Oxygen Delivery Mechanical Ventilation Fraction of Inspired Oxygen 30 09/15/22 01:24 09/15/22 01:24 09/15/22 02:23 Temperature Pulse Rate 71 71 68 Respiratory Rate 22 H 22 H Blood Pressure Pulse Oximetry 98 Oxygen Delivery Mechanical Ventilation Fraction of Inspired Oxygen 30 09/15/22 02:00 09/15/22 02:00 09/15/22 04:00 Temperature 99 F 98.7 F Pulse Rate 65 65 75 Respiratory Rate 18 21 H Blood Pressure 119/70 135/76 Pulse Oximetry 98 98 Oxygen Delivery Fraction of Inspired Oxygen 09/15/22 04:00 09/15/22 04:00 09/15/22 04:00 Temperature Pulse Rate 75 70 Respiratory Rate 21 H Blood Pressure Pulse Oximetry 98 Oxygen Delivery Mechanical Ventilation
[2022-09-16] MEDS: MORPHINE SULFATE (*CRX) 4 MG/ML INJ IV PUSH ×4 (00:33→09:45)
[2022-09-16] MEDS: CENTRAL LINE FLUSH 10 ML IV PUSH ×3 (00:42→08:16)
[2022-09-16] MEDS: LORazepam INJ (*CRX) 2 MG/ML VIAL IV PUSH ×3 (01:04→08:15)
[2022-09-16] MEDS: MINERAL OIL/WHITE PETROLATUM OINTMENT 1 APPLIC EACH EYE ×2 (01:33→08:16)
[2022-09-16] MEDS: GLYCOPYRROLATE INJ (*SP) 0.2 MG/ML VIAL (08:16)
--- NOTE | 2022-09-16 09:08 | PC.NURSE ---
Pt's son called wanting an update on pt's status. I answered his questions. Pt's son, David, stated that he spoke with his mother and they have decided to place pt on hospice with [facility].
--- NOTE | 2022-09-16 12:16 | PM.DS ---
DS: Admitting Diagnosis Discharge Date 09/16/22 Admitting Diagnosis Confusion DS: Discharge Diagnosis Discharge Diagnosis (1) Acute respiratory failure: Code(s): J96.00 - Acute respiratory failure, unspecified whether with hypoxia or hypercapnia Status: Acute (2) COVID: Code(s): U07.1 - COVID-19 Status: Acute (3) Pneumonia: Code(s): J18.9 - Pneumonia, unspecified organism Status: Acute (4) Congestive heart failure: Code(s): I50.9 - Heart failure, unspecified Status: Acute (5) Rhabdomyolysis: Code(s): M62.82 - Rhabdomyolysis Status: Acute (6) Type 2 diabetes mellitus without complications: Qualifiers: Diabetes mellitus equipment operator intermodal yard insulin use: without [facility] use Qualified Code(s): E11.9 - Type 2 diabetes mellitus without complications Code(s): E11.9 - Type 2 diabetes mellitus without complications Status: Acute (7) Electrolyte abnormality: Code(s): E87.8 - Other disorders of electrolyte and fluid balance, not elsewhere classified Status: Acute (8) Thrush: Code(s): B37.0 - Candidal stomatitis Status: Acute (9) Encephalopathy: Code(s): G93.40 - Encephalopathy, unspecified Status: Acute DS: Summary Hospital Course Reason for hospitalization: 77yo male with BPH, diastolic dysfunction, depression, HTN, DM and HLD here for weakness and falls. Please see H&P for details. Hospital Course: Patient was initially admitted for weakness and falls. MRI of the brain showed atrophy, ischemic changes and dilated ventricles. Concern for NPH spot high-volume LP was done on 08/30/2022. There is no concern for infection. Patient was noted to have orthostatic hypotension which was contributing to his falls. Patient was found to have COVID diagnosed on 08/27/2022. Chest x-ray did show right upper lobe and bilateral lower lobe airspace disease. He did develop acute respiratory hypoxic failure requiring BiPAP and ultimately intubation. There was concern that the he may have acute systolic and diastolic CHF. His EF was 35-40% with grade 1 diastolic dysfunction. The EF was lower this admission than from prior echo year ago. He was given intermittent doses of Lasix. Cardiology, Pulmonary and Intensive Care providers were involved in his care. CT of the chest on 03/26 showed diffuse ground-glass airspace opacities throughout the lung consistent with COVID. He was treated with dexamethasone. His condition did not significantly improved. Blood Typer discussed options with the family including tracheostomy and PEG placement verses comfort measures. Family decided to proceed with comfort measures. Patient was extubated and moved to the medical floor for comfort measures. He is being discharged to hospice care today. Status at Discharge Cognitive/behavioral status at discharge: Terminal Time Spent with Patient Time attestation: Total time spent providing and/or coordinating discharge services: 34 minutes Time spent: Greater than 30 minutes Exam Narrative: AF 98.8 146/68 107 28 91% ra Gen - NARD Chest - coarse BS CV - S1/S2 Abd - Soft - Medley secured draining clear yellow urine. Ext - No pedal edema Neuro - unresponsive Skin - Warm and dry. DS: Data Data Completed and Pending Completed studies during hospitalization: Pending at discharge 08/30/22 08:51 Cytology [PTH] Routine Discharge Plan Discharge Attending physician on discharge: Sander Albert Consulting providers: Varun Cintron ; Luis Enrique Wilburn ; Michael Quintero ; Neena Nuñez Discharging Clinician: Sander Albert Anticipated Discharge Date/Time: 09/16/22 12:22 Patient Disposition: Hospice - Medical Facility Activity: as tolerated Diet: as tolerated Patient Instructions: Piperacillin/Tazobactam (By injection), Vancomycin (By injection), Pain Management (DC), Fall Prevention for Older Adult
== END 2022-09-16 12:30 | disposition hospice, inpatient (51) | DRG 207 ==
LOC: ANHED 17:13 → ANH3MEDSUR 17:51 → ANHICU 09-01 07:12 → ANH3MEDSUR 09-15 18:21
PROVIDERS: Internal Medicine; Nurse Practitioner; Physician Assistant; Admitting Provider Student in an Organized Health Care Education/Training Program; Emergency Provider Emergency Medicine; PCP Internal Medicine; Visit Provider Internal Medicine
DX: U07.1 COVID-19 (principal); I50.41 Acute combined systolic (congestive) and diastolic (congestive) heart failure; J18.9 Pneumonia, unspecified organism; J96.01 Acute respiratory failure with hypoxia; J12.82 Pneumonia due to coronavirus disease 2019; J69.0 Pneumonitis due to inhalation of food and vomit; J15.9 Unspecified bacterial pneumonia; G92.8 Other toxic encephalopathy; M62.82 Rhabdomyolysis; G93.40 Encephalopathy, unspecified; I47.1 Supraventricular tachycardia; E87.0 Hyperosmolality and hypernatremia; B37.0 Candidal stomatitis; I11.0 Hypertensive heart disease with heart failure; I50.9 Heart failure, unspecified; N40.0 Benign prostatic hyperplasia without lower urinary tract symptoms; E11.42 Type 2 diabetes mellitus with diabetic polyneuropathy; R39.15 Urgency of urination; S00.01XA Abrasion of scalp, initial encounter; S50.311A Abrasion of right elbow, initial encounter; S80.211A Abrasion, right knee, initial encounter; W19.XXXA Unspecified fall, initial encounter; E87.6 Hypokalemia; F41.8 Other specified anxiety disorders; M19.90 Unspecified osteoarthritis, unspecified site; K21.9 Gastro-esophageal reflux disease without esophagitis; R41.0 Disorientation, unspecified; E29.1 Testicular hypofunction; I35.8 Other nonrheumatic aortic valve disorders; M79.604 Pain in right leg; E11.43 Type 2 diabetes mellitus with diabetic autonomic (poly)neuropathy; I95.1 Orthostatic hypotension; W06.XXXA Fall from bed, initial encounter; E78.2 Mixed hyperlipidemia; H91.93 Unspecified hearing loss, bilateral; R29.6 Repeated falls; Z79.82 Long term (current) use of aspirin; Z87.442 Personal history of urinary calculi; Z98.49 Cataract extraction status, unspecified eye; Z87.891 Personal history of nicotine dependence; Z66 Do not resuscitate; Z51.5 Encounter for palliative care
CPT/HCPCS: 31500; 36415; 36569; 36600; 62328; 70360; 70450; 70551; 71045; 71046; 71250; 72125; 73552; 80048; 80053; 80061; 80076; 80202; 81001; 82375; 82550; 82607; 82746; 82805; 82945; 82948; 83036; 83050; 83605; 83615; 83690; 83735; 83880; 84100; 84145; 84157; 84443; 84478; 84484; 85025; 85027; 85055; 85610; 85652; 85730; 86140; 86592; 87040; 87070; 87077; 87081; 87086; 87186; 87205; 87637; 88108; 89051; 93005; 93306; 93880; 93970; 94002; 94003; 94640; 95816; 97161; 97165; 97530; 99285; A9270; C1751; C9113; J0131; J0360; J0612; J0743; J1100; J1630; J1650; J1815; J1940; J2060; J2250; J2270; J2543; J2704; J2920; J3010; J3370; J3480; J7030; J7040; J7060; P9047

== ENCOUNTER 2022-09-16 12:31 | HOS | payer OTHER, MEDICARE, SELFPAY ==
[2022-09-16 13:00] VITALS: BP 150/65; PULSE 121; RESP 30; TEMP 36.4; O2SAT 74
[2022-09-16 13:39] VITALS: BMI 25.2
--- NOTE | 2022-09-16 14:00 | PM.IMHP ---
H&P: HPI History of Present Illness Date/Time: 09/16/22 14:00 Chief Complaint: unresponsive, respiratory failure Narrative: THis is a 77 yo male who presented to the ER after a fall on August 27. While there he tested positive for Covid, and then deteriorated requiring intubation. Taken from Dr Albert's DC summary 09/16/2022: 77yo male with BPH, diastolic dysfunction, depression, HTN, DM and HLD here for weakness and falls. Please see H&P for details. Hospital Course: Patient was initially admitted for weakness and falls.? MRI of the brain showed atrophy, ischemic changes and dilated ventricles.? Concern for NPH spot high-volume LP was done on 08/30/2022.? There is no concern for infection.? Patient was noted to have orthostatic hypotension which was contributing to his falls.? Patient was found to have COVID diagnosed on 08/27/2022.? Chest x-ray did show right upper lobe and bilateral lower lobe airspace disease.? He did develop acute respiratory hypoxic failure requiring BiPAP and ultimately intubation.? There was concern that the he may have acute systolic and diastolic CHF.? His EF was 35-40% with grade 1 diastolic dysfunction.? The EF was lower this admission than from prior echo year ago.? He was given intermittent doses of Lasix.? Cardiology, Pulmonary and Intensive Care providers were involved in his care.? CT of the chest on 09/11 showed diffuse ground-glass airspace opacities throughout the lung consistent with COVID.? He was treated with dexamethasone.? His condition did not significantly improved. Braze Operator discussed options with the family including tracheostomy and PEG placement verses comfort measures.? Family decided to proceed with comfort measures.? Patient was extubated and moved to the medical floor for comfort measures.? He is being discharged to hospice care today. Review of Systems Review of Systems: unresposive [facility] Past Medical History Medical History (Updated 09/16/22 @ 14:45 by Phyllis Arita DO) Abnormality of heart beat Actinic keratosis Anxiety with depression Aortic valve sclerosis Arthritis Basal pneumonia of both lungs BMI 27.0-27.9,adult BMI 28.0-28.9,adult BMI 29.0-29.9,adult BMI 30.0-30.9,adult BMI 31.0-31.9,adult Borderline abnormal TFTs BPH (benign prostatic hyperplasia) Callus of foot Chronic right hip pain Colon cancer screening Constipation Depression Diastolic dysfunction Dizziness Dyslipidemia Ectopic atrial beats Elevated glucose Elevated homocysteine Elevated TSH Encephalopathy Encounter for Medicare annual wellness exam Encounter for routine adult health examination without abnormal findings Essential (primary) hypertension Follow up GERD (gastroesophageal reflux disease) Hearing loss Heart murmur Hematoma of right hip Hematuria History of kidney stones History of umbilical hernia Hypogonadism in male Inclusion cyst Insomnia Mixed hyperlipidemia Multiple falls Neck mass Nocturia On rn long term care drug therapy On rn long term care drug therapy Onychomycosis Orthostatic hypotension Pneumonia Prediabetes Prostate cancer screening Right foot pain Sciatica of right side Seasonal allergies Sinus arrhythmia Stress Stress due to illness of family member SVT (supraventricular tachycardia) Tenosynovitis of finger Testicular hypofunction Testosterone deficiency Tremor of both hands Type 2 diabetes mellitus without complication Type 2 diabetes mellitus without complications Unintended weight loss Urinary frequency Urinary urgency Vitamin B12 deficiency Vitamin D deficiency Weight loss Surgical History Surgical History H/O cataract extraction H/O umbilical hernia repair Status post tonsillectomy and adenoidectomy Family History Family History Mother Family history of cardiovascular disease Diabetes mellitus Family history of diabetes mellitus in first degree relative C
[2022-09-16] MEDS: MORPHINE 50 MG/NS 100ML (*CRX) 50 MG/100 ML BAG IV CONT (14:08)
[2022-09-16] MEDS: GLYCOPYRROLATE INJ (*SP) 0.2 MG/ML VIAL 0.1 MG IV PUSH (14:11)
[2022-09-16] MEDS: MORPHINE SULFATE (*CRX) 2 MG/ML INJ 1 MG IV PUSH (14:11)
[2022-09-16] MEDS: LORazepam INJ (*CRX) 2 MG/ML VIAL 1 MG IV PUSH (14:11)
--- NOTE | 2022-10-11 11:58 | P.DN_ITS ---
Discharge Summary Date and Time Date of : 09/16/22 Time of : 19:00 Provider Pronounced By: Johana Guerra RN Probable Cause of Probable Cause of : respiratory failure secondary to COVID 19 and CHF Summary Hospital Course: THis is a 77 yo male who presented to? the ER after a fall on August 27. While there he tested positive for Covid, and then deteriorated requiring intubation. Taken from Dr Albert's DC summary 09/16/2022: 77yo male with BPH, diastolic dysfunction, depression, HTN, DM and HLD here for weakness and falls. Please see H&P for details. Hospital Course: Patient was initially admitted for weakness and falls.? MRI of the brain showed atrophy, ischemic changes and dilated ventricles.? Concern for NPH spot high- volume LP was done on 08/30/2022.? There is no concern for infection.? Patient was noted to have orthostatic hypotension which was contributing to his falls.? Patient was found to have COVID diagnosed on 08/27/2022.? Chest x-ray did show right upper lobe and bilateral lower lobe airspace disease.? He did develop acute respiratory hypoxic failure requiring BiPAP and ultimately intubation.? There was concern that the he may have acute systolic and diastolic CHF.? His EF was 35-40% with grade 1 diastolic dysfunction.? The EF was lower this admission than from prior echo year ago.? He was given intermittent doses of Lasix.? Cardiology, Pulmonary and Intensive Care providers were involved in his care.? CT of the chest on 09/11 showed diffuse ground-glass airspace opacities throughout the lung consistent with COVID.? He was treated with dexamethasone.? His condition did not significantly improved. Docket Specialist discussed options with the family including tracheostomy and PEG placement verses comfort measures.? Family decided to proceed with comfort measures.? Patient was extubated and moved to the medical floor for comfort measures.? He is being discharged to hospice care today. Additional Data Confirmation of as documented by pronouncing clinician: Pupillary Reflex, Palpable Pulses, Response to Stimuli, Heart Tones and Breath Sounds Name of Provider Notified: Dr. Steve Harman - will notified [facility] who is covering him Time Provider Notified: 19:28 Provider Requests Autopsy: No Family Requests Autopsy: No Diesel Crane Operator Notified: Yes Date [facility] Notified of : 09/16/22 Time [facility] Notified of : 19:16
== END 2022-09-16 19:00 | disposition expired | DRG 951 ==
PROVIDERS: Admitting Provider Internal Medicine; PCP Internal Medicine; Visit Provider Internal Medicine Adolescent Medicine
DX: Z51.5 Encounter for palliative care (principal); U07.1 COVID-19; J96.01 Acute respiratory failure with hypoxia; I50.41 Acute combined systolic (congestive) and diastolic (congestive) heart failure; E11.9 Type 2 diabetes mellitus without complications; E78.5 Hyperlipidemia, unspecified; R29.6 Repeated falls; I11.0 Hypertensive heart disease with heart failure; I95.1 Orthostatic hypotension; N40.0 Benign prostatic hyperplasia without lower urinary tract symptoms; Z87.891 Personal history of nicotine dependence
CPT/HCPCS: A9270; J2060; J2270